=== PATIENT | female | born 1940 | race Asian ===

== ENCOUNTER 2016-11-23 15:26 | Inpatient (IN) | payer MEDICARE, OTHER ==
[~2016-11-23] VITALS: Ht 157.5 cm; Wt 50.0 kg
[2016-11-23 16:15] LABS: ADD SCAN DIFF NO
[2016-11-23 16:18] LABS: BASOPHILS % 0.2 % (0.0-2.0); EOSINOPHILS # 0.1 10^3/ul (0.0-0.5); EOSINOPHILS % 0.5 % (0.0-7.0); HEMATOCRIT 35.5 % (37.0-47.0); HEMOGLOBIN 12.1 g/dl (12.0-16.0); LYMPHOCYTES # 1.3 10^3/ul (0.8-2.9); LYMPHOCYTES % 8.7 % (15.0-51.0); MEAN CORPUSCULAR HEMOGLOBIN 29.9 pg (29.0-33.0); MEAN CORPUSCULAR HGB CONC 34.1 g/dl (32.0-37.0); MEAN CORPUSCULAR VOLUME 87.7 fl (82.0-101.0); MEAN PLATELET VOLUME 10.5 fl (7.4-10.4); MONOCYTE # 1.3 10^3/ul (0.3-0.9); MONOCYTES % 8.3 % (0.0-11.0); NEUTROPHIL # 12.3 10^3/ul (1.6-7.5); NEUTROPHILS % 81.8 % (39.0-77.0); PLATELET COUNT 214 10^3/UL (140-415); RED BLOOD COUNT 4.05 10^6/ul (4.20-5.40); RED CELL DISTRIBUTION WIDTH 12.3 % (11.5-14.5)
[2016-11-23 16:35] LABS: INR 0.9; PROTIME 12.1 Sec (12.2-14.2); PT RATIO 0.9
[2016-11-23 16:36] LABS: PARTIAL THROMBOPLASTIN TIME 27.3 Sec (25.0-35.0)
[2016-11-23 16:38] LABS: ALBUMIN 4.7 g/dl (3.3-4.9); ALBUMIN/GLOBULIN RATIO 1.34; BILIRUBIN,INDIRECT 0.6 mg/dl (0-1.1); BILIRUBIN,TOTAL 0.6 mg/dl (0.2-1.3); CREATININE 1.27 mg/dl (0.44-1.00); POTASSIUM 4.6 mmol/L (3.5-5.1); TOTAL PROTEIN 8.2 g/dl (6.1-8.1)
--- NOTE | 2016-11-23 16:39 | ERA ---
ER Documentation Chief Complaint Date/Time DATE: 11/23/16 TIME: 16:26 Chief Complaint left side weakness onset yesterday , has mri dx infarct HPI 76-year-old female Swedish speaking with a history of diabetes, hypertension presenting to the ER with her family for an abnormal MRI done today. She went to see her primary care doctor today for abnormal facial movement that started about 2 days ago. They have been constant but getting better and worse intermittently. She has also subjective left-sided weakness and a mild headache that has been worsening since 2 days ago. Her doctor ordered the MRI today which was done at an outside facility which showed findings compatible with multiple foci of acute infarct at the right cerebral hemisphere involving right MCA distribution with cortical laminar necrosis. 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 There is also acute ischemia in the left FELIPA distribution. There was partial occlusion of the right internal carotid artery as well. Patient is on aspirin daily. She does not take any other blood thinners. She has no new symptoms today and in fact she feels a little better today. No head injury. No vision disturbance. No numbness or tingling. No nausea or vomiting. She denies any chest pain or shortness of breath. ROS All systems reviewed and are negative except as per history of present illness. Medications Home Meds Reported Medications Diltiazem Hcl* (Cartia XT*) 240 Mg Cap.sr.24h, 240 MG PO DAILY, #30 CAP 11/23/16 Ramipril (Ramipril) 10 Mg Capsule, 10 MG PO DAILY, CAP 11/23/16 Tobramycin-Dexamethasone (Tobramycin-Dexamethasone Ophth) 0.3%-0.1% - 5 Ml Drops.susp, 1 DROP BOTH EYES Q4, #1 EA 11/23/16 Dexlansoprazole (Dexilant) 60 Mg Dennys.mp, 60 MG PO DAILY, #30 CAP 11/23/16 Sitagliptin* (Januvia*) 100 Mg Tablet, 100 MG PO DAILY, #30 TAB 11/23/16 Pregabalin* (Lyrica*) 50 Mg Capsule, 50 MG PO BID, CAP 11/23/16 Glipizide* (Glipizide*) 10 Mg Tablet, 10 MG PO AC BREAKFAST DINNER, TAB 11/23/16 Insulin Glargine* (Lantus*) 100 Unit/Ml Soln, 17 UNIT SC QHS, #1 VIAL 11/23/16 Discontinued Reported Medications Prednisone* (Prednisone*) 5 Mg Tab, 5 MG PO DAILY, TAB 11/23/16 Allergies Allergies: Coded Allergies: No Known Allergy (Unverified , 11/23/16) PMhx/Soc Medical and Surgical Hx: pt denies Surgical Hx History of Surgery: No Anesthesia Reaction: No Hx Neurological Disorder: No Hx Respiratory Disorders: No Hx Cardiac Disorders: No Hx Psychiatric Problems: No Hx Miscellaneous Medical Probl: Yes (DM, HTN) Hx Alcohol Use: No Hx Substance Use: No Hx Tobacco Use: No Smoking Status: Never smoker FmHx Family History: No coronary disease Physical Exam Vitals Vital Signs Date Time Temp Pulse Resp B/P Pulse Ox O2 Delivery O2 Flow Rate FiO2 11/23/16 18:00 98.1 82 18 176/78 99 11/23/16 15:33 98.1 78 20 200/86 99 Physical Exam Const: Well-appearing, laying comfortably in bed, no distress Head: Atraumatic Eyes: Normal Conjunctiva, right pupil constricted, not reactive to light. Left pupil about 3 mm, not reactive to light. Patient has history of bilateral eye surgeries. ENT: Normal External Ears, Nose and Mouth. Neck: Full range of motion..~ No meningismus. No JVD Resp: Clear to auscultation bilaterally Cardio: Regular rate and rhythm, early systolic murmur present, best heard at left upper sternal border. 2+ distal pulses in all 4 extremities Abd: Soft, non tender, non distended. Normal bowel sounds Skin: No petechiae or rashes Back: No midline or flank tenderness Ext: No cyanosis, or edema Neur: Awake and alert and oriented 3, normal speech, left facial droop present, mild deviation of the tongue to the left, all other cranial nerves intact. Strength and sensations intact in all 4 extremities. Psych: Normal Mood and Affect Result Diagram: 11/23/16 1610 11/23/16 1610 Results 24 hrs Laboratory Tests Test 11/23/16 16:10 11/23/16 17:45 White Blood Count 15.010^3/ul Red Blood Count 4.0510^6/ul Hemoglobin 12.1g/dl Hematocrit 35.5% Mean Corpuscular Volume 87.7fl Mean Corpuscular Hemoglobin 29.9pg Mean Corpuscular Hemoglobin Concent 34.1g/dl Red Cell Distribution Width 12.3% Platelet Count 01672^3/UL Mean Platelet Volume 10.5fl Neutrophils % 81.8% Lymphocytes % 8.7% Monocytes % 8.3% Eosinophils % 0.5% Basophils % 0.2% Nucleated Red Blood Cells % 0.0/100WBC Neutrophils # 12.310^3/ul Lymphocytes # 1.310^3/ul Monocytes # 1.310^3/ul Eosinophils # 0.110^3/ul Basophils # 0.010^3/ul Nucleated Red Blood Cells # 0.010^3/ul Prothrombin Time 12.1Sec Prothrombin Time Ratio 0.9 INR International Normalized Ratio 0.90 Activated Partial Thromboplast Time 27.3Sec Sodium Level 132mmol/L Potassium Level 4.6mmol/L Chloride Level 96mmol/L Carbon Dioxide Level 28mmol/L Anion Gap 13 Blood Urea Nitrogen 20mg/dl Creatinine 1.27mg/dl Glucose Level 257mg/dl Hemoglobin A1c 9.6% Calcium Level 10.0mg/dl Total Bilirubin 0.6mg/dl Direct Bilirubin 0.00mg/dl Indirect Bilirubin 0.6mg/dl Aspartate Amino Transf (AST/SGOT) 27IU/L Alanine Aminotransferase (ALT/SGPT) 33IU/L Alkaline Phosphatase 107IU/L Troponin I 0.056ng/ml Total Protein 8.2g/dl Albumin 4.7g/dl Globulin 3.50g/dl Albumin/Globulin Ratio 1.34 Urine Color LT. YELLOW Urine Clarity CLEAR Urine pH 7.0 Urine Specific [place] 1.020 Urine Ketones NEGATIVE Urine Nitrite NEGATIVE Urine Bilirubin NEGATIVE Urine Urobilinogen 1.0 E.U./dL Urine Leukocyte Esterase NEGATIVE Urine Microscopic RBC 0-2/HPF Urine Microscopic WBC 0-2/HPF Urine Squamous Epithelial Cells FEW Urine Hemoglobin NEGATIVE Urine Glucose >=1000% Urine Total Protein 2+ Urine Opiates Screen Negative Urine Barbiturates Negative Urine Amphetamines Screen Negative Urine Benzodiazepines Screen Negative Urine Cocaine Screen Negative Urine Cannabinoids Negative Current Medications Medications (Trade) Dose Ordered Sig/Tricia Route PRN Reason Start Time Stop Time Status Last Admin Dose Admin IV Flush 10 ml 10 ml STK-MED ONCE .ROUTE 11/23/16 17:14 11/23/16 17:15 DC 11/23/16 17:40 Sodium Chloride (NS) 100 ml @ ud STK-MED ONCE .ROUTE 11/23/16 17:14 11/23/16 17:15 DC 11/23/16 17:41 Iodixanol (Visipaque Locm) 100 ml STK-MED ONCE .ROUTE 11/23/16 17:14 11/23/16 17:15 DC 11/23/16 17:40 Iodixanol (Visipaque Locm) 50 ml STK-MED ONCE .ROUTE 11/23/16 17:14 11/23/16 17:15 DC Ondansetron HCl (Zofran Inj) 4 mg ER BRIDGE PRN IV NAUSEA AND/OR VOMITING 11/23/16 20:00 11/24/16 19:59 Acetaminophen (Tylenol Tab) 650 mg ER BRIDGE PRN PO MILD PAIN/FEVER 11/23/16 20:00 11/24/16 19:59 Procedures/MDM EKG: Rate/Rhythm: Normal Sinus Rhythm QRS, ST, T-waves: There is ST elevation in V1 through V4, about 2 small boxes with upsloping at the J point and with Q waves in V2 through V3.. There are also T-wave inversions in V6, I, aVL, and the inferior leads Impression: Concerning for possible ischemia, does not appear to be a STEMI Chest x-ray: IMPRESSION: 1. No acute cardiopulmonary process. 2. Atherosclerosis. RPTAT:PP .Leonardo Jackson MD, MD Date Time Electronically viewed and signed by .Leonardo Jackson MD, on 11/23/2016 16:47 CTA brain and neck: IMPRESSION: 1. Right internal carotid artery occlusion with cross filling of the right middle cerebral artery from the left side but asymmetric attenuation of the right middle cerebral artery branches corresponding with an ischemic right middle cerebral artery distribution infarct. 2. Results are discussed by telephone with Dr. Prabhakar at 18:27. Additional history is provided but the patient had a recent outpatient MRI showing additional abnormalities in the left anterior cerebral and right posterior cerebral artery distributions however there are no corresponding findings on this examination. Physician Carter Date Time Electronically viewed and signed by Physician Carter on 11/23/2016 18:35 IMPRESSION: 1. 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 2. Atheromatous disease contributing to an approximately 50-60% left proximal internal carotid artery stenosis. 3. Right vertebral artery dominant with a diminutive left vertebral artery but no evidence of occlusion, dissection or focal stenosis. 4. Results are discussed by telephone with Dr. Prabhakar at 18:27 Physician Carter Date Time Electronically viewed and signed by Physician Carter on 11/23/2016 18:27 Labs: CBC shows leukocytosis, BMP shows elevated creatinine, hemoglobin A1c elevated MDM Patient is presenting with an acute stroke in multiple distributions on the MRI report. Patient's symptoms started over 48 hours ago, so she does not meet TPA criteria. The patient brought her imaging with her on the CT, however I am not able to uploaded to our PACS system as there is no tech that can do this here. She will require inpatient workup and continuous monitoring. I spoke with the tele-neurologist on-call, Dr. High, who recommended CTA of the brain and neck but agreed with no TPA. She is likely having embolic versus ischemic strokes. Patient's EKG showed evidence of possible ischemia, however the patient does not have any cardiopulmonary symptoms that would be concerning for ACS. Troponin was within normal limits. CTA of the drain and neck showed complete occlusion of the right internal carotid and right MCA disease. Further w/u for will be deferred to the inpatient team. Patient is doing well at this time and is stable neurologically. Aspirin was given. Neuro Critical Care: Critical Care Time: 45 minutes Treatments/Evaluations: Given the language barrier, I spent a lot of time with the patient with a pedicab driver obtaining history and doing an exam. Continuous neurologic and cardiovascular monitoring for deterioration of neurologic function and complications, while obtaining immediate neurologic imaging. Discussed plan of care with family and patient. TPA Criteria Assessment: Patient is not a TPA candidate because: Last known normal > 48 hours Time Onset Unkown Accepting Care Team: Current data and ongoing care discussed. Time: Time of admission Primary Provider: Pablo Consulting: Lennox Outstanding Data: none Departure Diagnosis: Primary Impression: Acute arterial ischemic stroke, multifocal, multiple vascular territories Condition: Serious JAMIR PRABHAKAR MD Nov 23, 2016 16:37
[2016-11-23] MEDS ORDERED: LANT3I SC (16:45)
[2016-11-23] MEDS ORDERED: GLIP-95 PO (16:46)
[2016-11-23] MEDS ORDERED: PREG50CA PO (16:46)
[2016-11-23] MEDS ORDERED: SITA100T8 PO (16:47)
[2016-11-23] MEDS ORDERED: DEXL60CA2 PO (16:47)
--- NOTE | 2016-11-23 16:47 | RADRPT ---
PROCEDURE: CHEST 1VW CLINICAL INDICATION: Possible stroke TECHNIQUE: Single frontal view of the chest was obtained COMPARISON: None. FINDINGS: The cardiac size is normal. Aortic vascular calcifications are demonstrated. There is no pulmonary vascular congestion. The lungs are clear. No consolidation, effusion, or pneumothorax. Mild degenerative changes of the visualized osseous structures are visualized. IMPRESSION: 1. No acute cardiopulmonary process. 2. Atherosclerosis. RPTAT:PP .Leonardo Jackson MD, MD Date Time Electronically viewed and signed by .Leonardo Jackson MD, on 11/23/2016 16:47 .V/
[2016-11-23 16:48] LABS: TROPONIN-I 0.056 ng/ml (0.00-0.12)
[2016-11-23] MEDS ORDERED: TOBR5DRO14 BOTH EYES (16:49)
[2016-11-23] MEDS ORDERED: PRED5 PO (16:50)
[2016-11-23] MEDS ORDERED: RAMI10CA48 PO (16:51)
[2016-11-23] MEDS ORDERED: DILT240C62 PO (16:51)
[2016-11-23] MEDS ORDERED: IODIXANOL LOCM 100 ML BTL ONE (17:14)
[2016-11-23] MEDS ORDERED: IODIXANOL LOCM 50 ML BTL ONE (17:14)
[2016-11-23] MEDS ORDERED: SOD CHLORIDE 0.9% 100 ML ONE (17:14)
[2016-11-23 17:57] LABS: ADD UMIC YES; UR BILIRUBIN (Dip) NEGATIVE (NEGATIVE); UR BLOOD (Dip) NEGATIVE (NEGATIVE); UR CLARITY CLEAR (CLEAR); UR COLOR LT. YELLOW (YELLOW); UR GLUCOSE (Dip) >=1000 % (NEGATIVE); UR KETONES (Dip) NEGATIVE (NEGATIVE); UR LEUKOCYTE ESTERASE (Dip) NEGATIVE (NEGATIVE); UR NITRITE (Dip) NEGATIVE (NEGATIVE); UR TOTAL PROTEIN (Dip) 2+ (NEGATIVE); UR UROBILINOGEN (Dip) 1.0 E.U./dL (0.1-1.0)
[2016-11-23 18:07] LABS: UR SQUAMOUS EPITHELIAL CELL FEW; URINE RBCS 0-2 /HPF (0)
[2016-11-23 18:21] LABS: BARBITURATES Negative (NEGATIVE); BENZODIAZEPINES Negative (NEGATIVE); CANNABINOIDS Negative (NEGATIVE); COCAINE Negative (NEGATIVE); OPIATES Negative (NEGATIVE)
--- NOTE | 2016-11-23 18:28 | RADRPT ---
PROCEDURE: CTA Neck. CLINICAL INDICATION: Stroke symptoms. TECHNIQUE: The study was performed utilizing direct spiral axial sections were obtained through th e neck with the use of 100 cc of Visipaque 320 nonionic intravenous contrast material. Coronal and sagittal as well as maximal intensity projection reformations were obtained. No 3-D series is submit piyush. The images were reviewed on a PACS workstation. CTDI = 40.68 mGy; DLP = 705.51 mGy-cm COMPARISON: None available FINDINGS: Aortic arch: Moderate to severe atherosclerotic calcification is present. There is no evidence of aneurysm or dissection. Moderate to severe calcified atheromatous disease is seen within the origin s of the great vessels without significant stenosis. Right carotid system: Mild intimal thickening and focal atherosclerotic calcification along the mid posterior wall of the common carotid artery is present a less than 50% degree stenosis. The carot id bifurcation demonstrates severe atherosclerotic calcification and noncalcified atheromatous billingsley es. No enhancement of the internal carotid artery is identified from the origin to the terminus. Fi ndings are compatible with complete occlusion of the right internal carotid artery. Left carotid system: Moderate intimal thickening atheromatous disease is present without evidence of significant stenosis. No irregularity of the wall is present. Severe calcified atheromatous disea se at the bifurcation is seen. Moderate to severe calcified and noncalcified atheromatous changes o f the proximal internal carotid artery are present contributing to a stenosis estimated at 50-60% th e luminal diameter. No additional stenosis of the remaining cervical internal carotid artery are see n. There is some calcification within the posterior wall of the distal cervical internal carotid ar joe segment. Right vertebral artery: The origin demonstrates calcified atheromatous disease without stenosis. T here is no evidence for occlusion and the artery is dominant compared with the contralateral side. There is no finding to suggest dissection or stenosis. Left vertebral artery: The origin is normal without stenosis. Diffusely diminutive in size compared to the prior examination with enhancement seen to the termination intracranially. There is no find ing to suggest dissection or stenosis. Non vascular findings: Tiny hypodense thyroid nodules are incidentally seen. RPTAT:HJJR IMPRESSION: 1. 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 2. Atheromatous disease contributing to an approximately 50-60% left proximal internal carotid arter y stenosis. 3. Right vertebral artery dominant with a diminutive left vertebral artery but no evidence of occlu roly, dissection or focal stenosis. 4. Results are discussed by telephone with Dr. Prabhakar at 18:27 Waqas Reese Physician Date Time Electronically viewed and signed by Waqas Reese, Physician on 11/23/2016 18:27 JR/
--- NOTE | 2016-11-23 18:35 | RADRPT ---
PROCEDURE: CT angiogram brain. CLINICAL INDICATION: Stroke symptoms TECHNIQUE: The study was performed utilizing a GE 64-slice multidetector CT scanner. 0.6 axial se ctions were obtained from the skull base to the vertex with the use of 100 cc of Visipaque 320 intra venous contrast. Multiplanar and rotational MIP reformats were obtained. 3-D reconstructions were n ot obtained. CTDIvol = 40.68 mGy and DLP = 705.51 mGycm. COMPARISON: CT angiogram neck 11/23/2016 FINDINGS: Internal carotid arteries: Lack of enhancement on the right is present to the terminus consistent w ith complete occlusion. The left side shows mild to moderate stenosis of approximately 40-50% in th e cavernous segment. Anterior cerebral arteries: There is no evidence of anterior communicating artery aneurysm and the A2 segments are symmetric without evidence of occlusion or significant stenosis. Middle cerebral arteries: Asymmetric attenuation of the right M2 branches is present, cross filling of the right side from the left internal carotid artery is noted with some asymmetric attenuation o f the right M1 segment as well. The left branches are unremarkable. The abnormality is likely thiago elate clinically with the right middle cerebral artery distribution infarct, some hypodensity on the CT within the right parietal lobe is noted with loss of hutchinson/white matter differentiation between t he right insular cortex and sub insular white matter. Posterior cerebral arteries: Symmetric in caliber and without evidence of occlusion or focal stenos is of significance. Basilar artery: Atheromatous disease is mild without evidence of occlusion, mild stenosis of the mi d segment is suggested estimated at less than 50%. Venous structures: No abnormality of the dural sinuses is identified. Brain parenchyma: Advanced atrophy for age is present with changes in the right temporal and pariet al lobe concerning for ischemic infarct. There is no significant mass effect and no hemorrhage or m ass lesion is present. RPTAT:HJJR IMPRESSION: 1. Right internal carotid artery occlusion with cross filling of the right middle cerebral artery f rom the left side but asymmetric attenuation of the right middle cerebral artery branches correspond ing with an ischemic right middle cerebral artery distribution infarct. 2. Results are discussed by telephone with Dr. Prabhakar at 18:27. Additional history is provided b ut the patient had a recent outpatient MRI showing additional abnormalities in the left anterior cer ebral and right posterior cerebral artery distributions however there are no corresponding findings on this examination. Waqas Reese, Physician Date Time Electronically viewed and signed by Waqas Reese, Physician on 11/23/2016 18:35 /
[2016-11-23] MEDS ORDERED: ACETAMINOPHEN 325 MG TAB PO PRN (20:00)
[2016-11-23] MEDS ORDERED: ONDANSETRON 4 MG INJ IV PRN (20:00)
[2016-11-23] MEDS ORDERED: ASPIRIN 325 MG TAB PO ONE (21:30)
[2016-11-23 21:50] VITALS: TEMP 99.1
[2016-11-23 22:45] VITALS: BP 195/77; RESP 17
[2016-11-23 22:52] VITALS: Ht 157.5 cm; Wt 50.0 kg
[2016-11-23 22:58] VITALS: PULSE 75; PULSE 77
[2016-11-23] MEDS ORDERED: hydrALAzine 20 MG INJ IV PRN (23:30)
[2016-11-24] VITALS (11 sets, daily range): BP systolic 135–196; BP diastolic 61–89; PULSE 66–90; RESP 16–18
--- NOTE | 2016-11-24 00:37 | PQ ---
Date/Time of Note Date/Time of Note DATE: 11/24/16 TIME: 00:36 Physician Query I was called regarding this patient. 76yo F, symptoms began 2 days ago, and patient had MRI today which demonstrates strokes in right MCA and right PROJECT CONTROL MANAGER territories. I agreed that patient is not a TPA candidate or neurointerventional candidate at this time. I advised that patient undergo MRA of the head and neck and transthoracic echocardiogram, but patient should also undergo transesophageal echocardiogram as these MRI findings are suggestive of a cardioembolic source. I recommend aspirin 325mg daily. No further consult was requested. MARYLIN JOHNSON Nov 24, 2016 00:37
[2016-11-24] MEDS ORDERED: GLUCOSE GEL 15 GRAM TUBE PO PRN ×2 (01:00)
[2016-11-24] MEDS ORDERED: DEXTROSE 50% 50 ML SYRINGE IV PRN ×2 (01:00)
[2016-11-24] MEDS ORDERED: GLUCAGON 1 MG INJ IM PRN (01:00)
[2016-11-24] MEDS ORDERED: GLUCOSE GEL 15 GRAM TUBE BUCCAL PRN (01:00)
[2016-11-24] MEDS: ACCU-CHEK XX SCH (02:03)
[2016-11-24 07:23] LABS: ADD SCAN DIFF NO
[2016-11-24 07:28] LABS: BASOPHILS % 0.2 % (0.0-2.0); EOSINOPHILS # 0.1 10^3/ul (0.0-0.5); EOSINOPHILS % 0.8 % (0.0-7.0); HEMATOCRIT 35.4 % (37.0-47.0); LYMPHOCYTES # 1.5 10^3/ul (0.8-2.9); LYMPHOCYTES % 13.9 % (15.0-51.0); MEAN CORPUSCULAR HEMOGLOBIN 30.1 pg (29.0-33.0); MEAN CORPUSCULAR HGB CONC 33.9 g/dl (32.0-37.0); MEAN CORPUSCULAR VOLUME 88.7 fl (82.0-101.0); MEAN PLATELET VOLUME 10.7 fl (7.4-10.4); MONOCYTE # 1.2 10^3/ul (0.3-0.9); MONOCYTES % 10.8 % (0.0-11.0); NEUTROPHIL # 8.1 10^3/ul (1.6-7.5); NEUTROPHILS % 73.8 % (39.0-77.0); PLATELET COUNT 224 10^3/UL (140-415); RED BLOOD COUNT 3.99 10^6/ul (4.20-5.40); RED CELL DISTRIBUTION WIDTH 12.4 % (11.5-14.5)
--- NOTE | 2016-11-24 07:48 | HP ---
DATE OF ADMISSION: 11/23/2016 TIME SEEN: 2200. CHIEF COMPLAINT: Left-sided weakness. HISTORY OF PRESENT ILLNESS: The patient is a 76-year-old male with a history of diabetes and hypert ension who was sent to the ER by his PMD for abnormal brain MRI. The patient had left-sided weaknes s, as well as some facial twitching. MRI done today at an outside facility showed multiple foci of acute infarcts at the right cerebral hemisphere involving the right MCA distribution, with cortical laminar necrosis. There were also some foci which appear subacute, with possible PTCA involvement, and also acute ischemia in the left FELIPA distribution. There was partial occlusion of the right inte rnal carotid artery as well. On presentation to the ER, blood pressure was 200/86, heart rate 78, r espiratory rate 20, temperature 98.1, oxygen saturation 99% on room air. Labs show a sodium of 132, creatinine 1.27, glucose 257. Hemoglobin A1c 9.6, WBC 15. Head and neck CT were done which showed complete occlusion of the right internal carotid artery from the origin to the . Also athero matous disease contributing to an approximately 50% to 60% left proximal internal carotid artery jaclyn nosis. Right vertebral artery dominant, with diminutive left vertebral artery, but no evidence of o cclusion, dissection or focal stenosis. The patient was given aspirin 325 mg orally while in the ER . He was evaluated by the on-call tele-neurologist, , who stated that the patient is not a TPA candidate, with recommendation for MRA of the head and neck, TTE and KASIA. On further questio sathish, the patient complains of chronic lower back and knee pain. No chest pain, shortness of breath , nausea, vomiting, fever or chills. REVIEW OF SYSTEMS: A 12-point review of system was performed and negative except as mentioned in the HPI. REVIEW OF SYSTEMS: A 12-point review of systems was performed and negative except as mentioned in t he HPI. PAST MEDICAL HISTORY: As per HPI. SOCIAL HISTORY: Denied a history of tobacco, alcohol or illicit drug use. ALLERGIES: NO KNOWN DRUG ALLERGIES. HOME MEDICATION: 1. Diltiazem. 2. Ramipril. 3. Lyrica. 4. Tobramycin/dexamethasone eyedrops. 5. Dexilant. 6. Glipizide. 7. Insulin Lantus. 8. Januvia. PHYSICAL EXAMINATION: VITAL SIGNS: Blood pressure of 195/77, heart rate 79, respiratory rate 17, temperature 99.8, oxygen saturation 98% on room air. GENERAL: The patient is lying in bed, in no acute distress. Looks comfortable. HEENT: Normocephalic, atraumatic. Pupils are reactive to light. CARDIOVASCULAR: Regular rate and rhythm. LUNGS: Clear. ABDOMEN: Soft, nontender. Positive bowel sounds. EXTREMITIES: No edema. NEUROLOGIC: No focal deficits, with 5/5 strength in both upper and lower extremities. There is a l eft-sided facial droop. LABORATORY: Pertinent positives as mentioned in the HPI. IMAGING: CT angiogram of the head and neck as mentioned in the HPI. Chest x-ray shows no acute car diopulmonary process. IMPRESSION: 1. Acute/subacute cerebrovascular accident. 2. Complete occlusion of the right internal carotid artery. 3. 50% to 60% stenosis of the left proximal internal carotid artery. 4. Hypertensive urgency. 5. Diabetes, with hyperglycemia. 6. Hyponatremia. 7. Presumed acute kidney injury. PLAN: Continue telemetry monitoring. Will place neurology and vascular consults. I will start him on a blood thinner and statin. Meanwhile, will continue insulin for diabetes. Will continue home antihypertensives, with adjustment as needed for better blood pressure control. Will check an A1c a nd fasting lipids in the morning. The patient will have physical therapy and speech evaluation. Further workup and management per clinical course. Dictated By: SILVIA MATTSON/VIKKI Conf#: [id number] DID#: [id number]
[2016-11-24 07:50] LABS: ALBUMIN 4.2 g/dl (3.3-4.9); ALBUMIN/GLOBULIN RATIO 1.35; BILIRUBIN,INDIRECT 0.5 mg/dl (0-1.1); BILIRUBIN,TOTAL 0.5 mg/dl (0.2-1.3); CALCIUM 9.5 mg/dl (8.4-10.2); CHOL/HDL RATIO 4.4 RATIO; CREATININE 1.57 mg/dl (0.44-1.00); MAGNESIUM 2.1 mg/dl (1.7-2.5); PHOSPHORUS 4.1 mg/dl (2.5-4.9); TOTAL PROTEIN 7.3 g/dl (6.1-8.1)
[2016-11-24] MEDS: INSULIN ASPART [NOVOLOG] 3 ML PEN SC SCH ×4 (08:30→21:21)
[2016-11-24] MEDS: ASPIRIN 81 MG TAB PO SCH (08:32)
[2016-11-24] MEDS ORDERED: ENOXAPARIN 60 MG/0.6 ML SYG SC SCH (09:00)
[2016-11-24] MEDS ORDERED: ENOXAPARIN 40 MG/0.4 ML SYG SC SCH (09:00)
--- NOTE | 2016-11-24 12:18 | CONS ---
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 Recommendations: -permissive hypertension allowed SBP up to 140 for adequate perfusion -continue on aspirin and statin dosing -repeat MRI Brain without contrast -agree with plan for KASIA to r/o LA thrombus -vascular surgery evaluation planned -check FLP and HBA1C optimization of secondary risk factors -tele monitoring for afib -DVT ppx -PT/OT/Speech evaluation will follow w further recommendations Problems: Consultation Date/Type/Reason Admit Date/Time Nov 23, 2016 at 19:44 Date of Consultation: Nov 24, 2016 Type of Consultation: Neurology Reason for Consultation Right CVA Referring Provider: DARRELL MYERS MD Hx of Present Illness 76 yo male with history of diabetes, hypertension admitted with symptoms of left sided weakness ongoing for over a week. She had an MRI done at outside facility showed multiple acute infarcts right cerebral hemisphere involving Right MCA with laminar necrosis some subacte infarcts, acute ischemic changes also seen in left FELIPA territory. Per family she has been acting confused over the past week, repeating herself frequently, no seizure rpoted. On admission to ER SBP elevated 200 range, CTA showed occlusion Right ICA and moderate stenosis 50-60% of Left proximal ICA. She was given aspirin, started on statin Lipitor 40 admitted for further management. left sided weakness Social History Smoking Status: Never smoker Exam/Review of Systems Vital Signs Vitals Vital Signs Date Time Temp Pulse Resp B/P Pulse Ox O2 Delivery O2 Flow Rate FiO2 11/24/16 12:04 69 11/24/16 11:30 98.4 16 196/89 97 190/81 Intake and Output 11/23/16 11/23/16 11/24/16 15:00 23:00 07:00 Intake Total 120 ml Balance 120 ml Exam awake and alert oriented to hospital self recognizes family conversive in Khmer with family gazes in all directions no significant neglect CN: DENISE blinks to threat left UMN facial weakness palate upgoing uvula midline scm/trap intact tongue midline Motor: left arm mild weakness 5-/5, left leg mild weakness 5-/5 can maintain extremities anti-gravity for several seconds without drift to bed Sensory intact Coordination intact Results Result Diagram: 11/24/16 0630 11/24/16 0630 Results 24 hrs Laboratory Tests Test 11/23/16 16:10 11/23/16 17:45 11/23/16 23:55 11/24/16 06:30 White Blood Count 15.0 H 11.0 #H Red Blood Count 4.05 L 3.99 L Hemoglobin 12.1 12.0 Hematocrit 35.5 L 35.4 L Mean Corpuscular Volume 87.7 88.7 Mean Corpuscular Hemoglobin 29.9 30.1 Mean Corpuscular Hemoglobin Concent 34.1 33.9 Red Cell Distribution Width 12.3 12.4 Platelet Count 214 224 Mean Platelet Volume 10.5 H 10.7 H Neutrophils % 81.8 H 73.8 Lymphocytes % 8.7 L 13.9 L Monocytes % 8.3 10.8 Eosinophils % 0.5 0.8 Basophils % 0.2 0.2 Nucleated Red Blood Cells % 0.0 0.0 Neutrophils # 12.3 H 8.1 H Lymphocytes # 1.3 1.5 Monocytes # 1.3 H 1.2 H Eosinophils # 0.1 0.1 Basophils # 0.0 0.0 Nucleated Red Blood Cells # 0.0 0.0 Prothrombin Time 12.1 L Prothrombin Time Ratio 0.9 INR International Normalized Ratio 0.90 Activated Partial Thromboplast Time 27.3 Sodium Level 132 L 135 Potassium Level 4.6 4.0 Chloride Level 96 L 103 Carbon Dioxide Level 28 25 Anion Gap 13 11 Blood Urea Nitrogen 20 21 H Creatinine 1.27 H 1.57 H Glucose Level 257 H 151 # Hemoglobin A1c 9.6 H 6.6 H Calcium Level 10.0 9.5 Total Bilirubin 0.6 0.5 Direct Bilirubin 0.00 0.00 Indirect Bilirubin 0.6 0.5 Aspartate Amino Transf (AST/SGOT) 27 24 Alanine Aminotransferase (ALT/SGPT) 33 25 Alkaline Phosphatase 107 91 Troponin I 0.056 Total Protein 8.2 H 7.3 Albumin 4.7 4.2 Globulin 3.50 H 3.10 Albumin/Globulin Ratio 1.34 1.35 Urine Color LT. YELLOW Urine Clarity CLEAR Urine pH 7.0 Urine Specific [place] 1.020 Urine Ketones NEGATIVE Urine Nitrite NEGATIVE Urine Bilirubin NEGATIVE Urine Urobilinogen 1.0 E.U./dL Urine Leukocyte Esterase NEGATIVE Urine Microscopic RBC 0-2 Urine Microscopic WBC 0-2 Urine Squamous Epithelial Cells FEW Urine Hemoglobin NEGATIVE Urine Glucose >=1000 Urine Total Protein 2+ H Urine Opiates Screen Negative Urine Barbiturates Negative Urine Amphetamines Screen Negative Urine Benzodiazepines Screen Negative Urine Cocaine Screen Negative Urine Cannabinoids Negative Bedside Glucose 152 Phosphorus Level 4.1 Magnesium Level 2.1 Triglycerides Level 117 Cholesterol Level 229 H LDL Cholesterol, Calculated 155 HDL Cholesterol 51 Cholesterol/HDL Ratio 4.4 Test 11/24/16 07:40 11/24/16 11:33 Bedside Glucose 228 H 252 H Medications Medications Current Medications Hydralazine HCl (Apresoline) 10 mg Q6H PRN IV ELEVATED BLOOD PRESSURE Last administered on 11/23/16 23:45; Admin Dose 10 MG; Start 11/23/16 at 23:30 Aspirin (Aspirin) 81 mg DAILY PO Last administered on 11/24/16 08:32; Admin Dose 81 MG; Start 11/24/16 at 09:00 Atorvastatin Calcium (Lipitor) 40 mg HS PO ; Start 11/24/16 at 21:00 Ondansetron HCl (Zofran Inj) 4 mg Q6H PRN IV NAUSEA AND/OR VOMITING; Start 11/24 at 00:30 Acetaminophen (Tylenol Tab) 650 mg Q6H PRN PO PAIN AND OR ELEVATED TEMP; Start 11/24/16 at 00:30 Insulin Glargine (Lantus) 10 unit HS SC ; Start 11/24/16 at 21:00 Diagnostic Test (Pha) (Accu-Chek) 1 ea 02 XX Last administered on 11/24/16 02: 03; Admin Dose 1 EA; Start 11/24/16 at 02:00 Miscellaneous Information 1 ea NOTE XX ; Start 11/24/16 at 01:00 Glucose (Glutose) 15 gm Q15M PRN PO DECREASED GLUCOSE; Start 11/24/16 at 01:00 Glucose (Glutose) 22.5 gm Q15M PRN PO DECREASED GLUCOSE; Start 11/24/16 at 01:00 Dextrose (D50w Syringe) 25 ml Q15M PRN IV DECREASED GLUCOSE; Start 11/24/16 at 01:00 Dextrose (D50w Syringe) 50 ml Q15M PRN IV DECREASED GLUCOSE; Start 11/24/16 at 01:00 Glucagon (Glucagen) 1 mg Q15M PRN IM DECREASED GLUCOSE; Start 11/24/16 at 01:00 Glucose (Glutose) 15 gm Q15M PRN BUCCAL DECREASED GLUCOSE; Start 11/24/16 at 01: 00 Enoxaparin Sodium (Lovenox) 50 mg DAILY SC ; Start 11/25/16 at 09:00 CINTHIA DURAN MD Nov 24, 2016 12:18
--- NOTE | 2016-11-24 12:57 | PN ---
Date/Time of Note Date/Time of Note DATE: 11/24/16 TIME: 12:53 Assessment/Plan VTE Prophylaxis VTE Prophylaxis Intervention: LMWH Lines/Catheters IV [facility] [place] Lock Urinary Cath still in place: No Assessment/Plan Chief Complaint/Hosp Course S: Lt-sided weakness 1 week. Speech clear according to family with child support case officer. No dyspnea no dysphagia dysarthria. O: SR, no A. fib PE No pallor adenopathy JVD. Left droop positive Regular Clear Benign No edema CN II-XII grossly intact, M5 x 54- however weaker on lt; sensory symmetrical, reflexes symmetrical, Babinski's none. A/P 1. Subacute Rt MCA infarct, Lt FELIPA infarct. Stable cont bp/diabetes/ cholesterol management. Start PT OT ST. Acute rehab consult. Non-smoker. -Watch for A fib, check 2D echo/MRI. Consider KASIA if indicated. 2. Right carotid stenosis appears 100%. Left carotid may need intervention. High risk of stroke, patient needs advanced care planning reevaluated. 3. Diabetes A1c 6-9? 4. Chronic hypertension/dyslipidemia 5. Chronic kidney disease Problems: Exam/Review of Systems Vital Signs Vitals Vital Signs Date Time Temp Pulse Resp B/P Pulse Ox O2 Delivery O2 Flow Rate FiO2 11/24/16 12:04 69 11/24/16 11:30 98.4 16 196/89 97 190/81 Intake and Output 11/23/16 11/23/16 11/24/16 15:00 23:00 07:00 Intake Total 120 ml Balance 120 ml Results Result Diagram: 11/24/16 0630 11/24/16 0630 Results 24 hrs Laboratory Tests Test 11/23/16 16:10 11/23/16 17:45 11/23/16 23:55 11/24/16 06:30 White Blood Count 15.0 H 11.0 #H Red Blood Count 4.05 L 3.99 L Hemoglobin 12.1 12.0 Hematocrit 35.5 L 35.4 L Mean Corpuscular Volume 87.7 88.7 Mean Corpuscular Hemoglobin 29.9 30.1 Mean Corpuscular Hemoglobin Concent 34.1 33.9 Red Cell Distribution Width 12.3 12.4 Platelet Count 214 224 Mean Platelet Volume 10.5 H 10.7 H Neutrophils % 81.8 H 73.8 Lymphocytes % 8.7 L 13.9 L Monocytes % 8.3 10.8 Eosinophils % 0.5 0.8 Basophils % 0.2 0.2 Nucleated Red Blood Cells % 0.0 0.0 Neutrophils # 12.3 H 8.1 H Lymphocytes # 1.3 1.5 Monocytes # 1.3 H 1.2 H Eosinophils # 0.1 0.1 Basophils # 0.0 0.0 Nucleated Red Blood Cells # 0.0 0.0 Prothrombin Time 12.1 L Prothrombin Time Ratio 0.9 INR International Normalized Ratio 0.90 Activated Partial Thromboplast Time 27.3 Sodium Level 132 L 135 Potassium Level 4.6 4.0 Chloride Level 96 L 103 Carbon Dioxide Level 28 25 Anion Gap 13 11 Blood Urea Nitrogen 20 21 H Creatinine 1.27 H 1.57 H Glucose Level 257 H 151 # Hemoglobin A1c 9.6 H 6.6 H Calcium Level 10.0 9.5 Total Bilirubin 0.6 0.5 Direct Bilirubin 0.00 0.00 Indirect Bilirubin 0.6 0.5 Aspartate Amino Transf (AST/SGOT) 27 24 Alanine Aminotransferase (ALT/SGPT) 33 25 Alkaline Phosphatase 107 91 Troponin I 0.056 Total Protein 8.2 H 7.3 Albumin 4.7 4.2 Globulin 3.50 H 3.10 Albumin/Globulin Ratio 1.34 1.35 Urine Color LT. YELLOW Urine Clarity CLEAR Urine pH 7.0 Urine Specific [place] 1.020 Urine Ketones NEGATIVE Urine Nitrite NEGATIVE Urine Bilirubin NEGATIVE Urine Urobilinogen 1.0 E.U./dL Urine Leukocyte Esterase NEGATIVE Urine Microscopic RBC 0-2 Urine Microscopic WBC 0-2 Urine Squamous Epithelial Cells FEW Urine Hemoglobin NEGATIVE Urine Glucose >=1000 Urine Total Protein 2+ H Urine Opiates Screen Negative Urine Barbiturates Negative Urine Amphetamines Screen Negative Urine Benzodiazepines Screen Negative Urine Cocaine Screen Negative Urine Cannabinoids Negative Bedside Glucose 152 Phosphorus Level 4.1 Magnesium Level 2.1 Triglycerides Level 117 Cholesterol Level 229 H LDL Cholesterol, Calculated 155 HDL Cholesterol 51 Cholesterol/HDL Ratio 4.4 Test 11/24/16 07:40 11/24/16 11:33 Bedside Glucose 228 H 252 H Medications Medications Current Medications Hydralazine HCl (Apresoline) 10 mg Q6H PRN IV ELEVATED BLOOD PRESSURE Last administered on 11/23/16t 23:45; Admin Dose 10 MG; Start 11/23/16 at 23:30 Aspirin (Aspirin) 81 mg DAILY PO Last administered on 11/24/16 08:32; Admin Dose 81 MG; Start 11/24/16 at 09:00 Atorvastatin Calcium (Lipitor) 40 mg HS PO ; Start 11/24/16 at 21:00 Ondansetron HCl (Zofran Inj) 4 mg Q6H PRN IV NAUSEA AND/OR VOMITING; Start 11/24 at 00:30 Acetaminophen (Tylenol Tab) 650 mg Q6H PRN PO PAIN AND OR ELEVATED TEMP; Start 11/24/16 at 00:30 Insulin Glargine (Lantus) 10 unit HS SC ; Start 11/24/16 at 21:00 Diagnostic Test (Pha) (Accu-Chek) 1 ea 02 XX Last administered on 11/24/16 02: 03; Admin Dose 1 EA; Start 11/24/16 at 02:00 Miscellaneous Information 1 ea NOTE XX ; Start 11/24/16 at 01:00 Glucose (Glutose) 15 gm Q15M PRN PO DECREASED GLUCOSE; Start 11/24/16 at 01:00 Glucose (Glutose) 22.5 gm Q15M PRN PO DECREASED GLUCOSE; Start 11/24/16 at 01:00 Dextrose (D50w Syringe) 25 ml Q15M PRN IV DECREASED GLUCOSE; Start 11/24/16 at 01:00 Dextrose (D50w Syringe) 50 ml Q15M PRN IV DECREASED GLUCOSE; Start 11/24/16 at 01:00 Glucagon (Glucagen) 1 mg Q15M PRN IM DECREASED GLUCOSE; Start 11/24/16 at 01:00 Glucose (Glutose) 15 gm Q15M PRN BUCCAL DECREASED GLUCOSE; Start 11/24/16 at 01: 00 Enoxaparin Sodium (Lovenox) 50 mg DAILY SC ; Start 11/25/16 at 09:00 DARRELL MYERS MD Nov 24, 2016 12:57
[2016-11-24] MEDS: PANTOPRAZOLE (EC) 40 MG TAB PO SCH (13:46)
[2016-11-24] MEDS: LISINOPRIL 5 MG TAB PO SCH (13:51)
[2016-11-24] MEDS: hydrALAzine 20 MG INJ IV PRN ×2 (14:05→22:08)
--- NOTE | 2016-11-24 14:34 | CONS ---
DATE OF ADMISSION: 11/23/2016 DATE OF CONSULTATION: 11/24/2016 VASCULAR SURGERY CONSULTATION Dear Doctors: Ms. Ramires is a 76-year-old female who presented to [facility] secondary to left-side d weakness that she has had for over a week. Upon evaluation of stroke, on MRI it was identified th at the patient has had multiple infarcts of the right cerebral hemisphere involving the right MCA an d with laminar necrosis, some subacute infarcts and acute ischemic changes in the left FELIPA territory . Upon her neck CT angiography, it was identified that the patient has complete occlusion of the ri ght internal carotid artery from the origin to the terminus and there is atherosclerotic disease mable t is approximately 50% to 60% of the left proximal internal carotid artery. Her right vertebral art akanksha is dominant with diminutive left vertebral artery, but no evidence of occlusion there. Upon dis cussion with the family, at the moment the patient's symptoms have mostly resolved. The patient men tioned that she had a CT of the neck in the past and they had known that the patient did have some s tenosis about 5 years ago; however, they have not necessarily followed up and they recently have priti rated from [place]. REVIEW OF SYSTEMS: A 14-point review performed and negative except what is mentioned in the HPI. PAST MEDICAL HISTORY: Entails diabetes, hypertension, recent stroke, coronary artery disease. PAST SURGICAL HISTORY: None reported. SOCIAL HISTORY: Denies tobacco, alcohol or illicit drug use. FAMILY HISTORY: Hypertension. ALLERGIES: NO KNOWN DRUG ALLERGIES. PHYSICAL EXAMINATION: GENERAL: Alert and oriented x3, although the patient did have some difficulty with her speech upon her presentation and now it seems to have resolved. She is able to follow commands appropriately. HEENT: Normocephalic, atraumatic. PERRLA, EOMI. Mucosa moist. NEUROLOGIC: Cranial nerves II through XII are intact. NECK: Supple. No carotid bruit. PULMONARY: Clear to auscultation bilaterally. No crackles. CARDIOVASCULAR: S1, S2 present. No murmurs. ABDOMEN: Soft, nontender, nondistended. Bowel sounds positive. EXTREMITIES: Upper extremities: Palpable brachial pulse. Motor and sensory intact. Capillary ref ill 2 to 3 and equal bilaterally. Lower extremities: Palpable femoral pulse, nonpalpable pedal pulse. Motor and sensory intact. Cap illary refill 2 to 3 seconds. ASSESSMENT AND PLAN: 1. Right internal carotid artery stenosis with stroke: It seems the patient has new findings of ri ght brain stroke related to her occlusion of her right internal carotid artery. From the standpoint of vascular surgery, there is no surgical intervention other than to continue with antiplatelet the rapy. We will defer this to our neurology stroke service for further evaluation and recommendation if they would prefer the patient being on dual antiplatelet therapy versus one. 2. Left internal carotid artery stenosis: The patient has bilateral carotid disease and with recen t findings of her stroke, we will plan to wait 4 to 6 weeks for her to stabilize from the standpoint of the stroke, and we will schedule the patient for eventual carotid endarterectomy as the patient has bilateral disease and now is dependent solely on the left internal carotid for her perfusion. Optimize vascular status (BP meds, diet, nutrition, exercise, sugar control, antiplatelets). Discussed findings, plan and management with the patient and the at the bedside with a certi fied security tech, and they understand. Thank you for allowing us to partake in the care of your patient. Please call with any questions. Dictated By: ALEXANDER SINGLETON/VIKKI Conf#: [id number] DID#: [id number]
[2016-11-24] MEDS ORDERED: hydrALAzine 20 MG INJ IV PRN (15:00)
--- NOTE | 2016-11-24 15:35 | RADRPT ---
Echocardiogram Report Patient Name: LETTY JOSE Gender: Female Date: 1940 Study Date: 25-Nov-2016 Access Spec: [id number] Location: I Ref. Physician: SILVIA DESOUZA Quality: Good Procedures: Transthoracic echocardiogram examination, limited to bubble exam only. Indications: Cerebrovascular Accident. Findings Left Ventricle: Normal left ventricular cavity size. Normal left ventricular systolic function. Right Ventricle: Bubbles were injected and appear to image only in the right side. Right Atrium: Bubbles noted in the right atrium. Atrial Septum: Normal atrial septum. Agitated saline was injected intravenously for microbubble contrast study. No right to left shunt was identified. Conclusions 1.Normal left ventricular cavity size. Normal left ventricular systolic function. 2.Normal atrial septum. Agitated saline was injected intravenously for microbubble contrast study. No right to left shunt was identified. No definite findings of Patent foramen ovale or other inter-atrial septal defect. Electronically Signed By: Geoffrey Duarte 26-Nov-2016 13:55:55 -0700 Patient Name: LETTY JOSE Study Date: 25-Nov-[id number]
--- NOTE | 2016-11-24 15:51 | RADRPT ---
PROCEDURE: MR Brain without contrast. CLINICAL INDICATION: Rt MCA territory stroke, neurologic deficit TECHNIQUE: An MRI of the brain was performed on a high-resolution MR scanner utilizing the followi ng sequences: Sagittal and axial T1 weighted, axial T2 weighted, axial FLAIR, coronal GRE, and axial diffusion weighted with ADC mapping. Images were reviewed high-resolution PACS workstation. No con trast was administered. COMPARISON: CT angiogram head and neck 11/23/2016 FINDINGS: No acute parenchymal hemorrhage, mass effect, or midline shift. Diffusion restriction in the right A CA/MCA borderzone territory in a parallel distribution adjacent to the right lateral ventricle. Ther e is also diffusion restriction in the right basal ganglia, right posterior temporal lobe, right par ietal lobe, and left anterior genu corpus callosum. Additional periventricular white matter T2-weigh piyush/FLAIR hyperintensities are consistent with chronic microvascular ischemic disease. No suspicious parenchymal hypointense signal abnormalities are seen on the GRE images to suggest the presence of blood degradation products. Prominence of the cortical sulci and ventricles are related to mild cerebral volume loss. Absence of the right internal carotid artery flow void. No significant opacification of the paranasal sinuses or mastoids. IMPRESSION: Acute infarcts involving the right FELIPA/MCA borderzone territory. Additional infarcts are also seen involving the right basal ganglia, right posterior temporal lobe, and right parietal lobe in the right MCA territory. Acute infarcts in the left anterior genu corpus callosum in the left FELIPA territory. Absence of the right internal carotid artery flow void compatible with known vessel occlusion. RPTAT: AA .Errol Craft MD, MD Date Time Electronically viewed and signed by .Errol Craft MD, on 11/24/2016 15:51 .T/
[2016-11-24] MEDS: ONDANSETRON 4 MG INJ IV PRN (15:58)
[2016-11-24] MEDS: TOBRAMYCIN/DEXAMETH 2.5 ML OPH BOTH EYES SCH ×2 (17:25→21:10)
--- NOTE | 2016-11-24 17:52 | CONS ---
DATE OF ADMISSION: 11/23/2016 DATE OF CONSULTATION: 11/24/2016 TYPE OF CONSULTATION: Cardiac REASON FOR CONSULTATION: CVA, rule out embolic source. REQUESTING PHYSICIAN: Dr. Myers from the hospitalist service. HISTORY OF PRESENT ILLNESS: Ms. Ramires is a 76-year-old female with history of diabetes, hypertension, who presented with left-sided weakness, facial twitching. The patient had had an MRI done at [facility] that showed acute infarct in the right cerebral hemisphere involving the right MCA distr ibution and possible V[employer]ING [employer]PER[employer]OR involvement as well and acute ischemia in the left FELIPA distribution. The p atient was noted to have a partial occlusion of the right internal carotid artery. Patient presente d here to the emergency department. Vital signs upon arrival: Blood pressure markedly elevated at 200/86, pulse 78, respiration 20, temperature 98.1, saturating 99%. Patient's labs notable for crea tinine of 1.27 and sodium 132, glucose 257. The patient underwent a head and neck CT which showed a complete occlusion of the right internal coronary artery and atheromatous plaque involving a 50% to 60% left proximal internal carotid artery stenosis. The patient was treated with aspirin and tele neuro was consulted on the patient. The patient was found not to be a TPA candidate and has now bee n admitted to the floor. Since admit to floor, the patient has been hemodynamically stable, with si gnificantly elevated systolic blood pressures. PAST MEDICAL HISTORY: As above in HPI. MEDICATIONS CURRENTLY IN HOSPITAL: 1. Lovenox 50 mg subq daily. 2. Lipitor 40 mg at bedtime. 3. Lantus ____ units subcu at bedtime. 4. Hydralazine p.r.n. 5. Zestril 5 mg daily. 6. Aspirin 81 mg daily. 7. Zofran p.r.n. 8. Tylenol p.r.n. ALLERGIES: NO KNOWN DRUG ALLERGIES. SOCIAL HISTORY: No tobacco, ETOH or illicit drug use. FAMILY HISTORY: No history of sudden cardiac or early CAD. REVIEW OF SYSTEMS: As above in HPI. CONSTITUTIONAL: No fevers, chills. PULMONARY: No current signs of respiratory compromise. GASTROINTESTINAL: No vomiting. GENITOURINARY: No hematuria. MUSCULOSKELETAL: Degenerative joint disease. PSYCHIATRIC: The patient denies depression. NEUROLOGIC: Positive CVA. ENDOCRINE: Diabetes mellitus. PHYSICAL EXAMINATION: VITAL SIGNS: Temperature 99.1, blood pressure 196/89, pulse 74, ____ 97%. GENERAL: The patient is alert, awake, in no acute distress. NECK: JVP approximately 8 cm of water. CHEST: Fair air movement throughout. HEART: Regular rate and rhythm. Normal S1, S2, I/ systolic murmur, nondisplaced PMI. ABDOMEN: Positive bowel sounds, soft. EXTREMITIES: No edema, 1+ pulses bilaterally, posterior tibial. LABORATORY DATA: Most recent from today, white cell count 11, hemoglobin 12, platelet count 224. S odium 135, potassium 4.0, creatinine 1.57, BUN 21. Troponin negative. LDL 155, HDL 51. Tox screen negative. IMAGING STUDIES: As above in HPI with a brain MRI from [facility] revealing acute infarcts on the right ECA MCA border zone territory, additional infarction involving the right basal ganglia and right posterior temporal lobe, right parietal lobe, right MCA territory acute infarction, left anterior ____absence of right internal carotid artery flow. ECG: On 11/23/2016 reveals normal sinus rhythm, rate of 75 with lateral T-wave inversion, inferior biphasic T-wave abnormalities. IMPRESSION: 1. Abnormal electrocardiogram, assess for acute coronary syndrome in the setting of acute cerebrova scular accident. 2. Acute cerebrovascular accident, possible embolic origin, assess for cardiac embolic source. 3. Hypertension, uncontrolled in the setting of acute cerebrovascular accident. 4. Dyslipidemia. 5. Diabetes mellitus. 6. Renal failure. RECOMMENDATIONS: 1. At this time, would maintain patient on telemetry monitoring to follow rhythm and rate control c losely. 2. Continue the patient's Zestril with permissive hypertension at this time per neurology note. 3. Continue the patient's Lovenox. 4. Continue the patient's statin and adjust it according to a fasting lipid panel as checked. 5. Would perform a transthoracic echo with bubble study and if warranted, progress to a transthorac ic echo as necessary and will comply with decision of treating neurologist as necessity for transeso phageal echo at this time. Thank you for allowing me to take part in the care of this patient and I will continue to follow caorline villaseñor very closely with you ____as the patient progresses through her inpatient hospital clinical cours e. Dictated By: ANSHU TREVIZO/VIKKI Conf#: [id number] DID#: [id number] CC: DARRELL MYERS MD;*End*
[2016-11-24] MEDS ORDERED: INSULIN GLARGINE [LANtus] 3 ML PEN SC SCH ×2 (20:00→21:00)
[2016-11-24] MEDS: PREGABALIN 25 MG CAP PO SCH (21:10)
[2016-11-24] MEDS: ATORVASTATIN 40 MG TAB PO SCH (21:11)
[2016-11-25] VITALS (14 sets, daily range): BP systolic 134–175; BP diastolic 51–81; PULSE 82–99; RESP 15–18
[2016-11-25] MEDS: TOBRAMYCIN/DEXAMETH 2.5 ML OPH BOTH EYES SCH ×6 (01:06→21:09)
[2016-11-25] MEDS: ACCU-CHEK XX SCH (02:21)
[2016-11-25] MEDS: PANTOPRAZOLE (EC) 40 MG TAB PO SCH (05:29)
[2016-11-25 07:16] LABS: ADD SCAN DIFF NO
[2016-11-25 07:33] LABS: BASOPHILS % 0.2 % (0.0-2.0); EOSINOPHILS # 0.1 10^3/ul (0.0-0.5); HEMATOCRIT 31.6 % (37.0-47.0); HEMOGLOBIN 10.6 g/dl (12.0-16.0); LYMPHOCYTES # 0.9 10^3/ul (0.8-2.9); LYMPHOCYTES % 9.7 % (15.0-51.0); MEAN CORPUSCULAR HGB CONC 33.5 g/dl (32.0-37.0); MEAN CORPUSCULAR VOLUME 89.5 fl (82.0-101.0); MEAN PLATELET VOLUME 10.7 fl (7.4-10.4); MONOCYTE # 0.9 10^3/ul (0.3-0.9); MONOCYTES % 9.7 % (0.0-11.0); NEUTROPHILS % 79.1 % (39.0-77.0); PLATELET COUNT 224 10^3/UL (140-415); RED BLOOD COUNT 3.53 10^6/ul (4.20-5.40); RED CELL DISTRIBUTION WIDTH 12.7 % (11.5-14.5); WHITE BLOOD COUNT 8.9 10^3/ul (4.8-10.8)
[2016-11-25 07:55] LABS: CREATININE 2.01 mg/dl (0.44-1.00); MAGNESIUM 2.2 mg/dl (1.7-2.5); PHOSPHORUS 4.1 mg/dl (2.5-4.9); POTASSIUM 4.6 mmol/L (3.5-5.1)
[2016-11-25 08:05] LABS: CHOL/HDL RATIO 4.2 RATIO
[2016-11-25 08:26] LABS: THYROID STIMULATING HORMONE 2.63 MIU/L (0.465-4.680)
[2016-11-25] MEDS: PREGABALIN 25 MG CAP PO SCH (08:40)
[2016-11-25] MEDS: ASPIRIN 81 MG TAB PO SCH (08:40)
[2016-11-25] MEDS: LISINOPRIL 5 MG TAB PO SCH (08:40)
[2016-11-25] MEDS: INSULIN ASPART [NOVOLOG] 3 ML PEN SC SCH ×6 (08:43→21:00)
[2016-11-25] MEDS ORDERED: ENOXAPARIN 60 MG/0.6 ML SYG SC SCH (09:00)
[2016-11-25] MEDS ORDERED: NON-FORMULARY/PATIENT OWN MED (Dexlansoprazole (Dexilant) 60 MG) PO SCH (09:00)
--- NOTE | 2016-11-25 11:21 | CONS ---
Date/Time of Note Date/Time of Note DATE: 11/25/16 TIME: 11:17 Assessment/Plan Assessment/Plan Chief Complaint/Hosp Course IMPRESSION: 1. Abnormal electrocardiogram, assess for acute coronary syndrome in the setting of acute cerebrovascular accident. 2. Acute cerebrovascular accident, possible embolic origin, assess for cardiac embolic source. 3. Hypertension, uncontrolled in the setting of acute cerebrovascular accident. 4. Dyslipidemia. 5. Diabetes mellitus. 6. Renal failure. 7. Positive troponin-minimal in the setting of renal failure and acute CVA Recc: -Tele -Trend cardiac enzymes -F/U TTE with bubble study -KASIA as necessary once MS improved -Continue asa/lovenox/statin -permissive HTn Problems: Consultation Date/Type/Reason Admit Date/Time Nov 23, 2016 at 19:44 Initial Consult Date 11/24/16 Type of Consultation: Cardiology Reason for Consultation rule out cardiac source of embolus Referring Provider: DARRELL MYERS MD Exam/Review of Systems Vital Signs Vitals Vital Signs Date Time Temp Pulse Resp B/P Pulse Ox O2 Delivery O2 Flow Rate FiO2 11/25/16 08:32 83 11/25/16 07:44 98.1 17 154/71 96 Intake and Output 11/24/16 11/24/16 11/25/16 15:00 23:00 07:00 Intake Total 840 ml 200 ml Balance 840 ml 200 ml Exam Review of Systems: CONSTITUTIONAL: No fevers, chills. PULMONARY: No sob CARDIOVASCULAR: No chest pain/palpitations GASTROINTESTINAL: No nausea/vomiting. GENITOURINARY: No hematuria/dysuria. MUSCULOSKELETAL: No myagias/arthalgias. PSYCHIATRIC: The patient denies depression. NEUROLOGIC: lethargic Constitutional: other (sleeping) Psych: no complaints Head: normocephalic ENMT: mucosa pink and moist Neck: jvd (8 cm water), supple Respiratory: diminished breath sounds (at bases/B) Cardiovascular: regular rate and rhythm Gastrointestinal: non-tender, soft Musculoskeletal: muscle tone (normal) Extremities: edema (none) Neurological: confused, lethargic Results Result Diagram: 11/25/16 0607 11/25/16 0607 Results 24 hrs Laboratory Tests Test 11/24/16 11:33 11/24/16 17:19 11/24/16 19:05 11/24/16 21:09 Bedside Glucose 252 H 222 H 276 H Troponin I 0.086 Test 11/25/16 01:18 11/25/16 02:05 11/25/16 06:07 11/25/16 08:25 Troponin I 0.270 *H 0.416 *H Bedside Glucose 280 H 159 White Blood Count 8.9 Red Blood Count 3.53 L Hemoglobin 10.6 L Hematocrit 31.6 L Mean Corpuscular Volume 89.5 Mean Corpuscular Hemoglobin 30.0 Mean Corpuscular Hemoglobin Concent 33.5 Red Cell Distribution Width 12.7 Platelet Count 224 Mean Platelet Volume 10.7 H Neutrophils % 79.1 H Lymphocytes % 9.7 L Monocytes % 9.7 Eosinophils % 1.0 Basophils % 0.2 Nucleated Red Blood Cells % 0.0 Neutrophils # 7.0 Lymphocytes # 0.9 Monocytes # 0.9 Eosinophils # 0.1 Basophils # 0.0 Nucleated Red Blood Cells # 0.0 Sodium Level 131 L Potassium Level 4.6 Chloride Level 101 Carbon Dioxide Level 23 Anion Gap 12 Blood Urea Nitrogen 31 H Creatinine 2.01 H Glucose Level 181 Calcium Level 9.0 Phosphorus Level 4.1 Magnesium Level 2.2 Triglycerides Level 120 Cholesterol Level 202 H LDL Cholesterol, Calculated 130 HDL Cholesterol 48 Cholesterol/HDL Ratio 4.2 Thyroid Stimulating Hormone (TSH) 2.630 Medications Medications Current Medications Aspirin (Aspirin) 81 mg DAILY PO Last administered on 11/25/16 08:40; Admin Dose 81 MG; Start 11/24/16 at 09:00 Atorvastatin Calcium (Lipitor) 40 mg HS PO Last administered on 11/24/16 21:11 ; Admin Dose 40 MG; Start 11/24/16 at 21:00 Ondansetron HCl (Zofran Inj) 4 mg Q6H PRN IV NAUSEA AND/OR VOMITING Last administered on 11/24/16 15:58; Admin Dose 4 MG; Start 11/24/16 at 00:30 Acetaminophen (Tylenol Tab) 650 mg Q6H PRN PO PAIN AND OR ELEVATED TEMP; Start 11/24/16 at 00:30 Diagnostic Test (Pha) (Accu-Chek) 1 ea 02 XX Last administered on 11/25/16 02: 21; Admin Dose 1 EA; Start 11/24/16 at 02:00 Miscellaneous Information 1 ea NOTE XX ; Start 11/24/16 at 01:00 Glucose (Glutose) 15 gm Q15M PRN PO DECREASED GLUCOSE; Start 11/24/16 at 01:00 Glucose (Glutose) 22.5 gm Q15M PRN PO DECREASED GLUCOSE; Start 11/24/16 at 01:00 Dextrose (D50w Syringe) 25 ml Q15M PRN IV DECREASED GLUCOSE; Start 11/24/16 at 01:00 Dextrose (D50w Syringe) 50 ml Q15M PRN IV DECREASED GLUCOSE; Start 11/24/16 at 01:00 Glucagon (Glucagen) 1 mg Q15M PRN IM DECREASED GLUCOSE; Start 11/24/16 at 01:00 Glucose (Glutose) 15 gm Q15M PRN BUCCAL DECREASED GLUCOSE; Start 11/24/16 at 01: 00 Enoxaparin Sodium (Lovenox) 50 mg DAILY SC Last administered on 11/25/16 08:43 ; Admin Dose 50 MG; Start 11/25/16 at 09:00 Pregabalin (Lyrica) 50 mg BID PO Last administered on 11/25/16 08:40; Admin Dose 50 MG; Start 11/24/16 at 21:00 Tobramycin/ Dexamethasone (Tobradex Oph Drop) 1 drop Q4 BOTH EYES Last administered on 11/25/16 08:40; Admin Dose 1 DROP; Start 11/24/16 at 17:00 Lisinopril (Zestril) 5 mg DAILY PO Last administered on 11/25/16 08:40; Admin Dose 5 MG; Start 11/24/16 at 13:30 Pantoprazole (Protonix Tab) 40 mg DAILY@06 PO Last administered on 11/25/16 05 :29; Admin Dose 40 MG; Start 11/24/16 at 13:00 Hydralazine HCl (Apresoline) 10 mg Q3H PRN IV SBP GREATER THAN 160 Last administered on 11/24/16 22:08; Admin Dose 10 MG; Start 11/24/16 at 14:01 Insulin Glargine (Lantus) 15 unit DAILY@20 SC Last administered on 11/24/16 19: 57; Admin Dose 15 UNIT; Start 11/24/16 at 20:00 ANSHU MATAMOROS Nov 25, 2016 11:21
[2016-11-25] MEDS: SOD CHLORIDE 0.45% 1,000 ML IV SCH ×2 (12:32→22:48)
--- NOTE | 2016-11-25 13:40 | CONS ---
Date/Time of Note Date/Time of Note DATE: 11/25/16 TIME: 13:31 Consult Date/Type/Reason Admit Date/Time Nov 23, 2016 at 19:44 Initial Consult Date 11/24/16 Type of Consultation: Neurology Reason for Consultation Right MCA stroke + Left FELIPA stroke, Right ICA occlusion, moderate Left ICA stenosis Ordering Provider: DARRELL MYERS MD Subjective lethargic today, difficult to arouse seen by cardiology and vascular surgery, plan to optimize medically and fu with vascular surgery in a few weeks for Left CEA TTE pending Objective Vital Signs Date Time Temp Pulse Resp B/P Pulse Ox O2 Delivery O2 Flow Rate FiO2 11/25/16 12:07 82 11/25/16 11:36 98.6 15 134/65 94 Intake and Output 11/24/16 11/24/16 11/25/16 15:00 23:00 07:00 Intake Total 840 ml 200 ml Balance 840 ml 200 ml Exam drowsy difficult to arouse with sternal rub mumbles incomprehensibly withdraws to noxious minimally Results/Medications Result Diagram: 11/25/16 0607 11/25/16 0607 Results 24 hrs Laboratory Tests Test 11/24/16 17:19 11/24/16 19:05 11/24/16 21:09 11/25/16 01:18 Bedside Glucose 222 H 276 H Troponin I 0.086 0.270 *H Test 11/25/16 02:05 11/25/16 06:07 11/25/16 08:25 11/25/16 12:19 Bedside Glucose 280 H 159 90 White Blood Count 8.9 Red Blood Count 3.53 L Hemoglobin 10.6 L Hematocrit 31.6 L Mean Corpuscular Volume 89.5 Mean Corpuscular Hemoglobin 30.0 Mean Corpuscular Hemoglobin Concent 33.5 Red Cell Distribution Width 12.7 Platelet Count 224 Mean Platelet Volume 10.7 H Neutrophils % 79.1 H Lymphocytes % 9.7 L Monocytes % 9.7 Eosinophils % 1.0 Basophils % 0.2 Nucleated Red Blood Cells % 0.0 Neutrophils # 7.0 Lymphocytes # 0.9 Monocytes # 0.9 Eosinophils # 0.1 Basophils # 0.0 Nucleated Red Blood Cells # 0.0 Sodium Level 131 L Potassium Level 4.6 Chloride Level 101 Carbon Dioxide Level 23 Anion Gap 12 Blood Urea Nitrogen 31 H Creatinine 2.01 H Glucose Level 181 Calcium Level 9.0 Phosphorus Level 4.1 Magnesium Level 2.2 Troponin I 0.416 *H Triglycerides Level 120 Cholesterol Level 202 H LDL Cholesterol, Calculated 130 HDL Cholesterol 48 Cholesterol/HDL Ratio 4.2 Thyroid Stimulating Hormone (TSH) 2.630 Medications Current Medications Aspirin (Aspirin) 81 mg DAILY PO Last administered on 11/25/16 08:40; Admin Dose 81 MG; Start 11/24/16 at 09:00 Atorvastatin Calcium (Lipitor) 40 mg HS PO Last administered on 11/24/16 21:11 ; Admin Dose 40 MG; Start 11/24/16 at 21:00 Ondansetron HCl (Zofran Inj) 4 mg Q6H PRN IV NAUSEA AND/OR VOMITING Last administered on 11/24/16 15:58; Admin Dose 4 MG; Start 11/24/16 at 00:30 Acetaminophen (Tylenol Tab) 650 mg Q6H PRN PO PAIN AND OR ELEVATED TEMP; Start 11/24/16 at 00:30 Diagnostic Test (Pha) (Accu-Chek) 1 ea 02 XX Last administered on 11/25/16 02: 21; Admin Dose 1 EA; Start 11/24/16 at 02:00 Miscellaneous Information 1 ea NOTE XX ; Start 11/24/16 at 01:00 Glucose (Glutose) 15 gm Q15M PRN PO DECREASED GLUCOSE; Start 11/24/16 at 01:00 Glucose (Glutose) 22.5 gm Q15M PRN PO DECREASED GLUCOSE; Start 11/24/16 at 01:00 Dextrose (D50w Syringe) 25 ml Q15M PRN IV DECREASED GLUCOSE; Start 11/24/16 at 01:00 Dextrose (D50w Syringe) 50 ml Q15M PRN IV DECREASED GLUCOSE; Start 11/24/16 at 01:00 Glucagon (Glucagen) 1 mg Q15M PRN IM DECREASED GLUCOSE; Start 11/24/16 at 01:00 Glucose (Glutose) 15 gm Q15M PRN BUCCAL DECREASED GLUCOSE; Start 11/24/16 at 01: 00 Pregabalin (Lyrica) 50 mg BID PO Last administered on 11/25/16 08:40; Admin Dose 50 MG; Start 11/24/16 at 21:00 Tobramycin/ Dexamethasone (Tobradex Oph Drop) 1 drop Q4 BOTH EYES Last administered on 11/25/16 12:34; Admin Dose 1 DROP; Start 11/24/16 at 17:00 Lisinopril (Zestril) 5 mg DAILY PO Last administered on 11/25/16 08:40; Admin Dose 5 MG; Start 11/24/16 at 13:30 Pantoprazole (Protonix Tab) 40 mg DAILY@06 PO Last administered on 11/25/16 05 :29; Admin Dose 40 MG; Start 11/24/16 at 13:00 Hydralazine HCl (Apresoline) 10 mg Q3H PRN IV SBP GREATER THAN 160 Last administered on 11/24/16 22:08; Admin Dose 10 MG; Start 11/24/16 at 14:01 Insulin Glargine (Lantus) 15 unit DAILY@20 SC Last administered on 11/24/16 19: 57; Admin Dose 15 UNIT; Start 11/24/16 at 20:00 Enoxaparin Sodium 30 mg 30 mg DAILY SC ; Start 11/26/16 at 09:00 Sodium Chloride (1/2 NS) 1,000 ml @ 100 mls/hr Q10H IV Last administered on 12:32; Admin Dose 100 MLS/HR; Start 11/25/16 at 12:30 Assessment/Plan Chief Complaint/Hosp Course 76 yo female with HTN, DM, Right ICA occlusion and moderate Left ICA stenosis admitted with chronic and subacute right MCA infarct, Left FELIPA infarct. Repeat MRI shows acute borderzone appearing infarcts FELIPA/MCA zone expected from Right Carotid Occlusion. additional infarcts right basal ganglia, right posterior temporal lobe, right parietal. Left FELIPA acute infarcts. Recommendations: -would repeat STAT Head CT today as she is much more lethargic, rule out possibility of further infarctions that are developing -permissive hypertension SBP 140-160 for adequate perfusion -continue on aspirin and statin (LDL 130) -ECHO pending, may require KASIA as bilateral strokes in different vascular territories may be concerning for cardiac thrombus continue tele monitoring for afib -DVT ppx -PT/OT/Speech evaluation appreciate cardiology and vascular surgery recommendations Problems: CINTHIA DURAN MD Nov 25, 2016 13:40
--- NOTE | 2016-11-25 14:05 | RADRPT ---
PROCEDURE: CT Brain without contrast. CLINICAL INDICATION: Altered level of consciousness. Right-sided MCA stroke. TECHNIQUE: A CT of the brain was performed on a GE 64-slice CT scanner utilizing axial imaging fro m the skull base through the vertex without intravenous contrast. Multiplanar reformatted images wer e made. One or more the following does reduction techniques were utilized: Automated exposure contr ol, adjustment of the mA/ or kV according to patient's size, or use of iterative reconstruction tech nique. The CTDIvol is 44.1 mGy and the DLP is 720.2 mGycm. COMPARISON: MRI brain 11/24/2016. FINDINGS: There is no intracranial hemorrhage, mass effect, or midline shift. No extra-axial fluid collection is seen. Mild atrophy is identified with compensatory ventricular and sulcal enlargement. Mild de creased attenuation is seen in the periventricular and deep white matter, compatible with microvascu lar ischemic disease. Hypodensity is seen in the region of the right anderson radiata extending into t he posterior limb of the right internal capsule, corresponding to the patient's known acute infarct. Small areas of hypodensity are seen in the right centrum semiovale ovale and right parietal tempor al lobe, corresponding to areas of acute/subacute ischemic change. Decreased attenuation is seen in the genu of the left aspect of the corpus callosum, corresponding to an area of acute/recent ischem ic change. A chronic lacunar infarct is seen in the left anderson radiata. The osseous structures and visualized paranasal sinuses are unremarkable. IMPRESSION: 1. There are areas of hypodensity in the right centrum semiovale ovale, right parietal and temporal lobes, and right anderson radiata extending to the posterior limb of the right internal capsule, thiago esponding to areas of acute/early subacute ischemic change. 2. There is a small acute/recent infarct involving the left genu of the corpus callosum. 3. There is mild to moderate diffuse atrophy with mild microvascular ischemic disease in the perive ntricular and deep white matter. RPTAT: HJAH .Rain Escobar MD, MD Date Time Electronically viewed and signed by .Rain Escobar MD, MD on 11/25/2016 14:05 .H/
[2016-11-25] MEDS: hydrALAzine 20 MG INJ IV PRN (15:32)
--- NOTE | 2016-11-25 16:50 | RADRPT ---
Vent Rate: 87 bpm RR Interval: 0 msec AR Interval: 194 msec QRS Duration: 94 msec QT Interval: 386 msec QTC Interval: 464 msec P-R-T [place]: 65 - 69 - 0 degrees Normal sinus rhythm Marked ST abnormality, possible inferior subendocardial injury LVH with secondary repolarization abnormalities Poor R-Wave progression LAE Abnormal ECG No previous tracing available for comparison Electronically Signed By: Phil Rivas [id number]
--- NOTE | 2016-11-25 20:05 | PN ---
Date/Time of Note Date/Time of Note DATE: 11/25/16 TIME: 19:59 Assessment/Plan VTE Prophylaxis VTE Prophylaxis Intervention: LMWH Lines/Catheters IV [facility]ter Type (from [facility]): Saline Lock Urinary Cath still in place: No Assessment/Plan Chief Complaint/Hosp Course S: 11/24 Lt-sided weakness 1 wk. 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 No dyspnea dysphagia dysarthria. 11/24: This am, highly unarousable. Appreciates noxious stimuli. [id number] updated regarding the unfortunate possibility of progression of stroke. O: SR, no A. fib PE No pallor/ JVD. Lt droop positive Reg Clear Benign No edema CN II-XII grossly intact, M5/5-rt; 0-1/5 on lt; sensory symmetrical, reflexes symmetrical, Babinski's none. A/P 1. Subacute Rt MCA infarct, Lt FELIPA infarct. [rt FELIPA/MCA; rt bg, rt post temporal , and rt parietal in MCA. Lt ant genu corpus callosum -FELIPA territory]. Mod stable/still having stroke in evolution. cont bp/dm/cholesterol mngmnt. Start PT / OT/ST. Acute rehab consult. Non-smoker. -Watch for A fib. KASIA if indicated. If respiratory status is concerning, transfer to ICU. 2. Rt carotid stenosis -100%. Lt carotid intervention ~4 weeks if performance status is stable. High risk of future strokes,needs advanced care planning. 3. Diabetes A1c 6-9? Hold insulin 4. Chronic hypertension/dyslipidemia 5. Chronic kidney disease 6. Anemia 7. Dysphagia dysarthria, ST eval. Hopefully no PEG. Problems: Exam/Review of Systems Vital Signs Vitals Vital Signs Date Time Temp Pulse Resp B/P Pulse Ox O2 Delivery O2 Flow Rate FiO2 11/25/16 16:37 145/67 11/25/16 16:08 89 11/25/16 15:25 98.1 17 97 Intake and Output 11/24/16 11/24/16 11/25/16 15:00 23:00 07:00 Intake Total 840 ml 200 ml Balance 840 ml 200 ml Results Result Diagram: 11/25/16 0607 11/25/16 0607 Results 24 hrs Laboratory Tests Test 11/24/16 21:09 11/25/16 01:18 11/25/16 02:05 11/25/16 06:07 Bedside Glucose 276 H 280 H Troponin I 0.270 *H 0.416 *H White Blood Count 8.9 Red Blood Count 3.53 L Hemoglobin 10.6 L Hematocrit 31.6 L Mean Corpuscular Volume 89.5 Mean Corpuscular Hemoglobin 30.0 Mean Corpuscular Hemoglobin Concent 33.5 Red Cell Distribution Width 12.7 Platelet Count 224 Mean Platelet Volume 10.7 H Neutrophils % 79.1 H Lymphocytes % 9.7 L Monocytes % 9.7 Eosinophils % 1.0 Basophils % 0.2 Nucleated Red Blood Cells % 0.0 Neutrophils # 7.0 Lymphocytes # 0.9 Monocytes # 0.9 Eosinophils # 0.1 Basophils # 0.0 Nucleated Red Blood Cells # 0.0 Sodium Level 131 L Potassium Level 4.6 Chloride Level 101 Carbon Dioxide Level 23 Anion Gap 12 Blood Urea Nitrogen 31 H Creatinine 2.01 H Glucose Level 181 Calcium Level 9.0 Phosphorus Level 4.1 Magnesium Level 2.2 Triglycerides Level 120 Cholesterol Level 202 H LDL Cholesterol, Calculated 130 HDL Cholesterol 48 Cholesterol/HDL Ratio 4.2 Thyroid Stimulating Hormone (TSH) 2.630 Test 11/25/16 08:25 11/25/16 12:19 11/25/16 17:16 Bedside Glucose 159 90 92 Medications Medications Current Medications Aspirin (Aspirin) 81 mg DAILY PO Last administered on 11/25/16 08:40; Admin Dose 81 MG; Start 11/24/16 at 09:00 Atorvastatin Calcium (Lipitor) 40 mg HS PO Last administered on 11/24/16 21:11 ; Admin Dose 40 MG; Start 11/24/16 at 21:00 Ondansetron HCl (Zofran Inj) 4 mg Q6H PRN IV NAUSEA AND/OR VOMITING Last administered on 11/24/16 15:58; Admin Dose 4 MG; Start 11/24/16 at 00:30 Acetaminophen (Tylenol Tab) 650 mg Q6H PRN PO PAIN AND OR ELEVATED TEMP; Start 11/24/16 at 00:30 Diagnostic Test (Pha) (Accu-Chek) 1 ea 02 XX Last administered on 11/25/16 02: 21; Admin Dose 1 EA; Start 11/24/16 at 02:00 Miscellaneous Information 1 ea NOTE XX ; Start 11/24/16 at 01:00 Glucose (Glutose) 15 gm Q15M PRN PO DECREASED GLUCOSE; Start 11/24/16 at 01:00 Glucose (Glutose) 22.5 gm Q15M PRN PO DECREASED GLUCOSE; Start 11/24/16 at 01:00 Dextrose (D50w Syringe) 25 ml Q15M PRN IV DECREASED GLUCOSE; Start 11/24/16 at 01:00 Dextrose (D50w Syringe) 50 ml Q15M PRN IV DECREASED GLUCOSE; Start 11/24/16 at 01:00 Glucagon (Glucagen) 1 mg Q15M PRN IM DECREASED GLUCOSE; Start 11/24/16 at 01:00 Glucose (Glutose) 15 gm Q15M PRN BUCCAL DECREASED GLUCOSE; Start 11/24/16 at 01: 00 Pregabalin (Lyrica) 50 mg BID PO Last administered on 11/25/16 08:40; Admin Dose 50 MG; Start 11/24/16 at 21:00 Tobramycin/ Dexamethasone (Tobradex Oph Drop) 1 drop Q4 BOTH EYES Last administered on 11/25/16 17:18; Admin Dose 1 DROP; Start 11/24/16 at 17:00 Lisinopril (Zestril) 5 mg DAILY PO Last administered on 11/25/16 08:40; Admin Dose 5 MG; Start 11/24/16 at 13:30 Pantoprazole (Protonix Tab) 40 mg DAILY@06 PO Last administered on 11/25/16 05 :29; Admin Dose 40 MG; Start 11/24/16 at 13:00 Hydralazine HCl (Apresoline) 10 mg Q3H PRN IV SBP GREATER THAN 160 Last administered on 11/25/16 15:32; Admin Dose 10 MG; Start 11/24/16 at 14:01 Insulin Glargine (Lantus) 15 unit DAILY@20 SC Last administered on 11/24/16 19: 57; Admin Dose 15 UNIT; Start 11/24/16 at 20:00 Enoxaparin Sodium 30 mg 30 mg DAILY SC ; Start 11/26/16 at 09:00 Sodium Chloride (1/2 NS) 1,000 ml @ 100 mls/hr Q10H IV Last administered on 12:32; Admin Dose 100 MLS/HR; Start 11/25/16 at 12:30 DARRELL MYERS MD Nov 25, 2016 20:05
[2016-11-25] MEDS: ATORVASTATIN 40 MG TAB PO SCH (21:00)
[2016-11-26] VITALS (15 sets, daily range): BP systolic 124–177; BP diastolic 64–79; PULSE 92–109; RESP 15–16
[2016-11-26] MEDS: hydrALAzine 20 MG INJ IV PRN ×5 (00:43→22:26)
[2016-11-26] MEDS: TOBRAMYCIN/DEXAMETH 2.5 ML OPH BOTH EYES SCH ×6 (00:48→20:55)
[2016-11-26] MEDS: ACCU-CHEK XX SCH (02:00)
[2016-11-26] MEDS: PANTOPRAZOLE (EC) 40 MG TAB PO SCH (05:44)
[2016-11-26 07:13] LABS: ADD SCAN DIFF NO
[2016-11-26 07:19] LABS: BASOPHILS % 0.3 % (0.0-2.0); EOSINOPHILS # 0.1 10^3/ul (0.0-0.5); EOSINOPHILS % 0.6 % (0.0-7.0); HEMATOCRIT 35.2 % (37.0-47.0); HEMOGLOBIN 11.7 g/dl (12.0-16.0); LYMPHOCYTES # 0.7 10^3/ul (0.8-2.9); LYMPHOCYTES % 7.9 % (15.0-51.0); MEAN CORPUSCULAR HEMOGLOBIN 30.6 pg (29.0-33.0); MEAN CORPUSCULAR HGB CONC 33.2 g/dl (32.0-37.0); MEAN CORPUSCULAR VOLUME 92.1 fl (82.0-101.0); MEAN PLATELET VOLUME 11.1 fl (7.4-10.4); MONOCYTE # 0.6 10^3/ul (0.3-0.9); MONOCYTES % 6.7 % (0.0-11.0); NEUTROPHIL # 7.4 10^3/ul (1.6-7.5); NEUTROPHILS % 84.2 % (39.0-77.0); PLATELET COUNT 205 10^3/UL (140-415); RED BLOOD COUNT 3.82 10^6/ul (4.20-5.40); RED CELL DISTRIBUTION WIDTH 12.7 % (11.5-14.5); WHITE BLOOD COUNT 8.8 10^3/ul (4.8-10.8)
[2016-11-26] MEDS: INSULIN ASPART [NOVOLOG] 3 ML PEN SC SCH ×3 (07:55→17:23)
[2016-11-26 07:57] LABS: CREATININE 1.83 mg/dl (0.44-1.00); MAGNESIUM 2.3 mg/dl (1.7-2.5); PHOSPHORUS 4.9 mg/dl (2.5-4.9); POTASSIUM 4.5 mmol/L (3.5-5.1)
[2016-11-26] MEDS: ASPIRIN 600 MG SUPP PR SCH (08:27)
[2016-11-26] MEDS: ASPIRIN 81 MG TAB PO SCH (08:27)
[2016-11-26] MEDS: D5W-0.45 NACL + KCL 20 MEQ 1,000 ML IV SCH ×2 (08:28→20:54)
[2016-11-26] MEDS: ENOXAPARIN 30 MG/0.3 ML SYG SC SCH (08:36)
--- NOTE | 2016-11-26 10:48 | PN ---
Date/Time of Note Date/Time of Note DATE: 11/26/16 TIME: 10:44 Assessment/Plan Lines/Catheters IV C[facility]ter Type (from [facility]): Saline Lock Boogie in Place (from [facility]): No Assessment/Plan Chief Complaint/Hosp Course -Right internal carotid artery stenosis with stroke: It seems the patient has new findings of right brain stroke related to her occlusion of her right internal carotid artery. From the standpoint of vascular surgery, there is no surgical intervention other than to continue with antiplatelet therapy. We will defer this to our neurology stroke service for further evaluation and recommendation if they would prefer the patient being on dual antiplatelet therapy versus one. -Left internal carotid artery stenosis: The patient has bilateral carotid disease and with recent findings of her stroke, we will plan to wait 4 to 6 weeks for her to stabilize from the standpoint of the stroke, and we will schedule the patient for eventual carotid endarterectomy as the patient has bilateral disease. Unfortunately symptomatically has gotten worse will await recovery prior to any surgical intervention, Rule our hemorrhagic conversion -Optimize vascular status (BP meds, diet, nutrition, exercise, sugar control, antiplatelets). -Discussed findings, plan and management with the patient and the at the bedside with a certified manager product management, and they understand. -Thank you for allowing us to partake in the care of your patient. Please call with any questions. Problems: Subjective Detailed Summary Free Text/Dictation pt is nonresponsive or following commands, change from the other day, was not notified about the changes Exam/Review of Systems Vital Signs Vitals Vital Signs Date Time Temp Pulse Resp B/P Pulse Ox O2 Delivery O2 Flow Rate FiO2 11/26/16 08:05 104 11/26/16 07:41 98.0 16 166/77 99 Intake and Output 11/25/16 11/25/16 11/26/16 14:59 22:59 06:59 Intake Total 1060 ml 800 ml Balance 1060 ml 800 ml Exam Free Text/Dictation GENERAL: Nonverbal, not awake, Unable ascertain CN's as she does not follow any commands PULMONARY: Clear to auscultation bilaterally. CARDIOVASCULAR: S1, S2 present. ABDOMEN: Soft, nontender, nondistended. Bowel sounds positive. EXTREMITIES: Upper extremities: Palpable brachial pulse. Motor and sensory unable to ascertain as pt is nonresponsive, Capillary refill 2 to 3 Lower extremities: Palpable femoral pulse, nonpalpable pedal pulse. Motor and sensory intact unable to ascertain as pt is nonresponsive,. Capillary refill 2 to 3 seconds. Results Result Diagram: 11/26/1615 11/26/16 0615 ALEXANDER CHENG MD Nov 26, 2016 10:48
--- NOTE | 2016-11-26 11:56 | CONS ---
Date/Time of Note Date/Time of Note DATE: 11/26/16 TIME: 11:53 Assessment/Plan Assessment/Plan Chief Complaint/Hosp Course IMPRESSION: 1. Abnormal electrocardiogram, assess for acute coronary syndrome in the setting of acute cerebrovascular accident. 2. Acute cerebrovascular accident, possible embolic origin, assess for cardiac embolic source. 3. Hypertension, uncontrolled in the setting of acute cerebrovascular accident. 4. Dyslipidemia. 5. Diabetes mellitus. 6. Renal failure. 7. Positive troponin-minimal in the setting of renal failure and acute CVA. Downtrending Recc: -Tele -Trend cardiac enzymes -Await TTE with bubble study -KASIA as necessary once MS improved -Continue asa/lovenox/statin -permissive HTN per neurology -Follow MS closely Problems: Consultation Date/Type/Reason Admit Date/Time Nov 23, 2016 at 19:44 Initial Consult Date 11/24/16 Type of Consultation: cardiology Reason for Consultation abnl ecg/cva Referring Provider: DARRELL MYERS MD Exam/Review of Systems Vital Signs Vitals Vital Signs Date Time Temp Pulse Resp B/P Pulse Ox O2 Delivery O2 Flow Rate FiO2 11/26/16 11:28 97.9 100 15 164/77 98 Intake and Output 11/25/16 11/25/16 11/26/16 15:00 23:00 07:00 Intake Total 1060 ml 800 ml Balance 1060 ml 800 ml Exam Review of Systems: CONSTITUTIONAL: No fevers, chills. PULMONARY: No sob CARDIOVASCULAR: No chest pain/palpitations GASTROINTESTINAL: No nausea/vomiting. GENITOURINARY: No hematuria/dysuria. MUSCULOSKELETAL: No myagias/arthalgias. PSYCHIATRIC: The patient denies depression. NEUROLOGIC: s/p cva/lethargic Constitutional: other (sleeping) Head: normocephalic ENMT: mucosa pink and moist Neck: jvd (8-9 cm water), supple Respiratory: diminished breath sounds (at bases/B) Cardiovascular: regular rate and rhythm Gastrointestinal: non-tender, soft Musculoskeletal: muscle tone (normal) Extremities: edema (none) Neurological: other (NO focal deficits) Results Result Diagram: 11/26/16 0615 11/26/16 0615 Results 24 hrs Laboratory Tests Test 11/25/16 12:19 11/25/16 17:16 11/25/16 21:12 11/26/16 06:15 Bedside Glucose 90 92 102 White Blood Count 8.8 Red Blood Count 3.82 L Hemoglobin 11.7 L Hematocrit 35.2 L Mean Corpuscular Volume 92.1 Mean Corpuscular Hemoglobin 30.6 Mean Corpuscular Hemoglobin Concent 33.2 Red Cell Distribution Width 12.7 Platelet Count 205 Mean Platelet Volume 11.1 H Neutrophils % 84.2 H Lymphocytes % 7.9 L Monocytes % 6.7 Eosinophils % 0.6 Basophils % 0.3 Nucleated Red Blood Cells % 0.0 Neutrophils # 7.4 Lymphocytes # 0.7 L Monocytes # 0.6 Eosinophils # 0.1 Basophils # 0.0 Nucleated Red Blood Cells # 0.0 Sodium Level 135 Potassium Level 4.5 Chloride Level 107 Carbon Dioxide Level 18 L Anion Gap 15 Blood Urea Nitrogen 33 H Creatinine 1.83 H Glucose Level 74 # Calcium Level 9.0 Phosphorus Level 4.9 Magnesium Level 2.3 Troponin I 0.286 *H Test 11/26/16 07:53 Bedside Glucose 80 Medications Medications Current Medications Aspirin (Aspirin) 81 mg DAILY PO Last administered on 11/25/16 08:40; Admin Dose 81 MG; Start 11/24/16 at 09:00 Atorvastatin Calcium (Lipitor) 40 mg HS PO Last administered on 11/24/16 21:11 ; Admin Dose 40 MG; Start 11/24/16 at 21:00 Ondansetron HCl (Zofran Inj) 4 mg Q6H PRN IV NAUSEA AND/OR VOMITING Last administered on 11/24/16 15:58; Admin Dose 4 MG; Start 11/24/16 at 00:30 Acetaminophen (Tylenol Tab) 650 mg Q6H PRN PO PAIN AND OR ELEVATED TEMP; Start 11/24/16 at 00:30 Diagnostic Test (Pha) (Accu-Chek) 1 ea 02 XX Last administered on 11/25/16 02: 21; Admin Dose 1 EA; Start 11/24/16 at 02:00 Miscellaneous Information 1 ea NOTE XX ; Start 11/24/16 at 01:00 Glucose (Glutose) 15 gm Q15M PRN PO DECREASED GLUCOSE; Start 11/24/16 at 01:00 Glucose (Glutose) 22.5 gm Q15M PRN PO DECREASED GLUCOSE; Start 11/24/16 at 01:00 Dextrose (D50w Syringe) 25 ml Q15M PRN IV DECREASED GLUCOSE; Start 11/24/16 at 01:00 Dextrose (D50w Syringe) 50 ml Q15M PRN IV DECREASED GLUCOSE; Start 11/24/16 at 01:00 Glucagon (Glucagen) 1 mg Q15M PRN IM DECREASED GLUCOSE; Start 11/24/16 at 01:00 Glucose (Glutose) 15 gm Q15M PRN BUCCAL DECREASED GLUCOSE; Start 11/24/16 at 01: 00 Tobramycin/ Dexamethasone (Tobradex Oph Drop) 1 drop Q4 BOTH EYES Last administered on 11/26/16 08:26; Admin Dose 1 DROP; Start 11/24/16 at 17:00 Pantoprazole (Protonix Tab) 40 mg DAILY@06 PO Last administered on 11/25/16 05 :29; Admin Dose 40 MG; Start 11/24/16 at 13:00 Hydralazine HCl (Apresoline) 10 mg Q3H PRN IV SBP GREATER THAN 160 Last administered on 11/26/16 08:37; Admin Dose 10 MG; Start 11/24/16 at 14:01 Enoxaparin Sodium (Lovenox) 30 mg DAILY SC Last administered on 11/26/16 08:36 ; Admin Dose 30 MG; Start 11/26/16 at 09:00 Insulin Glargine (Lantus) 6 unit DAILY@20 SC ; Start 11/26/16 at 20:00 Aspirin 600 mg 600 mg DAILY NM Last administered on 11/26/16 08:27; Admin Dose 600 MG; Start 11/26/16 at 09:00 Potassium Chloride/Dextrose/ Sod Cl (D5-1/2ns + KCl 20 Meq) 1,000 ml @ 100 mls/ hr Q10H IV Last administered on 11/26/16 08:28; Admin Dose 100 MLS/HR; Start 11/26/16 at 09:00 ANSHU MATAMOROS Nov 26, 2016 11:55
--- NOTE | 2016-11-26 14:19 | PN ---
Date/Time of Note Date/Time of Note DATE: 11/26/16 TIME: 14:17 Assessment/Plan VTE Prophylaxis VTE Prophylaxis Intervention: LMWH Lines/Catheters IV [facility] Type (from [facility]): Peripheral IV Urinary Cath still in place: No Assessment/Plan Chief Complaint/Hosp Course S: 11/24 Lt-sided weakness 1 wk. Speech clear/consistent according to family/ implementation engineer. No dyspnea dysphagia dysarthria. 11/24: This am, highly unarousable. Appreciates noxious stimuli. [id number] updated regarding the unfortunate possibility of progression of stroke. 11/26: Events noted. Some stability noted. No respiratory distress. O: SR, no A. fib PE No pallor/ JVD. Lt droop positive Reg Clear Benign No edema CN II-XII grossly intact, M5/5-rt; 0-1/5 on lt; sensory symmetrical, reflexes symmetrical, Babinski's none. A/P 1. Subacute Rt MCA infarct, Lt FELIPA infarct. [rt FELIPA/MCA; rt bg, rt post temporal , and rt parietal in MCA. Lt ant genu corpus callosum -FELIPA territory]. Mod stable/still having stroke in evolution. cont bp/dm/cholesterol mngmnt. PT/ OT/ ST. Acute rehab consult. Non-smoker. -Watch for A fib. KASIA if indicated; will not do now due to change in condition. If respiratory status is concerning, transfer to ICU. 2. Rt carotid stenosis -100%. Lt carotid intervention ~6wks, if performance status is stable. High risk of future strokes, needs advanced care planning. 3. Diabetes A1c 6-9? Hold insulin due to dysphagia 4. Chronic hypertension/dyslipidemia 5. Chronic kidney disease 6. Anemia 7. Dysphagia dysarthria, ST eval. Hopefully no PEG. 8. Failure to thrive, snf or acute rehab soon Problems: Exam/Review of Systems Vital Signs Vitals Vital Signs Date Time Temp Pulse Resp B/P Pulse Ox O2 Delivery O2 Flow Rate FiO2 11/26/16 12:47 165/74 124/64 11/26/16 12:04 97 11/26/16 11:28 97.9 15 98 Intake and Output 11/25/16 11/25/16 11/26/16 15:00 23:00 07:00 Intake Total 1060 ml 800 ml Balance 1060 ml 800 ml Results Result Diagram: 6/11/17 0615 11/26/16 0615 Results 24 hrs Laboratory Tests Test 11/25/16 17:16 11/25/16 21:12 11/26/16 06:15 11/26/16 07:53 Bedside Glucose 92 102 80 White Blood Count 8.8 Red Blood Count 3.82 L Hemoglobin 11.7 L Hematocrit 35.2 L Mean Corpuscular Volume 92.1 Mean Corpuscular Hemoglobin 30.6 Mean Corpuscular Hemoglobin Concent 33.2 Red Cell Distribution Width 12.7 Platelet Count 205 Mean Platelet Volume 11.1 H Neutrophils % 84.2 H Lymphocytes % 7.9 L Monocytes % 6.7 Eosinophils % 0.6 Basophils % 0.3 Nucleated Red Blood Cells % 0.0 Neutrophils # 7.4 Lymphocytes # 0.7 L Monocytes # 0.6 Eosinophils # 0.1 Basophils # 0.0 Nucleated Red Blood Cells # 0.0 Sodium Level 135 Potassium Level 4.5 Chloride Level 107 Carbon Dioxide Level 18 L Anion Gap 15 Blood Urea Nitrogen 33 H Creatinine 1.83 H Glucose Level 74 # Calcium Level 9.0 Phosphorus Level 4.9 Magnesium Level 2.3 Troponin I 0.286 *H Test 11/26/16 12:02 Bedside Glucose 155 Medications Medications Current Medications Aspirin (Aspirin) 81 mg DAILY PO Last administered on 11/25/16 08:40; Admin Dose 81 MG; Start 11/24/16 at 09:00 Atorvastatin Calcium (Lipitor) 40 mg HS PO Last administered on 11/24/16 21:11 ; Admin Dose 40 MG; Start 11/24/16 at 21:00 Ondansetron HCl (Zofran Inj) 4 mg Q6H PRN IV NAUSEA AND/OR VOMITING Last administered on 11/24/16 15:58; Admin Dose 4 MG; Start 11/24/16 at 00:30 Acetaminophen (Tylenol Tab) 650 mg Q6H PRN PO PAIN AND OR ELEVATED TEMP; Start 11/24/16 at 00:30 Diagnostic Test (Pha) (Accu-Chek) 1 ea 02 XX Last administered on 11/25/16 02: 21; Admin Dose 1 EA; Start 11/24/16 at 02:00 Miscellaneous Information 1 ea NOTE XX ; Start 11/24/16 at 01:00 Glucose (Glutose) 15 gm Q15M PRN PO DECREASED GLUCOSE; Start 11/24/16 at 01:00 Glucose (Glutose) 22.5 gm Q15M PRN PO DECREASED GLUCOSE; Start 11/24/16 at 01:00 Dextrose (D50w Syringe) 25 ml Q15M PRN IV DECREASED GLUCOSE; Start 11/24/16 at 01:00 Dextrose (D50w Syringe) 50 ml Q15M PRN IV DECREASED GLUCOSE; Start 11/24/16 at 01:00 Glucagon (Glucagen) 1 mg Q15M PRN IM DECREASED GLUCOSE; Start 11/24/16 at 01:00 Glucose (Glutose) 15 gm Q15M PRN BUCCAL DECREASED GLUCOSE; Start 11/24/16 at 01: 00 Tobramycin/ Dexamethasone (Tobradex Oph Drop) 1 drop Q4 BOTH EYES Last administered on 11/26/16 12:03; Admin Dose 1 DROP; Start 11/24/16 at 17:00 Pantoprazole (Protonix Tab) 40 mg DAILY@06 PO Last administered on 11/25/16 05 :29; Admin Dose 40 MG; Start 11/24/16 at 13:00 Hydralazine HCl (Apresoline) 10 mg Q3H PRN IV SBP GREATER THAN 160 Last administered on 11/26/16 12:06; Admin Dose 10 MG; Start 11/24/16 at 14:01 Enoxaparin Sodium (Lovenox) 30 mg DAILY SC Last administered on 11/26/16 08:36 ; Admin Dose 30 MG; Start 11/26/16 at 09:00 Insulin Glargine (Lantus) 6 unit DAILY@20 SC ; Start 11/26/16 at 20:00 Aspirin 600 mg 600 mg DAILY CA Last administered on 11/26/16 08:27; Admin Dose 600 MG; Start 11/26/16 at 09:00 Potassium Chloride/Dextrose/ Sod Cl (D5-1/2ns + KCl 20 Meq) 1,000 ml @ 100 mls/ hr Q10H IV Last administered on 11/26/16 08:28; Admin Dose 100 MLS/HR; Start 11/26/16 at 09:00 DARRELL MYERS MD Nov 26, 2016 14:19
--- NOTE | 2016-11-26 15:27 | CONS ---
Date/Time of Note Date/Time of Note DATE: 11/26/16 TIME: 15:15 Consult Date/Type/Reason Admit Date/Time Nov 23, 2016 at 19:44 Initial Consult Date 11/24/16 Type of Consultation: neurology Reason for Consultation Right MCA stroke + Left FELIPA stroke, Right ICA occlusion, moderate Left ICA stenosis Ordering Provider: DARRELL MYERS MD Subjective yesterday was very drowsy and unable to arouse uncooperative w exam CTH repeated showed areas of hypodensity in right centrum semiovale, right parietal temporal and right anderson radiata consistent with subacute ischemic changes, infarct left genu corpus callosum Today she is a bit more arousable, but has flaccid paralysis on left arm 0/5 Objective Vital Signs Date Time Temp Pulse Resp B/P Pulse Ox O2 Delivery O2 Flow Rate FiO2 11/26/16 12:47 165/74 124/64 11/26/16 12:04 97 11/26/16 11:28 97.9 15 98 Intake and Output 11/25/16 11/25/16 11/26/16 15:00 23:00 07:00 Intake Total 1060 ml 800 ml Balance 1060 ml 800 ml Exam arousable to verbal stimuli, improved from yesterday brief conversation with in Slovenian can follow simple commands, inattentive CN: DENISE, right gaze preference, left facial weakness Motor: left arm flaccid paralysis 0/5 left leg she can move side to side briefly antigravity much weaker than prior exams right arm and leg intact strength sensory localizes to noxious stimuli in the left arm Results/Medications Result Diagram: 11/26/16 0615 11/26/16 0615 Results 24 hrs Laboratory Tests Test 11/25/16 17:16 11/25/16 21:12 11/26/16 06:15 11/26/16 07:53 Bedside Glucose 92 102 80 White Blood Count 8.8 Red Blood Count 3.82 L Hemoglobin 11.7 L Hematocrit 35.2 L Mean Corpuscular Volume 92.1 Mean Corpuscular Hemoglobin 30.6 Mean Corpuscular Hemoglobin Concent 33.2 Red Cell Distribution Width 12.7 Platelet Count 205 Mean Platelet Volume 11.1 H Neutrophils % 84.2 H Lymphocytes % 7.9 L Monocytes % 6.7 Eosinophils % 0.6 Basophils % 0.3 Nucleated Red Blood Cells % 0.0 Neutrophils # 7.4 Lymphocytes # 0.7 L Monocytes # 0.6 Eosinophils # 0.1 Basophils # 0.0 Nucleated Red Blood Cells # 0.0 Sodium Level 135 Potassium Level 4.5 Chloride Level 107 Carbon Dioxide Level 18 L Anion Gap 15 Blood Urea Nitrogen 33 H Creatinine 1.83 H Glucose Level 74 # Calcium Level 9.0 Phosphorus Level 4.9 Magnesium Level 2.3 Troponin I 0.286 *H Test 11/26/16 12:02 Bedside Glucose 155 Medications Current Medications Aspirin (Aspirin) 81 mg DAILY PO Last administered on 11/25/16 08:40; Admin Dose 81 MG; Start 11/24/16 at 09:00 Atorvastatin Calcium (Lipitor) 40 mg HS PO Last administered on 11/24/16 21:11 ; Admin Dose 40 MG; Start 11/24/16 at 21:00 Ondansetron HCl (Zofran Inj) 4 mg Q6H PRN IV NAUSEA AND/OR VOMITING Last administered on 11/24/16 15:58; Admin Dose 4 MG; Start 11/24/16 at 00:30 Acetaminophen (Tylenol Tab) 650 mg Q6H PRN PO PAIN AND OR ELEVATED TEMP; Start 11/24/16 at 00:30 Diagnostic Test (Pha) (Accu-Chek) 1 ea 02 XX Last administered on 11/25/16 02: 21; Admin Dose 1 EA; Start 11/24/16 at 02:00 Miscellaneous Information 1 ea NOTE XX ; Start 11/24/16 at 01:00 Glucose (Glutose) 15 gm Q15M PRN PO DECREASED GLUCOSE; Start 11/24/16 at 01:00 Glucose (Glutose) 22.5 gm Q15M PRN PO DECREASED GLUCOSE; Start 11/24/16 at 01:00 Dextrose (D50w Syringe) 25 ml Q15M PRN IV DECREASED GLUCOSE; Start 11/24/16 at 01:00 Dextrose (D50w Syringe) 50 ml Q15M PRN IV DECREASED GLUCOSE; Start 11/24/16 at 01:00 Glucagon (Glucagen) 1 mg Q15M PRN IM DECREASED GLUCOSE; Start 11/24/16 at 01:00 Glucose (Glutose) 15 gm Q15M PRN BUCCAL DECREASED GLUCOSE; Start 11/24/16 at 01: 00 Tobramycin/ Dexamethasone (Tobradex Oph Drop) 1 drop Q4 BOTH EYES Last administered on 11/26/16 12:03; Admin Dose 1 DROP; Start 11/24/16 at 17:00 Pantoprazole (Protonix Tab) 40 mg DAILY@06 PO Last administered on 11/25/16 05 :29; Admin Dose 40 MG; Start 11/24/16 at 13:00 Hydralazine HCl (Apresoline) 10 mg Q3H PRN IV SBP GREATER THAN 160 Last administered on 11/26/16 12:06; Admin Dose 10 MG; Start 11/24/16 at 14:01 Enoxaparin Sodium (Lovenox) 30 mg DAILY SC Last administered on 11/26/16 08:36 ; Admin Dose 30 MG; Start 11/26/16 at 09:00 Insulin Glargine (Lantus) 6 unit DAILY@20 SC ; Start 11/26/16 at 20:00 Aspirin 600 mg 600 mg DAILY [place] Last administered on 11/26/16 08:27; Admin Dose 600 MG; Start 11/26/16 at 09:00 Potassium Chloride/Dextrose/ Sod Cl (D5-1/2ns + KCl 20 Meq) 1,000 ml @ 70 mls/ hr [id number] IV Last administered on 11/26/16 08:28; Admin Dose 100 MLS/HR; Start 11/26/16 at 09:00 Assessment/Plan Chief Complaint/Hosp Course 76 yo female with HTN, DM, Right ICA occlusion and moderate Left ICA stenosis admitted with chronic and subacute right MCA infarct, Left FELIPA infarct. Repeat MRI shows acute borderzone appearing infarcts FELIPA/MCA zone expected from Right Carotid Occlusion. additional infarcts right basal ganglia, right posterior temporal lobe, right parietal. Left FELIPA acute infarcts. Symptoms have now progressed to flaccid paralysis on left arm. 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 that may be causes further embolization and further ischemia suspect the Left FELIPA infarction is a result of collaterals shutting down as she has been in NSR with no telemetry signs of afib and ECHO has not shown any significant abnormalities -appreciate vascular surgery consultation, will plan for possible Right ICA ligation -after procedure will require strict management of blood pressure to prevent any reperfusion injury SBP will need to maintain less than 140 and would prefer ICU admission for closer neurologic monitoring -continue on aspirin and statin -will hold off on KASIA as she is too unstable at this moment continue tele monitoring for afib -will follow closely, please contact me for any decline in her status Problems: CINTHIA DURAN MD Nov 26, 2016 15:27
[2016-11-26] MEDS: ATORVASTATIN 40 MG TAB PO SCH (20:55)
[2016-11-26] MEDS: INSULIN GLARGINE [LANtus] 3 ML PEN SC SCH (21:00)
[2016-11-27] VITALS (14 sets, daily range): BP systolic 132–200; BP diastolic 69–97; PULSE 90–101; RESP 16–19
[2016-11-27] MEDS: TOBRAMYCIN/DEXAMETH 2.5 ML OPH BOTH EYES SCH ×6 (01:00→20:29)
[2016-11-27] MEDS: INSULIN ASPART [NOVOLOG] 3 ML PEN SC SCH ×6 (01:13→20:32)
[2016-11-27] MEDS: ACCU-CHEK XX SCH (01:14)
[2016-11-27] MEDS: hydrALAzine 20 MG INJ IV PRN ×3 (02:00→19:52)
[2016-11-27] MEDS: PANTOPRAZOLE (EC) 40 MG TAB PO SCH (05:33)
[2016-11-27 05:56] LABS: ADD SCAN DIFF NO
[2016-11-27 06:10] LABS: BASOPHILS % 0.3 % (0.0-2.0); EOSINOPHILS # 0.1 10^3/ul (0.0-0.5); EOSINOPHILS % 1.1 % (0.0-7.0); HEMATOCRIT 33.9 % (37.0-47.0); HEMOGLOBIN 11.3 g/dl (12.0-16.0); LYMPHOCYTES # 0.8 10^3/ul (0.8-2.9); LYMPHOCYTES % 11.1 % (15.0-51.0); MEAN CORPUSCULAR HEMOGLOBIN 30.3 pg (29.0-33.0); MEAN CORPUSCULAR HGB CONC 33.3 g/dl (32.0-37.0); MEAN CORPUSCULAR VOLUME 90.9 fl (82.0-101.0); MEAN PLATELET VOLUME 9.9 fl (7.4-10.4); MONOCYTE # 0.6 10^3/ul (0.3-0.9); MONOCYTES % 8.3 % (0.0-11.0); NEUTROPHIL # 5.7 10^3/ul (1.6-7.5); NEUTROPHILS % 78.8 % (39.0-77.0); PLATELET COUNT 256 10^3/UL (140-415); RED BLOOD COUNT 3.73 10^6/ul (4.20-5.40); RED CELL DISTRIBUTION WIDTH 12.6 % (11.5-14.5); WHITE BLOOD COUNT 7.3 10^3/ul (4.8-10.8)
[2016-11-27 06:42] LABS: CREATININE 1.39 mg/dl (0.44-1.00); MAGNESIUM 2.4 mg/dl (1.7-2.5); PHOSPHORUS 3.4 mg/dl (2.5-4.9); POTASSIUM 5.1 mmol/L (3.5-5.1)
[2016-11-27] MEDS: ASPIRIN 600 MG SUPP PR SCH (08:49)
[2016-11-27] MEDS: ASPIRIN 81 MG TAB PO SCH (08:49)
[2016-11-27] MEDS: ENOXAPARIN 30 MG/0.3 ML SYG SC SCH (08:50)
[2016-11-27] MEDS: D5W-0.45 NACL + KCL 20 MEQ 1,000 ML IV SCH (11:24)
--- NOTE | 2016-11-27 12:25 | CONS ---
Date/Time of Note Date/Time of Note DATE: 11/27/16 TIME: 12:23 Consult Date/Type/Reason Admit Date/Time Nov 23, 2016 at 19:44 Initial Consult Date 11/24/16 Type of Consultation: neurology Reason for Consultation CVA Ordering Provider: DARRELL MYERS MD Subjective remained stable overnight family at bedside, agreeing with plan for Right CEA/ ligation later today Objective Vital Signs Date Time Temp Pulse Resp B/P Pulse Ox O2 Delivery O2 Flow Rate FiO2 11/27/16 12:08 96 11/27/16 11:09 97.4 18 200/97 98 Intake and Output 11/26/16 11/26/16 11/27/16 15:00 23:00 07:00 Intake Total 1000 ml 630 ml Balance 1000 ml 630 ml Exam arousable to verbal stimuli brief conversation with and daughters in Japanese can follow simple commands, inattentive CN: DENISE, right gaze preference, left facial weakness Motor: left arm 1/5 left leg she can move side to side 2/5 right arm and leg intact strength sensory localizes to noxious stimuli in the left arm Results/Medications Result Diagram: 11/27/16 0534 11/27/16 0534 Results 24 hrs Laboratory Tests Test 11/26/16 17:15 11/26/16 20:58 11/27/16 01:08 11/27/16 05:24 Bedside Glucose 210 156 203 188 Test 11/27/16 05:34 11/27/16 07:59 White Blood Count 7.3 Red Blood Count 3.73 L Hemoglobin 11.3 L Hematocrit 33.9 L Mean Corpuscular Volume 90.9 Mean Corpuscular Hemoglobin 30.3 Mean Corpuscular Hemoglobin Concent 33.3 Red Cell Distribution Width 12.6 Platelet Count 256 # Mean Platelet Volume 9.9 Neutrophils % 78.8 H Lymphocytes % 11.1 L Monocytes % 8.3 Eosinophils % 1.1 Basophils % 0.3 Nucleated Red Blood Cells % 0.0 Neutrophils # 5.7 Lymphocytes # 0.8 Monocytes # 0.6 Eosinophils # 0.1 Basophils # 0.0 Nucleated Red Blood Cells # 0.0 Sodium Level 137 Potassium Level 5.1 Chloride Level 110 Carbon Dioxide Level 19 L Anion Gap 13 Blood Urea Nitrogen 26 H Creatinine 1.39 H Glucose Level 190 # Calcium Level 9.0 Phosphorus Level 3.4 Magnesium Level 2.4 Bedside Glucose 167 Medications Current Medications Aspirin (Aspirin) 81 mg DAILY PO Last administered on 11/25/16 08:40; Admin Dose 81 MG; Start 11/24/16 at 09:00 Atorvastatin Calcium (Lipitor) 40 mg HS PO Last administered on 11/24/16 21:11 ; Admin Dose 40 MG; Start 11/24/16 at 21:00 Ondansetron HCl (Zofran Inj) 4 mg Q6H PRN IV NAUSEA AND/OR VOMITING Last administered on 11/24/16 15:58; Admin Dose 4 MG; Start 11/24/16 at 00:30 Acetaminophen (Tylenol Tab) 650 mg Q6H PRN PO PAIN AND OR ELEVATED TEMP; Start 11/24/16 at 00:30 Diagnostic Test (Pha) (Accu-Chek) 1 ea 02 XX Last administered on 11/27/16 01: 14; Admin Dose 1 EA; Start 11/24/16 at 02:00 Miscellaneous Information 1 ea NOTE XX ; Start 11/24/16 at 01:00 Glucose (Glutose) 15 gm Q15M PRN PO DECREASED GLUCOSE; Start 11/24/16 at 01:00 Glucose (Glutose) 22.5 gm Q15M PRN PO DECREASED GLUCOSE; Start 11/24/16 at 01:00 Dextrose (D50w Syringe) 25 ml Q15M PRN IV DECREASED GLUCOSE; Start 11/24/16 at 01:00 Dextrose (D50w Syringe) 50 ml Q15M PRN IV DECREASED GLUCOSE; Start 11/24/16 at 01:00 Glucagon (Glucagen) 1 mg Q15M PRN IM DECREASED GLUCOSE; Start 11/24/16 at 01:00 Glucose (Glutose) 15 gm Q15M PRN BUCCAL DECREASED GLUCOSE; Start 11/24/16 at 01: 00 Tobramycin/ Dexamethasone (Tobradex Oph Drop) 1 drop Q4 BOTH EYES Last administered on 11/27/16 08:54; Admin Dose 1 DROP; Start 11/24/16 at 17:00 Pantoprazole (Protonix Tab) 40 mg DAILY@06 PO Last administered on 11/25/16 05 :29; Admin Dose 40 MG; Start 11/24/16 at 13:00 Hydralazine HCl (Apresoline) 10 mg Q3H PRN IV SBP GREATER THAN 160 Last administered on 11/27/16 11:22; Admin Dose 10 MG; Start 11/24/16 at 14:01 Enoxaparin Sodium (Lovenox) 30 mg DAILY SC Last administered on 11/26/16 08:36 ; Admin Dose 30 MG; Start 11/26/16 at 09:00 Insulin Glargine (Lantus) 6 unit DAILY@20 SC Last administered on 11/26/16 21: 00; Admin Dose 6 UNIT; Start 11/26/16 at 20:00 Aspirin 600 mg 600 mg DAILY [place] Last administered on 11/26/16 08:27; Admin Dose 600 MG; Start 11/26/16 at 09:00 Potassium Chloride/Dextrose/ Sod Cl (D5-1/2ns + KCl 20 Meq) 1,000 ml @ 70 mls/ hr [id number] IV Last administered on 11/27/16 11:24; Admin Dose 70 MLS/HR; Start 11/26/16 at 09:00 Insulin Aspart (Novolog Insulin Pen) NOVOLOG *MODERATE* ALGORI... Q4 SC Last administered on 11/27/16 09:31; Admin Dose 2 UNIT; Start 11/26/16 at 21:00 Assessment/Plan Chief Complaint/Hosp Course 76 yo female with HTN, DM, Right ICA occlusion and moderate Left ICA stenosis admitted with chronic and subacute right MCA infarct, Left FELIPA infarct. Repeat MRI shows acute borderzone appearing infarcts FELIPA/MCA zone expected from Right Carotid Occlusion. additional infarcts right basal ganglia, right posterior temporal lobe, right parietal. Left FELIPA acute infarcts. Symptoms have now progressed to severe paresis on left arm and leg. 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 that may be causes further embolization and further ischemia suspect the Left FELIPA infarction is a result of collaterals shutting down as she has been in NSR with no telemetry signs of afib and ECHO has not shown any significant abnormalities -appreciate vascular surgery consultation, will plan for possible Right ICA ligation -after procedure will require strict management of blood pressure to prevent any reperfusion injury SBP will need to maintain less than 140 and would prefer ICU admission for closer neurologic monitoring -continue on aspirin and statin -will hold off on KASIA as she is too unstable at this moment continue tele monitoring for afib -will follow closely, please contact me for any decline in her status Problems: CINTHIA DURAN MD Nov 27, 2016 12:25
--- NOTE | 2016-11-27 15:53 | CONS ---
Date/Time of Note Date/Time of Note DATE: 11/27/16 TIME: 15:48 Assessment/Plan Assessment/Plan Chief Complaint/Hosp Course IMPRESSION: 1. Abnormal electrocardiogram, assess for acute coronary syndrome in the setting of acute cerebrovascular accident. 2. Acute cerebrovascular accident, possible embolic origin, assess for cardiac embolic source.-probable from carotis stenosis 3. Hypertension, uncontrolled in the setting of acute cerebrovascular accident. 4. Dyslipidemia. 5. Diabetes mellitus. 6. Renal failure. 7. Positive troponin-minimal in the setting of renal failure and acute CVA. Downtrending Recc: -Tele -Trend cardiac enzymes -KASIA as necessary once MS improved -Continue asa/lovenox/statin -permissive HTN per neurology -Follow MS closely which has worsened and thus to go for surgery today to prevent possible further extension of cva -post-op patient is to go to ICU andhave tight control of SBP<140 Problems: Consultation Date/Type/Reason Admit Date/Time Nov 23, 2016 at 19:44 Initial Consult Date 11/24/16 Type of Consultation: neurology Reason for Consultation HTN/cva Referring Provider: DARRELL MYERS MD Exam/Review of Systems Vital Signs Vitals Vital Signs Date Time Temp Pulse Resp B/P Pulse Ox O2 Delivery O2 Flow Rate FiO2 11/27/16 15:35 97.8 100 19 189/84 97 Intake and Output 11/26/16 11/26/16 11/27/16 15:00 23:00 07:00 Intake Total 1000 ml 630 ml Balance 1000 ml 630 ml Exam Review of Systems: CONSTITUTIONAL: No fevers, chills. PULMONARY: No sob CARDIOVASCULAR: No chest pain/palpitations GASTROINTESTINAL: No nausea/vomiting. GENITOURINARY: No hematuria/dysuria. MUSCULOSKELETAL: No myagias/arthalgias. PSYCHIATRIC: The patient denies depression. NEUROLOGIC: encephalopathic/lethargic Constitutional: other (encephalopathy) Psych: no complaints Head: normocephalic ENMT: mucosa pink and moist Neck: jvd (8 cm water), supple Respiratory: diminished breath sounds (at baes/B) Cardiovascular: regular rate and rhythm Gastrointestinal: non-tender, soft Musculoskeletal: muscle tone (normal) Extremities: edema (none) Neurological: confused, lethargic Results Result Diagram: 11/27/1634 11/27/16533 Results 24 hrs Laboratory Tests Test 11/26/16 17:15 11/26/16 20:58 11/27/16 01:08 11/27/16 05:24 Bedside Glucose 210 156 203 188 Test 11/27/16 05:34 11/27/16 07:59 11/27/16 12:56 White Blood Count 7.3 Red Blood Count 3.73 L Hemoglobin 11.3 L Hematocrit 33.9 L Mean Corpuscular Volume 90.9 Mean Corpuscular Hemoglobin 30.3 Mean Corpuscular Hemoglobin Concent 33.3 Red Cell Distribution Width 12.6 Platelet Count 256 # Mean Platelet Volume 9.9 Neutrophils % 78.8 H Lymphocytes % 11.1 L Monocytes % 8.3 Eosinophils % 1.1 Basophils % 0.3 Nucleated Red Blood Cells % 0.0 Neutrophils # 5.7 Lymphocytes # 0.8 Monocytes # 0.6 Eosinophils # 0.1 Basophils # 0.0 Nucleated Red Blood Cells # 0.0 Sodium Level 137 Potassium Level 5.1 Chloride Level 110 Carbon Dioxide Level 19 L Anion Gap 13 Blood Urea Nitrogen 26 H Creatinine 1.39 H Glucose Level 190 # Calcium Level 9.0 Phosphorus Level 3.4 Magnesium Level 2.4 Bedside Glucose 167 211 Medications Medications Current Medications Aspirin (Aspirin) 81 mg DAILY PO Last administered on 11/25/16 08:40; Admin Dose 81 MG; Start 11/24/16 at 09:00 Atorvastatin Calcium (Lipitor) 40 mg HS PO Last administered on 11/24/16 21:11 ; Admin Dose 40 MG; Start 11/24/16 at 21:00 Ondansetron HCl (Zofran Inj) 4 mg Q6H PRN IV NAUSEA AND/OR VOMITING Last administered on 11/24/16 15:58; Admin Dose 4 MG; Start 11/24/16 at 00:30 Acetaminophen (Tylenol Tab) 650 mg Q6H PRN PO PAIN AND OR ELEVATED TEMP; Start 11/24/16 at 00:30 Diagnostic Test (Pha) (Accu-Chek) 1 ea 02 XX Last administered on 11/27/16 01: 14; Admin Dose 1 EA; Start 11/24/16 at 02:00 Miscellaneous Information 1 ea NOTE XX ; Start 11/24/16 at 01:00 Glucose (Glutose) 15 gm Q15M PRN PO DECREASED GLUCOSE; Start 11/24/16 at 01:00 Glucose (Glutose) 22.5 gm Q15M PRN PO DECREASED GLUCOSE; Start 11/24/16 at 01:00 Dextrose (D50w Syringe) 25 ml Q15M PRN IV DECREASED GLUCOSE; Start 11/24/16 at 01:00 Dextrose (D50w Syringe) 50 ml Q15M PRN IV DECREASED GLUCOSE; Start 11/24/16 at 01:00 Glucagon (Glucagen) 1 mg Q15M PRN IM DECREASED GLUCOSE; Start 11/24/16 at 01:00 Glucose (Glutose) 15 gm Q15M PRN BUCCAL DECREASED GLUCOSE; Start 11/24/16 at 01: 00 Tobramycin/ Dexamethasone (Tobradex Oph Drop) 1 drop Q4 BOTH EYES Last administered on 11/27/16 08:54; Admin Dose 1 DROP; Start 11/24/16 at 17:00 Pantoprazole (Protonix Tab) 40 mg DAILY@06 PO Last administered on 11/25/16 05 :29; Admin Dose 40 MG; Start 11/24/16 at 13:00 Hydralazine HCl (Apresoline) 10 mg Q3H PRN IV SBP GREATER THAN 160 Last administered on 11/27/16 11:22; Admin Dose 10 MG; Start 11/24/16 at 14:01 Enoxaparin Sodium (Lovenox) 30 mg DAILY SC Last administered on 11/26/16 08:36 ; Admin Dose 30 MG; Start 11/26/16 at 09:00 Insulin Glargine (Lantus) 6 unit DAILY@20 SC Last administered on 11/26/16 21: 00; Admin Dose 6 UNIT; Start 11/26/16 at 20:00 Aspirin 600 mg 600 mg DAILY [place] Last administered on 11/26/16 08:27; Admin Dose 600 MG; Start 11/26/16 at 09:00 Potassium Chloride/Dextrose/ Sod Cl (D5-1/2ns + KCl 20 Meq) 1,000 ml @ 70 mls/ hr [id number] IV Last administered on 11/27/16 11:24; Admin Dose 70 MLS/HR; Start 11/26/16 at 09:00 Insulin Aspart (Novolog Insulin Pen) NOVOLOG *MODERATE* ALGORI... Q4 SC Last administered on 11/27/16 13:00; Admin Dose 4 UNIT; Start 11/26/16 at 21:00 ANSHU MATAMOROS Nov 27, 2016 15:52
--- NOTE | 2016-11-27 16:04 | PN ---
Date/Time of Note Date/Time of Note DATE: 11/27/16 TIME: 16:00 Assessment/Plan VTE Prophylaxis VTE Prophylaxis Intervention: other Lines/Catheters IV Catheter Type (from [facility]): Peripheral IV Urinary Cath still in place: No Assessment/Plan Chief Complaint/Hosp Course Assessment/Plan 1. Abnormal electrocardiogram, assess for acute coronary syndrome in the setting of acute cerebrovascular accident. KASIA as necessary once MS improved Cardiology has been consulted, continue aggressive medical management 2. Acute cerebrovascular accident, possible embolic origin, assess for cardiac embolic source.-probable from carotid stenosis 3. Total occlusion of the right internal carotid artery Plan for right-sided endarterectomy 4. Hypertension, better controlled 4. Dyslipidemia. Continue statin 5. Diabetes mellitus. 6. Renal failure. 7. Positive troponin-minimal in the setting of renal failure and acute CVA. Downtrending Cardiology has been consulted Problems: Subjective 24 Hr Interval Summary Free Text/Dictation Patient is arousable Schedule for right sided endarterectomy today Family at the bedside Exam/Review of Systems Vital Signs Vitals Vital Signs Date Time Temp Pulse Resp B/P Pulse Ox O2 Delivery O2 Flow Rate FiO2 11/27/16 15:35 97.8 100 19 189/84 97 Intake and Output 11/26/16 11/26/16 11/27/16 15:00 23:00 07:00 Intake Total 1000 ml 630 ml Balance 1000 ml 630 ml Exam General: The patient is Not in acute distress. HEENT: Atraumatic, normocephalic. The pupils are equal and symmetric Neck: Supple Chest: Normal Lungs: Clear to auscultation bilaterally Heart: Normal S1-S2, Regular rhythm and rate. Abdomen: Soft , nontender, nondistended , bowel sounds are present. Extremities: Right normal strength, left upper and lower extremity2/5 strength, no edema no cyanosis Neurologic:The patient is awake , response to verbal stimuli Results Result Diagram: 11/27/16 0534 11/27/16 0534 Results 24 hrs Laboratory Tests Test 11/26/16 17:15 11/26/16 20:58 11/27/16 01:08 11/27/16 05:24 Bedside Glucose 210 156 203 188 Test 11/27/16 05:34 11/27/16 07:59 11/27/16 12:56 White Blood Count 7.3 Red Blood Count 3.73 L Hemoglobin 11.3 L Hematocrit 33.9 L Mean Corpuscular Volume 90.9 Mean Corpuscular Hemoglobin 30.3 Mean Corpuscular Hemoglobin Concent 33.3 Red Cell Distribution Width 12.6 Platelet Count 256 # Mean Platelet Volume 9.9 Neutrophils % 78.8 H Lymphocytes % 11.1 L Monocytes % 8.3 Eosinophils % 1.1 Basophils % 0.3 Nucleated Red Blood Cells % 0.0 Neutrophils # 5.7 Lymphocytes # 0.8 Monocytes # 0.6 Eosinophils # 0.1 Basophils # 0.0 Nucleated Red Blood Cells # 0.0 Sodium Level 137 Potassium Level 5.1 Chloride Level 110 Carbon Dioxide Level 19 L Anion Gap 13 Blood Urea Nitrogen 26 H Creatinine 1.39 H Glucose Level 190 # Calcium Level 9.0 Phosphorus Level 3.4 Magnesium Level 2.4 Bedside Glucose 167 211 Medications Medications Current Medications Aspirin (Aspirin) 81 mg DAILY PO Last administered on 11/25/16 08:40; Admin Dose 81 MG; Start 11/24/16 at 09:00 Atorvastatin Calcium (Lipitor) 40 mg HS PO Last administered on 11/24/16 21:11 ; Admin Dose 40 MG; Start 11/24/16 at 21:00 Ondansetron HCl (Zofran Inj) 4 mg Q6H PRN IV NAUSEA AND/OR VOMITING Last administered on 11/24/16 15:58; Admin Dose 4 MG; Start 11/24/16 at 00:30 Acetaminophen (Tylenol Tab) 650 mg Q6H PRN PO PAIN AND OR ELEVATED TEMP; Start 11/24/16 at 00:30 Diagnostic Test (Pha) (Accu-Chek) 1 ea 02 XX Last administered on 11/27/16 01: 14; Admin Dose 1 EA; Start 11/24/16 at 02:00 Miscellaneous Information 1 ea NOTE XX ; Start 11/24/16 at 01:00 Glucose (Glutose) 15 gm Q15M PRN PO DECREASED GLUCOSE; Start 11/24/16 at 01:00 Glucose (Glutose) 22.5 gm Q15M PRN PO DECREASED GLUCOSE; Start 11/24/16 at 01:00 Dextrose (D50w Syringe) 25 ml Q15M PRN IV DECREASED GLUCOSE; Start 11/24/16 at 01:00 Dextrose (D50w Syringe) 50 ml Q15M PRN IV DECREASED GLUCOSE; Start 11/24/16 at 01:00 Glucagon (Glucagen) 1 mg Q15M PRN IM DECREASED GLUCOSE; Start 11/24/16 at 01:00 Glucose (Glutose) 15 gm Q15M PRN BUCCAL DECREASED GLUCOSE; Start 11/24/16 at 01: 00 Tobramycin/ Dexamethasone (Tobradex Oph Drop) 1 drop Q4 BOTH EYES Last administered on 11/27/16 08:54; Admin Dose 1 DROP; Start 11/24/16 at 17:00 Pantoprazole (Protonix Tab) 40 mg DAILY@06 PO Last administered on 11/25/16 05 :29; Admin Dose 40 MG; Start 11/24/16 at 13:00 Hydralazine HCl (Apresoline) 10 mg Q3H PRN IV SBP GREATER THAN 160 Last administered on 11/27/16 11:22; Admin Dose 10 MG; Start 11/24/16 at 14:01 Enoxaparin Sodium (Lovenox) 30 mg DAILY SC Last administered on 11/26/16 08:36 ; Admin Dose 30 MG; Start 11/26/16 at 09:00 Insulin Glargine (Lantus) 6 unit DAILY@20 SC Last administered on 11/26/16 21: 00; Admin Dose 6 UNIT; Start 11/26/16 at 20:00 Aspirin 600 mg [address] Last administered on 11/26/16 08:27; Admin Dose 600 MG; Start 11/26/16 at 09:00 Potassium Chloride/Dextrose/ Sod Cl (D5-1/2ns + KCl 20 Meq) 1,000 ml @ 70 mls/ hr [id number] IV Last administered on 11/27/16 11:24; Admin Dose 70 MLS/HR; Start 11/26/16 at 09:00 Insulin Aspart (Novolog Insulin Pen) NOVOLOG *MODERATE* ALGORI... Q4 SC Last administered on 11/27/16 13:00; Admin Dose 4 UNIT; Start 11/26/16 at 21:00 TAMMY ASHFORD MD Nov 27, 2016 16:04
[2016-11-27] MEDS ORDERED: CLONIDINE 0.1 MG/24 HR PATCH TRANSDERM SCH (18:30)
[2016-11-27] MEDS: ATORVASTATIN 40 MG TAB PO SCH (20:33)
[2016-11-27] MEDS: INSULIN GLARGINE [LANtus] 3 ML PEN SC SCH (20:33)
[2016-11-27] MEDS ORDERED: VITAMIN A & D 5 GM OINT PACKET TOP ONE (20:34)
--- NOTE | 2016-11-27 22:26 | PN ---
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 From the standpoint of vascular surgery, there is no surgical intervention other than to continue with antiplatelet therapy as the occlusion extends into the cranium. Held a lengthy family discussion at the bedside and reviewed the findings of the CT Angiogram and management options. Family agreed with conservative approach at this time -Recommend ASA or dual antiplatelet therapy, will discuss with our Neurology Stroke service -Left internal carotid artery stenosis: The patient has bilateral carotid disease and with recent findings of her stroke, we will plan to wait 4 to 6 weeks for her to stabilize from the standpoint of the stroke, and we will schedule the patient for eventual carotid endarterectomy as the patient has bilateral disease. Unfortunately symptomatically has gotten worse will await recovery prior to any surgical intervention, Rule our hemorrhagic conversion -Appreciate Neurology evaluation -PY/OT and speech therapy -Optimize vascular status (BP meds, diet, nutrition, exercise, sugar control, antiplatelets). -Discussed findings, plan and management with the patient and the at the bedside with a certified bowling pin refinisher, and they understand. -Thank you for allowing us to partake in the care of your patient. Please call with any questions. Problems: Subjective 24 Hr Interval Summary pt is more awake and responsive Exam/Review of Systems Vital Signs Vitals Vital Signs Date Time Temp Pulse Resp B/P Pulse Ox O2 Delivery O2 Flow Rate FiO2 11/27/16 19:58 97.7 96 18 195/95 97 Intake and Output 11/26/16 11/26/16 11/27/16 15:00 23:00 07:00 Intake Total 1000 ml 630 ml Balance 1000 ml 630 ml Exam Free Text/Dictation GENERAL: Awake and follow some commands, is able to understand basic questions PULMONARY: Clear to auscultation bilaterally. CARDIOVASCULAR: S1, S2 present. ABDOMEN: Soft, nontender, nondistended. Bowel sounds positive. EXTREMITIES: Upper extremities: Palpable brachial pulse. Capillary refill 2 to 3, LUE- no motor, some sensory Lower extremities: Palpable femoral pulse, nonpalpable pedal pulses. LLE- Motor 2/5 and sensory intact, Capillary refill 2 to 3 seconds. Results Result Diagram: 11/27/16 0534 11/27/16 0534 ALEXANDER CHENG MD Nov 27, 2016 22:26
[2016-11-28] VITALS (12 sets, daily range): BP systolic 122–197; BP diastolic 56–93; PULSE 90–105; RESP 19
[2016-11-28] MEDS: D5W-0.45 NACL + KCL 20 MEQ 1,000 ML IV SCH ×2 (01:18→15:39)
[2016-11-28] MEDS: TOBRAMYCIN/DEXAMETH 2.5 ML OPH BOTH EYES SCH ×6 (01:20→20:46)
[2016-11-28] MEDS: INSULIN ASPART [NOVOLOG] 3 ML PEN SC SCH ×6 (01:24→20:55)
[2016-11-28] MEDS: ACCU-CHEK XX SCH (02:00)
[2016-11-28] MEDS: PANTOPRAZOLE (EC) 40 MG TAB PO SCH (05:55)
[2016-11-28] MEDS: ASPIRIN 81 MG TAB PO SCH (08:30)
[2016-11-28] MEDS: ASPIRIN 600 MG SUPP PR SCH (09:00)
[2016-11-28] MEDS: ENOXAPARIN 30 MG/0.3 ML SYG SC SCH (09:16)
--- NOTE | 2016-11-28 09:24 | CONS ---
Date/Time of Note Date/Time of Note DATE: 11/28/16 TIME: 09:22 Assessment/Plan Assessment/Plan Additional Assessment/Plan 1. Abnormal electrocardiogram, assess for acute coronary syndrome in the setting of acute cerebrovascular accident- no obviousd CP, med rx for now. 2. Acute cerebrovascular accident, possible embolic origin, assess for cardiac embolic source.-probable from carotis stenosis- stable symptoms, neurology follows. 3. Hypertension, uncontrolled in the setting of acute cerebrovascular accident - allow Rx per neuro. 4. Dyslipidemia. 5. Diabetes mellitus- on meds, keep euglycemic 6. Renal failure- stable urine output now 7. Positive troponin-minimal in the setting of renal failure and acute CVA. Downtrending Consultation Date/Type/Reason Admit Date/Time Nov 23, 2016 at 19:44 Initial Consult Date 11/24/16 Type of Consultation: neurology Referring Provider: DARRELL MYERS MD 24 HR Interval Summary Free Text/Dictation NO acute change - BP on High side - will await neuro recs. NO CP now - no significant ectopy on tele. ROS: No fever, no chills, no nausea, no vomiting, no diarrhea/constipation No recent weight changes No chest pain, no PND, no orthopnea No dizziness, blurred vision No thirst, no heat or cold intolerance (per family) Exam/Review of Systems Vital Signs Vitals Vital Signs Date Time Temp Pulse Resp B/P Pulse Ox O2 Delivery O2 Flow Rate FiO2 11/28/16 08:00 91 11/28/16 07:49 98.0 19 166/81 97 Intake and Output 11/27/16 11/27/16 11/28/16 15:00 23:00 07:00 Intake Total 0 ml 1400 ml Output Total 850 ml Balance 0 ml 550 ml Exam General: WN/WD/NAD, AOx 0 HEENT: Unicetric/atraumatic/EOMI (does not follow commands) NECK: JVD elevated, no thyromegaly Lymph: no lymphadenopathy HEART: regular with no S3, II/ systolic murmur at apex LUNGS: Coarse sounds ABD: soft, NT, ND, +BS : Intact Neuro: post CVA SKIN: chronic changes EXT: trace edema Results Result Diagram: 11/27/16 0534 11/27/16 0534 Results 24 hrs Laboratory Tests Test 11/27/16 12:56 11/27/16 17:15 11/27/16 20:25 11/28/16 01:11 Bedside Glucose 211 170 176 218 Test 11/28/16 05:48 11/28/16 09:12 Bedside Glucose 190 210 Medications Medications Current Medications Aspirin (Aspirin) 81 mg DAILY PO Last administered on 11/25/16 08:40; Admin Dose 81 MG; Start 11/24/16 at 09:00 Atorvastatin Calcium (Lipitor) 40 mg HS PO Last administered on 11/24/16 21:11 ; Admin Dose 40 MG; Start 11/24/16 at 21:00 Ondansetron HCl (Zofran Inj) 4 mg Q6H PRN IV NAUSEA AND/OR VOMITING Last administered on 11/24/16 15:58; Admin Dose 4 MG; Start 11/24/16 at 00:30 Acetaminophen (Tylenol Tab) 650 mg Q6H PRN PO PAIN AND OR ELEVATED TEMP; Start 11/24/16 at 00:30 Diagnostic Test (Pha) (Accu-Chek) 1 ea 02 XX Last administered on 11/27/16 01: 14; Admin Dose 1 EA; Start 11/24/16 at 02:00 Miscellaneous Information 1 ea NOTE XX ; Start 11/24/16 at 01:00 Glucose (Glutose) 15 gm Q15M PRN PO DECREASED GLUCOSE; Start 11/24/16 at 01:00 Glucose (Glutose) 22.5 gm Q15M PRN PO DECREASED GLUCOSE; Start 11/24/16 at 01:00 Dextrose (D50w Syringe) 25 ml Q15M PRN IV DECREASED GLUCOSE; Start 11/24/16 at 01:00 Dextrose (D50w Syringe) 50 ml Q15M PRN IV DECREASED GLUCOSE; Start 11/24/16 at 01:00 Glucagon (Glucagen) 1 mg Q15M PRN IM DECREASED GLUCOSE; Start 11/24/16 at 01:00 Glucose (Glutose) 15 gm Q15M PRN BUCCAL DECREASED GLUCOSE; Start 11/24/16 at 01: 00 Tobramycin/ Dexamethasone (Tobradex Oph Drop) 1 drop Q4 BOTH EYES Last administered on 11/28/16 05:51; Admin Dose 1 DROP; Start 11/24/16 at 17:00 Pantoprazole (Protonix Tab) 40 mg DAILY@06 PO Last administered on 11/25/16 05 :29; Admin Dose 40 MG; Start 11/24/16 at 13:00 Hydralazine HCl (Apresoline) 10 mg Q3H PRN IV SBP GREATER THAN 160 Last administered on 11/27/16 19:52; Admin Dose 10 MG; Start 11/24/16 at 14:01 Enoxaparin Sodium (Lovenox) 30 mg DAILY SC Last administered on 11/28/16 09:16 ; Admin Dose 30 MG; Start 11/26/16 at 09:00 Insulin Glargine (Lantus) 6 unit DAILY@20 SC Last administered on 11/27/16 20: 33; Admin Dose 6 UNIT; Start 11/26/16 at 20:00 Aspirin 600 mg 600 mg DAILY ME Last administered on 11/26/16 08:27; Admin Dose 600 MG; Start 11/26/16 at 09:00 Potassium Chloride/Dextrose/ Sod Cl (D5-1/2ns + KCl 20 Meq) 1,000 ml @ 70 mls/ hr [id number] IV Last administered on 11/28/16 01:18; Admin Dose 70 MLS/HR; Start 11/26/16 at 09:00 Insulin Aspart (Novolog Insulin Pen) NOVOLOG *MODERATE* ALGORI... Q4 SC Last administered on 11/28/16 09:16; Admin Dose 4 UNIT; Start 11/26/16 at 21:00 JO GIANG MD Nov 28, 2016 09:23
--- NOTE | 2016-11-28 11:56 | CONS ---
Date/Time of Note Date/Time of Note DATE: 11/28/16 TIME: 11:54 Consult Date/Type/Reason Admit Date/Time Nov 23, 2016 at 19:44 Initial Consult Date 11/24/16 Type of Consultation: neurology Reason for Consultation right carotid occlusion, left felipa stroke Ordering Provider: DARRELL MYERS MD Subjective no overnight issues, carotid occlusion too advanced for intervention added plavix today, to be evaluated by PT for AR Objective Vital Signs Date Time Temp Pulse Resp B/P Pulse Ox O2 Delivery O2 Flow Rate FiO2 11/28/16 11:04 97.8 94 19 135/81 95 Intake and Output 11/27/16 11/27/16 11/28/16 15:00 23:00 07:00 Intake Total 0 ml 1400 ml Output Total 850 ml Balance 0 ml 550 ml Exam arousable to verbal stimuli brief conversation with and daughters in Swedish can follow simple commands, inattentive CN: DENISE, right gaze preference, left facial weakness Motor: left arm 1/5 left leg she can move side to side 2/5 right arm and leg intact strength sensory localizes to noxious stimuli in the left arm Results/Medications Result Diagram: 11/27/16 0534 11/27/16 0534 Results 24 hrs Laboratory Tests Test 11/27/16 12:56 11/27/16 17:15 11/27/16 20:25 11/28/16 01:11 Bedside Glucose 211 170 176 218 Test 11/28/16 05:48 11/28/16 09:12 Bedside Glucose 190 210 Medications Current Medications Aspirin (Aspirin) 81 mg DAILY PO Last administered on 11/25/16 08:40; Admin Dose 81 MG; Start 11/24/16 at 09:00 Atorvastatin Calcium (Lipitor) 40 mg HS PO Last administered on 11/24/16 21:11 ; Admin Dose 40 MG; Start 11/24/16 at 21:00 Ondansetron HCl (Zofran Inj) 4 mg Q6H PRN IV NAUSEA AND/OR VOMITING Last administered on 11/24/16 15:58; Admin Dose 4 MG; Start 11/24/16 at 00:30 Acetaminophen (Tylenol Tab) 650 mg Q6H PRN PO PAIN AND OR ELEVATED TEMP; Start 11/24/16 at 00:30 Diagnostic Test (Pha) (Accu-Chek) 1 ea 02 XX Last administered on 11/27/16 01: 14; Admin Dose 1 EA; Start 11/24/16 at 02:00 Miscellaneous Information 1 ea NOTE XX ; Start 11/24/16 at 01:00 Glucose (Glutose) 15 gm Q15M PRN PO DECREASED GLUCOSE; Start 11/24/16 at 01:00 Glucose (Glutose) 22.5 gm Q15M PRN PO DECREASED GLUCOSE; Start 11/24/16 at 01:00 Dextrose (D50w Syringe) 25 ml Q15M PRN IV DECREASED GLUCOSE; Start 11/24/16 at 01:00 Dextrose (D50w Syringe) 50 ml Q15M PRN IV DECREASED GLUCOSE; Start 11/24/16 at 01:00 Glucagon (Glucagen) 1 mg Q15M PRN IM DECREASED GLUCOSE; Start 11/24/16 at 01:00 Glucose (Glutose) 15 gm Q15M PRN BUCCAL DECREASED GLUCOSE; Start 11/24/16 at 01: 00 Tobramycin/ Dexamethasone (Tobradex Oph Drop) 1 drop Q4 BOTH EYES Last administered on 11/28/16 05:51; Admin Dose 1 DROP; Start 11/24/16 at 17:00 Pantoprazole (Protonix Tab) 40 mg DAILY@06 PO Last administered on 11/25/16 05 :29; Admin Dose 40 MG; Start 11/24/16 at 13:00 Hydralazine HCl (Apresoline) 10 mg Q3H PRN IV SBP GREATER THAN 160 Last administered on 11/27/16 19:52; Admin Dose 10 MG; Start 11/24/16 at 14:01 Enoxaparin Sodium (Lovenox) 30 mg DAILY SC Last administered on 11/28/16 09:16 ; Admin Dose 30 MG; Start 11/26/16 at 09:00 Insulin Glargine (Lantus) 6 unit DAILY@20 SC Last administered on 11/27/16 20: 33; Admin Dose 6 UNIT; Start 11/26/16 at 20:00 Aspirin 600 mg 600 mg DAILY SC Last administered on 11/26/16 08:27; Admin Dose 600 MG; Start 11/26/16 at 09:00 Potassium Chloride/Dextrose/ Sod Cl (D5-1/2ns + KCl 20 Meq) 1,000 ml @ 70 mls/ hr [id number] IV Last administered on 11/28/16 01:18; Admin Dose 70 MLS/HR; Start 11/26/16 at 09:00 Insulin Aspart (Novolog Insulin Pen) NOVOLOG *MODERATE* ALGORI... Q4 SC Last administered on 11/28/16 09:16; Admin Dose 4 UNIT; Start 11/26/16 at 21:00 Clopidogrel Bisulfate (plaVIX) 75 mg DAILY PO ; Start 11/28/16 at 12:00 Assessment/Plan Chief Complaint/Hosp Course 76 yo female with HTN, DM, Right ICA occlusion and moderate Left ICA stenosis admitted with chronic and subacute right MCA infarct, Left FELIPA infarct. Repeat MRI shows acute borderzone appearing infarcts FELIPA/MCA zone expected from Right Carotid Occlusion. additional infarcts right basal ganglia, right posterior temporal lobe, right parietal. Left FELIPA acute infarcts. Symptoms have now progressed to severe paresis on left arm and leg. 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
--- NOTE | 2016-11-28 12:16 | PN ---
Date/Time of Note Date/Time of Note DATE: 11/28/16 TIME: 12:14 Assessment/Plan VTE Prophylaxis VTE Prophylaxis Intervention: SCD's Lines/Catheters IV Catheter Type (from Nrs): Peripheral IV Urinary Cath still in place: Yes Reason Cath still needed: other (indicate) Assessment/Plan Chief Complaint/Hosp Course Assessment/Plan 1. Abnormal electrocardiogram, assess for acute coronary syndrome in the setting of acute cerebrovascular accident. KASIA as necessary once MS improved Cardiology has been consulted, continue aggressive medical management 2. Acute cerebrovascular accident, possible embolic origin, assess for cardiac embolic source.-probable from carotid stenosis 3. Total occlusion of the right internal carotid artery Continue aggressive medical management Endarterectomy has been deferred at this time as per vascular surgeon recommendations 4. Hypertension, better controlled 4. Dyslipidemia. Continue statin 5. Diabetes mellitus. 6. Renal failure. 7. Positive troponin-minimal in the setting of renal failure and acute CVA. Downtrending Cardiology has been consulted We will continue monitor patient closely for recommendation management treatment as clinical course talent acquisition operations manager consult for acute rehab placement Problems: Subjective 24 Hr Interval Summary Free Text/Dictation Patient is more awake and alert Moves her right upper and lower extremity Responds to her 's question at the bedside Exam/Review of Systems Vital Signs Vitals Vital Signs Date Time Temp Pulse Resp B/P Pulse Ox O2 Delivery O2 Flow Rate FiO2 11/28/16 12:00 97 11/28/16 11:04 97.8 19 135/81 95 Intake and Output 11/27/16 11/27/16 11/28/16 15:00 23:00 07:00 Intake Total 0 ml 1400 ml Output Total 850 ml Balance 0 ml 550 ml Exam General: The patient isNot in acute distress. HEENT: Atraumatic, normocephalic. The pupils are equal and round . Neck: Supple Chest: Normal Lungs: Clear to auscultation bilaterally Heart: Normal S1-S2, Regular rhythm and rate. Abdomen: Soft , nontender, nondistended , bowel sounds are present. Extremities: Left upper and lower extremity weakness2/5, no edema no cyanosis Neurologic: ,The patient is awake, alert Results Result Diagram: 11/27/16 0534 11/27/16 0534 Results 24 hrs Laboratory Tests Test 11/27/16 12:56 11/27/16 17:15 11/27/16 20:25 11/28/16 01:11 Bedside Glucose 211 170 176 218 Test 11/28/16 05:48 11/28/16 09:12 Bedside Glucose 190 210 Medications Medications Current Medications Aspirin (Aspirin) 81 mg DAILY PO Last administered on 11/25/16 08:40; Admin Dose 81 MG; Start 11/24/16 at 09:00 Atorvastatin Calcium (Lipitor) 40 mg HS PO Last administered on 11/24/16 21:11 ; Admin Dose 40 MG; Start 11/24/16 at 21:00 Ondansetron HCl (Zofran Inj) 4 mg Q6H PRN IV NAUSEA AND/OR VOMITING Last administered on 11/24/16 15:58; Admin Dose 4 MG; Start 11/24/16 at 00:30 Acetaminophen (Tylenol Tab) 650 mg Q6H PRN PO PAIN AND OR ELEVATED TEMP; Start 11/24/16 at 00:30 Diagnostic Test (Pha) (Accu-Chek) 1 ea 02 XX Last administered on 11/27/16 01: 14; Admin Dose 1 EA; Start 11/24/16 at 02:00 Miscellaneous Information 1 ea NOTE XX ; Start 11/24/16 at 01:00 Glucose (Glutose) 15 gm Q15M PRN PO DECREASED GLUCOSE; Start 11/24/16 at 01:00 Glucose (Glutose) 22.5 gm Q15M PRN PO DECREASED GLUCOSE; Start 11/24/16 at 01:00 Dextrose (D50w Syringe) 25 ml Q15M PRN IV DECREASED GLUCOSE; Start 11/24/16 at 01:00 Dextrose (D50w Syringe) 50 ml Q15M PRN IV DECREASED GLUCOSE; Start 11/24/16 at 01:00 Glucagon (Glucagen) 1 mg Q15M PRN IM DECREASED GLUCOSE; Start 11/24/16 at 01:00 Glucose (Glutose) 15 gm Q15M PRN BUCCAL DECREASED GLUCOSE; Start 11/24/16 at 01: 00 Tobramycin/ Dexamethasone (Tobradex Oph Drop) 1 drop Q4 BOTH EYES Last administered on 11/28/16 05:51; Admin Dose 1 DROP; Start 11/24/16 at 17:00 Pantoprazole (Protonix Tab) 40 mg DAILY@06 PO Last administered on 11/25/16 05 :29; Admin Dose 40 MG; Start 11/24/16 at 13:00 Hydralazine HCl (Apresoline) 10 mg Q3H PRN IV SBP GREATER THAN 160 Last administered on 11/27/16 19:52; Admin Dose 10 MG; Start 11/24/16 at 14:01 Enoxaparin Sodium (Lovenox) 30 mg DAILY SC Last administered on 11/28/16 09:16 ; Admin Dose 30 MG; Start 11/26/16 at 09:00 Insulin Glargine (Lantus) 6 unit DAILY@20 SC Last administered on 11/27/16 20: 33; Admin Dose 6 UNIT; Start 11/26/16 at 20:00 Aspirin 600 mg 600 mg DAILY ND Last administered on 11/26/16 08:27; Admin Dose 600 MG; Start 11/26/16 at 09:00 Potassium Chloride/Dextrose/ Sod Cl (D5-1/2ns + KCl 20 Meq) 1,000 ml @ 70 mls/ hr [id number] IV Last administered on 11/28/16 01:18; Admin Dose 70 MLS/HR; Start 11/26/16 at 09:00 Insulin Aspart (Novolog Insulin Pen) NOVOLOG *MODERATE* ALGORI... Q4 SC Last administered on 11/28/16 09:16; Admin Dose 4 UNIT; Start 11/26/16 at 21:00 Clopidogrel Bisulfate (plaVIX) 75 mg DAILY PO ; Start 11/28/16 at 12:00 TAMMY ASHFORD MD Nov 28, 2016 12:16
[2016-11-28] MEDS: CLOPIDOGREL 75 MG TAB PO SCH (13:20)
[2016-11-28] MEDS: ACETAMINOPHEN 325 MG TAB PO PRN ×2 (14:05→23:40)
[2016-11-28] MEDS: ATORVASTATIN 40 MG TAB PO SCH (20:46)
[2016-11-28] MEDS: hydrALAzine 20 MG INJ IV PRN ×2 (20:46→23:52)
[2016-11-28] MEDS: INSULIN GLARGINE [LANtus] 3 ML PEN SC SCH (20:59)
[2016-11-28] MEDS: SOD CHLORIDE 0.9% 1,000 ML IV SCH (23:47)
[2016-11-29] VITALS (12 sets, daily range): BP systolic 130–207; BP diastolic 51–101; PULSE 76–101; RESP 16–20
[2016-11-29] MEDS: TOBRAMYCIN/DEXAMETH 2.5 ML OPH BOTH EYES SCH ×6 (01:08→20:16)
[2016-11-29] MEDS: INSULIN ASPART [NOVOLOG] 3 ML PEN SC SCH ×6 (01:12→20:23)
[2016-11-29] MEDS: ACCU-CHEK XX SCH (02:00)
[2016-11-29] MEDS: PANTOPRAZOLE (EC) 40 MG TAB PO SCH (05:46)
[2016-11-29 06:53] LABS: ADD SCAN DIFF NO
[2016-11-29 06:57] LABS: BASOPHILS % 0.4 % (0.0-2.0); EOSINOPHILS # 0.1 10^3/ul (0.0-0.5); EOSINOPHILS % 2.8 % (0.0-7.0); HEMATOCRIT 31.9 % (37.0-47.0); HEMOGLOBIN 10.6 g/dl (12.0-16.0); LYMPHOCYTES # 0.9 10^3/ul (0.8-2.9); LYMPHOCYTES % 18.9 % (15.0-51.0); MEAN CORPUSCULAR HEMOGLOBIN 29.8 pg (29.0-33.0); MEAN CORPUSCULAR HGB CONC 33.2 g/dl (32.0-37.0); MEAN CORPUSCULAR VOLUME 89.6 fl (82.0-101.0); MEAN PLATELET VOLUME 9.8 fl (7.4-10.4); MONOCYTE # 0.4 10^3/ul (0.3-0.9); NEUTROPHIL # 3.2 10^3/ul (1.6-7.5); NEUTROPHILS % 68.7 % (39.0-77.0); PLATELET COUNT 276 10^3/UL (140-415); RED BLOOD COUNT 3.56 10^6/ul (4.20-5.40); RED CELL DISTRIBUTION WIDTH 12.5 % (11.5-14.5); WHITE BLOOD COUNT 4.7 10^3/ul (4.8-10.8)
[2016-11-29 07:59] LABS: CALCIUM 8.8 mg/dl (8.4-10.2); CREATININE 1.2 mg/dl (0.44-1.00); POTASSIUM 4.9 mmol/L (3.5-5.1)
[2016-11-29] MEDS: ASPIRIN 81 MG TAB PO SCH (08:29)
[2016-11-29] MEDS: CLOPIDOGREL 75 MG TAB PO SCH (08:29)
[2016-11-29] MEDS: ENOXAPARIN 30 MG/0.3 ML SYG SC SCH (09:48)
--- NOTE | 2016-11-29 11:14 | CONS ---
Date/Time of Note Date/Time of Note DATE: 11/29/16 TIME: 11:07 Assessment/Plan Assessment/Plan Additional Assessment/Plan Chart reviewed discussion with family members at bedside. 76-year-old female history of acute subacute CVA Complete occlusion of the right internal carotid artery 50-60% stenosis of the left proximal internal carotid artery Comorbid history of hypertension diabetes fluid and electrolyte abnormality abnormalities and acute kidney injury Scheduled family conference 0630 hrs. November 30 I will examined patient and speak to primary care physician prior to that meeting. Consultation Date/Type/Reason Admit Date/Time Nov 23, 2016 at 19:44 Psychological: no complaints Social History Smoking Status: Never smoker Exam/Review of Systems Vital Signs Vitals Vital Signs Date Time Temp Pulse Resp B/P Pulse Ox O2 Delivery O2 Flow Rate FiO2 11/29/16 08:04 92 11/29/16 07:58 98.0 17 172/85 100 11/29/16 00:00 Room Air Intake and Output 11/28/16 11/28/16 11/29/16 15:00 23:00 07:00 Intake Total 150 ml Output Total 1250 ml Balance -1100 ml Results Result Diagram: 11/29/16 0605 11/29/16 0605 Results 24 hrs Laboratory Tests Test 11/28/16 13:19 11/28/16 16:57 11/28/16 20:52 11/29/16 01:07 Bedside Glucose 179 216 225 H 166 Test 11/29/16 05:44 11/29/16 06:05 11/29/16 08:15 Bedside Glucose 154 146 White Blood Count 4.7 #L Red Blood Count 3.56 L Hemoglobin 10.6 L Hematocrit 31.9 L Mean Corpuscular Volume 89.6 Mean Corpuscular Hemoglobin 29.8 Mean Corpuscular Hemoglobin Concent 33.2 Red Cell Distribution Width 12.5 Platelet Count 276 Mean Platelet Volume 9.8 Neutrophils % 68.7 Lymphocytes % 18.9 Monocytes % 9.0 Eosinophils % 2.8 Basophils % 0.4 Nucleated Red Blood Cells % 0.0 Neutrophils # 3.2 Lymphocytes # 0.9 Monocytes # 0.4 Eosinophils # 0.1 Basophils # 0.0 Nucleated Red Blood Cells # 0.0 Sodium Level 139 Potassium Level 4.9 Chloride Level 112 H Carbon Dioxide Level 22 Anion Gap 10 Blood Urea Nitrogen 13 Creatinine 1.20 H Glucose Level 153 Calcium Level 8.8 Medications Medications Current Medications Aspirin (Aspirin) 81 mg DAILY PO Last administered on 11/29/16 08:29; Admin Dose 81 MG; Start 11/24/16 at 09:00 Atorvastatin Calcium (Lipitor) 40 mg HS PO Last administered on 11/28/16 20:46 ; Admin Dose 40 MG; Start 11/24/16 at 21:00 Ondansetron HCl (Zofran Inj) 4 mg Q6H PRN IV NAUSEA AND/OR VOMITING Last administered on 11/24/16 15:58; Admin Dose 4 MG; Start 11/24/16 at 00:30 Acetaminophen (Tylenol Tab) 650 mg Q6H PRN PO PAIN AND OR ELEVATED TEMP Last administered on 11/28/16 23:40; Admin Dose 650 MG; Start 11/24/16 at 00:30 Diagnostic Test (Pha) (Accu-Chek) 1 ea 02 XX Last administered on 11/27/16 01: 14; Admin Dose 1 EA; Start 11/24/16 at 02:00 Miscellaneous Information 1 ea NOTE XX ; Start 11/24/16 at 01:00 Glucose (Glutose) 15 gm Q15M PRN PO DECREASED GLUCOSE; Start 11/24/16 at 01:00 Glucose (Glutose) 22.5 gm Q15M PRN PO DECREASED GLUCOSE; Start 11/24/16 at 01:00 Dextrose (D50w Syringe) 25 ml Q15M PRN IV DECREASED GLUCOSE; Start 11/24/16 at 01:00 Dextrose (D50w Syringe) 50 ml Q15M PRN IV DECREASED GLUCOSE; Start 11/24/16 at 01:00 Glucagon (Glucagen) 1 mg Q15M PRN IM DECREASED GLUCOSE; Start 11/24/16 at 01:00 Glucose (Glutose) 15 gm Q15M PRN BUCCAL DECREASED GLUCOSE; Start 11/24/16 at 01: 00 Tobramycin/ Dexamethasone (Tobradex Oph Drop) 1 drop Q4 BOTH EYES Last administered on 11/29/16 08:29; Admin Dose 1 DROP; Start 11/24/16 at 17:00 Pantoprazole (Protonix Tab) 40 mg DAILY@06 PO Last administered on 11/29/16 05 :46; Admin Dose 40 MG; Start 11/24/16 at 13:00 Hydralazine HCl (Apresoline) 10 mg Q3H PRN IV SBP GREATER THAN 160 Last administered on 11/28/16 23:52; Admin Dose 10 MG; Start 11/24/16 at 14:01 Enoxaparin Sodium (Lovenox) 30 mg DAILY SC Last administered on 11/29/16 09:48 ; Admin Dose 30 MG; Start 11/26/16 at 09:00 Insulin Glargine (Lantus) 6 unit DAILY@20 SC Last administered on 11/28/16 20: 59; Admin Dose 6 UNIT; Start 11/26/16 at 20:00 Aspirin (Aspirin) 600 mg DAILY RI Last administered on 11/26/16 08:27; Admin Dose 600 MG; Start 11/26/16 at 09:00; Status Future Hold Clopidogrel Bisulfate 75 mg 75 mg DAILY PO Last administered on 11/29/16 08:29 ; Admin Dose 75 MG; Start 11/28/16 at 12:00 Sodium Chloride (NS) 1,000 ml @ 60 mls/hr [id number] IV Last administered on 11/28 23:47; Admin Dose 60 MLS/HR; Start 11/28/16 at 23:30 VICKIE SMITH Nov 29, 2016 11:14
[2016-11-29] MEDS: hydrALAzine 20 MG INJ IV PRN ×2 (12:06→20:03)
--- NOTE | 2016-11-29 14:12 | CONS ---
Date/Time of Note Date/Time of Note DATE: 11/29/16 TIME: 14:01 Assessment/Plan Assessment/Plan Chief Complaint/Hosp Course IMPRESSION: 1. Abnormal electrocardiogram, assess for acute coronary syndrome in the setting of acute cerebrovascular accident. 2. Acute cerebrovascular accident, possible embolic origin, assess for cardiac embolic source.-probable from carotid stenosis 3. Hypertension, uncontrolled in the setting of acute cerebrovascular accident. 4. Dyslipidemia. 5. Diabetes mellitus. 6. Renal failure. 7. Positive troponin-minimal in the setting of renal failure and acute CVA. Downtrending Recc: -Tele -Trend cardiac enzymes -Continue asa/lovenox/statin -Follow MS closely which has worsened and thus to go for surgery today to prevent possible further extension of cva -start clonidine TTS to improve BP control -Will not undergo CEA per vascular surgery note and discussion with family Problems: Consultation Date/Type/Reason Admit Date/Time Nov 23, 2016 at 19:44 Initial Consult Date 11/24/16 Type of Consultation: Cardiology Reason for Consultation cva Referring Provider: DARRELL MYERS MD Exam/Review of Systems Vital Signs Vitals Vital Signs Date Time Temp Pulse Resp B/P Pulse Ox O2 Delivery O2 Flow Rate FiO2 11/29/16 12:15 87 11/29/16 11:26 98.7 17 207/101 100 11/29/16 00:00 Room Air Intake and Output 11/28/16 11/28/16 11/29/16 15:00 23:00 07:00 Intake Total 150 ml Output Total 1250 ml Balance -1100 ml Exam Review of Systems: CONSTITUTIONAL: No fevers, chills. PULMONARY: No sob CARDIOVASCULAR: No chest pain/palpitations GASTROINTESTINAL: No nausea/vomiting. GENITOURINARY: No hematuria/dysuria. MUSCULOSKELETAL: No myagias/arthalgias. PSYCHIATRIC: The patient denies depression. NEUROLOGIC: No weakness Constitutional: alert, oriented Psych: no complaints Head: normocephalic ENMT: mucosa pink and moist Neck: jvd, supple Respiratory: diminished breath sounds (at bases/b) Cardiovascular: regular rate and rhythm Gastrointestinal: non-tender, soft Musculoskeletal: muscle tone (normal) Extremities: edema (none) Neurological: other (no focal deficits) Results Result Diagram: 11/29/1660411/29/16604 Results 24 hrs Laboratory Tests Test 11/28/16 16:57 11/28/16 20:52 11/29/16 01:07 11/29/16 05:44 Bedside Glucose 216 225 H 166 154 Test 11/29/16 06:05 11/29/16 08:15 11/29/16 12:03 White Blood Count 4.7 #L Red Blood Count 3.56 L Hemoglobin 10.6 L Hematocrit 31.9 L Mean Corpuscular Volume 89.6 Mean Corpuscular Hemoglobin 29.8 Mean Corpuscular Hemoglobin Concent 33.2 Red Cell Distribution Width 12.5 Platelet Count 276 Mean Platelet Volume 9.8 Neutrophils % 68.7 Lymphocytes % 18.9 Monocytes % 9.0 Eosinophils % 2.8 Basophils % 0.4 Nucleated Red Blood Cells % 0.0 Neutrophils # 3.2 Lymphocytes # 0.9 Monocytes # 0.4 Eosinophils # 0.1 Basophils # 0.0 Nucleated Red Blood Cells # 0.0 Sodium Level 139 Potassium Level 4.9 Chloride Level 112 H Carbon Dioxide Level 22 Anion Gap 10 Blood Urea Nitrogen 13 Creatinine 1.20 H Glucose Level 153 Calcium Level 8.8 Bedside Glucose 146 230 H Medications Medications Current Medications Aspirin (Aspirin) 81 mg DAILY PO Last administered on 11/29/16 08:29; Admin Dose 81 MG; Start 11/24/16 at 09:00 Atorvastatin Calcium (Lipitor) 40 mg HS PO Last administered on 11/28/16 20:46 ; Admin Dose 40 MG; Start 11/24/16 at 21:00 Ondansetron HCl (Zofran Inj) 4 mg Q6H PRN IV NAUSEA AND/OR VOMITING Last administered on 11/24/16 15:58; Admin Dose 4 MG; Start 11/24/16 at 00:30 Acetaminophen (Tylenol Tab) 650 mg Q6H PRN PO PAIN AND OR ELEVATED TEMP Last administered on 11/28/16 23:40; Admin Dose 650 MG; Start 11/24/16 at 00:30 Diagnostic Test (Pha) (Accu-Chek) 1 ea 02 XX Last administered on 11/27/16 01: 14; Admin Dose 1 EA; Start 11/24/16 at 02:00 Miscellaneous Information 1 ea NOTE XX ; Start 11/24/16 at 01:00 Glucose (Glutose) 15 gm Q15M PRN PO DECREASED GLUCOSE; Start 11/24/16 at 01:00 Glucose (Glutose) 22.5 gm Q15M PRN PO DECREASED GLUCOSE; Start 11/24/16 at 01:00 Dextrose (D50w Syringe) 25 ml Q15M PRN IV DECREASED GLUCOSE; Start 11/24/16 at 01:00 Dextrose (D50w Syringe) 50 ml Q15M PRN IV DECREASED GLUCOSE; Start 11/24/16 at 01:00 Glucagon (Glucagen) 1 mg Q15M PRN IM DECREASED GLUCOSE; Start 11/24/16 at 01:00 Glucose (Glutose) 15 gm Q15M PRN BUCCAL DECREASED GLUCOSE; Start 11/24/16 at 01: 00 Tobramycin/ Dexamethasone (Tobradex Oph Drop) 1 drop Q4 BOTH EYES Last administered on 11/29/16 12:15; Admin Dose 1 DROP; Start 11/24/16 at 17:00 Pantoprazole (Protonix Tab) 40 mg DAILY@06 PO Last administered on 11/29/16 05 :46; Admin Dose 40 MG; Start 11/24/16 at 13:00 Hydralazine HCl (Apresoline) 10 mg Q3H PRN IV SBP GREATER THAN 160 Last administered on 11/29/16 12:06; Admin Dose 10 MG; Start 11/24/16 at 14:01 Enoxaparin Sodium (Lovenox) 30 mg DAILY SC Last administered on 11/29/16 09:48 ; Admin Dose 30 MG; Start 11/26/16 at 09:00 Insulin Glargine (Lantus) 6 unit DAILY@20 SC Last administered on 11/28/16 20: 59; Admin Dose 6 UNIT; Start 11/26/16 at 20:00 Aspirin (Aspirin) 600 mg DAILY MT Last administered on 11/26/16 08:27; Admin Dose 600 MG; Start 11/26/16 at 09:00; Status Future Hold Clopidogrel Bisulfate 75 mg 75 mg DAILY PO Last administered on 11/29/16 08:29 ; Admin Dose 75 MG; Start 11/28/16 at 12:00 Sodium Chloride (NS) 1,000 ml @ 60 mls/hr [id number] IV Last administered on 11/28 23:47; Admin Dose 60 MLS/HR; Start 11/28/16 at 23:30 ANSHU MATAMOROS Nov 29, 2016 14:12
[2016-11-29] MEDS: AMLODIPINE 5 MG TAB PO SCH (14:14)
[2016-11-29] MEDS: ACETAMINOPHEN 325 MG TAB PO PRN (14:46)
[2016-11-29] MEDS: ONDANSETRON 4 MG INJ IV PRN (14:46)
--- NOTE | 2016-11-29 14:52 | PN ---
DATE: 11/29/2016 HOSPITALIST PROGRESS NOTE SUBJECTIVE DATA: The patient's blood pressure has been running high. OBJECTIVE DATA: VITAL SIGNS: Temperature 98.7, pulse of 104, respiratory rate 17, blood pressure 207/101, oxygen saturation 100% on room air. GENERAL: This is a thin female lying in bed in no apparent distress. HEENT: Head normocephalic and atraumatic. Eyes: Anicteric sclerae. Conjunctivae clear. ENT: Nasal septum is midline. Oral mucosa is moist. NECK: Supple. RESPIRATORY: Bilaterally clear to auscultation. No adventitious breath sounds heard. No use of accessory muscles of respiration. CARDIAC: Regular rate and rhythm. Grade III/ systolic ejection murmur heard at the left sternal border. ABDOMEN: Soft, nontender and nondistended. Bowel sounds positive in all 4 quadrants. GENITOURINARY: Deferred. EXTREMITIES: No cyanosis, no clubbing, no edema. Peripheral pulses are palpable. NEUROLOGIC: The patient is awake, alert and oriented. Left-sided flaccidity. LABORATORY AND DIAGNOSTIC DATA: WBC 4.3, hemoglobin 10.7, hematocrit 31.9, platelet count 276. Sodium 139, potassium 4.9, chloride 102, carbon dioxide 22 , anion gap 10, BUN 13, creatinine 1.20, glucose 153, calcium 8.8. ASSESSMENT AND PLAN: 1. Acute infarcts involving the right anterior cerebral artery and middle cerebral artery with additional infarcts involving the right basal ganglia, right posterior temporal lobe, and right parietal lobe in the MCA territory with acute infarcts in the left anterior genu corpus callosum in the left FELIPA territory. Continue dual antiplatelet therapy. Status post evaluation by neurology. Continue physical therapy and speech therapy. 2. Complete occlusion of the right internal carotid artery system with atheromatous disease contributing to approximately 50% to 60% left proximal internal carotid artery stenosis. Continue antiplatelet therapy and statins. Status post evaluation by vascular surgery. Continue conservative management. 3. Essential hypertension. The patient was started on appropriate antihypertensives. The patient already on p.r.n. antihypertensives for high blood pressure readings. 4. Type 2 diabetes mellitus. Continue sliding scale insulin. 5. Dyslipidemia. Continue statins. 6. Chronic kidney disease. Continue to monitor renal function closely. Avoid nephrotoxic medications. 7. Normocytic normochromic anemia. Monitor hemoglobin and hematocrit closely. Transfuse as needed. 8. Vitamin D deficiency. We will start the patient on vitamin D supplements. 9. Fluid, electrolytes and nutrition. Low cholesterol, carbohydrate controlled diet. Aspiration precautions. 10. Deep venous thrombosis prophylaxis. Subcutaneous Lovenox (renal dose). 11. Gastrointestinal prophylaxis. Proton pump inhibitors. PLAN: Continue current management. Start routine antihypertensives. The plan is to discharge the patient to acute rehab facility once a bed is available. Case discussed with Dr. Georges. STEVIE GEORGES MD, AM/VIKKI Conf#: [id number] DID#: [id number] MTDD
[2016-11-29] MEDS ORDERED: CLONIDINE 0.1 MG/24 HR PATCH TRANSDERM SCH (16:00)
[2016-11-29] MEDS: SOD CHLORIDE 0.9% 1,000 ML IV SCH ×2 (16:10→20:46)
--- NOTE | 2016-11-29 17:10 | PN ---
Date/Time of Note Date/Time of Note DATE: 11/29/16 TIME: 17:07 Assessment/Plan Lines/Catheters IV Catheter Type (from [facility]): Peripheral IV Boogie in Place (from [facility]): Yes Assessment/Plan Chief Complaint/Hosp Course -Right internal carotid artery stenosis with stroke & Left FELIPA territory stroke : It seems the patient has new findings of right brain stroke related to her complete occlusion of her right internal carotid artery. From the standpoint of vascular surgery, there is no surgical intervention other than to continue with antiplatelet therapy as the occlusion extends into the cranium. Held a lengthy family discussion at the bedside and reviewed the findings of the CT Angiogram and management options. Family agreed with conservative approach at this time -Recommend ASA or dual antiplatelet therapy, will discuss with our Neurology Stroke service -Left internal carotid artery stenosis with stroke: The patient has bilateral carotid disease and with recent findings of her stroke, we will plan to wait 4 to 6 weeks for her to stabilize from the standpoint of the stroke, and we will schedule the patient for eventual carotid endarterectomy as the patient has bilateral disease. Unfortunately symptomatically has gotten worse will await recovery prior to any surgical intervention -Appreciate Neurology evaluation -PY/OT and speech therapy -Optimize vascular status (BP meds, diet, nutrition, exercise, sugar control, antiplatelets). -Discussed findings, plan and management with the patient and the at the bedside with a certified installations inspector, and they understand. -Thank you for allowing us to partake in the care of your patient. Please call with any questions. Problems: Subjective 24 Hr Interval Summary No new vascular changes overnight Exam/Review of Systems Vital Signs Vitals Vital Signs Date Time Temp Pulse Resp B/P Pulse Ox O2 Delivery O2 Flow Rate FiO2 11/29/16 16:42 97 11/29/16 15:06 99.0 16 141/80 96 11/29/16 00:00 Room Air Intake and Output 11/28/16 11/28/16 11/29/16 15:00 23:00 07:00 Intake Total 150 ml Output Total 1250 ml Balance -1100 ml Exam Free Text/Dictation GENERAL: Awake and follow some commands, is able to understand basic questions PULMONARY: Clear to auscultation bilaterally. CARDIOVASCULAR: S1, S2 present. ABDOMEN: Soft, nontender, nondistended. Bowel sounds positive. EXTREMITIES: Upper extremities: Palpable brachial pulse. Capillary refill 2 to 3, LUE- no motor, some sensory Lower extremities: Palpable femoral pulse, nonpalpable pedal pulses. LLE- Motor 1/5 and sensory intact, Capillary refill 2 to 3 seconds. Results Result Diagram: 11/29/16 0605 11/29/16 0605 ALEXANDER CHENG MD Nov 29, 2016 17:10
[2016-11-29] MEDS: ATORVASTATIN 40 MG TAB PO SCH (20:16)
[2016-11-29] MEDS: METOPROLOL 25 MG TAB PO SCH (20:16)
[2016-11-29] MEDS: INSULIN GLARGINE [LANtus] 3 ML PEN SC SCH (20:22)
[2016-11-30] VITALS (10 sets, daily range): BP systolic 142–202; BP diastolic 58–77; PULSE 69–83; RESP 16–18
[2016-11-30] MEDS: TOBRAMYCIN/DEXAMETH 2.5 ML OPH BOTH EYES SCH ×4 (01:00→12:12)
[2016-11-30] MEDS: ACCU-CHEK XX SCH (01:18)
[2016-11-30] MEDS: hydrALAzine 20 MG INJ IV PRN (04:34)
[2016-11-30] MEDS: PANTOPRAZOLE (EC) 40 MG TAB PO SCH (06:00)
[2016-11-30 07:13] LABS: ADD SCAN DIFF NO
[2016-11-30 07:18] LABS: BASOPHILS % 0.4 % (0.0-2.0); EOSINOPHILS # 0.2 10^3/ul (0.0-0.5); HEMATOCRIT 35.4 % (37.0-47.0); HEMOGLOBIN 11.4 g/dl (12.0-16.0); LYMPHOCYTES # 1.2 10^3/ul (0.8-2.9); LYMPHOCYTES % 25.8 % (15.0-51.0); MEAN CORPUSCULAR HEMOGLOBIN 29.5 pg (29.0-33.0); MEAN CORPUSCULAR HGB CONC 32.2 g/dl (32.0-37.0); MEAN CORPUSCULAR VOLUME 91.7 fl (82.0-101.0); MEAN PLATELET VOLUME 9.9 fl (7.4-10.4); MONOCYTE # 0.4 10^3/ul (0.3-0.9); MONOCYTES % 8.2 % (0.0-11.0); NEUTROPHIL # 2.8 10^3/ul (1.6-7.5); NEUTROPHILS % 61.4 % (39.0-77.0); PLATELET COUNT 316 10^3/UL (140-415); RED BLOOD COUNT 3.86 10^6/ul (4.20-5.40); RED CELL DISTRIBUTION WIDTH 12.6 % (11.5-14.5); WHITE BLOOD COUNT 4.5 10^3/ul (4.8-10.8)
[2016-11-30 07:38] LABS: CALCIUM 8.9 mg/dl (8.4-10.2); CREATININE 1.13 mg/dl (0.44-1.00); POTASSIUM 4.9 mmol/L (3.5-5.1)
[2016-11-30 07:39] LABS: MAGNESIUM 1.8 mg/dl (1.7-2.5); PHOSPHORUS 3.4 mg/dl (2.5-4.9)
[2016-11-30] MEDS: INSULIN ASPART [NOVOLOG] 3 ML PEN SC SCH ×2 (07:55→12:10)
[2016-11-30] MEDS: CLOPIDOGREL 75 MG TAB PO SCH (08:21)
[2016-11-30] MEDS: ASPIRIN 81 MG TAB PO SCH (08:21)
[2016-11-30] MEDS: AMLODIPINE 5 MG TAB PO SCH (08:22)
[2016-11-30] MEDS: METOPROLOL 25 MG TAB PO SCH (08:22)
[2016-11-30] MEDS: ENOXAPARIN 30 MG/0.3 ML SYG SC SCH (08:24)
[2016-11-30] MEDS ORDERED: CHOLECALCIFEROL 1,000 UNIT TAB PO SCH (09:00)
--- NOTE | 2016-11-30 13:04 | CONS ---
Date/Time of Note Date/Time of Note DATE: 11/30/16 TIME: 13:00 Assessment/Plan Assessment/Plan Chief Complaint/Hosp Course IMPRESSION: 1. Abnormal electrocardiogram, assess for acute coronary syndrome in the setting of acute cerebrovascular accident. 2. Acute cerebrovascular accident, possible embolic origin, assess for cardiac embolic source.-probable from carotid stenosis 3. Hypertension, uncontrolled in the setting of acute cerebrovascular accident. 4. Dyslipidemia. 5. Diabetes mellitus. 6. Renal failure. 7. Positive troponin-minimal in the setting of renal failure and acute CVA. Downtrending Recc: -Tele -Trend cardiac enzymes -Continue asa/lovenox/statin -Follow MS closely which has worsened and thus to go for surgery today to prevent possible further extension of cva -Continue clonidine TTS to improve BP control with BB and will add CCB as necessary -Will not undergo CEA per vascular surgery note and discussion with family Problems: Consultation Date/Type/Reason Admit Date/Time Nov 23, 2016 at 19:44 Initial Consult Date 11/24/16 Type of Consultation: Cardiology Reason for Consultation HTN/cva Referring Provider: DARRELL MYERS MD Exam/Review of Systems Vital Signs Vitals Vital Signs Date Time Temp Pulse Resp B/P Pulse Ox O2 Delivery O2 Flow Rate FiO2 11/30/16 12:23 69 11/30/16 11:16 98.4 17 142/65 97 11/29/16 00:00 Room Air Intake and Output 11/29/16 11/29/16 11/30/16 14:59 22:59 06:59 Intake Total 1080 ml Output Total 800 ml Balance 280 ml Exam Review of Systems: CONSTITUTIONAL: No fevers, chills. PULMONARY: No sob CARDIOVASCULAR: No chest pain/palpitations GASTROINTESTINAL: No nausea/vomiting. GENITOURINARY: No hematuria/dysuria. MUSCULOSKELETAL: No myagias/arthalgias. PSYCHIATRIC: The patient denies depression. NEUROLOGIC: encephalopathic Constitutional: other (encephalopathy) Psych: no complaints Head: normocephalic ENMT: mucosa pink and moist Neck: jvd (9 cm water), supple Respiratory: diminished breath sounds Cardiovascular: regular rate and rhythm Gastrointestinal: non-tender, soft Musculoskeletal: muscle weakness (generalized) Extremities: edema (none) Neurological: other (No focal deficits) Results Result Diagram: 11/30/16 0555 11/30/16 0555 Results 24 hrs Laboratory Tests Test 11/29/16 18:42 11/29/16 20:10 11/30/16 01:13 11/30/16 05:55 Bedside Glucose 132 255 H 171 White Blood Count 4.5 L Red Blood Count 3.86 L Hemoglobin 11.4 L Hematocrit 35.4 L Mean Corpuscular Volume 91.7 Mean Corpuscular Hemoglobin 29.5 Mean Corpuscular Hemoglobin Concent 32.2 Red Cell Distribution Width 12.6 Platelet Count 316 Mean Platelet Volume 9.9 Neutrophils % 61.4 Lymphocytes % 25.8 Monocytes % 8.2 Eosinophils % 4.0 Basophils % 0.4 Nucleated Red Blood Cells % 0.0 Neutrophils # 2.8 Lymphocytes # 1.2 Monocytes # 0.4 Eosinophils # 0.2 Basophils # 0.0 Nucleated Red Blood Cells # 0.0 Sodium Level 140 Potassium Level 4.9 Chloride Level 112 H Carbon Dioxide Level 22 Anion Gap 11 Blood Urea Nitrogen 13 Creatinine 1.13 H Glucose Level 139 Calcium Level 8.9 Phosphorus Level 3.4 Magnesium Level 1.8 Test 11/30/16 07:59 11/30/16 12:07 Bedside Glucose 127 168 Medications Medications Current Medications Aspirin (Aspirin) 81 mg DAILY PO Last administered on 11/30/16 08:21; Admin Dose 81 MG; Start 11/24/16 at 09:00 Atorvastatin Calcium (Lipitor) 40 mg HS PO Last administered on 11/29/16 20:16 ; Admin Dose 40 MG; Start 11/24/16 at 21:00 Ondansetron HCl (Zofran Inj) 4 mg Q6H PRN IV NAUSEA AND/OR VOMITING Last administered on 11/29/16 14:46; Admin Dose 4 MG; Start 11/24/16 at 00:30 Acetaminophen (Tylenol Tab) 650 mg Q6H PRN PO PAIN AND OR ELEVATED TEMP Last administered on 11/29/16 14:46; Admin Dose 650 MG; Start 11/24/16 at 00:30 Diagnostic Test (Pha) (Accu-Chek) 1 ea 02 XX Last administered on 11/30/16 01: 18; Admin Dose 1 EA; Start 11/24/16 at 02:00 Miscellaneous Information 1 ea NOTE XX ; Start 11/24/16 at 01:00 Glucose (Glutose) 15 gm Q15M PRN PO DECREASED GLUCOSE; Start 11/24/16 at 01:00 Glucose (Glutose) 22.5 gm Q15M PRN PO DECREASED GLUCOSE; Start 11/24/16 at 01:00 Dextrose (D50w Syringe) 25 ml Q15M PRN IV DECREASED GLUCOSE; Start 11/24/16 at 01:00 Dextrose (D50w Syringe) 50 ml Q15M PRN IV DECREASED GLUCOSE; Start 11/24/16 at 01:00 Glucagon (Glucagen) 1 mg Q15M PRN IM DECREASED GLUCOSE; Start 11/24/16 at 01:00 Glucose (Glutose) 15 gm Q15M PRN BUCCAL DECREASED GLUCOSE; Start 11/24/16 at 01: 00 Tobramycin/ Dexamethasone (Tobradex Oph Drop) 1 drop Q4 BOTH EYES Last administered on 11/29/16 20:16; Admin Dose 1 DROP; Start 11/24/16 at 17:00 Pantoprazole (Protonix Tab) 40 mg DAILY@06 PO Last administered on 11/29/16 05 :46; Admin Dose 40 MG; Start 11/24/16 at 13:00 Hydralazine HCl (Apresoline) 10 mg Q3H PRN IV SBP GREATER THAN 160 Last administered on 11/30/16 04:34; Admin Dose 10 MG; Start 11/24/16 at 14:01 Enoxaparin Sodium (Lovenox) 30 mg DAILY SC Last administered on 11/30/16 08:24 ; Admin Dose 30 MG; Start 11/26/16 at 09:00 Insulin Glargine (Lantus) 6 unit DAILY@20 SC Last administered on 11/29/16 20: 22; Admin Dose 6 UNIT; Start 11/26/16 at 20:00 Aspirin (Aspirin) 600 mg DAILY OK Last administered on 11/26/16 08:27; Admin Dose 600 MG; Start 11/26/16 at 09:00; Status Future Hold Clopidogrel Bisulfate 75 mg 75 mg DAILY PO Last administered on 11/30/16 08:21 ; Admin Dose 75 MG; Start 11/28/16 at 12:00 Sodium Chloride (NS) 1,000 ml @ 60 mls/hr [id number] IV Last administered on 11/29 20:46; Admin Dose 60 MLS/HR; Start 11/28/16 at 23:30 Metoprolol Tartrate (Lopressor) 25 mg BID PO Last administered on 11/30/16 08: 22; Admin Dose 25 MG; Start 11/29/16 at 21:00 Amlodipine Besylate (Norvasc) 5 mg DAILY PO Last administered on 11/30/16 08: 22; Admin Dose 5 MG; Start 11/29/16 at 14:30 Cholecalciferol (Vitamin D) 1,000 unit DAILY PO Last administered on 11/30/16 08:22; Admin Dose 1,000 UNIT; Start 11/30/16 at 09:00 Clonidine HCl (Catapres-Tts 1 Patch) 1 patch Q7D TRANSDERM Last administered on 11/29/16 17:07; Admin Dose 1 PATCH; Start 11/29/16 at 16:00 ANSHU MATAMOROS Nov 30, 2016 13:04
--- NOTE | 2016-11-30 14:51 | PDOCDIS ---
Discharge Instructions DIAGNOSIS Discharge Diagnosis: Acute ischemic stroke. CONDITION Patient Condition: Stable HOME CARE INSTRUCTIONS: Special Diet: pureed/nectar thick liquids OTHER ORDERS: Other Orders: 1. Medications as per medication reconciliation. 2. Carbohydrate controlled, low-cholesterol pure diet . [place] thick liquids. Aspiration precautions. 3. Activity as per physical therapy recommendations. STEVIE HAN NP Nov 30, 2016 14:51
--- NOTE | 2016-11-30 21:30 | DS ---
DATE OF ADMISSION: 11/23/2016 DATE OF DISCHARGE: 11/30/2016 (Transferred to acute rehabilitation unit.) FINAL DIAGNOSES: 1. Acute extensive ischemic infarct of the brain. 2. 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 3. Essential hypertension. 4. Type 2 diabetes mellitus. 5. Dyslipidemia. 6. Chronic kidney disease. 7. Normocytic normochromic anemia. 8. Vitamin D deficiency. 9. Dysphagia. CONSULTANTS: 1. Dr. Brittny Ibarra, Neurology 2. Dr. Geoffrey Duarte, Cardiology 3. Dr. Wagner Chase, Vascular Surgery 4. Dr. Chetan Narvaez, Cardiology 5. Dr. Tank Holliday, [facility] COURSE: This is a 76-year-old female with a past medical history of essential hypertension and diabetes mellitus who was sent to the ER by primary MD for abnormal brain MRI. The patient also had left-sided weakness as well as some facial twitching. A brain MRI that was done at an outside facility on the day of admission showed multiple foci of acute infarcts of right cerebellar hemisphere involving the right MCA distribution with cortical laminar necrosis. There was partial occlusion of the right internal carotid artery evident on the MRI. In the emergency room, the patient was noticed to have blood pressure 200/86. The patient had a blood sugar of 257. She had leukocytosis with WBC of 15. As per Teleneurology, the patient is not a TPA candidate. Provided the patient's history of present illness, her comorbidities and the diagnostic findings, a clinical decision was made to admit the patient to inpatient setting to have her further evaluated. The patient was admitted to inpatient telemetry floor. A neurology and cardiology consult was called. The patient underwent a brain MRI inside the hospital that showed multiple acute infarcts. Consequently, the patient was started on dual antiplatelet therapy along with statins as per Neurology. The patient underwent a neck CTA that showed complete occlusion of the right internal carotid artery from the origin to the terminus with atheromatous disease causing approximately 50% to 60 % left proximal internal carotid artery stenosis. Because of these findings, a vascular surgery consult was called. Vascular Surgery saw and evaluated the patient, and Vascular Surgery recommended conservative management and continuation of dual antiplatelet therapy and therapy with statins. As per Vascular Surgery, the patient eventually needs a carotid endarterectomy after stabilization of the patient's current stroke. The patient had essential hypertension that was uncontrolled. Permissive hypertension was provided during the first 24 hours following stroke. Later, the patient was started on antihypertensives, and the patient's blood pressure was lowered gradually. The patient has underlying type 2 diabetes mellitus. The patient was maintained on sliding scale insulin. The patient's hemoglobin A1c was found to be 6.6. The patient has underlying dyslipidemia. The patient was already started on a statin for her underlying stroke. The patient has underlying chronic kidney disease. The patient's renal function was monitored closely. Nephrotoxic drugs were avoided. The patient was noticed to have vitamin D deficiency. Hence the patient was started on vitamin D supplements. The patient underwent a 2D echocardiogram that showed preserved left ventricular ejection fraction. The patient was seen by Physical Therapy. Physical Therapy recommended jail facilitation versus acute rehabilitation. Acute rehabilitation team inside the hospital evaluated the patient, and the patient was found to be an appropriate candidate for acute rehabilitation. Hence, the patient was accepted by acute rehabilitation unit, and the patient will be discharged to acute rehabilitation unit. DISCHARGE DISPOSITION AND PLAN: The patient will be discharged to acute rehabilitation unit. The patient will take medications as per medication reconciliation. The patient will continue taking carbohydrate-controlled, low- cholesterol pureed diet with nectar-thick liquids. Activity will be as per Physical Therapy. CONDITION AT DISCHARGE: Stable. DISCHARGE MEDICATIONS: 1. Amlodipine 5 mg p.o. daily. 2. Hydralazine 25 mg p.o. q.8 hours. 3. Vitamin D 1000 units p.o. daily. 4. Lopressor 25 mg p.o. b.i.d. 5. Clonidine transdermal patch q.7 days. 6. NovoLog insulin as per sliding scale. 7. Plavix 75 mg p.o. daily. 8. Lantus insulin 6 units subcutaneous daily. 9. Lovenox 30 mg subcutaneous daily. 10. Atorvastatin 40 mg p.o. at bedtime. 11. Protonix 40 mg p.o. daily. 12. Aspirin 81 mg p.o. daily. 13. Insulin as per sliding scale. PERTINENT LABORATORY AND DIAGNOSTIC DATA: 1. 2D echocardiogram. Normal left ventricular cavity size. Normal left ventricular systolic function. 2. Brain MRI. Acute infarcts involving the right FELIPA/MCA border zone territory. Additional infarcts are also seen involving the right basal ganglia , right posterior temporal lobe and right parietal lobe in the right MCA territory. Acute infarcts in the left anterior genu corpus callosum in the left FELIPA territory. Absence of right internal carotid artery flow compatible with vessel occlusion. 3. Neck CTA. 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 Atheromatous disease contributing to an approximately 50% to 60% left proximal internal carotid artery stenosis. 4. Chest x-ray. No acute cardiopulmonary process. Atherosclerosis. 5. Latest CBC: WBC 4.5, hemoglobin 11.4, hematocrit 35.4, platelet count 316. 6. Latest BMP: Sodium 140, potassium 4.9, carbon dioxide 22, anion gap 11, BUN 13, creatinine 1.13, glucose 139, calcium 8.9, phosphorus 3.4, magnesium 1.8. 7. Hemoglobin A1c 6.6. 8. Fasting lipid panel: Triglycerides 120, total cholesterol 202, LDL 130. 9. Vitamin D total 25. At this time, I would like to thank all the consultants for seeing the patient, doing the necessary procedures and providing clinical recommendations. The case and management of this patient was fully discussed with Dr. Georges. Approximately 40 minutes was spent on coordinating the discharge on this patient. STEVIE GEORGES MD, AM/VIKKI Conf#: [id number] DID#: [id number] MTDD
[2016-12-01] MEDS ORDERED: AMLODIPINE 5 MG TAB PO SCH (09:00)
== END 2016-11-30 16:58 | DRG 65 ==
LOC: E/R 15:26 → TEL 19:44
PROVIDERS: ADMIT Internal Medicine; ATTEND Internal Medicine
DX: I63.231 Cerebral infarction due to unspecified occlusion or stenosis of right carotid arteries (principal); G81.94 Hemiplegia, unspecified affecting left nondominant side; N17.9 Acute kidney failure, unspecified; E11.22 Type 2 diabetes mellitus with diabetic chronic kidney disease; E11.65 Type 2 diabetes mellitus with hyperglycemia; E87.1 Hypo-osmolality and hyponatremia; R13.10 Dysphagia, unspecified; I12.9 Hypertensive chronic kidney disease with stage 1 through stage 4 chronic kidney disease, or unspecified chronic kidney disease; N18.9 Chronic kidney disease, unspecified; I16.0 Hypertensive urgency; E78.5 Hyperlipidemia, unspecified; I65.22 Occlusion and stenosis of left carotid artery; R62.51 Failure to thrive (child); D64.9 Anemia, unspecified
CPT/HCPCS: 36415; 70450; 70496; 70498; 70551; 71010; 80048; 80053; 80061; 80307; 81001; 82306; 82962; 83036; 83735; 84100; 84443; 84484; 85025; 85610; 85730; 92526; 92610; 93005; 93306; 97163; 97167; J0360; J1650; J1815; J2405; J3480; J7030; Q9967

== ENCOUNTER 2016-11-30 15:50 | Inpatient (IN) | payer MEDICARE, OTHER ==
[~2016-11-30] VITALS: Ht 157.5 cm; Wt 50.0 kg
[~2016-11-30 15:50] MED LIST: DEXL60CA2 PO; DILT240C62 PO; GLIP-95 PO; LANT3I SC; PREG50CA PO; RAMI10CA48 PO; SITA100T8 PO; TOBR5DRO14 BOTH EYES
[2016-11-30 17:47] VITALS: BP 139/75; PULSE 76; RESP 18
[2016-11-30 19:16] LABS: ADD UMIC YES; UR BILIRUBIN (Dip) NEGATIVE (NEGATIVE); UR BLOOD (Dip) TRACE (NEGATIVE); UR COLOR LT. YELLOW (YELLOW); UR GLUCOSE (Dip) >=1000 % (NEGATIVE); UR KETONES (Dip) NEGATIVE (NEGATIVE); UR LEUKOCYTE ESTERASE (Dip) NEGATIVE (NEGATIVE); UR NITRITE (Dip) NEGATIVE (NEGATIVE); UR TOTAL PROTEIN (Dip) 1+ (NEGATIVE); UR UROBILINOGEN (Dip) 0.2 E.U./dL (0.1-1.0)
[2016-11-30 19:25] LABS: UR BACTERIA MODERATE; UR CLARITY HAZY (CLEAR); UR RENAL EPITHELIAL CELL FEW; URINE RBCS 25-50 /HPF (0)
[2016-11-30 20:00] VITALS: BP 136/66; RESP 18
[2016-11-30] MEDS ORDERED: GLUCOSE GEL 15 GRAM TUBE PO PRN ×2 (20:00)
[2016-11-30] MEDS ORDERED: DEXTROSE 50% 50 ML SYRINGE IV PRN ×2 (20:00)
[2016-11-30] MEDS ORDERED: GLUCAGON 1 MG INJ IM PRN (20:00)
[2016-11-30] MEDS ORDERED: GLUCOSE GEL 15 GRAM TUBE BUCCAL PRN (20:00)
[2016-11-30] MEDS ORDERED: [UNRECOGNIZED DRUG - REMARK] XX SCH (20:00)
[2016-11-30 21:25] VITALS: BP 136/66; RESP 18
[2016-11-30] MEDS: ATORVASTATIN 40 MG TAB PO SCH (21:47)
[2016-11-30] MEDS: METOPROLOL 25 MG TAB PO SCH (21:47)
[2016-11-30] MEDS: TOBRAMYCIN/DEXAMETH 2.5 ML OPH BOTH EYES SCH (21:48)
[2016-11-30] MEDS: INSULIN GLARGINE [LANtus] 3 ML PEN SC SCH (21:49)
[2016-11-30] MEDS: INSULIN ASPART [NOVOLOG] 3 ML PEN SC SCH (21:50)
[2016-12-01] MEDS: TOBRAMYCIN/DEXAMETH 2.5 ML OPH BOTH EYES SCH ×6 (01:00→20:47)
[2016-12-01] MEDS: PANTOPRAZOLE (EC) 40 MG TAB PO SCH (06:22)
[2016-12-01 07:04] LABS: ADD SCAN DIFF NO; BASOPHILS % 0.5 % (0.0-2.0); EOSINOPHILS # 0.2 10^3/ul (0.0-0.5); EOSINOPHILS % 4.7 % (0.0-7.0); HEMATOCRIT 32.8 % (37.0-47.0); HEMOGLOBIN 10.6 g/dl (12.0-16.0); LYMPHOCYTES % 23.9 % (15.0-51.0); MEAN CORPUSCULAR HEMOGLOBIN 29.7 pg (29.0-33.0); MEAN CORPUSCULAR HGB CONC 32.3 g/dl (32.0-37.0); MEAN CORPUSCULAR VOLUME 91.9 fl (82.0-101.0); MEAN PLATELET VOLUME 9.7 fl (7.4-10.4); MONOCYTE # 0.3 10^3/ul (0.3-0.9); MONOCYTES % 7.2 % (0.0-11.0); NEUTROPHIL # 2.6 10^3/ul (1.6-7.5); NEUTROPHILS % 63.5 % (39.0-77.0); PLATELET COUNT 291 10^3/UL (140-415); RED BLOOD COUNT 3.57 10^6/ul (4.20-5.40); RED CELL DISTRIBUTION WIDTH 12.5 % (11.5-14.5)
[2016-12-01 07:43] LABS: ALBUMIN 3.5 g/dl (3.3-4.9); ALBUMIN/GLOBULIN RATIO 1.16; BILIRUBIN,INDIRECT 0.2 mg/dl (0-1.1); BILIRUBIN,TOTAL 0.2 mg/dl (0.2-1.3); CALCIUM 9.3 mg/dl (8.4-10.2); CREATININE 1.08 mg/dl (0.44-1.00); POTASSIUM 4.5 mmol/L (3.5-5.1); TOTAL PROTEIN 6.5 g/dl (6.1-8.1)
[2016-12-01 07:58] VITALS: BP 160/70; PULSE 65; RESP 16
[2016-12-01] MEDS: AMLODIPINE 5 MG TAB PO SCH (08:49)
[2016-12-01] MEDS: CLOPIDOGREL 75 MG TAB PO SCH (08:49)
[2016-12-01] MEDS: ASPIRIN 81 MG TAB PO SCH (08:49)
[2016-12-01] MEDS: METOPROLOL 25 MG TAB PO SCH ×2 (08:49→20:47)
[2016-12-01] MEDS: CHOLECALCIFEROL 1,000 UNIT TAB PO SCH (08:49)
[2016-12-01] MEDS: INSULIN ASPART [NOVOLOG] 3 ML PEN SC SCH ×5 (08:55→20:47)
[2016-12-01] MEDS: ENOXAPARIN 30 MG/0.3 ML SYG SC SCH (08:55)
--- NOTE | 2016-12-01 11:41 | CONS ---
DATE OF ADMISSION: 11/30/2016 DATE OF CONSULTATION: 12/01/2016 REHABILITATION POST ADMISSION PHYSICIAN EVALUATION REHABILITATION IMPAIRMENT CATEGORY: Right FELIPA and MCA infarct cerebrovascular accident, with left-sided weakness. ACTIVE COMORBIDITIES: 1. Dysphagia. 2. Hypertension. 3. Diabetes mellitus type 2. 4. Chronic kidney disease. 5. Anemia. 6. Right ICA occlusion. 7. Left ICA stenosis. 8. Impairments in self-care, mobility and cognition. HISTORY OF PRESENT ILLNESS: The patient is a 76-year-old female with a history of multiple medical comorbidities including diabetes mellitus and hypertension, who presented with left-sided weakness. MRI at an outside facility did demonstrate multiple foci of acute infarcts in the right cerebral hemisphere involving the right MCA and FELIPA distribution. The patient was also noted to have some acute ischemia in the left FELIPA distribution. The patient was also noted to have a right ICA occlusion, in addition to a left ICA stenosis. The patient was evaluated and felt to not be a TPA candidate. The patient was also followed closely by vascular surgery and recommended to have conservative measures at this time. The patient has now been cleared to transfer to the rehabilitation unit for comprehensive interdisciplinary rehab care. FUNCTIONAL HISTORY: Prior to recent events she was independent in self-care tasks and mobility. Currently she is maximal assist of 1 to 2 people for self- care and mobility tasks. SOCIAL HISTORY: The patient lives at home and hopes to return there upon discharge. PAST MEDICAL HISTORY: 1. Hypertension. 2. Diabetes mellitus. 3. Chronic kidney disease. 4. Anemia. CURRENT MEDICATIONS: 1. Clonidine transdermally q. week. 2. Norvasc 5 mg p.o. daily. 3. Aspirin 81 mg p.o. daily. 4. Vitamin D. 5. Plavix 75 mg p.o. daily. 6. Lovenox 30 mg subcutaneous daily. 7. Protonix 40 mg daily. 7. Apresoline 25 mg p.o. q.8h. 8. Lipitor 40 mg p.o. at bedtime. 9. Insulin sliding scale. 10. Lopressor 25 mg p.o. b.i.d. 11. TobraDex eyedrops. 12. Lantus 60 units subcutaneous daily. ALLERGIES: PATIENT WITH NO KNOWN DRUG ALLERGIES. PHYSICAL EXAMINATION: VITAL SIGNS: The patient is currently afebrile, with stable vital signs. HEENT: The patient with a notable facial droop. The oropharynx is clear. NECK: Supple. LUNGS: Clear anteriorly. CARDIAC: S1, S2. ABDOMEN: Soft, nontender. Positive bowel sounds. NEUROLOGIC: She is awake and alert. She is able to follow simple 1-step gestural commands. She demonstrates good strength in the right upper and lower. She has flaccid left upper and lower. She has impaired static balance. PLAN: The patient has been admitted for comprehensive interdisciplinary acute rehab and is anticipated to tolerate 3 hours of daily therapy in divided doses for at least 5/7 days a week. The treatment plan will include: 1. Physical therapy to focus on bed mobility, transfers, and wheelchair mobility, with the goal of having the patient reach a min to standby assist level. 2. Occupational therapy to focus on hygiene, grooming, dressing, bathing, and toileting activities, with the goal of having the patient reach a min to standby assist level. 3. Speech therapy for full cognitive assessment and retraining, in addition to dysphagia management, with the goal of having the patient meet nutritional needs by mouth and return to baseline cognition. 4. Rehabilitation nursing for carryover of therapeutic interventions, with the goal of continent of bowel and bladder, and the goal of patient and family education with regards to the aforementioned issues. ESTIMATED LENGTH OF STAY: 14 days. DISPOSITION GOAL: Home. Rehabilitation Barrier: Cognition Intervention For Barrier: Speech Therapy I acknowledge that I performed a full physical examination on this patient within 24 hours of admission to the rehabilitation unit and believe the patient is a good candidate for comprehensive interdisciplinary rehab care and is anticipated to make reasonable goals in a reasonable period of time, as outlined above. Dictated By: BRITT OSBORN/VIKKI Conf#: [id number] DID#: [id number] MTDD
--- NOTE | 2016-12-01 12:22 | CONS ---
Date/Time of Note Date/Time of Note DATE: 12/01/16 TIME: 12:22 Consultation Date/Type/Reason Admit Date/Time Nov 30, 2016 at 17:09 Date of Consultation: Dec 01, 2016 Reason for Consultation Consultation dictated #[id number] Social History Smoking Status: Never smoker Exam/Review of Systems Vital Signs Vitals Vital Signs Date Time Temp Pulse Resp B/P Pulse Ox O2 Delivery O2 Flow Rate FiO2 12/01/16 07:58 98.4 65 16 160/70 97 Room Air Results Result Diagram: 12/01/16 0629 12/01/16 0629 Results 24 hrs Laboratory Tests Test 11/30/16 18:13 11/30/16 18:55 11/30/16 21:45 12/01/16 02:36 Bedside Glucose 185 283 H 140 Urine Color LT. YELLOW Urine Clarity HAZY Urine pH 6.0 Urine Specific [place] 1.020 Urine Ketones NEGATIVE Urine Nitrite NEGATIVE Urine Bilirubin NEGATIVE Urine Urobilinogen 0.2 E.U./dL Urine Leukocyte Esterase NEGATIVE Urine Microscopic RBC 25-50 Urine Microscopic WBC 2-5 Urine Renal Epithelial Cells FEW Urine Bacteria MODERATE Urine Hemoglobin TRACE Urine Glucose >=1000 Urine Total Protein 1+ H Test 12/01/16 06:29 12/01/16 08:23 12/01/16 12:01 White Blood Count 4.0 L Red Blood Count 3.57 L Hemoglobin 10.6 L Hematocrit 32.8 L Mean Corpuscular Volume 91.9 Mean Corpuscular Hemoglobin 29.7 Mean Corpuscular Hemoglobin Concent 32.3 Red Cell Distribution Width 12.5 Platelet Count 291 Mean Platelet Volume 9.7 Neutrophils % 63.5 Lymphocytes % 23.9 Monocytes % 7.2 Eosinophils % 4.7 Basophils % 0.5 Nucleated Red Blood Cells % 0.0 Neutrophils # 2.6 Lymphocytes # 1.0 Monocytes # 0.3 Eosinophils # 0.2 Basophils # 0.0 Nucleated Red Blood Cells # 0.0 Sodium Level 143 Potassium Level 4.5 Chloride Level 113 H Carbon Dioxide Level 22 Anion Gap 13 Blood Urea Nitrogen 14 Creatinine 1.08 H Glucose Level 150 Calcium Level 9.3 Total Bilirubin 0.2 Direct Bilirubin 0.00 Indirect Bilirubin 0.2 Aspartate Amino Transf (AST/SGOT) 36 Alanine Aminotransferase (ALT/SGPT) 31 Alkaline Phosphatase 64 Total Protein 6.5 Albumin 3.5 Globulin 3.00 Albumin/Globulin Ratio 1.16 Bedside Glucose 163 316 H Medications Medications Current Medications Acetaminophen (Tylenol Tab) 650 mg Q6H PRN PO PAIN AND OR ELEVATED TEMP; Start 11/30/16 at 19:30 Amlodipine Besylate (Norvasc) 5 mg DAILY PO Last administered on 12/01/16 08: 49; Admin Dose 5 MG; Start 12/01/16 at 09:00 Aspirin (Aspirin) 81 mg DAILY PO Last administered on 12/01/16 08:49; Admin Dose 81 MG; Start 12/01/16 at 09:00 Atorvastatin Calcium (Lipitor) 40 mg HS PO Last administered on 11/30/16 21:47 ; Admin Dose 40 MG; Start 11/30/16 at 21:00 Cholecalciferol (Vitamin D) 1,000 unit DAILY PO Last administered on 12/01/16 08:49; Admin Dose 1,000 UNIT; Start 12/01/16 at 09:00 Clonidine HCl (Catapres-Tts 1 Patch) 1 patch Q7D TRANSDERM ; Start 12/06/16 at 09:00 Clopidogrel Bisulfate (plaVIX) 75 mg DAILY PO Last administered on 12/01/16 08 :49; Admin Dose 75 MG; Start 12/01/16 at 09:00 Enoxaparin Sodium (Lovenox) 30 mg DAILY SC Last administered on 12/01/16 08:55 ; Admin Dose 30 MG; Start 12/01/16 at 09:00 Hydralazine HCl (Apresoline) 25 mg Q8 PO Last administered on 12/01/16 06:22; Admin Dose 25 MG; Start 11/30/16 at 22:00 Insulin Glargine (Lantus) 6 unit DAILY@20 SC Last administered on 11/30/16 21: 49; Admin Dose 6 UNIT; Start 11/30/16 at 20:30 Metoprolol Tartrate (Lopressor) 25 mg BID PO Last administered on 12/01/16 08: 49; Admin Dose 25 MG; Start 11/30/16 at 21:00 Pantoprazole (Protonix Tab) 40 mg DAILY@06 PO Last administered on 12/01/16 06 :22; Admin Dose 40 MG; Start 12/01/16 at 06:00 Tobramycin/ Dexamethasone (Tobradex Oph Drop) 1 drop Q4 BOTH EYES Last administered on 12/01/16t 08:49; Admin Dose 1 DROP; Start 11/30/16 at 21:00; Stop 12/06/16 at 20:59 Miscellaneous Information 1 ea NOTE XX ; Start 11/30/16 at 20:00 Glucose (Glutose) 15 gm Q15M PRN PO DECREASED GLUCOSE; Start 11/30/16 at 20:00 Glucose (Glutose) 22.5 gm Q15M PRN PO DECREASED GLUCOSE; Start 11/30/16 at 20: 00 Dextrose (D50w Syringe) 25 ml Q15M PRN IV DECREASED GLUCOSE; Start 11/30/16 at 20:00 Dextrose (D50w Syringe) 50 ml Q15M PRN IV DECREASED GLUCOSE; Start 11/30/16 at 20:00 Glucagon (Glucagen) 1 mg Q15M PRN IM DECREASED GLUCOSE; Start 11/30/16 at 20:00 Glucose (Glutose) 15 gm Q15M PRN BUCCAL DECREASED GLUCOSE; Start 11/30/16 at 20 :00 TIBURCIO SHAH Dec 01, 2016 12:22
--- NOTE | 2016-12-01 12:53 | HP ---
DATE OF ADMISSION: 11/30/2016 ADMITTING DIAGNOSIS: Acute cerebrovascular accident, the patient admitted for rehab. HISTORY OF PRESENT ILLNESS: Ms. Ramires is a very pleasant 76-year-old oriental lady who was admitted y esterday, transferred for continuing rehabilitation after undergoing acute CVA involving the right A CA and MCA distribution with left-sided hemiplegia/hemiparesis. The patient currently is doing fair ly well. Currently, sitting in a chair and denies any shortness of breath, chest pain, headache, se izures. PAST MEDICAL HISTORY: 1. Hypertension. 2. Diabetes. 3. CKD. 4. Anemia. 5. Recent CVA. 6. Generalized deconditioning. CURRENT MEDICATIONS: 1. Clonidine patch weekly. 2. Norvasc 5 mg a day. 3. Aspirin 81 mg a day. 4. Plavix 75 mg a day. 5. Lovenox 30 mg daily. 6. Protonix 40 mg a day. 7. Apresoline 25 mg q.8h. 8. Lipitor 40 mg a day. 9. She is on sliding scale insulin. 10. Lopressor 25 mg b.i.d. 11. Lantus insulin 6 units daily. ALLERGIES: NONE. SOCIAL HISTORY: The patient never smoked. No history of alcohol or drug abuse. FAMILY HISTORY: The patient does have a supportive family. She is . 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 REVIEW OF SYSTEMS: Denies any headache, seizures, visual changes, signs or symptoms of chest pain, shortness of breath, cough, wheezing, abdominal pain, nausea, vomiting, melena, hematochezia, edema, orthopnea. Complains of left-sided severe weakness. PHYSICAL EXAMINATION: GENERAL: Elderly lady, awake, alert, currently in no distress. VITAL SIGNS: Temperature is 98 degrees Fahrenheit, heart rate is 65 per minute, respiratory rate is 16 per minute, O2 saturation is 97% on room air, blood pressure is 136/56. HEENT/NECK: Supple neck. No JVD, no lymphadenopathy. Midline trachea. No thyromegaly. Pharynx c lear. No neck bruits. The patient is edentulous and wears dentures. Has bilateral intraocular monty s implants. CHEST: Clear to auscultation. HEART: S1, S2 audible. No murmurs, regular rhythm. ABDOMEN: Soft, nontender, nondistended. No organomegaly. Bowel sounds audible. EXTREMITIES: No peripheral edema. NEUROLOGIC: Cranial nerves are grossly intact. There is left-sided hemiplegia. LABORATORY DATA: From today, sodium 143, potassium 4.5, chloride 113, bicarbonate 22, glucose of 15 0, BUN 14, creatinine 1.0. White count 4, hemoglobin 10.6, platelet count of 291. ASSESSMENT AND PLAN: 1. The patient admitted for acute cerebrovascular accident, undergoing rehabilitation. 2. History of diabetes and hypertension. Continue current supportive care. Continue physical therapy. Dictated By: TIBURCIO SHAH MD AQ/NTS Conf#: [id number] DID#: [id number]
--- NOTE | 2016-12-01 17:41 | CONS ---
Date/Time of Note Date/Time of Note DATE: 12/01/16 TIME: 17:37 Assessment/Plan Assessment/Plan Chief Complaint/Hosp Course IMPRESSION: 1. Abnormal electrocardiogram, assess for acute coronary syndrome in the setting of acute cerebrovascular accident. 2. Acute cerebrovascular accident, possible embolic origin, assess for cardiac embolic source.-probable from carotid stenosis 3. Hypertension, uncontrolled in the setting of acute cerebrovascular accident. 4. Dyslipidemia. 5. Diabetes mellitus. 6. Renal failure. 7. Positive troponin-minimal in the setting of renal failure and acute CVA. Downtrended Recc: -Tele -Trend cardiac enzymes -Continue asa/lovenox/statin -Follow MS closely -Continue clonidine TTS/BB/CCB/hydralazine Problems: Consultation Date/Type/Reason Admit Date/Time Nov 30, 2016 at 17:09 Initial Consult Date 12/01/16 Type of Consultation: Cardiology Reason for Consultation abnl ecg Referring Provider: JANETTE SEQUEIRA Exam/Review of Systems Vital Signs Vitals Vital Signs Date Time Temp Pulse Resp B/P Pulse Ox O2 Delivery O2 Flow Rate FiO2 12/01/16 07:58 98.4 65 16 160/70 97 Room Air Exam Review of Systems: CONSTITUTIONAL: No fevers, chills. PULMONARY: No sob CARDIOVASCULAR: No chest pain/palpitations GASTROINTESTINAL: No nausea/vomiting. GENITOURINARY: No hematuria/dysuria. MUSCULOSKELETAL: No myagias/arthalgias. PSYCHIATRIC: The patient denies depression. NEUROLOGIC: encephlopathic Constitutional: alert Psych: no complaints Head: normocephalic ENMT: mucosa pink and moist Neck: supple Respiratory: clear to auscultation Cardiovascular: regular rate and rhythm Gastrointestinal: non-tender, soft Musculoskeletal: muscle tone (normal) Extremities: edema (none) Neurological: unresponsive Results Result Diagram: 12/01/16 0629 12/01/16 0629 Results 24 hrs Laboratory Tests Test 11/30/16 18:13 11/30/16 18:55 11/30/16 21:45 12/01/16 02:36 Bedside Glucose 185 283 H 140 Urine Color LT. YELLOW Urine Clarity HAZY Urine pH 6.0 Urine Specific [place] 1.020 Urine Ketones NEGATIVE Urine Nitrite NEGATIVE Urine Bilirubin NEGATIVE Urine Urobilinogen 0.2 E.U./dL Urine Leukocyte Esterase NEGATIVE Urine Microscopic RBC 25-50 Urine Microscopic WBC 2-5 Urine Renal Epithelial Cells FEW Urine Bacteria MODERATE Urine Hemoglobin TRACE Urine Glucose >=1000 Urine Total Protein 1+ H Test 12/01/16 06:29 12/01/16 08:23 12/01/16 12:01 12/01/16 17:09 White Blood Count 4.0 L Red Blood Count 3.57 L Hemoglobin 10.6 L Hematocrit 32.8 L Mean Corpuscular Volume 91.9 Mean Corpuscular Hemoglobin 29.7 Mean Corpuscular Hemoglobin Concent 32.3 Red Cell Distribution Width 12.5 Platelet Count 291 Mean Platelet Volume 9.7 Neutrophils % 63.5 Lymphocytes % 23.9 Monocytes % 7.2 Eosinophils % 4.7 Basophils % 0.5 Nucleated Red Blood Cells % 0.0 Neutrophils # 2.6 Lymphocytes # 1.0 Monocytes # 0.3 Eosinophils # 0.2 Basophils # 0.0 Nucleated Red Blood Cells # 0.0 Sodium Level 143 Potassium Level 4.5 Chloride Level 113 H Carbon Dioxide Level 22 Anion Gap 13 Blood Urea Nitrogen 14 Creatinine 1.08 H Glucose Level 150 Calcium Level 9.3 Total Bilirubin 0.2 Direct Bilirubin 0.00 Indirect Bilirubin 0.2 Aspartate Amino Transf (AST/SGOT) 36 Alanine Aminotransferase (ALT/SGPT) 31 Alkaline Phosphatase 64 Total Protein 6.5 Albumin 3.5 Globulin 3.00 Albumin/Globulin Ratio 1.16 Bedside Glucose 163 316 H 288 H Medications Medications Current Medications Acetaminophen (Tylenol Tab) 650 mg Q6H PRN PO PAIN AND OR ELEVATED TEMP; Start 11/30/16 at 19:30 Amlodipine Besylate (Norvasc) 5 mg DAILY PO Last administered on 12/01/16 08: 49; Admin Dose 5 MG; Start 12/01/16 at 09:00 Aspirin (Aspirin) 81 mg DAILY PO Last administered on 12/01/16 08:49; Admin Dose 81 MG; Start 12/01/16 at 09:00 Atorvastatin Calcium (Lipitor) 40 mg HS PO Last administered on 11/30/16 21:47 ; Admin Dose 40 MG; Start 11/30/16 at 21:00 Cholecalciferol (Vitamin D) 1,000 unit DAILY PO Last administered on 12/01/16 08:49; Admin Dose 1,000 UNIT; Start 12/01/16 at 09:00 Clonidine HCl (Catapres-Tts 1 Patch) 1 patch Q7D TRANSDERM ; Start 12/06/16 at 09:00 Clopidogrel Bisulfate (plaVIX) 75 mg DAILY PO Last administered on 12/01/16 08 :49; Admin Dose 75 MG; Start 12/01/16 at 09:00 Enoxaparin Sodium (Lovenox) 30 mg DAILY SC Last administered on 12/01/16 08:55 ; Admin Dose 30 MG; Start 12/01/16 at 09:00 Hydralazine HCl (Apresoline) 25 mg Q8 PO Last administered on 12/01/16 13:47; Admin Dose 25 MG; Start 11/30/16 at 22:00 Insulin Glargine (Lantus) 6 unit DAILY@20 SC Last administered on 11/30/16 21: 49; Admin Dose 6 UNIT; Start 11/30/16 at 20:30 Metoprolol Tartrate (Lopressor) 25 mg BID PO Last administered on 12/01/16 08: 49; Admin Dose 25 MG; Start 11/30/16 at 21:00 Pantoprazole (Protonix Tab) 40 mg DAILY@06 PO Last administered on 12/01/16 06 :22; Admin Dose 40 MG; Start 12/01/16 at 06:00 Tobramycin/ Dexamethasone (Tobradex Oph Drop) 1 drop Q4 BOTH EYES Last administered on 12/01/16 17:10; Admin Dose 1 DROP; Start 11/30/16 at 21:00; Stop 12/06/16 at 20:59 Miscellaneous Information 1 ea NOTE XX ; Start 11/30/16 at 20:00 Glucose (Glutose) 15 gm Q15M PRN PO DECREASED GLUCOSE; Start 11/30/16 at 20:00 Glucose (Glutose) 22.5 gm Q15M PRN PO DECREASED GLUCOSE; Start 11/30/16 at 20: 00 Dextrose (D50w Syringe) 25 ml Q15M PRN IV DECREASED GLUCOSE; Start 11/30/16 at 20:00 Dextrose (D50w Syringe) 50 ml Q15M PRN IV DECREASED GLUCOSE; Start 11/30/16 at 20:00 Glucagon (Glucagen) 1 mg Q15M PRN IM DECREASED GLUCOSE; Start 11/30/16 at 20:00 Glucose (Glutose) 15 gm Q15M PRN BUCCAL DECREASED GLUCOSE; Start 11/30/16 at 20 :00 ANSHU MATAMOROS Dec 01, 2016 17:41
[2016-12-01 20:00] VITALS: BP 123/62; RESP 18
[2016-12-01] MEDS: INSULIN GLARGINE [LANtus] 3 ML PEN SC SCH (20:42)
[2016-12-01] MEDS: ATORVASTATIN 40 MG TAB PO SCH (20:47)
[2016-12-02] MEDS: TOBRAMYCIN/DEXAMETH 2.5 ML OPH BOTH EYES SCH ×6 (00:52→20:30)
[2016-12-02 06:10] VITALS: BP 171/74; PULSE 64; RESP 16
[2016-12-02] MEDS: PANTOPRAZOLE (EC) 40 MG TAB PO SCH (06:11)
[2016-12-02 07:30] VITALS: BP 156/70; RESP 18
[2016-12-02 08:00] VITALS: BP 118/56; PULSE 57; RESP 16
[2016-12-02] MEDS: INSULIN ASPART [NOVOLOG] 3 ML PEN SC SCH ×4 (08:20→20:32)
[2016-12-02] MEDS: ENOXAPARIN 30 MG/0.3 ML SYG SC SCH (08:21)
[2016-12-02] MEDS: CHOLECALCIFEROL 1,000 UNIT TAB PO SCH (08:23)
[2016-12-02] MEDS: CLOPIDOGREL 75 MG TAB PO SCH (08:23)
[2016-12-02] MEDS: AMLODIPINE 5 MG TAB PO SCH (08:23)
[2016-12-02] MEDS: ASPIRIN 81 MG TAB PO SCH (08:24)
[2016-12-02] MEDS: METOPROLOL 25 MG TAB PO SCH ×2 (08:24→20:30)
--- NOTE | 2016-12-02 11:06 | PN ---
Date/Time of Note Date/Time of Note DATE: 12/02/16 TIME: 10:59 Assessment/Plan VTE Prophylaxis VTE Prophylaxis Intervention: LMWH Lines/Catheters IV [facility] Saline Lock Urinary Cath still in place: Yes Reason Cath still needed: other (indicate) Assessment/Plan Assessment/Plan 1. Acute infarcts involving the right FELIPA/ MCA territory and left FELIPA territory with R ICA occlusion, left ICA stenosis, left-sided hemiplegia and hemineglect, impaired mobility/gait/ADLs/cognition and dysphagia. Continue PT/OT/ST. Secondary stroke prevention per neurology and vascular surgery. Currently total assist for bed mobility and transfers. Continue modified diet per ST, maintain aspiration precautions. 2. Hypertension. Monitor BP. Internal medicine/cardiology medically managing. 3. Diabetes mellitus type 2. Monitor Blood sugars. Internal medicine managing. 4. Chronic kidney disease. Monitor renal function. Avoid nephrotoxic agents. 5. Anemia. Continue to monitor hemoglobin/hematocrit. 6. Dyslipidemia. Continue statin. 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 Reports mild headache currently, denies any other associated symptoms or any new neurological changes. ROS: Denies dizziness, no chest pain, no shortness of breath, no abdominal pain , no nausea, no chills. Exam/Review of Systems Vital Signs Vitals Vital Signs Date Time Temp Pulse Resp B/P Pulse Ox O2 Delivery O2 Flow Rate FiO2 12/02/16 06:10 64 16 171/74 12/01/16 20:00 98.8 95 12/01/16 07:58 Room Air Intake and Output 12/01/16 12/01/16 12/02/16 15:00 23:00 07:00 Intake Total 840 ml Output Total 1100 ml 500 ml Balance -1100 ml 340 ml Exam General: Awake, alert, no acute distress CV: Regular rate, s1s2 Lungs: Respirations are nonlabored, no wheezing Abdomen soft, nontender Extremities without cyanosis, no edema Neuro: Left sided hemiplegia. Follows simple commands. Results Result Diagram: 12/01/16 0629 12/01/16 0629 Results 24 hrs Laboratory Tests Test 12/01/16 12:01 12/01/16 17:09 12/01/16 20:21 12/02/16 02:17 Bedside Glucose 316 H 288 H 300 H 193 Test 12/02/16 07:36 Bedside Glucose 160 Medications Medications Current Medications Acetaminophen (Tylenol Tab) 650 mg Q6H PRN PO PAIN AND OR ELEVATED TEMP; Start 11/30/16 at 19:30 Amlodipine Besylate (Norvasc) 5 mg DAILY PO Last administered on 12/02/16 08: 23; Admin Dose 5 MG; Start 12/01/16 at 09:00 Aspirin (Aspirin) 81 mg DAILY PO Last administered on 12/02/16 08:24; Admin Dose 81 MG; Start 12/01/16 at 09:00 Atorvastatin Calcium (Lipitor) 40 mg HS PO Last administered on 12/01/16 20:47 ; Admin Dose 40 MG; Start 11/30/16 at 21:00 Cholecalciferol (Vitamin D) 1,000 unit DAILY PO Last administered on 12/02/16 08:23; Admin Dose 1,000 UNIT; Start 12/01/16 at 09:00 Clonidine HCl (Catapres-Tts 1 Patch) 1 patch Q7D TRANSDERM ; Start 12/06/16 at 09:00 Clopidogrel Bisulfate (plaVIX) 75 mg DAILY PO Last administered on 12/02/16 08 :23; Admin Dose 75 MG; Start 12/01/16 at 09:00 Enoxaparin Sodium (Lovenox) 30 mg DAILY SC Last administered on 12/02/16 08:21 ; Admin Dose 30 MG; Start 12/01/16 at 09:00 Hydralazine HCl (Apresoline) 25 mg Q8 PO Last administered on 12/02/16 06:10; Admin Dose 25 MG; Start 11/30/16 at 22:00 Insulin Glargine (Lantus) 6 unit DAILY@20 SC Last administered on 12/01/16 20: 42; Admin Dose 6 UNIT; Start 11/30/16 at 20:30 Metoprolol Tartrate (Lopressor) 25 mg BID PO Last administered on 12/02/16 08: 24; Admin Dose 25 MG; Start 11/30/16 at 21:00 Pantoprazole (Protonix Tab) 40 mg DAILY@06 PO Last administered on 12/02/16 06 :11; Admin Dose 40 MG; Start 12/01/16 at 06:00 Tobramycin/ Dexamethasone (Tobradex Oph Drop) 1 drop Q4 BOTH EYES Last administered on 12/02/16t 08:23; Admin Dose 1 DROP; Start 11/30/16 at 21:00; Stop 12/06/16 at 20:59 Miscellaneous Information 1 ea NOTE XX ; Start 11/30/16 at 20:00 Glucose (Glutose) 15 gm Q15M PRN PO DECREASED GLUCOSE; Start 11/30/16 at 20:00 Glucose (Glutose) 22.5 gm Q15M PRN PO DECREASED GLUCOSE; Start 11/30/16 at 20: 00 Dextrose (D50w Syringe) 25 ml Q15M PRN IV DECREASED GLUCOSE; Start 11/30/16 at 20:00 Dextrose (D50w Syringe) 50 ml Q15M PRN IV DECREASED GLUCOSE; Start 11/30/16 at 20:00 Glucagon (Glucagen) 1 mg Q15M PRN IM DECREASED GLUCOSE; Start 11/30/16 at 20:00 Glucose (Glutose) 15 gm Q15M PRN BUCCAL DECREASED GLUCOSE; Start 11/30/16 at 20 :00 ROBERTO RAINEY Dec 02, 2016 11:06
--- NOTE | 2016-12-02 14:51 | CONS ---
Date/Time of Note Date/Time of Note DATE: 12/02/16 TIME: 14:40 Assessment/Plan Assessment/Plan Additional Assessment/Plan 1. Abnormal electrocardiogram 2. Acute cerebrovascular accident 3. Hypertension 4. Dyslipidemia. 5. Diabetes mellitus. 6. Renal failure Hemodynamically stable Continue Metoprolol Continue ASA and Plavix Continue Norvasc and Hydralazine Continue Clonidine patch Continue Insulin Continue Lipitor Continue GI and DVT Prophylaxis Consultation Date/Type/Reason Admit Date/Time Nov 30, 2016 at 17:09 Psychological: no complaints Social History Smoking Status: Never smoker Exam/Review of Systems Vital Signs Vitals Vital Signs Date Time Temp Pulse Resp B/P Pulse Ox O2 Delivery O2 Flow Rate FiO2 12/02/16 08:00 57 16 118/56 Room Air 12/02/16 07:30 98.6 97 Intake and Output 12/01/16 12/01/16 12/02/16 15:00 23:00 07:00 Intake Total 840 ml Output Total 1100 ml 500 ml Balance -1100 ml 340 ml Exam Constitutional: alert Head: atraumatic, normocephalic Neck: non-tender, supple Respiratory: clear to auscultation Cardiovascular: regular rate and rhythm Gastrointestinal: nl liver, spleen, non-tender, soft Extremities: normal pulses Results Result Diagram: 12/01/16 0629 12/01/16 0629 Results 24 hrs Laboratory Tests Test 12/01/16 17:09 12/01/16 20:21 12/02/16 02:17 12/02/16 07:36 Bedside Glucose 288 H 300 H 193 160 Test 12/02/16 12:04 Bedside Glucose 241 H Medications Medications Current Medications Acetaminophen (Tylenol Tab) 650 mg Q6H PRN PO PAIN AND OR ELEVATED TEMP; Start 11/30/16 at 19:30 Amlodipine Besylate (Norvasc) 5 mg DAILY PO Last administered on 12/02/16 08: 23; Admin Dose 5 MG; Start 12/01/16 at 09:00 Aspirin (Aspirin) 81 mg DAILY PO Last administered on 12/02/16 08:24; Admin Dose 81 MG; Start 12/01/16 at 09:00 Atorvastatin Calcium (Lipitor) 40 mg HS PO Last administered on 12/01/16 20:47 ; Admin Dose 40 MG; Start 11/30/16 at 21:00 Cholecalciferol (Vitamin D) 1,000 unit DAILY PO Last administered on 12/02/16 08:23; Admin Dose 1,000 UNIT; Start 12/01/16 at 09:00 Clonidine HCl (Catapres-Tts 1 Patch) 1 patch Q7D TRANSDERM ; Start 12/06/16 at 09:00 Clopidogrel Bisulfate (plaVIX) 75 mg DAILY PO Last administered on 12/02/16 08 :23; Admin Dose 75 MG; Start 12/01/16 at 09:00 Enoxaparin Sodium (Lovenox) 30 mg DAILY SC Last administered on 12/02/16 08:21 ; Admin Dose 30 MG; Start 12/01/16 at 09:00 Hydralazine HCl (Apresoline) 25 mg Q8 PO Last administered on 12/02/16 13:42; Admin Dose 25 MG; Start 11/30/16 at 22:00 Insulin Glargine (Lantus) 6 unit DAILY@20 SC Last administered on 12/01/16 20: 42; Admin Dose 6 UNIT; Start 11/30/16 at 20:30 Metoprolol Tartrate (Lopressor) 25 mg BID PO Last administered on 12/02/16 08: 24; Admin Dose 25 MG; Start 11/30/16 at 21:00 Pantoprazole (Protonix Tab) 40 mg DAILY@06 PO Last administered on 12/02/16 06 :11; Admin Dose 40 MG; Start 12/01/16 at 06:00 Tobramycin/ Dexamethasone (Tobradex Oph Drop) 1 drop Q4 BOTH EYES Last administered on 12/02/16 12:19; Admin Dose 1 DROP; Start 11/30/16 at 21:00; Stop 12/06/16 at 20:59 Miscellaneous Information 1 ea NOTE XX ; Start 11/30/16 at 20:00 Glucose (Glutose) 15 gm Q15M PRN PO DECREASED GLUCOSE; Start 11/30/16 at 20:00 Glucose (Glutose) 22.5 gm Q15M PRN PO DECREASED GLUCOSE; Start 11/30/16 at 20: 00 Dextrose (D50w Syringe) 25 ml Q15M PRN IV DECREASED GLUCOSE; Start 11/30/16 at 20:00 Dextrose (D50w Syringe) 50 ml Q15M PRN IV DECREASED GLUCOSE; Start 11/30/16 at 20:00 Glucagon (Glucagen) 1 mg Q15M PRN IM DECREASED GLUCOSE; Start 11/30/16 at 20:00 Glucose (Glutose) 15 gm Q15M PRN BUCCAL DECREASED GLUCOSE; Start 11/30/16 at 20 :00 WILBUR CRAIN M.D. Dec 02, 2016 14:51
[2016-12-02] MEDS: LEVOFLOXACIN 500 MG TAB PO SCH (16:22)
[2016-12-02 19:39] VITALS: BP 163/74; RESP 18
[2016-12-02] MEDS: ATORVASTATIN 40 MG TAB PO SCH (20:29)
[2016-12-02] MEDS: INSULIN GLARGINE [LANtus] 3 ML PEN SC SCH (20:33)
[2016-12-03] MEDS: TOBRAMYCIN/DEXAMETH 2.5 ML OPH BOTH EYES SCH ×6 (01:00→20:20)
[2016-12-03] MEDS: PANTOPRAZOLE (EC) 40 MG TAB PO SCH (06:36)
[2016-12-03] MEDS: INSULIN ASPART [NOVOLOG] 3 ML PEN SC SCH ×4 (08:04→20:17)
[2016-12-03] MEDS: ASPIRIN 81 MG TAB PO SCH (09:08)
[2016-12-03] MEDS: CHOLECALCIFEROL 1,000 UNIT TAB PO SCH (09:08)
[2016-12-03] MEDS: AMLODIPINE 5 MG TAB PO SCH (09:08)
[2016-12-03] MEDS: LEVOFLOXACIN 500 MG TAB PO SCH (09:08)
[2016-12-03] MEDS: METOPROLOL 25 MG TAB PO SCH ×2 (09:08→20:20)
[2016-12-03] MEDS: CLOPIDOGREL 75 MG TAB PO SCH (09:09)
[2016-12-03] MEDS: ENOXAPARIN 30 MG/0.3 ML SYG SC SCH (09:10)
--- NOTE | 2016-12-03 10:03 | PN ---
Date/Time of Note Date/Time of Note DATE: 12/03/16 TIME: 09:59 Assessment/Plan VTE Prophylaxis VTE Prophylaxis Intervention: LMWH Lines/Catheters IV Catheter Type (from Nrs): Saline Lock Urinary Cath still in place: Yes Reason Cath still needed: other (indicate) Assessment/Plan Assessment/Plan 1. Acute infarcts involving Right FELIPA/ MCA territory and left FELIPA territory with R ICA occlusion, left ICA stenosis, left hemiplegia, impaired mobility/gait /ADLs/cognition and dysphagia. Continue PT/OT/ST. Continue medical management per neurology and vascular surgery, secondary stroke prevention. Continue modified diet per ST, maintain aspiration precautions. Sitting balance Poor. Continue to work on improving trunk control. 2. Hypertension. Continue medical management per internal medicine/cardiology. Monitor BP. 3. Diabetes mellitus type 2. Monitor Blood sugars. On insulin regimen per internal medicine. 4. Chronic kidney disease. Monitor renal function. Avoid nephrotoxic agents. 5. Anemia. Continue to monitor hemoglobin/hematocrit. 6. Dyslipidemia. Continue statin. 7. Enterococcus UTI, present on admission. On antibiotics. 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 Patient without acute complaints. Nursing reports no acute overnight events. ROS: Denies headache, no dizziness, no chest pain, no shortness of breath, no chills, no abdominal pain. Nursing reports bowel movement yesterday. Exam/Review of Systems Vital Signs Vitals Vital Signs Date Time Temp Pulse Resp B/P Pulse Ox O2 Delivery O2 Flow Rate FiO2 12/02/16 19:39 98.8 64 18 163/74 95 12/02/16 08:00 Room Air Intake and Output 12/02/16 12/02/16 12/03/16 15:00 23:00 07:00 Intake Total 320 ml 300 ml Output Total 1200 ml 800 ml Balance -880 ml -500 ml Exam General: Awake, alert, no acute distress CV: Regular rate, s1s2 audible Lungs: Symmetrical air entry bilaterally, no wheezing Abdomen soft, nontender Extremities without cyanosis, no edema Neuro: No focal changes. Left sided hemiplegia. Follows simple commands. Results Result Diagram: 12/01/16 0629 12/01/16 0629 Results 24 hrs Laboratory Tests Test 12/02/16 12:04 12/02/16 20:25 12/03/16 01:21 12/03/16 07:40 Bedside Glucose 241 H 197 157 187 Medications Medications Current Medications Acetaminophen (Tylenol Tab) 650 mg Q6H PRN PO PAIN AND OR ELEVATED TEMP; Start 11/30/16 at 19:30 Amlodipine Besylate (Norvasc) 5 mg DAILY PO Last administered on 12/03/16 09: 08; Admin Dose 5 MG; Start 12/01/16 at 09:00 Aspirin (Aspirin) 81 mg DAILY PO Last administered on 12/03/16 09:08; Admin Dose 81 MG; Start 12/01/16 at 09:00 Atorvastatin Calcium (Lipitor) 40 mg HS PO Last administered on 12/02/16 20:29 ; Admin Dose 40 MG; Start 11/30/16 at 21:00 Cholecalciferol (Vitamin D) 1,000 unit DAILY PO Last administered on 12/03/16 09:08; Admin Dose 1,000 UNIT; Start 12/01/16 at 09:00 Clonidine HCl (Catapres-Tts 1 Patch) 1 patch Q7D TRANSDERM ; Start 12/06/16 at 09:00 Clopidogrel Bisulfate (plaVIX) 75 mg DAILY PO Last administered on 12/03/16 09 :09; Admin Dose 75 MG; Start 12/01/16 at 09:00 Enoxaparin Sodium (Lovenox) 30 mg DAILY SC Last administered on 12/03/16 09:10 ; Admin Dose 30 MG; Start 12/01/16 at 09:00 Hydralazine HCl (Apresoline) 25 mg Q8 PO Last administered on 12/03/16 06:36; Admin Dose 25 MG; Start 11/30/16 at 22:00 Insulin Glargine (Lantus) 6 unit DAILY@20 SC Last administered on 12/02/16 20: 33; Admin Dose 6 UNIT; Start 11/30/16 at 20:30 Metoprolol Tartrate (Lopressor) 25 mg BID PO Last administered on 12/03/16 09: 08; Admin Dose 25 MG; Start 11/30/16 at 21:00 Pantoprazole (Protonix Tab) 40 mg DAILY@06 PO Last administered on 12/03/16 06 :36; Admin Dose 40 MG; Start 12/01/16 at 06:00 Tobramycin/ Dexamethasone (Tobradex Oph Drop) 1 drop Q4 BOTH EYES Last administered on 12/03/16 09:07; Admin Dose 1 DROP; Start 11/30/16 at 21:00; Stop 12/06/16 at 20:59 Miscellaneous Information 1 ea NOTE XX ; Start 11/30/16 at 20:00 Glucose (Glutose) 15 gm Q15M PRN PO DECREASED GLUCOSE; Start 11/30/16 at 20:00 Glucose (Glutose) 22.5 gm Q15M PRN PO DECREASED GLUCOSE; Start 11/30/16 at 20: 00 Dextrose (D50w Syringe) 25 ml Q15M PRN IV DECREASED GLUCOSE; Start 11/30/16 at 20:00 Dextrose (D50w Syringe) 50 ml Q15M PRN IV DECREASED GLUCOSE; Start 11/30/16 at 20:00 Glucagon (Glucagen) 1 mg Q15M PRN IM DECREASED GLUCOSE; Start 11/30/16 at 20:00 Glucose (Glutose) 15 gm Q15M PRN BUCCAL DECREASED GLUCOSE; Start 11/30/16 at 20 :00 Levofloxacin (Levaquin) 500 mg DAILY PO Last administered on 12/03/16 09:08; Admin Dose 500 MG; Start 12/02/16 at 15:00; Stop 12/06/16 at 15:00 ROBERTO RAINEY Dec 03, 2016 10:03
--- NOTE | 2016-12-03 12:20 | CONS ---
Date/Time of Note Date/Time of Note DATE: 12/03/16 TIME: 12:19 Consultation Date/Type/Reason Admit Date/Time Nov 30, 2016 at 17:09 Initial Consult Date 12/01/16 Type of Consultation: medicine Referring Provider: JANETTE SEQUEIRA 24 HR Interval Summary Free Text/Dictation dictated. [id number] Exam/Review of Systems Vital Signs Vitals Vital Signs Date Time Temp Pulse Resp B/P Pulse Ox O2 Delivery O2 Flow Rate FiO2 12/02/16 19:39 98.8 64 18 163/74 95 12/02/16 08:00 Room Air Intake and Output 12/02/16 12/02/16 12/03/16 15:00 23:00 07:00 Intake Total 320 ml 300 ml Output Total 1200 ml 800 ml Balance -880 ml -500 ml Results Result Diagram: 12/01/16 0629 12/01/1629 Results 24 hrs Laboratory Tests Test 12/02/16 20:25 12/03/16 01:21 12/03/16 07:40 12/03/16 11:55 Bedside Glucose 197 157 187 202 Test 12/03/16 12:06 Bedside Glucose 196 Medications Medications Current Medications Acetaminophen (Tylenol Tab) 650 mg Q6H PRN PO PAIN AND OR ELEVATED TEMP; Start 11/30/16 at 19:30 Amlodipine Besylate (Norvasc) 5 mg DAILY PO Last administered on 12/03/16 09: 08; Admin Dose 5 MG; Start 12/01/16 at 09:00 Aspirin (Aspirin) 81 mg DAILY PO Last administered on 12/03/16 09:08; Admin Dose 81 MG; Start 12/01/16 at 09:00 Atorvastatin Calcium (Lipitor) 40 mg HS PO Last administered on 12/02/16 20:29 ; Admin Dose 40 MG; Start 11/30/16 at 21:00 Cholecalciferol (Vitamin D) 1,000 unit DAILY PO Last administered on 12/03/16 09:08; Admin Dose 1,000 UNIT; Start 12/01/16 at 09:00 Clonidine HCl (Catapres-Tts 1 Patch) 1 patch Q7D TRANSDERM ; Start 12/06/16 at 09:00 Clopidogrel Bisulfate (plaVIX) 75 mg DAILY PO Last administered on 12/03/16 09 :09; Admin Dose 75 MG; Start 12/01/16 at 09:00 Enoxaparin Sodium (Lovenox) 30 mg DAILY SC Last administered on 12/03/16 09:10 ; Admin Dose 30 MG; Start 12/01/16 at 09:00 Hydralazine HCl (Apresoline) 25 mg Q8 PO Last administered on 12/03/16 06:36; Admin Dose 25 MG; Start 11/30/16 at 22:00 Insulin Glargine (Lantus) 6 unit DAILY@20 SC Last administered on 12/02/16 20: 33; Admin Dose 6 UNIT; Start 11/30/16 at 20:30 Metoprolol Tartrate (Lopressor) 25 mg BID PO Last administered on 12/03/16 09: 08; Admin Dose 25 MG; Start 11/30/16 at 21:00 Pantoprazole (Protonix Tab) 40 mg DAILY@06 PO Last administered on 12/03/16 06 :36; Admin Dose 40 MG; Start 12/01/16 at 06:00 Tobramycin/ Dexamethasone (Tobradex Oph Drop) 1 drop Q4 BOTH EYES Last administered on 12/03/16 09:07; Admin Dose 1 DROP; Start 11/30/16 at 21:00; Stop 12/06/16 at 20:59 Miscellaneous Information 1 ea NOTE XX ; Start 11/30/16 at 20:00 Glucose (Glutose) 15 gm Q15M PRN PO DECREASED GLUCOSE; Start 11/30/16 at 20:00 Glucose (Glutose) 22.5 gm Q15M PRN PO DECREASED GLUCOSE; Start 11/30/16 at 20: 00 Dextrose (D50w Syringe) 25 ml Q15M PRN IV DECREASED GLUCOSE; Start 11/30/16 at 20:00 Dextrose (D50w Syringe) 50 ml Q15M PRN IV DECREASED GLUCOSE; Start 11/30/16 at 20:00 Glucagon (Glucagen) 1 mg Q15M PRN IM DECREASED GLUCOSE; Start 11/30/16 at 20:00 Glucose (Glutose) 15 gm Q15M PRN BUCCAL DECREASED GLUCOSE; Start 11/30/16 at 20 :00 Levofloxacin (Levaquin) 500 mg DAILY PO Last administered on 12/03/16 09:08; Admin Dose 500 MG; Start 12/02/16 at 15:00; Stop 12/06/16 at 15:00 TIBURCIO SHAH Dec 03, 2016 12:20
--- NOTE | 2016-12-03 12:55 | CONS ---
Date/Time of Note Date/Time of Note DATE: 12/03/16 TIME: 12:54 Assessment/Plan Assessment/Plan Additional Assessment/Plan 1. Abnormal electrocardiogram 2. Acute cerebrovascular accident 3. Hypertension 4. Dyslipidemia. 5. Diabetes mellitus. Hemodynamically stable Continue Metoprolol Continue ASA and Plavix Continue Norvasc and Hydralazine Continue Clonidine patch Continue Insulin Continue Lipitor Continue GI and DVT Prophylaxis Consultation Date/Type/Reason Admit Date/Time Nov 30, 2016 at 17:09 Initial Consult Date 12/01/16 Type of Consultation: medicine Referring Provider: JANETTE SEQUEIRA Exam/Review of Systems Vital Signs Vitals Vital Signs Date Time Temp Pulse Resp B/P Pulse Ox O2 Delivery O2 Flow Rate FiO2 12/02/16 19:39 98.8 64 18 163/74 95 12/02/16 08:00 Room Air Intake and Output 12/02/16 12/02/16 12/03/16 15:00 23:00 07:00 Intake Total 320 ml 300 ml Output Total 1200 ml 800 ml Balance -880 ml -500 ml Exam Constitutional: alert Head: atraumatic, normocephalic Neck: non-tender, supple Respiratory: clear to auscultation Cardiovascular: regular rate and rhythm Gastrointestinal: nl liver, spleen, non-tender, soft Extremities: normal pulses Results Result Diagram: 12/01/16 0629 12/01/16 0629 Results 24 hrs Laboratory Tests Test 12/02/16 20:25 12/03/16 01:21 12/03/16 07:40 12/03/16 11:55 Bedside Glucose 197 157 187 202 Test 12/03/16 12:06 Bedside Glucose 196 Medications Medications Current Medications Acetaminophen (Tylenol Tab) 650 mg Q6H PRN PO PAIN AND OR ELEVATED TEMP; Start 11/30/16 at 19:30 Amlodipine Besylate (Norvasc) 5 mg DAILY PO Last administered on 12/03/16 09: 08; Admin Dose 5 MG; Start 12/01/16 at 09:00 Aspirin (Aspirin) 81 mg DAILY PO Last administered on 12/03/16 09:08; Admin Dose 81 MG; Start 12/01/16 at 09:00 Atorvastatin Calcium (Lipitor) 40 mg HS PO Last administered on 12/02/16 20:29 ; Admin Dose 40 MG; Start 11/30/16 at 21:00 Cholecalciferol (Vitamin D) 1,000 unit DAILY PO Last administered on 12/03/16 09:08; Admin Dose 1,000 UNIT; Start 12/01/16 at 09:00 Clonidine HCl (Catapres-Tts 1 Patch) 1 patch Q7D TRANSDERM ; Start 12/06/16 at 09:00 Clopidogrel Bisulfate (plaVIX) 75 mg DAILY PO Last administered on 12/03/16 09 :09; Admin Dose 75 MG; Start 12/01/16 at 09:00 Enoxaparin Sodium (Lovenox) 30 mg DAILY SC Last administered on 12/03/16 09:10 ; Admin Dose 30 MG; Start 12/01/16 at 09:00 Hydralazine HCl (Apresoline) 25 mg Q8 PO Last administered on 12/03/16 06:36; Admin Dose 25 MG; Start 11/30/16 at 22:00 Insulin Glargine (Lantus) 6 unit DAILY@20 SC Last administered on 12/02/16 20: 33; Admin Dose 6 UNIT; Start 11/30/16 at 20:30 Metoprolol Tartrate (Lopressor) 25 mg BID PO Last administered on 12/03/16 09: 08; Admin Dose 25 MG; Start 11/30/16 at 21:00 Pantoprazole (Protonix Tab) 40 mg DAILY@06 PO Last administered on 12/03/16 06 :36; Admin Dose 40 MG; Start 12/01/16 at 06:00 Tobramycin/ Dexamethasone (Tobradex Oph Drop) 1 drop Q4 BOTH EYES Last administered on 12/03/16 09:07; Admin Dose 1 DROP; Start 11/30/16 at 21:00; Stop 12/06/16 at 20:59 Miscellaneous Information 1 ea NOTE XX ; Start 11/30/16 at 20:00 Glucose (Glutose) 15 gm Q15M PRN PO DECREASED GLUCOSE; Start 11/30/16 at 20:00 Glucose (Glutose) 22.5 gm Q15M PRN PO DECREASED GLUCOSE; Start 11/30/16 at 20: 00 Dextrose (D50w Syringe) 25 ml Q15M PRN IV DECREASED GLUCOSE; Start 11/30/16 at 20:00 Dextrose (D50w Syringe) 50 ml Q15M PRN IV DECREASED GLUCOSE; Start 11/30/16 at 20:00 Glucagon (Glucagen) 1 mg Q15M PRN IM DECREASED GLUCOSE; Start 11/30/16 at 20:00 Glucose (Glutose) 15 gm Q15M PRN BUCCAL DECREASED GLUCOSE; Start 11/30/16 at 20 :00 Levofloxacin (Levaquin) 500 mg DAILY PO Last administered on 12/03/16t 09:08; Admin Dose 500 MG; Start 12/02/16 at 15:00; Stop 12/06/16 at 15:00 WILBUR CRAIN M.D. Dec 03, 2016 12:54
--- NOTE | 2016-12-03 13:40 | PN ---
DATE: 12/03/2016 TIME: 12:15 p.m. Ms. Ramires's condition is stable. The patient remains completely awake, alert, still has significant left hemiplegia. REVIEW OF SYSTEMS: Denies any dysphagia, any shortness of breath, cough or wheezing. PHYSICAL EXAMINATION: GENERAL: Elderly lady, awake, alert, currently in no distress. VITAL SIGNS: Temperature 98.8 degrees Fahrenheit, respiratory rate is 18 per minute, O2 sat 98% on 2 liter nasal cannula, blood pressure 132/60. HEENT: Neck supple, no JVD, no lymphadenopathy, midline trachea, no thyromegaly. Pharynx clear. No neck bruits. Patient is edentulous and wears dentures. Pupils equal and reactive to light bilaterally. CHEST: Clear to auscultation. HEART: S1, S2 audible. No murmurs, regular rhythm. ABDOMEN: Soft, nontender, nondistended. Bowel sounds audible. EXTREMITIES: No peripheral edema. Pulses 1+ bilaterally. NEUROLOGIC: Patient has stable left hemiplegia. MEDICATIONS: Reviewed. The patient currently on: 1. Clonidine patch weekly. 2. Norvasc 5 mg a day. 3. Aspirin 81 mg a day. 4. Plavix 75 mg a day. 5. Lovenox 30 mg a day. 6. Protonix 40 mg a day. 7. Hydralazine 25 mg q.8h. 8. Lipitor 40 mg a day. 9. Sliding scale insulin. 10. Lopressor 25 mg b.i.d. 11. Lantus insulin 6 units daily. ASSESSMENT: 1. Patient admitted for rehab due to left CVA, undergoing rehabilitation with clinical improvement. 2. History of diabetes, hypertension. PLAN: Continue current treatment. Dictated By: TIBURCIO PHIPPS/NTS Conf#: [id number] DID#: [id number] MTDD
[2016-12-03] MEDS: INSULIN GLARGINE [LANtus] 3 ML PEN SC SCH (20:16)
[2016-12-03] MEDS: ATORVASTATIN 40 MG TAB PO SCH (20:17)
[2016-12-03 20:26] VITALS: BP 142/65; RESP 18
[2016-12-03 21:55] VITALS: BP 145/61; PULSE 64; RESP 16
[2016-12-04] MEDS: TOBRAMYCIN/DEXAMETH 2.5 ML OPH BOTH EYES SCH ×6 (01:00→20:14)
[2016-12-04 05:46] VITALS: BP 159/65; PULSE 56; RESP 18
[2016-12-04] MEDS: PANTOPRAZOLE (EC) 40 MG TAB PO SCH (05:46)
[2016-12-04] MEDS ORDERED: BISACODYL 10 MG SUPP PR PRN (06:30)
[2016-12-04] MEDS ORDERED: MAGNESIUM HYDROXIDE 30ML CUP PO PRN (06:30)
[2016-12-04 07:30] VITALS: BP 135/63; RESP 18
[2016-12-04] MEDS: INSULIN ASPART [NOVOLOG] 3 ML PEN SC SCH ×4 (08:38→20:13)
[2016-12-04] MEDS: CLOPIDOGREL 75 MG TAB PO SCH (09:51)
[2016-12-04] MEDS: AMLODIPINE 5 MG TAB PO SCH (10:01)
[2016-12-04] MEDS: METOPROLOL 25 MG TAB PO SCH ×2 (10:02→20:22)
[2016-12-04] MEDS: CHOLECALCIFEROL 1,000 UNIT TAB PO SCH (10:02)
[2016-12-04] MEDS: ASPIRIN 81 MG TAB PO SCH (10:03)
[2016-12-04] MEDS: DOCUSATE SODIUM 100 MG CAP PO SCH ×2 (10:03→20:17)
[2016-12-04] MEDS: LEVOFLOXACIN 500 MG TAB PO SCH (10:03)
[2016-12-04] MEDS: ENOXAPARIN 30 MG/0.3 ML SYG SC SCH (10:05)
--- NOTE | 2016-12-04 14:21 | CONS ---
Date/Time of Note Date/Time of Note DATE: 12/04/16 TIME: 14:18 Assessment/Plan Assessment/Plan Chief Complaint/Hosp Course IMPRESSION: 1. Abnormal electrocardiogram, assess for acute coronary syndrome in the setting of acute cerebrovascular accident. 2. Acute cerebrovascular accident, possible embolic origin, assess for cardiac embolic source.-probable from carotid stenosis 3. Hypertension, uncontrolled in the setting of acute cerebrovascular accident. 4. Dyslipidemia. 5. Diabetes mellitus. 6. Renal failure. 7. Positive troponin-minimal in the setting of renal failure and acute CVA. Downtrended Recc: -Continue asa/plavix/statin -Follow MS closely -Continue clonidine TTS/BB/CCB/hydralazine -PT/OT as possible Problems: Consultation Date/Type/Reason Admit Date/Time Nov 30, 2016 at 17:09 Initial Consult Date 12/01/16 Type of Consultation: Cardiology Reason for Consultation abnl ecg Referring Provider: JANETTE SEQUEIRA Exam/Review of Systems Vital Signs Vitals Vital Signs Date Time Temp Pulse Resp B/P Pulse Ox O2 Delivery O2 Flow Rate FiO2 12/04/16 07:30 97.7 57 18 135/63 97 12/02/16 08:00 Room Air Intake and Output 12/03/16 12/03/16 12/04/16 15:00 23:00 07:00 Intake Total 380 ml Output Total 600 ml 700 ml Balance -600 ml -320 ml Exam Review of Systems: CONSTITUTIONAL: No fevers, chills. PULMONARY: No sob CARDIOVASCULAR: No chest pain/palpitations GASTROINTESTINAL: No nausea/vomiting. GENITOURINARY: No hematuria/dysuria. MUSCULOSKELETAL: No myagias/arthalgias. PSYCHIATRIC: The patient denies depression. NEUROLOGIC: Encephalopathic Constitutional: other (encephalopathiv) Psych: no complaints Head: normocephalic ENMT: mucosa pink and moist Neck: jvd (9 cm water), supple Respiratory: clear to auscultation Cardiovascular: regular rate and rhythm Gastrointestinal: non-tender, soft Musculoskeletal: muscle tone Extremities: edema (none) Neurological: other (Encephalopathic) Results Result Diagram: 12/01/16 0629 12/01/16 0629 Results 24 hrs Laboratory Tests Test 12/03/16 17:16 12/03/16 20:00 12/04/16 02:16 12/04/16 07:48 Bedside Glucose 163 228 H 185 243 H Test 12/04/16 11:44 Bedside Glucose 210 Medications Medications Current Medications Acetaminophen (Tylenol Tab) 650 mg Q6H PRN PO PAIN AND OR ELEVATED TEMP; Start 11/30/16 at 19:30 Amlodipine Besylate (Norvasc) 5 mg DAILY PO Last administered on 12/04/16 10: 01; Admin Dose 5 MG; Start 12/01/16 at 09:00 Aspirin (Aspirin) 81 mg DAILY PO Last administered on 12/04/16 10:03; Admin Dose 81 MG; Start 12/01/16 at 09:00 Atorvastatin Calcium (Lipitor) 40 mg HS PO Last administered on 12/03/16 20:17 ; Admin Dose 40 MG; Start 11/30/16 at 21:00 Cholecalciferol (Vitamin D) 1,000 unit DAILY PO Last administered on 12/04/16 10:02; Admin Dose 1,000 UNIT; Start 12/01/16 at 09:00 Clonidine HCl (Catapres-Tts 1 Patch) 1 patch Q7D TRANSDERM ; Start 12/06/16 at 09:00 Clopidogrel Bisulfate (plaVIX) 75 mg DAILY PO Last administered on 12/04/16 09 :51; Admin Dose 75 MG; Start 12/01/16 at 09:00 Enoxaparin Sodium (Lovenox) 30 mg DAILY SC Last administered on 12/04/16 10:05 ; Admin Dose 30 MG; Start 12/01/16 at 09:00 Hydralazine HCl (Apresoline) 25 mg Q8 PO Last administered on 12/04/16 05:46; Admin Dose 25 MG; Start 11/30/16 at 22:00 Insulin Glargine (Lantus) 6 unit DAILY@20 SC Last administered on 12/03/16 20: 16; Admin Dose 6 UNIT; Start 11/30/16 at 20:30 Metoprolol Tartrate (Lopressor) 25 mg BID PO Last administered on 12/04/16 10: 02; Admin Dose 25 MG; Start 11/30/16 at 21:00 Pantoprazole (Protonix Tab) 40 mg DAILY@06 PO Last administered on 12/04/16 05 :46; Admin Dose 40 MG; Start 12/01/16 at 06:00 Tobramycin/ Dexamethasone (Tobradex Oph Drop) 1 drop Q4 BOTH EYES Last administered on 12/04/16 10:03; Admin Dose 1 DROP; Start 11/30/16 at 21:00; Stop 12/06/16 at 20:59 Miscellaneous Information 1 ea NOTE XX ; Start 11/30/16 at 20:00 Glucose (Glutose) 15 gm Q15M PRN PO DECREASED GLUCOSE; Start 11/30/16 at 20:00 Glucose (Glutose) 22.5 gm Q15M PRN PO DECREASED GLUCOSE; Start 11/30/16 at 20: 00 Dextrose (D50w Syringe) 25 ml Q15M PRN IV DECREASED GLUCOSE; Start 11/30/16 at 20:00 Dextrose (D50w Syringe) 50 ml Q15M PRN IV DECREASED GLUCOSE; Start 11/30/16 at 20:00 Glucagon (Glucagen) 1 mg Q15M PRN IM DECREASED GLUCOSE; Start 11/30/16 at 20:00 Glucose (Glutose) 15 gm Q15M PRN BUCCAL DECREASED GLUCOSE; Start 11/30/16 at 20 :00 Levofloxacin (Levaquin) 500 mg DAILY PO Last administered on 12/04/16 10:03; Admin Dose 500 MG; Start 12/02/16 at 15:00; Stop 12/06/16 at 15:00 Docusate Sodium (Colace) 100 mg BID PO Last administered on 12/04/16 10:03; Admin Dose 100 MG; Start 12/04/16 at 09:00 Senna (Senokot) 1 tab QHS PO ; Start 12/04/16 at 21:00 Magnesium Hydroxide (Milk Of Mag) 30 ml BID PRN PO CONSTIPATION; Start at 06:30 Lactulose (Enulose) 20 gm DAILY PRN PO CONSTIPATION; Start 12/04/16 at 06:30 Bisacodyl (Dulcolax Supp) 10 mg DAILY PRN [place] CONSTIPATION; Start 12/04/16 at 06 :30 ANSHU MTAAMOROS Dec 04, 2016 14:21
--- NOTE | 2016-12-04 15:53 | PN ---
Date/Time of Note Date/Time of Note DATE: 12/04/16 TIME: 15:51 Assessment/Plan VTE Prophylaxis VTE Prophylaxis Intervention: LMWH Lines/Catheters IV [facility]from [facility] Urinary Cath still in place: Yes Reason Cath still needed: other (indicate) Assessment/Plan Assessment/Plan 1. Acute infarcts involving Right FELIPA/ MCA territory and left FELIPA territory with R ICA occlusion, left ICA stenosis, left hemiplegia and left hemineglect, impaired mobility/gait/ADLs/cognition and dysphagia. Continue PT/OT/ST. Continue medical management per neurology and vascular surgery, secondary stroke prevention. Continue modified diet per ST, maintain aspiration precautions. 2. Hypertension. Continue antihypertensive medications per internal medicine/ cardiology. 3. Diabetes mellitus type 2. On insulin regimen per internal medicine. 4. Chronic kidney disease. Avoid nephrotoxic agents. 5. Anemia. Continue to monitor hemoglobin/hematocrit. 6. Dyslipidemia. Continue statin. 7. Enterococcus UTI. On antibiotics. 40 minutes spent on patient encounter, greater than 50% face to face time with patient and in coordination of patient care. Team conference held today. Please see team conference /therapists notes for complete details. Patient's current level of function: dependent for bed mobility, transfers and gait 2 steps. Dependent for bathing, toileting and lower body dressing. Max assist for grooming and upper body dressing. Subjective 24 Hr Interval Summary Free Text/Dictation Rehab progress note Subjective: No acute complaints. ROS: Denies chest pain, no shortness of breath, no abdominal pain, no nausea or vomiting, no chills. Exam/Review of Systems Vital Signs Vitals Vital Signs Date Time Temp Pulse Resp B/P Pulse Ox O2 Delivery O2 Flow Rate FiO2 12/04/16 07:30 97.7 57 18 135/63 97 12/02/16 08:00 Room Air Intake and Output 12/03/16 12/03/16 12/04/16 14:59 22:59 06:59 Intake Total 380 ml Output Total 600 ml 700 ml Balance -600 ml -320 ml Exam General: Awake, alert, no acute distress CV: Regular rate and rhythm, s1s2 audible Lungs: Clear to auscultation, no crackles or wheezing Abdomen soft, nontender, +bowel sounds : Boogie catheter in place, draining clear yellow urine Extremities without cyanosis, no edema Neuro: Left sided hemiplegia stable. Tone flaccid. Follows simple commands. Results Result Diagram: 12/01/16 0629 12/01/16 0629 Results 24 hrs Laboratory Tests Test 12/03/16 17:16 12/03/16 20:00 12/04/16 02:16 12/04/16 07:48 Bedside Glucose 163 228 H 185 243 H Test 12/04/16 11:44 Bedside Glucose 210 Medications Medications Current Medications Acetaminophen (Tylenol Tab) 650 mg Q6H PRN PO PAIN AND OR ELEVATED TEMP; Start 11/30/16 at 19:30 Amlodipine Besylate (Norvasc) 5 mg DAILY PO Last administered on 12/04/16 10: 01; Admin Dose 5 MG; Start 12/01/16 at 09:00 Aspirin (Aspirin) 81 mg DAILY PO Last administered on 12/04/16 10:03; Admin Dose 81 MG; Start 12/01/16 at 09:00 Atorvastatin Calcium (Lipitor) 40 mg HS PO Last administered on 12/03/16 20:17 ; Admin Dose 40 MG; Start 11/30/16 at 21:00 Cholecalciferol (Vitamin D) 1,000 unit DAILY PO Last administered on 12/04/16 10:02; Admin Dose 1,000 UNIT; Start 12/01/16 at 09:00 Clonidine HCl (Catapres-Tts 1 Patch) 1 patch Q7D TRANSDERM ; Start 12/06/16 at 09:00 Clopidogrel Bisulfate (plaVIX) 75 mg DAILY PO Last administered on 12/04/16 09 :51; Admin Dose 75 MG; Start 12/01/16 at 09:00 Enoxaparin Sodium (Lovenox) 30 mg DAILY SC Last administered on 12/04/16 10:05 ; Admin Dose 30 MG; Start 12/01/16 at 09:00 Hydralazine HCl (Apresoline) 25 mg Q8 PO Last administered on 12/04/16 05:46; Admin Dose 25 MG; Start 11/30/16 at 22:00 Insulin Glargine (Lantus) 6 unit DAILY@20 SC Last administered on 12/03/16 20: 16; Admin Dose 6 UNIT; Start 11/30/16 at 20:30 Metoprolol Tartrate (Lopressor) 25 mg BID PO Last administered on 12/04/16 10: 02; Admin Dose 25 MG; Start 11/30/16 at 21:00 Pantoprazole (Protonix Tab) 40 mg DAILY@06 PO Last administered on 12/04/16 05 :46; Admin Dose 40 MG; Start 12/01/16 at 06:00 Tobramycin/ Dexamethasone (Tobradex Oph Drop) 1 drop Q4 BOTH EYES Last administered on 12/04/16 10:03; Admin Dose 1 DROP; Start 11/30/16 at 21:00; Stop 12/06/16 at 20:59 Miscellaneous Information 1 ea NOTE XX ; Start 11/30/16 at 20:00 Glucose (Glutose) 15 gm Q15M PRN PO DECREASED GLUCOSE; Start 11/30/16 at 20:00 Glucose (Glutose) 22.5 gm Q15M PRN PO DECREASED GLUCOSE; Start 11/30/16 at 20: 00 Dextrose (D50w Syringe) 25 ml Q15M PRN IV DECREASED GLUCOSE; Start 11/30/16 at 20:00 Dextrose (D50w Syringe) 50 ml Q15M PRN IV DECREASED GLUCOSE; Start 11/30/16 at 20:00 Glucagon (Glucagen) 1 mg Q15M PRN IM DECREASED GLUCOSE; Start 11/30/16 at 20:00 Glucose (Glutose) 15 gm Q15M PRN BUCCAL DECREASED GLUCOSE; Start 11/30/16 at 20 :00 Levofloxacin (Levaquin) 500 mg DAILY PO Last administered on 12/04/16 10:03; Admin Dose 500 MG; Start 12/02/16 at 15:00; Stop 12/06/16 at 15:00 Docusate Sodium (Colace) 100 mg BID PO Last administered on 12/04/16 10:03; Admin Dose 100 MG; Start 12/04/16 at 09:00 Senna (Senokot) 1 tab QHS PO ; Start 12/04/16 at 21:00 Magnesium Hydroxide (Milk Of Mag) 30 ml BID PRN PO CONSTIPATION; Start at 06:30 Lactulose (Enulose) 20 gm DAILY PRN PO CONSTIPATION; Start 12/04/16 at 06:30 Bisacodyl (Dulcolax Supp) 10 mg DAILY PRN [place] CONSTIPATION; Start 12/04/16 at 06 :30 ROBERTO RAINEY Dec 04, 2016 15:53
--- NOTE | 2016-12-04 16:11 | PN ---
DATE: 12/04/2016 Ms. Langs condition is stable. The patient is awake, alert, denies any shortness of breath. Still has significant left-sided hemiparesis. PHYSICAL EXAMINATION: GENERAL: Elderly lady, awake, alert, currently in no distress. VITAL SIGNS: Temperature 98.8 degrees Fahrenheit, respiratory rate is 18 per minute, O2 sat 97% on 2 liter nasal cannula, blood pressure 130/64, heart rate of 80 per minute. HEENT: Supple, no JVD, no lymphadenopathy, midline trachea, no thyromegaly. Pharynx clear, no neck bruits. Patient is edentulous and wears dentures. She has bilateral equal pupils. CHEST: Clear to auscultation. HEART: S1, S2 audible. No murmurs, regular rhythm. ABDOMEN: Soft, nontender, bowel sounds audible. EXTREMITIES: No peripheral edema. Pulses 1+ bilaterally. CENTRAL NERVOUS SYSTEM: The patient has stable left hemiplegia. MEDICATIONS: Reviewed. ASSESSMENT AND PLAN: 1. Patient admitted for left cerebrovascular accident, undergoing rehabilitation. 2. History of diabetes and hypertension which all appear fairly stable. PLAN: Continue current supportive care. Dictated By: TIBURCIO PHIPPS/NTS Conf#: [id number] DID#: [id number]
[2016-12-04 19:18] VITALS: BP 148/65; RESP 18
[2016-12-04] MEDS: INSULIN GLARGINE [LANtus] 3 ML PEN SC SCH (20:14)
[2016-12-04] MEDS: SENNA TAB PO SCH (20:17)
[2016-12-04] MEDS: ATORVASTATIN 40 MG TAB PO SCH (20:17)
[2016-12-05] MEDS: TOBRAMYCIN/DEXAMETH 2.5 ML OPH BOTH EYES SCH ×6 (01:00→20:31)
[2016-12-05] MEDS: PANTOPRAZOLE (EC) 40 MG TAB PO SCH (06:07)
[2016-12-05 07:56] VITALS: BP 154/69; RESP 18
--- NOTE | 2016-12-05 08:42 | CONS ---
Date/Time of Note Date/Time of Note DATE: 12/05/16 TIME: 08:39 Assessment/Plan Assessment/Plan Additional Assessment/Plan 1. Abnormal electrocardiogram, assess for acute coronary syndrome in the setting of acute cerebrovascular accident - no Cp now, stable overall. 2. Acute cerebrovascular accident, possible embolic origin, assess for cardiac embolic source.-probable from carotid stenosis- rehab now. 3. Hypertension, uncontrolled in the setting of acute cerebrovascular accident - difficult top manage, in 150s now- will adjust Rx as tolerated. 4. Dyslipidemia. 5. Diabetes mellitus- on meds, keep euvolemic. 6. Renal failure. 7. Positive troponin-minimal in the setting of renal failure and acute CVA. Downtrended - no intervention planned. Consultation Date/Type/Reason Admit Date/Time Nov 30, 2016 at 17:09 Initial Consult Date 12/01/16 Type of Consultation: Cardiology Referring Provider: JANETTE SEQUEIRA 24 HR Interval Summary Free Text/Dictation NO acute events - BP on high side, but acceptable - will adjust Rx gradually. ROS: No fever, no chills, no nausea, no vomiting, no diarrhea/constipation No recent weight changes No chest pain, no PND, no orthopnea No dizziness, blurred vision No thirst, no heat or cold intolerance *(s/p CVA) Exam/Review of Systems Vital Signs Vitals Vital Signs Date Time Temp Pulse Resp B/P Pulse Ox O2 Delivery O2 Flow Rate FiO2 12/05/16 07:56 98.3 56 18 154/69 96 12/02/16 08:00 Room Air Intake and Output 12/04/16 12/04/16 12/05/16 15:00 23:00 07:00 Intake Total 220 ml 500 ml Output Total 1 ml Balance 219 ml 500 ml Exam General: WN/WD/NAD, AOx 2-3 HEENT: Unicetric/atraumatic/EOMI (follow commands) NECK: JVD elevated, no thyromegaly Lymph: no lymphadenopathy HEART: regular with no S3, II/ systolic murmur at apex LUNGS: Coarse sounds ABD: soft, NT, ND, +BS : Intact Neuro: post CVA SKIN: chronic changes EXT: trace edema Results Result Diagram: 12/01/1629 12/01/16628 Results 24 hrs Laboratory Tests Test 12/04/16 11:44 12/04/16 17:50 12/04/16 20:10 12/05/16 02:04 Bedside Glucose 210 152 226 H 204 Test 12/05/16 07:47 Bedside Glucose 224 H Medications Medications Current Medications Acetaminophen (Tylenol Tab) 650 mg Q6H PRN PO PAIN AND OR ELEVATED TEMP; Start 11/30/16 at 19:30 Amlodipine Besylate (Norvasc) 5 mg DAILY PO Last administered on 12/04/16 10: 01; Admin Dose 5 MG; Start 12/01/16 at 09:00 Aspirin (Aspirin) 81 mg DAILY PO Last administered on 12/04/16 10:03; Admin Dose 81 MG; Start 12/01/16 at 09:00 Atorvastatin Calcium (Lipitor) 40 mg HS PO Last administered on 12/04/16 20:17 ; Admin Dose 40 MG; Start 11/30/16 at 21:00 Cholecalciferol (Vitamin D) 1,000 unit DAILY PO Last administered on 12/04/16 10:02; Admin Dose 1,000 UNIT; Start 12/01/16 at 09:00 Clonidine HCl (Catapres-Tts 1 Patch) 1 patch Q7D TRANSDERM ; Start 12/06/16 at 09:00 Clopidogrel Bisulfate (plaVIX) 75 mg DAILY PO Last administered on 12/04/16 09 :51; Admin Dose 75 MG; Start 12/01/16 at 09:00 Enoxaparin Sodium (Lovenox) 30 mg DAILY SC Last administered on 12/04/16 10:05 ; Admin Dose 30 MG; Start 12/01/16 at 09:00 Hydralazine HCl (Apresoline) 25 mg Q8 PO Last administered on 12/05/16 06:08; Admin Dose 25 MG; Start 11/30/16 at 22:00 Insulin Glargine (Lantus) 6 unit DAILY@20 SC Last administered on 12/04/16 20: 14; Admin Dose 6 UNIT; Start 11/30/16 at 20:30 Metoprolol Tartrate (Lopressor) 25 mg BID PO Last administered on 12/04/16 20: 22; Admin Dose 25 MG; Start 11/30/16 at 21:00 Pantoprazole (Protonix Tab) 40 mg DAILY@06 PO Last administered on 12/05/16 06 :07; Admin Dose 40 MG; Start 12/01/16 at 06:00 Tobramycin/ Dexamethasone (Tobradex Oph Drop) 1 drop Q4 BOTH EYES Last administered on 12/04/16 20:14; Admin Dose 1 DROP; Start 11/30/16 at 21:00; Stop 12/06/16 at 20:59 Miscellaneous Information 1 ea NOTE XX ; Start 11/30/16 at 20:00 Glucose (Glutose) 15 gm Q15M PRN PO DECREASED GLUCOSE; Start 11/30/16 at 20:00 Glucose (Glutose) 22.5 gm Q15M PRN PO DECREASED GLUCOSE; Start 11/30/16 at 20: 00 Dextrose (D50w Syringe) 25 ml Q15M PRN IV DECREASED GLUCOSE; Start 11/30/16 at 20:00 Dextrose (D50w Syringe) 50 ml Q15M PRN IV DECREASED GLUCOSE; Start 11/30/16 at 20:00 Glucagon (Glucagen) 1 mg Q15M PRN IM DECREASED GLUCOSE; Start 11/30/16 at 20:00 Glucose (Glutose) 15 gm Q15M PRN BUCCAL DECREASED GLUCOSE; Start 11/30/16 at 20 :00 Levofloxacin (Levaquin) 500 mg DAILY PO Last administered on 12/04/16 10:03; Admin Dose 500 MG; Start 12/02/16 at 15:00; Stop 12/06/16 at 15:00 Docusate Sodium (Colace) 100 mg BID PO Last administered on 12/04/16 20:17; Admin Dose 100 MG; Start 12/04/16 at 09:00 Senna (Senokot) 1 tab QHS PO Last administered on 12/04/16 20:17; Admin Dose 1 TAB; Start 12/04/16 at 21:00 Magnesium Hydroxide (Milk Of Mag) 30 ml BID PRN PO CONSTIPATION; Start at 06:30 Lactulose (Enulose) 20 gm DAILY PRN PO CONSTIPATION; Start 12/04/16 at 06:30 Bisacodyl (Dulcolax Supp) 10 mg DAILY PRN [place] CONSTIPATION; Start 12/04/16 at 06 :30 JO GIANG MD Dec 05, 2016 08:42
[2016-12-05] MEDS: ENOXAPARIN 30 MG/0.3 ML SYG SC SCH (08:53)
[2016-12-05] MEDS: INSULIN ASPART [NOVOLOG] 3 ML PEN SC SCH ×4 (08:53→20:38)
[2016-12-05] MEDS: CLOPIDOGREL 75 MG TAB PO SCH (08:54)
[2016-12-05] MEDS: AMLODIPINE 5 MG TAB PO SCH (08:54)
[2016-12-05] MEDS: LEVOFLOXACIN 500 MG TAB PO SCH (08:54)
[2016-12-05] MEDS: DOCUSATE SODIUM 100 MG CAP PO SCH ×2 (08:54→20:31)
[2016-12-05] MEDS: ASPIRIN 81 MG TAB PO SCH (08:55)
[2016-12-05] MEDS: METOPROLOL 25 MG TAB PO SCH ×2 (08:55→20:35)
[2016-12-05] MEDS: CHOLECALCIFEROL 1,000 UNIT TAB PO SCH (08:55)
--- NOTE | 2016-12-05 10:51 | PN ---
Date/Time of Note Date/Time of Note DATE: 12/05/16 TIME: 10:48 Assessment/Plan VTE Prophylaxis VTE Prophylaxis Intervention: LMWH Lines/Catheters IV Catheter Type (from Nrs): Saline Lock Urinary Cath still in place: Yes Reason Cath still needed: other (indicate) Assessment/Plan Assessment/Plan 1. 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 Continue PT/OT/ST. Continue medical management per neurology and vascular surgery. Continue modified diet per ST. Mod assist for safety awareness and short term memory. 2. Hypertension. BP labile. Medically managed per internal medicine/cardiology. 3. Diabetes mellitus type 2. On insulin regimen per internal medicine. 4. Chronic kidney disease. Monitor renal function. Avoid nephrotoxic agents. 5. Anemia. Continue to monitor. Internal medicine managing. 6. Dyslipidemia. Continue statin. 7. Enterococcus UTI. On antibiotics. Subjective 24 Hr Interval Summary Free Text/Dictation Rehab progress note Subjective: Working with OT this morning. No acute complaints. ROS: Denies chest pain, no shortness of breath, no abdominal pain, no nausea or vomiting, no chills. Exam/Review of Systems Vital Signs Vitals Vital Signs Date Time Temp Pulse Resp B/P Pulse Ox O2 Delivery O2 Flow Rate FiO2 12/05/16 07:56 98.3 56 18 154/69 96 12/02/16 08:00 Room Air Intake and Output 12/04/16 12/04/16 12/05/16 15:00 23:00 07:00 Intake Total 220 ml 500 ml Output Total 1 ml Balance 219 ml 500 ml Exam General: Awake, alert, no acute distress CV: Regular rate, s1s2 Lungs: Clear to auscultation, no wheezing Abdomen soft, nontender Extremities without cyanosis, no edema Neuro: No new focal changes. Left sided hemiplegia. Follows simple commands. Results Result Diagram: 12/01/16 0629 12/01/16 0629 Results 24 hrs Laboratory Tests Test 12/04/16 11:44 12/04/16 17:50 12/04/16 20:10 12/05/16 02:04 Bedside Glucose 210 152 226 H 204 Test 12/05/16 07:47 Bedside Glucose 224 H Medications Medications Current Medications Acetaminophen (Tylenol Tab) 650 mg Q6H PRN PO PAIN AND OR ELEVATED TEMP; Start 11/30/16 at 19:30 Amlodipine Besylate (Norvasc) 5 mg DAILY PO Last administered on 12/05/16 08: 54; Admin Dose 5 MG; Start 12/01/16 at 09:00 Aspirin (Aspirin) 81 mg DAILY PO Last administered on 12/05/16 08:55; Admin Dose 81 MG; Start 12/01/16 at 09:00 Atorvastatin Calcium (Lipitor) 40 mg HS PO Last administered on 12/04/16 20:17 ; Admin Dose 40 MG; Start 11/30/16 at 21:00 Cholecalciferol (Vitamin D) 1,000 unit DAILY PO Last administered on 12/05/16 08:55; Admin Dose 1,000 UNIT; Start 12/01/16 at 09:00 Clonidine HCl (Catapres-Tts 1 Patch) 1 patch Q7D TRANSDERM ; Start 12/06/16 at 09:00 Clopidogrel Bisulfate (plaVIX) 75 mg DAILY PO Last administered on 12/05/16 08 :54; Admin Dose 75 MG; Start 12/01/16 at 09:00 Enoxaparin Sodium (Lovenox) 30 mg DAILY SC Last administered on 12/05/16 08:53 ; Admin Dose 30 MG; Start 12/01/16 at 09:00 Hydralazine HCl (Apresoline) 25 mg Q8 PO Last administered on 12/05/16 06:08; Admin Dose 25 MG; Start 11/30/16 at 22:00 Insulin Glargine (Lantus) 6 unit DAILY@20 SC Last administered on 12/04/16 20: 14; Admin Dose 6 UNIT; Start 11/30/16 at 20:30 Metoprolol Tartrate (Lopressor) 25 mg BID PO Last administered on 12/05/16 08: 55; Admin Dose 25 MG; Start 11/30/16 at 21:00 Pantoprazole (Protonix Tab) 40 mg DAILY@06 PO Last administered on 12/05/16 06 :07; Admin Dose 40 MG; Start 12/01/16 at 06:00 Tobramycin/ Dexamethasone (Tobradex Oph Drop) 1 drop Q4 BOTH EYES Last administered on 12/05/16 08:54; Admin Dose 1 DROP; Start 11/30/16 at 21:00; Stop 12/06/16 at 20:59 Miscellaneous Information 1 ea NOTE XX ; Start 11/30/16 at 20:00 Glucose (Glutose) 15 gm Q15M PRN PO DECREASED GLUCOSE; Start 11/30/16 at 20:00 Glucose (Glutose) 22.5 gm Q15M PRN PO DECREASED GLUCOSE; Start 11/30/16 at 20: 00 Dextrose (D50w Syringe) 25 ml Q15M PRN IV DECREASED GLUCOSE; Start 11/30/16 at 20:00 Dextrose (D50w Syringe) 50 ml Q15M PRN IV DECREASED GLUCOSE; Start 11/30/16 at 20:00 Glucagon (Glucagen) 1 mg Q15M PRN IM DECREASED GLUCOSE; Start 11/30/16 at 20:00 Glucose (Glutose) 15 gm Q15M PRN BUCCAL DECREASED GLUCOSE; Start 11/30/16 at 20 :00 Levofloxacin (Levaquin) 500 mg DAILY PO Last administered on 12/05/16 08:54; Admin Dose 500 MG; Start 12/02/16 at 15:00; Stop 12/06/16 at 15:00 Docusate Sodium (Colace) 100 mg BID PO Last administered on 12/05/16 08:54; Admin Dose 100 MG; Start 12/04/16 at 09:00 Senna (Senokot) 1 tab QHS PO Last administered on 12/04/16 20:17; Admin Dose 1 TAB; Start 12/04/16 at 21:00 Magnesium Hydroxide (Milk Of Mag) 30 ml BID PRN PO CONSTIPATION; Start at 06:30 Lactulose (Enulose) 20 gm DAILY PRN PO CONSTIPATION; Start 12/04/16 at 06:30 Bisacodyl (Dulcolax Supp) 10 mg DAILY PRN [place] CONSTIPATION; Start 12/04/16 at 06 :30 ROBERTO RAINEY Dec 05, 2016 10:51
[2016-12-05] MEDS: ACETAMINOPHEN 325 MG TAB PO PRN (12:45)
[2016-12-05 19:36] VITALS: BP 122/75; RESP 18
[2016-12-05] MEDS: SENNA TAB PO SCH (20:32)
[2016-12-05] MEDS: ATORVASTATIN 40 MG TAB PO SCH (20:32)
[2016-12-05] MEDS: INSULIN GLARGINE [LANtus] 3 ML PEN SC SCH (20:39)
[2016-12-05 21:58] VITALS: BP 185/84; PULSE 61; RESP 16
[2016-12-05 23:00] VITALS: BP 149/67; PULSE 60; RESP 16
[2016-12-06] MEDS: TOBRAMYCIN/DEXAMETH 2.5 ML OPH BOTH EYES SCH ×5 (01:00→18:06)
[2016-12-06] MEDS: PANTOPRAZOLE (EC) 40 MG TAB PO SCH (06:06)
[2016-12-06 07:32] VITALS: BP 156/53; RESP 18
--- NOTE | 2016-12-06 08:10 | PN ---
DATE: 12/05/2016 MEDICINE PROGRESS NOTE SUBJECTIVE: Ms. Ramires's condition is stable. The patient is getting physical therapy. According to the therapist, the patient's posture is improving. The patient does not have any shortness of breath, chest pain. GENERAL: Elderly female awake, alert, and currently in no distress. VITAL SIGNS: Temperature is 98.3 degrees Fahrenheit. Respiratory rate is 18 per minute. Saturation is 98%. Blood pressure is 130/70, heart rate of 80 per minute. HEENT: Supple neck, no JVD, no lymphadenopathy, midline trachea, no thyromegaly , pharynx is clear. Patient is edentulous and wears dentures. His bilateral intraocular lens implant. CHEST: Clear to auscultation. HEART: S1, S2 audible. No murmurs, regular rhythm. ABDOMEN: Soft, nontender, nondistended. Bowel sounds audible. EXTREMITIES: No peripheral edema. Pulses 1+ bilaterally. CENTRAL NERVOUS SYSTEM: The patient is stable, left hemiplegia. MEDICATIONS: Reviewed. ASSESSMENT: 1. The patient is admitted for left CVA, slow, but very gradual clinical improvement. 2. Hypertension and diabetes. PLAN: Continue current supportive care Dictated By: TIBURCIO PHIPPS/VIKKI Conf#: [id number] DID#: [id number] MTDD
[2016-12-06] MEDS: INSULIN ASPART [NOVOLOG] 3 ML PEN SC SCH ×4 (08:52→21:02)
[2016-12-06] MEDS: ENOXAPARIN 30 MG/0.3 ML SYG SC SCH (08:53)
[2016-12-06] MEDS: ASPIRIN 81 MG TAB PO SCH (08:53)
[2016-12-06] MEDS: LEVOFLOXACIN 500 MG TAB PO SCH (08:53)
[2016-12-06] MEDS: CHOLECALCIFEROL 1,000 UNIT TAB PO SCH (08:53)
[2016-12-06] MEDS: DOCUSATE SODIUM 100 MG CAP PO SCH ×2 (08:53→20:51)
[2016-12-06] MEDS: CLOPIDOGREL 75 MG TAB PO SCH (08:53)
[2016-12-06] MEDS: AMLODIPINE 5 MG TAB PO SCH (08:54)
[2016-12-06] MEDS: METOPROLOL 25 MG TAB PO SCH ×2 (08:54→20:52)
[2016-12-06] MEDS: LACTULOSE 30ML CUP PO PRN (08:55)
[2016-12-06] MEDS: CLONIDINE 0.1 MG/24 HR PATCH TRANSDERM SCH (08:55)
--- NOTE | 2016-12-06 11:36 | PN ---
Date/Time of Note Date/Time of Note DATE: 12/06/16 TIME: 11:34 Assessment/Plan VTE Prophylaxis VTE Prophylaxis Intervention: LMWH Lines/Catheters IV Catheter Type (from Nrs): Saline Lock Urinary Cath still in place: Yes Reason Cath still needed: other (indicate) Assessment/Plan Assessment/Plan 1. 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 Continue PT/OT/ST. Continue secondary stroke prevention. Continue puree/nectar thick diet per ST. No overt signs/symptoms aspiration with nectar per ST report. Noted with some left sided pocketing and residue on tongue post swallowing - educated to use lingual sweep and liquid wash to clear residue. Continue swallowing training with ST. 2. Hypertension. BP labile, monitored per cardiology. Continue medical management per internal medicine/cardiology. 3. Diabetes mellitus type 2. Internal medicine managing, on insulin regimen. 4. Chronic kidney disease. Monitor. 5. Anemia. Continue to monitor hemoglobin/hematocrit. 6. Dyslipidemia. Continue statin. 7. Enterococcus UTI. Completes course of antibiotics per internal medicine. Subjective 24 Hr Interval Summary Free Text/Dictation Rehab progress note Subjective/History: No acute overnight events per nursing. Family at bedside. No new complaints. ROS: No headache, no shortness of breath, no chest pain, no abdominal pain, no nausea or vomiting, no chills. Exam/Review of Systems Vital Signs Vitals Vital Signs Date Time Temp Pulse Resp B/P Pulse Ox O2 Delivery O2 Flow Rate FiO2 12/06/16 07:32 98.2 59 18 156/53 96 12/02/16 08:00 Room Air Intake and Output 12/05/16 12/05/16 12/06/16 15:00 23:00 07:00 Intake Total 720 ml 360 ml 700 ml Output Total 700 ml 700 ml Balance 720 ml -340 ml 0 ml Exam General: Laying in bed, no acute distress CV: Regular rate, s1s2 Lungs: Respirations are nonlabored, no wheezing or crackles Abdomen soft, nontender Extremities without cyanosis, no edema Neuro: No new focal changes. Tone remains flaccid on the left. Results Results 24 hrs Laboratory Tests Test 12/05/16 12:23 12/05/16 17:20 12/05/16 20:24 12/06/16 02:31 Bedside Glucose 229 H 238 H 257 H 202 Test 12/06/16 07:48 Bedside Glucose 250 H Medications Medications Current Medications Acetaminophen (Tylenol Tab) 650 mg Q6H PRN PO PAIN AND OR ELEVATED TEMP Last administered on 12/05/16 12:45; Admin Dose 650 MG; Start 11/30/16 at 19:30 Amlodipine Besylate (Norvasc) 5 mg DAILY PO Last administered on 12/06/16 08: 54; Admin Dose 5 MG; Start 12/01/16 at 09:00 Aspirin (Aspirin) 81 mg DAILY PO Last administered on 12/06/16 08:53; Admin Dose 81 MG; Start 12/01/16 at 09:00 Atorvastatin Calcium (Lipitor) 40 mg HS PO Last administered on 12/05/16 20:32 ; Admin Dose 40 MG; Start 11/30/16 at 21:00 Cholecalciferol (Vitamin D) 1,000 unit DAILY PO Last administered on 12/06/16 08:53; Admin Dose 1,000 UNIT; Start 12/01/16 at 09:00 Clonidine HCl (Catapres-Tts 1 Patch) 1 patch Q7D TRANSDERM Last administered on 12/06/16 08:55; Admin Dose 1 PATCH; Start 12/06/16 at 09:00 Clopidogrel Bisulfate (plaVIX) 75 mg DAILY PO Last administered on 12/06/16 08 :53; Admin Dose 75 MG; Start 12/01/16 at 09:00 Enoxaparin Sodium (Lovenox) 30 mg DAILY SC Last administered on 12/06/16 08:53 ; Admin Dose 30 MG; Start 12/01/16 at 09:00 Hydralazine HCl (Apresoline) 25 mg Q8 PO Last administered on 12/06/16 06:07; Admin Dose 25 MG; Start 11/30/16 at 22:00 Insulin Glargine (Lantus) 6 unit DAILY@20 SC Last administered on 12/05/16 20: 39; Admin Dose 6 UNIT; Start 11/30/16 at 20:30 Metoprolol Tartrate (Lopressor) 25 mg BID PO Last administered on 12/06/16 08: 54; Admin Dose 25 MG; Start 11/30/16 at 21:00 Pantoprazole (Protonix Tab) 40 mg DAILY@06 PO Last administered on 12/06/16 06 :06; Admin Dose 40 MG; Start 12/01/16 at 06:00 Tobramycin/ Dexamethasone (Tobradex Oph Drop) 1 drop Q4 BOTH EYES Last administered on 12/06/16 08:54; Admin Dose 1 DROP; Start 11/30/16 at 21:00; Stop 12/06/16 at 20:59 Miscellaneous Information 1 ea NOTE XX ; Start 11/30/16 at 20:00 Glucose (Glutose) 15 gm Q15M PRN PO DECREASED GLUCOSE; Start 11/30/16 at 20:00 Glucose (Glutose) 22.5 gm Q15M PRN PO DECREASED GLUCOSE; Start 11/30/16 at 20: 00 Dextrose (D50w Syringe) 25 ml Q15M PRN IV DECREASED GLUCOSE; Start 11/30/16 at 20:00 Dextrose (D50w Syringe) 50 ml Q15M PRN IV DECREASED GLUCOSE; Start 11/30/16 at 20:00 Glucagon (Glucagen) 1 mg Q15M PRN IM DECREASED GLUCOSE; Start 11/30/16 at 20:00 Glucose (Glutose) 15 gm Q15M PRN BUCCAL DECREASED GLUCOSE; Start 11/30/16 at 20 :00 Levofloxacin (Levaquin) 500 mg DAILY PO Last administered on 12/06/16 08:53; Admin Dose 500 MG; Start 12/02/16 at 15:00; Stop 12/06/16 at 15:00 Docusate Sodium (Colace) 100 mg BID PO Last administered on 12/06/16 08:53; Admin Dose 100 MG; Start 12/04/16 at 09:00 Senna (Senokot) 1 tab QHS PO Last administered on 12/05/16 20:32; Admin Dose 1 TAB; Start 12/04/16 at 21:00 Magnesium Hydroxide (Milk Of Mag) 30 ml BID PRN PO CONSTIPATION; Start at 06:30 Lactulose (Enulose) 20 gm DAILY PRN PO CONSTIPATION Last administered on 08:55; Admin Dose 20 GM; Start 12/04/16 at 06:30 Bisacodyl (Dulcolax Supp) 10 mg DAILY PRN [place] CONSTIPATION; Start 12/04/16 at 06 :30 ROBERTO RAINEY Dec 06, 2016 11:36
--- NOTE | 2016-12-06 13:50 | PN ---
DATE: 12/06/2016 MEDICINE PROGRESS NOTE SUBJECTIVE: Ms. Ramires's condition is stable. The patient is currently getting physical therapy, still has significant residual left-sided hemiplegia. Patient , however, denies any shortness of breath, dysphagia. OBJECTIVE: GENERAL: Elderly lady, awake, alert, currently in no distress. VITAL SIGNS: Temperature 98 degrees Fahrenheit. Respiratory rate is 18 per minute. O2 sat 98% on room air. Blood pressure 130/70, heart rate of 72 per minute. HEENT: Supple neck. No JVD. No lymphadenopathy. Midline trachea. No thyromegaly, pharynx clear. No neck bruits. Patient had good dentition, has bilateral intraocular lens implants. CHEST: Clear to auscultation. HEART: S1, S2 audible. No murmurs, regular rhythm. ABDOMEN: Soft, nontender, nondistended. Bowel sounds audible. EXTREMITIES: No edema. Pulses 1+ bilaterally. CENTRAL NERVOUS SYSTEM: The patient is stable, left hemiplegia. MEDICATIONS: Reviewed. ASSESSMENT: 1. The patient admitted for left cerebrovascular accident, getting physical therapy. 2. History of hypertension and diabetes with mild hyperglycemia. PLAN: Continue current treatment. Increase Lantus from 6 units to 12 units daily. Monitor blood sugar. Dictated By: TIBURCIO PIHPPS/VIKKI Conf#: [id number] DID#: [id number] MTDD
--- NOTE | 2016-12-06 14:44 | CONS ---
Date/Time of Note Date/Time of Note DATE: 12/06/16 TIME: 14:42 Assessment/Plan Assessment/Plan Chief Complaint/Hosp Course IMPRESSION: 1. Abnormal electrocardiogram, assess for acute coronary syndrome in the setting of acute cerebrovascular accident. 2. Acute cerebrovascular accident, possible embolic origin, assess for cardiac embolic source.-probable from carotid stenosis 3. Hypertension, reasonable-labile 4. Dyslipidemia. 5. Diabetes mellitus. 6. Renal failure. 7. Positive troponin-minimal in the setting of renal failure and acute CVA. Downtrended Recc: -Continue asa/plavix/statin -Follow MS closely -Continue clonidine TTS/BB/CCB/hydralazine and follow labile BP closely -PT/OT as possible Problems: Consultation Date/Type/Reason Admit Date/Time Nov 30, 2016 at 17:09 Initial Consult Date 12/01/16 Type of Consultation: Cardiology Reason for Consultation HTN Referring Provider: JANETTE SEQUEIRA Exam/Review of Systems Vital Signs Vitals Vital Signs Date Time Temp Pulse Resp B/P Pulse Ox O2 Delivery O2 Flow Rate FiO2 12/06/16 07:32 98.2 59 18 156/53 96 12/02/16 08:00 Room Air Intake and Output 12/05/16 12/05/16 12/06/16 15:00 23:00 07:00 Intake Total 720 ml 360 ml 700 ml Output Total 700 ml 700 ml Balance 720 ml -340 ml 0 ml Exam Review of Systems: CONSTITUTIONAL: No fevers, chills. PULMONARY: No sob CARDIOVASCULAR: No obvious chest pain/palpitations GASTROINTESTINAL: No nausea/vomiting. GENITOURINARY: No hematuria/dysuria. MUSCULOSKELETAL: No obvious myagias/arthalgias. PSYCHIATRIC: The patient denies depression. NEUROLOGIC: encephalopathic Constitutional: other (encephalopathic) Psych: no complaints Head: normocephalic Eyes: nl conjunctiva ENMT: mucosa pink and moist Neck: jvd (9 cm water), supple Respiratory: diminished breath sounds (at bases/B) Cardiovascular: regular rate and rhythm Gastrointestinal: non-tender Musculoskeletal: muscle weakness (generalized) Extremities: edema (none) Neurological: lethargic Results Results 24 hrs Laboratory Tests Test 12/05/16 17:20 12/05/16 20:24 12/06/16 02:31 12/06/16 07:48 Bedside Glucose 238 H 257 H 202 250 H Test 12/06/16 12:20 Bedside Glucose 230 H Medications Medications Current Medications Acetaminophen (Tylenol Tab) 650 mg Q6H PRN PO PAIN AND OR ELEVATED TEMP Last administered on 12/05/16 12:45; Admin Dose 650 MG; Start 11/30/16 at 19:30 Amlodipine Besylate (Norvasc) 5 mg DAILY PO Last administered on 12/06/16 08: 54; Admin Dose 5 MG; Start 12/01/16 at 09:00 Aspirin (Aspirin) 81 mg DAILY PO Last administered on 12/06/16 08:53; Admin Dose 81 MG; Start 12/01/16 at 09:00 Atorvastatin Calcium (Lipitor) 40 mg HS PO Last administered on 12/05/16 20:32 ; Admin Dose 40 MG; Start 11/30/16 at 21:00 Cholecalciferol (Vitamin D) 1,000 unit DAILY PO Last administered on 12/06/16 08:53; Admin Dose 1,000 UNIT; Start 12/01/16 at 09:00 Clonidine HCl (Catapres-Tts 1 Patch) 1 patch Q7D TRANSDERM Last administered on 12/06/16 08:55; Admin Dose 1 PATCH; Start 12/06/16 at 09:00 Clopidogrel Bisulfate (plaVIX) 75 mg DAILY PO Last administered on 12/06/16 08 :53; Admin Dose 75 MG; Start 12/01/16 at 09:00 Enoxaparin Sodium (Lovenox) 30 mg DAILY SC Last administered on 12/06/16 08:53 ; Admin Dose 30 MG; Start 12/01/16 at 09:00 Hydralazine HCl (Apresoline) 25 mg Q8 PO Last administered on 12/06/16 14:27; Admin Dose 25 MG; Start 11/30/16 at 22:00 Metoprolol Tartrate (Lopressor) 25 mg BID PO Last administered on 12/06/16 08: 54; Admin Dose 25 MG; Start 11/30/16 at 21:00 Pantoprazole (Protonix Tab) 40 mg DAILY@06 PO Last administered on 12/06/16 06 :06; Admin Dose 40 MG; Start 12/01/16 at 06:00 Tobramycin/ Dexamethasone (Tobradex Oph Drop) 1 drop Q4 BOTH EYES Last administered on 12/06/16 12:35; Admin Dose 1 DROP; Start 11/30/16 at 21:00; Stop 12/06/16 at 20:59 Miscellaneous Information 1 ea NOTE XX ; Start 11/30/16 at 20:00 Glucose (Glutose) 15 gm Q15M PRN PO DECREASED GLUCOSE; Start 11/30/16 at 20:00 Glucose (Glutose) 22.5 gm Q15M PRN PO DECREASED GLUCOSE; Start 11/30/16 at 20: 00 Dextrose (D50w Syringe) 25 ml Q15M PRN IV DECREASED GLUCOSE; Start 11/30/16 at 20:00 Dextrose (D50w Syringe) 50 ml Q15M PRN IV DECREASED GLUCOSE; Start 11/30/16 at 20:00 Glucagon (Glucagen) 1 mg Q15M PRN IM DECREASED GLUCOSE; Start 11/30/16 at 20:00 Glucose (Glutose) 15 gm Q15M PRN BUCCAL DECREASED GLUCOSE; Start 11/30/16 at 20 :00 Levofloxacin (Levaquin) 500 mg DAILY PO Last administered on 12/06/16 08:53; Admin Dose 500 MG; Start 12/02/16 at 15:00; Stop 12/06/16 at 15:00 Docusate Sodium (Colace) 100 mg BID PO Last administered on 12/06/16 08:53; Admin Dose 100 MG; Start 12/04/16 at 09:00 Senna (Senokot) 1 tab QHS PO Last administered on 12/05/16 20:32; Admin Dose 1 TAB; Start 12/04/16 at 21:00 Magnesium Hydroxide (Milk Of Mag) 30 ml BID PRN PO CONSTIPATION; Start at 06:30 Lactulose (Enulose) 20 gm DAILY PRN PO CONSTIPATION Last administered on 08:55; Admin Dose 20 GM; Start 12/04/16 at 06:30 Bisacodyl (Dulcolax Supp) 10 mg DAILY PRN [place] CONSTIPATION; Start 12/04/16 at 06 :30 Insulin Glargine (Lantus) 12 unit DAILY@20 SC ; Start 12/06/16 at 20:00 ANSHU MATAMOROS Dec 06, 2016 14:44
--- NOTE | 2016-12-06 19:01 | CONS ---
DATE OF ADMISSION: 11/30/2016 DATE OF CONSULTATION: 12/06/2016 TYPE OF CONSULTATION: Psychological. REFERRING PHYSICIAN: Lonny Amos MD. CONSULTING PSYCHOLOGIST: Any Duenas, PhD. REASON FOR CONSULTATION: This consultation was requested by Dr. Clarita Amos in order to evaluate the cognitive and emotional functioning of this patient related to her present medical condition. HISTORY OF PRESENT ILLNESS: The patient is a 76-year-old female who has a history of multiple medic al comorbidities including diabetes mellitus and hypertension. The patient did have an MRI which re vealed multiple foci of acute infarcts in the right cerebral hemisphere. The patient was then clear ed medically and sent to the acute rehabilitation unit for acute comprehensive interdisciplinary isha abilitation care. The patient does speak Mohawk and was interviewed with the assistance of the [employer] computer. The patient's was there with the patient's permission, but also spoke [place] and was unable to answer any questions other than in Czech. The patient reports that she is f rustrated and a little depressed. The patient is confused and may be having some slight dementing p rocess relating to her recent strokes. The patient is motivated to get better and does want to retu rn home after discharge. FAMILY AND SOCIAL HISTORY: The patient reports that she lives in an apartment with her and younger son. When asked initially, she said that she lived in [place] in [place]. The patient was a ble to say who the vice president network development is but could not say who the governor of the state or the mayor of the [facility]. The patient was able to say the month and the year. The patient was not able to really say the name of the hospital. The patient did say that she is in the hospital [facility] she is sick, but does not really know the nature of her illness. The patient does state that she is in pain all over, but particularly in her head and leg. The patient states that she cannot walk . The patient does want to get better and return home. MEDICATIONS: The patient is currently not on any psychotropic medications. SUBSTANCE USE: The patient denies any use of alcohol or drugs. The patient reports that she does n ot smoke. MENTAL STATUS EXAMINATION: APPEARANCE: The patient was seen in bed. She appears to be small and thin. She states that she is right-handed. BEHAVIOR: The patient was cooperative during the consultation. The patient did attempt to answer a ll questions presented to her by the interviewer through the translation computer. MOOD AND AFFECT: The patient's mood appears to be depressed. Affect does appear to be slightly anx ious. PERCEPTION: The patient reports no hallucinations or delusions. The patient was alert to person, p lace and situation, but not exactly to time. MEMORY AND COGNITION: The patient's memory and cognition appear to be somewhat impaired. She did h ave some confusion as to where she was living. She did say she lives in an apartment but then she s ays she lives in a [place] in [place]. The patient was confused about numerous things that may relate to her recent stroke. INTELLIGENCE: Intelligence appears to fall in the average range when functioning well. INSIGHT: Poor. JUDGMENT: Poor. THOUGHT CONTENT: The patient is frustrated and does say that she does not know what is going on wit h her medically, but does want to get better. She has numerous medical problems and is frightened t hat she will not be able to recover. DISCUSSION: The patient may be able to benefit from some cognitive/behavioral psychotherapy while s he is on the unit. This psychotherapy would focus on her underlying level of frustration and try to help her clarify her confusion and her cognitive functioning. DIAGNOSTIC IMPRESSION: 1. 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 2. F01.50: Vascular dementia. Thank you very much, Dr. Clarita Amos, for referring this individual. Please do not hesitate to ca ll if you have additional questions. Dictated By: ANY DUENAS PHD CAMRYN/VIKKI Conf#: [id number] DID#: [id number]
[2016-12-06 20:00] VITALS: BP 142/63; RESP 18
[2016-12-06] MEDS: SENNA TAB PO SCH (20:51)
[2016-12-06] MEDS: ATORVASTATIN 40 MG TAB PO SCH (20:51)
[2016-12-06] MEDS: INSULIN GLARGINE [LANtus] 3 ML PEN SC SCH (21:01)
[2016-12-07] MEDS: PANTOPRAZOLE (EC) 40 MG TAB PO SCH (06:37)
[2016-12-07 07:30] VITALS: BP 150/67; RESP 18
[2016-12-07] MEDS: INSULIN ASPART [NOVOLOG] 3 ML PEN SC SCH ×4 (08:43→20:51)
[2016-12-07] MEDS: ASPIRIN 81 MG TAB PO SCH (08:44)
[2016-12-07] MEDS: DOCUSATE SODIUM 100 MG CAP PO SCH ×2 (08:44→20:51)
[2016-12-07] MEDS: CHOLECALCIFEROL 1,000 UNIT TAB PO SCH (08:44)
[2016-12-07] MEDS: CLOPIDOGREL 75 MG TAB PO SCH (08:44)
[2016-12-07] MEDS: AMLODIPINE 5 MG TAB PO SCH ×2 (08:46→20:52)
[2016-12-07] MEDS: ENOXAPARIN 30 MG/0.3 ML SYG SC SCH (08:47)
[2016-12-07] MEDS: METOPROLOL 25 MG TAB PO SCH ×2 (08:50→20:52)
--- NOTE | 2016-12-07 11:41 | PN ---
Date/Time of Note Date/Time of Note DATE: 12/07/16 TIME: 11:36 Assessment/Plan VTE Prophylaxis VTE Prophylaxis Intervention: LMWH Lines/Catheters IV Catheter Type (from Nrs): Saline Lock Urinary Cath still in place: Yes Reason Cath still needed: other (indicate) Assessment/Plan Assessment/Plan 1. 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 Continue PT/OT/ST. Continue medical management per neurology and vascular surgery. Continue modified diet per ST. Max assist WC mobility 20ft. 2. Hypertension. Medically managed per cardiology/internal medicine. 3. Diabetes mellitus type 2. On insulin regimen per internal medicine, has been adjusted for better control. Continue to monitor Blood sugars. 4. Chronic kidney disease. Monitor renal function. Avoid nephrotoxic agents. 5. Anemia. Continue to monitor hemoglobin/hematocrit. 6. Dyslipidemia. Continue statin. Subjective 24 Hr Interval Summary Free Text/Dictation Rehab progress note Subjective: No acute complaints. ROS: Denies chest pain, no shortness of breath, no abdominal pain, no headache or dizziness. Exam/Review of Systems Vital Signs Vitals Vital Signs Date Time Temp Pulse Resp B/P Pulse Ox O2 Delivery O2 Flow Rate FiO2 12/07/16 07:30 98.5 58 18 150/67 98 Intake and Output 12/06/16 12/06/16 12/07/16 15:00 23:00 07:00 Intake Total 720 ml 360 ml Output Total 400 ml 650 ml Balance 720 ml -40 ml -650 ml Exam General: Laying in bed, no acute distress CV: Regular rate, s1s2 Lungs: Respirations are nonlabored, no wheezing Abdomen soft, nontender Extremities without cyanosis, no edema Neuro: Left Flaccid hemiplegia. Antigravity strength RUE/RLE. No new sensory changes. Results Results 24 hrs Laboratory Tests Test 12/06/16 12:20 12/06/16 17:27 12/06/16 20:49 12/07/16 04:31 Bedside Glucose 230 H 199 252 H 160 Test 12/07/16 08:35 Bedside Glucose 222 H Medications Medications Current Medications Acetaminophen (Tylenol Tab) 650 mg Q6H PRN PO PAIN AND OR ELEVATED TEMP Last administered on 12/05/16 12:45; Admin Dose 650 MG; Start 11/30/16 at 19:30 Amlodipine Besylate (Norvasc) 5 mg DAILY PO Last administered on 12/07/16 08: 46; Admin Dose 5 MG; Start 12/01/16 at 09:00 Aspirin (Aspirin) 81 mg DAILY PO Last administered on 12/07/16 08:44; Admin Dose 81 MG; Start 12/01/16 at 09:00 Atorvastatin Calcium (Lipitor) 40 mg HS PO Last administered on 12/06/16 20:51 ; Admin Dose 40 MG; Start 11/30/16 at 21:00 Cholecalciferol (Vitamin D) 1,000 unit DAILY PO Last administered on 12/07/16 08:44; Admin Dose 1,000 UNIT; Start 12/01/16 at 09:00 Clonidine HCl (Catapres-Tts 1 Patch) 1 patch Q7D TRANSDERM Last administered on 12/06/16 08:55; Admin Dose 1 PATCH; Start 12/06/16 at 09:00 Clopidogrel Bisulfate (plaVIX) 75 mg DAILY PO Last administered on 12/07/16 08 :44; Admin Dose 75 MG; Start 12/01/16 at 09:00 Enoxaparin Sodium (Lovenox) 30 mg DAILY SC Last administered on 12/07/16 08:47 ; Admin Dose 30 MG; Start 12/01/16 at 09:00 Hydralazine HCl (Apresoline) 25 mg Q8 PO Last administered on 12/07/16 06:37; Admin Dose 25 MG; Start 11/30/16 at 22:00 Metoprolol Tartrate (Lopressor) 25 mg BID PO Last administered on 12/06/16 20: 52; Admin Dose 25 MG; Start 11/30/16 at 21:00 Pantoprazole (Protonix Tab) 40 mg DAILY@06 PO Last administered on 12/07/16 06 :37; Admin Dose 40 MG; Start 12/01/16 at 06:00 Miscellaneous Information 1 ea NOTE XX ; Start 11/30/16 at 20:00 Glucose (Glutose) 15 gm Q15M PRN PO DECREASED GLUCOSE; Start 11/30/16 at 20:00 Glucose (Glutose) 22.5 gm Q15M PRN PO DECREASED GLUCOSE; Start 11/30/16 at 20: 00 Dextrose (D50w Syringe) 25 ml Q15M PRN IV DECREASED GLUCOSE; Start 11/30/16 at 20:00 Dextrose (D50w Syringe) 50 ml Q15M PRN IV DECREASED GLUCOSE; Start 11/30/16 at 20:00 Glucagon (Glucagen) 1 mg Q15M PRN IM DECREASED GLUCOSE; Start 11/30/16 at 20:00 Glucose (Glutose) 15 gm Q15M PRN BUCCAL DECREASED GLUCOSE; Start 11/30/16 at 20 :00 Docusate Sodium (Colace) 100 mg BID PO Last administered on 12/07/16 08:44; Admin Dose 100 MG; Start 12/04/16 at 09:00 Senna (Senokot) 1 tab QHS PO Last administered on 12/06/16 20:51; Admin Dose 1 TAB; Start 12/04/16 at 21:00 Magnesium Hydroxide (Milk Of Mag) 30 ml BID PRN PO CONSTIPATION; Start at 06:30 Lactulose (Enulose) 20 gm DAILY PRN PO CONSTIPATION Last administered on 08:55; Admin Dose 20 GM; Start 12/04/16 at 06:30 Bisacodyl (Dulcolax Supp) 10 mg DAILY PRN [place] CONSTIPATION; Start 12/04/16 at 06 :30 Insulin Glargine (Lantus) 12 unit DAILY@20 SC Last administered on 12/06/16 21 :01; Admin Dose 12 UNIT; Start 12/06/16 at 20:00 ROBERTO RAINEY Dec 07, 2016 11:41
--- NOTE | 2016-12-07 14:10 | CONS ---
DATE OF ADMISSION: 11/30/2016 DATE OF CONSULTATION: 12/07/2016 TYPE OF CONSULTATION: Medicine progress note HISTORY OF PRESENT ILLNESS: Ms. Ramires's condition Is stable. The patient, however, has not reported an y significant improvement in left hemiplegia. Denies any dysphagia, shortness of breath, cough, whee zing. Able to eat well. PHYSICAL EXAMINATION: GENERAL: Elderly woman, awake, alert, currently in no distress. VITAL SIGNS: Temperature 98 degree Fahrenheit, respiratory rate is 18 per minute, O2 sat 97% on elidia m air, blood pressure is 128/68, heart rate of 70 per minute. HEENT: Supple neck, no JVD, no lymphadenopathy, midline trachea, no thyromegaly. Pharynx clear, no neck bruits. Patient has good dentition. Has bilateral intraocular lens implants. CHEST: Clear to auscultation. HEART: S1, S2 audible. No murmurs, regular rhythm. ABDOMEN: Soft, nontender, nondistended. Bowel sounds audible. EXTREMITIES: No peripheral edema. NEUROLOGIC: Patient is stable left hemiplegia. MEDICATIONS: Reviewed. ASSESSMENT: 1. Patient admitted for left cerebrovascular accident, undergoing physical therapy. 2. History of hypertension. 3. Diabetes. RECOMMENDATION AND PLAN: Continue current treatment. Dictated By: TIBURCIO PHIPPS/VIKKI Conf#: [id number] DID#: [id number]
--- NOTE | 2016-12-07 18:06 | CONS ---
Date/Time of Note Date/Time of Note DATE: 12/07/16 TIME: 18:02 Assessment/Plan Assessment/Plan Chief Complaint/Hosp Course IMPRESSION: 1. Abnormal electrocardiogram, assess for acute coronary syndrome in the setting of acute cerebrovascular accident. 2. Acute cerebrovascular accident, possible embolic origin, assess for cardiac embolic source.-probable from carotid stenosis 3. Hypertension, reasonable-labile 4. Dyslipidemia. 5. Diabetes mellitus. 6. Renal failure. 7. Positive troponin-minimal in the setting of renal failure and acute CVA. Downtrended Recc: -Continue asa/plavix/statin -Follow MS closely -Continue clonidine TTS/BB/hydralazine -Will increase norvasc and f/u lasbile BP closely -PT/OT as possible Problems: Consultation Date/Type/Reason Admit Date/Time Nov 30, 2016 at 17:09 Initial Consult Date 12/01/16 Type of Consultation: Cardiology Reason for Consultation abnl ecg/HTN Referring Provider: JANETTE SEQUEIRA Exam/Review of Systems Vital Signs Vitals Vital Signs Date Time Temp Pulse Resp B/P Pulse Ox O2 Delivery O2 Flow Rate FiO2 12/07/16 07:30 98.5 58 18 150/67 98 Intake and Output 12/06/16 12/06/16 12/07/16 15:00 23:00 07:00 Intake Total 720 ml 360 ml Output Total 400 ml 650 ml Balance 720 ml -40 ml -650 ml Exam Review of Systems: CONSTITUTIONAL: No fevers, chills. PULMONARY: No sob CARDIOVASCULAR: No chest pain/palpitations GASTROINTESTINAL: No nausea/vomiting. GENITOURINARY: No hematuria/dysuria. MUSCULOSKELETAL: No myagias/arthalgias. PSYCHIATRIC: The patient denies depression. NEUROLOGIC: lethargic Constitutional: alert Psych: no complaints Head: normocephalic ENMT: mucosa pink and moist Neck: jvd (9 cm water), supple Respiratory: diminished breath sounds (at bases/B) Cardiovascular: regular rate and rhythm Gastrointestinal: non-tender, soft Musculoskeletal: muscle tone (normal) Extremities: other (none) Neurological: other (No focal deficits) Results Results 24 hrs Laboratory Tests Test 12/06/16 20:49 12/07/16 04:31 12/07/16 08:35 12/07/16 12:15 Bedside Glucose 252 H 160 222 H 294 H Test 12/07/16 17:46 Bedside Glucose 205 Medications Medications Current Medications Acetaminophen (Tylenol Tab) 650 mg Q6H PRN PO PAIN AND OR ELEVATED TEMP Last administered on 12/05/16 12:45; Admin Dose 650 MG; Start 11/30/16 at 19:30 Amlodipine Besylate (Norvasc) 5 mg DAILY PO Last administered on 12/07/16 08: 46; Admin Dose 5 MG; Start 12/01/16 at 09:00 Aspirin (Aspirin) 81 mg DAILY PO Last administered on 12/07/16 08:44; Admin Dose 81 MG; Start 12/01/16 at 09:00 Atorvastatin Calcium (Lipitor) 40 mg HS PO Last administered on 12/06/16 20:51 ; Admin Dose 40 MG; Start 11/30/16 at 21:00 Cholecalciferol (Vitamin D) 1,000 unit DAILY PO Last administered on 12/07/16 08:44; Admin Dose 1,000 UNIT; Start 12/01/16 at 09:00 Clonidine HCl (Catapres-Tts 1 Patch) 1 patch Q7D TRANSDERM Last administered on 12/06/16 08:55; Admin Dose 1 PATCH; Start 12/06/16 at 09:00 Clopidogrel Bisulfate (plaVIX) 75 mg DAILY PO Last administered on 12/07/16 08 :44; Admin Dose 75 MG; Start 12/01/16 at 09:00 Enoxaparin Sodium (Lovenox) 30 mg DAILY SC Last administered on 12/07/16 08:47 ; Admin Dose 30 MG; Start 12/01/16 at 09:00 Hydralazine HCl (Apresoline) 25 mg Q8 PO Last administered on 12/07/16 14:51; Admin Dose 25 MG; Start 11/30/16 at 22:00 Metoprolol Tartrate (Lopressor) 25 mg BID PO Last administered on 12/06/16 20: 52; Admin Dose 25 MG; Start 11/30/16 at 21:00 Pantoprazole (Protonix Tab) 40 mg DAILY@06 PO Last administered on 12/07/16 06 :37; Admin Dose 40 MG; Start 12/01/16 at 06:00 Miscellaneous Information 1 ea NOTE XX ; Start 11/30/16 at 20:00 Glucose (Glutose) 15 gm Q15M PRN PO DECREASED GLUCOSE; Start 11/30/16 at 20:00 Glucose (Glutose) 22.5 gm Q15M PRN PO DECREASED GLUCOSE; Start 11/30/16 at 20: 00 Dextrose (D50w Syringe) 25 ml Q15M PRN IV DECREASED GLUCOSE; Start 11/30/16 at 20:00 Dextrose (D50w Syringe) 50 ml Q15M PRN IV DECREASED GLUCOSE; Start 11/30/16 at 20:00 Glucagon (Glucagen) 1 mg Q15M PRN IM DECREASED GLUCOSE; Start 11/30/16 at 20:00 Glucose (Glutose) 15 gm Q15M PRN BUCCAL DECREASED GLUCOSE; Start 11/30/16 at 20 :00 Docusate Sodium (Colace) 100 mg BID PO Last administered on 12/07/16 08:44; Admin Dose 100 MG; Start 12/04/16 at 09:00 Senna (Senokot) 1 tab QHS PO Last administered on 12/06/16 20:51; Admin Dose 1 TAB; Start 12/04/16 at 21:00 Magnesium Hydroxide (Milk Of Mag) 30 ml BID PRN PO CONSTIPATION; Start at 06:30 Lactulose (Enulose) 20 gm DAILY PRN PO CONSTIPATION Last administered on 08:55; Admin Dose 20 GM; Start 12/04/16 at 06:30 Bisacodyl (Dulcolax Supp) 10 mg DAILY PRN [place] CONSTIPATION; Start 12/04/16 at 06 :30 Insulin Glargine (Lantus) 12 unit DAILY@20 SC Last administered on 12/06/16 21 :01; Admin Dose 12 UNIT; Start 12/06/16 at 20:00 ANSHU MATAMOROS Dec 07, 2016 18:06
[2016-12-07 19:31] VITALS: BP 135/61; RESP 18
[2016-12-07] MEDS: ATORVASTATIN 40 MG TAB PO SCH (20:51)
[2016-12-07] MEDS: SENNA TAB PO SCH (20:52)
[2016-12-07] MEDS: INSULIN GLARGINE [LANtus] 3 ML PEN SC SCH (21:23)
[2016-12-08] MEDS: PANTOPRAZOLE (EC) 40 MG TAB PO SCH (06:41)
[2016-12-08 08:00] VITALS: BP 142/63; RESP 18
[2016-12-08] MEDS: AMLODIPINE 5 MG TAB PO SCH ×2 (08:33→20:28)
[2016-12-08] MEDS: ASPIRIN 81 MG TAB PO SCH (08:34)
[2016-12-08] MEDS: CHOLECALCIFEROL 1,000 UNIT TAB PO SCH (08:34)
[2016-12-08] MEDS: DOCUSATE SODIUM 100 MG CAP PO SCH ×2 (08:34→20:28)
[2016-12-08] MEDS: CLOPIDOGREL 75 MG TAB PO SCH (08:34)
[2016-12-08] MEDS: LACTULOSE 30ML CUP PO PRN (08:34)
[2016-12-08] MEDS: METOPROLOL 25 MG TAB PO SCH ×2 (08:34→20:29)
[2016-12-08] MEDS: ENOXAPARIN 30 MG/0.3 ML SYG SC SCH (08:35)
[2016-12-08] MEDS: INSULIN ASPART [NOVOLOG] 3 ML PEN SC SCH ×4 (08:36→20:27)
[2016-12-08] MEDS: ACETAMINOPHEN 325 MG TAB PO PRN (09:35)
--- NOTE | 2016-12-08 09:57 | CONS ---
Date/Time of Note Date/Time of Note DATE: 12/08/16 TIME: 09:55 Assessment/Plan Assessment/Plan Additional Assessment/Plan 1. Abnormal electrocardiogram, assess for acute coronary syndrome in the setting of acute cerebrovascular accident - no Cp now, stable overall- no cardiac sx now. . 2. Acute cerebrovascular accident, possible embolic origin, assess for cardiac embolic source.-probable from carotid stenosis- rehab now. Up to chair with assistance - family at bedside. 3. Hypertension, uncontrolled in the setting of acute cerebrovascular accident - difficult top manage, in 150s now- will adjust Rx as tolerated. STABLE now. 4. Dyslipidemia. 5. Diabetes mellitus- on meds, keep euvolemic. 6. Renal failure. 7. Positive troponin-minimal in the setting of renal failure and acute CVA. Downtrended - no intervention planned. Consultation Date/Type/Reason Admit Date/Time Nov 30, 2016 at 17:09 Initial Consult Date 12/01/16 Type of Consultation: Cardiology Referring Provider: JANETTE SEQUEIRA 24 HR Interval Summary Free Text/Dictation NO acute change. Con't rehab - Up to chair with assistance - family at bedside. ROS: No fever, no chills, no nausea, no vomiting, no diarrhea/constipation No recent weight changes No chest pain, no PND, no orthopnea No dizziness, blurred vision No thirst, no heat or cold intolerance (per family) Exam/Review of Systems Vital Signs Vitals Vital Signs Date Time Temp Pulse Resp B/P Pulse Ox O2 Delivery O2 Flow Rate FiO2 12/08/16 08:00 98.5 56 18 142/63 95 Intake and Output 12/07/16 12/07/16 12/08/16 15:00 23:00 07:00 Intake Total 480 ml Output Total 1200 ml Balance -720 ml Exam General: WN/WD/NAD, AOx 3 HEENT: Unicetric/atraumatic/EOMI (follows commands) NECK: JVD elevated, no thyromegaly Lymph: no lymphadenopathy HEART: regular with no S3, II/ systolic murmur at apex LUNGS: Coarse sounds ABD: soft, NT, ND, +BS : Intact Neuro: s/p CVA SKIN: chronic changes EXT: trace edema Results Results 24 hrs Laboratory Tests Test 12/07/16 12:15 12/07/16 17:46 12/07/16 20:46 12/08/16 07:47 Bedside Glucose 294 H 205 165 153 Medications Medications Current Medications Acetaminophen (Tylenol Tab) 650 mg Q6H PRN PO PAIN AND OR ELEVATED TEMP Last administered on 12/08/16 09:35; Admin Dose 650 MG; Start 11/30/16 at 19:30 Aspirin (Aspirin) 81 mg DAILY PO Last administered on 12/08/16 08:34; Admin Dose 81 MG; Start 12/01/16 at 09:00 Atorvastatin Calcium (Lipitor) 40 mg HS PO Last administered on 12/07/16 20:51 ; Admin Dose 40 MG; Start 11/30/16 at 21:00 Cholecalciferol (Vitamin D) 1,000 unit DAILY PO Last administered on 12/08/16 08:34; Admin Dose 1,000 UNIT; Start 12/01/16 at 09:00 Clonidine HCl (Catapres-Tts 1 Patch) 1 patch Q7D TRANSDERM Last administered on 12/06/16 08:55; Admin Dose 1 PATCH; Start 12/06/16 at 09:00 Clopidogrel Bisulfate (plaVIX) 75 mg DAILY PO Last administered on 12/08/16 08 :34; Admin Dose 75 MG; Start 12/01/16 at 09:00 Enoxaparin Sodium (Lovenox) 30 mg DAILY SC Last administered on 12/08/16 08:35 ; Admin Dose 30 MG; Start 12/01/16 at 09:00 Hydralazine HCl (Apresoline) 25 mg Q8 PO Last administered on 12/08/16 06:42; Admin Dose 25 MG; Start 11/30/16 at 22:00 Metoprolol Tartrate (Lopressor) 25 mg BID PO Last administered on 12/08/16 08: 34; Admin Dose 25 MG; Start 11/30/16 at 21:00 Pantoprazole (Protonix Tab) 40 mg DAILY@06 PO Last administered on 12/08/16 06 :41; Admin Dose 40 MG; Start 12/01/16 at 06:00 Miscellaneous Information 1 ea NOTE XX ; Start 11/30/16 at 20:00 Glucose (Glutose) 15 gm Q15M PRN PO DECREASED GLUCOSE; Start 11/30/16 at 20:00 Glucose (Glutose) 22.5 gm Q15M PRN PO DECREASED GLUCOSE; Start 11/30/16 at 20: 00 Dextrose (D50w Syringe) 25 ml Q15M PRN IV DECREASED GLUCOSE; Start 11/30/16 at 20:00 Dextrose (D50w Syringe) 50 ml Q15M PRN IV DECREASED GLUCOSE; Start 11/30/16 at 20:00 Glucagon (Glucagen) 1 mg Q15M PRN IM DECREASED GLUCOSE; Start 11/30/16 at 20:00 Glucose (Glutose) 15 gm Q15M PRN BUCCAL DECREASED GLUCOSE; Start 11/30/16 at 20 :00 Docusate Sodium (Colace) 100 mg BID PO Last administered on 12/08/16 08:34; Admin Dose 100 MG; Start 12/04/16 at 09:00 Senna (Senokot) 1 tab QHS PO Last administered on 12/07/16 20:52; Admin Dose 1 TAB; Start 12/04/16 at 21:00 Magnesium Hydroxide (Milk Of Mag) 30 ml BID PRN PO CONSTIPATION; Start at 06:30 Lactulose (Enulose) 20 gm DAILY PRN PO CONSTIPATION Last administered on 08:34; Admin Dose 20 GM; Start 12/04/16 at 06:30 Bisacodyl (Dulcolax Supp) 10 mg DAILY PRN [place] CONSTIPATION; Start 12/04/16 at 06 :30 Insulin Glargine (Lantus) 12 unit DAILY@20 SC Last administered on 12/07/16 21 :23; Admin Dose 12 UNIT; Start 12/06/16 at 20:00 Amlodipine Besylate (Norvasc) 5 mg BID PO Last administered on 12/08/16 08:33 ; Admin Dose 5 MG; Start 12/07/16 at 21:00 JO GIANG MD Dec 08, 2016 09:56
--- NOTE | 2016-12-08 10:39 | PN ---
Date/Time of Note Date/Time of Note DATE: 12/08/16 TIME: 10:35 Assessment/Plan VTE Prophylaxis VTE Prophylaxis Intervention: LMWH Lines/Catheters IV Catheter Type (from Nrs): Saline Lock Urinary Cath still in place: Yes Reason Cath still needed: other (indicate) Assessment/Plan Assessment/Plan 1. 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 Continue PT/OT/ST. Continue medical management per neurology and vascular surgery. Continue swallowing training with ST. Working on standing balance via standing frame, tolerating 25 minutes. 2. Hypertension. BPs elevated. Cardiology has adjusted antihypertensive medications, continue to monitor BP. 3. Diabetes mellitus type 2. Blood sugars elevated. Insulin regimen being adjusted per internal medicine. Continue to monitor. 4. Chronic kidney disease. Avoid nephrotoxic agents.Internal medicine managing. 5. Anemia. Continue to monitor hemoglobin/hematocrit. Internal medicine managing. 6. Dyslipidemia. Continue statin. Subjective 24 Hr Interval Summary Free Text/Dictation Rehab progress note Subjective: No acute complaints. ROS: No headache, no dizziness, no chest pain, no shortness of breath, no abdominal pain, no nausea, no vomiting, no chills. Exam/Review of Systems Vital Signs Vitals Vital Signs Date Time Temp Pulse Resp B/P Pulse Ox O2 Delivery O2 Flow Rate FiO2 12/08/16 08:00 98.5 56 18 142/63 95 Intake and Output 12/07/16 12/07/16 12/08/16 15:00 23:00 07:00 Intake Total 480 ml Output Total 1200 ml Balance -720 ml Exam General: Laying in bed, no acute distress CV: Regular rate, s1s2 Lungs: Respirations are nonlabored, symmetrical air entry bilaterally, no wheezing Abdomen soft, nontender, nondistended Extremities without cyanosis, no edema Neuro: Flaccid left hemiplegia. Follows simple commands. Results Results 24 hrs Laboratory Tests Test 12/07/16 12:15 12/07/16 17:46 12/07/16 20:46 12/08/16 07:47 Bedside Glucose 294 H 205 165 153 Medications Medications Current Medications Acetaminophen (Tylenol Tab) 650 mg Q6H PRN PO PAIN AND OR ELEVATED TEMP Last administered on 12/08/16 09:35; Admin Dose 650 MG; Start 11/30/16 at 19:30 Aspirin (Aspirin) 81 mg DAILY PO Last administered on 12/08/16 08:34; Admin Dose 81 MG; Start 12/01/16 at 09:00 Atorvastatin Calcium (Lipitor) 40 mg HS PO Last administered on 12/07/16 20:51 ; Admin Dose 40 MG; Start 11/30/16 at 21:00 Cholecalciferol (Vitamin D) 1,000 unit DAILY PO Last administered on 12/08/16 08:34; Admin Dose 1,000 UNIT; Start 12/01/16 at 09:00 Clonidine HCl (Catapres-Tts 1 Patch) 1 patch Q7D TRANSDERM Last administered on 12/06/16 08:55; Admin Dose 1 PATCH; Start 12/06/16 at 09:00 Clopidogrel Bisulfate (plaVIX) 75 mg DAILY PO Last administered on 12/08/16 08 :34; Admin Dose 75 MG; Start 12/01/16 at 09:00 Enoxaparin Sodium (Lovenox) 30 mg DAILY SC Last administered on 12/08/16 08:35 ; Admin Dose 30 MG; Start 12/01/16 at 09:00 Hydralazine HCl (Apresoline) 25 mg Q8 PO Last administered on 12/08/16 06:42; Admin Dose 25 MG; Start 11/30/16 at 22:00 Metoprolol Tartrate (Lopressor) 25 mg BID PO Last administered on 12/08/16 08: 34; Admin Dose 25 MG; Start 11/30/16 at 21:00 Pantoprazole (Protonix Tab) 40 mg DAILY@06 PO Last administered on 12/08/16 06 :41; Admin Dose 40 MG; Start 12/01/16 at 06:00 Miscellaneous Information 1 ea NOTE XX ; Start 11/30/16 at 20:00 Glucose (Glutose) 15 gm Q15M PRN PO DECREASED GLUCOSE; Start 11/30/16 at 20:00 Glucose (Glutose) 22.5 gm Q15M PRN PO DECREASED GLUCOSE; Start 11/30/16 at 20: 00 Dextrose (D50w Syringe) 25 ml Q15M PRN IV DECREASED GLUCOSE; Start 11/30/16 at 20:00 Dextrose (D50w Syringe) 50 ml Q15M PRN IV DECREASED GLUCOSE; Start 11/30/16 at 20:00 Glucagon (Glucagen) 1 mg Q15M PRN IM DECREASED GLUCOSE; Start 11/30/16 at 20:00 Glucose (Glutose) 15 gm Q15M PRN BUCCAL DECREASED GLUCOSE; Start 11/30/16 at 20 :00 Docusate Sodium (Colace) 100 mg BID PO Last administered on 12/08/16 08:34; Admin Dose 100 MG; Start 12/04/16 at 09:00 Senna (Senokot) 1 tab QHS PO Last administered on 12/07/16 20:52; Admin Dose 1 TAB; Start 12/04/16 at 21:00 Magnesium Hydroxide (Milk Of Mag) 30 ml BID PRN PO CONSTIPATION; Start at 06:30 Lactulose (Enulose) 20 gm DAILY PRN PO CONSTIPATION Last administered on 08:34; Admin Dose 20 GM; Start 12/04/16 at 06:30 Bisacodyl (Dulcolax Supp) 10 mg DAILY PRN [place] CONSTIPATION; Start 12/04/16 at 06 :30 Insulin Glargine (Lantus) 12 unit DAILY@20 SC Last administered on 12/07/16 21 :23; Admin Dose 12 UNIT; Start 12/06/16 at 20:00 Amlodipine Besylate (Norvasc) 5 mg BID PO Last administered on 12/08/16 08:33 ; Admin Dose 5 MG; Start 12/07/16 at 21:00 ROBERTO RAINEY Dec 08, 2016 10:38
--- NOTE | 2016-12-08 11:02 | CONS ---
DATE OF ADMISSION: 11/30/2016 DATE OF CONSULTATION: 12/08/2016 MEDICINE PROGRESS NOTE Ms. Ramires's condition is stable. HISTORY OF PRESENT ILLNESS: The patient is getting aggressive physical therapy. The patient still has significant left hemiplegia as well as visual field deficits. Denies any shortness of breath, d ysphagia. PHYSICAL EXAMINATION: GENERAL: Elderly female, awake, alert, currently in no distress. VITAL SIGNS: Temperature 98 degrees Fahrenheit, respiratory rate is 18 per minute, heart rate 72 pe r minute, blood pressure is 130/70, O2 saturation 97% on room air. HEENT: Supple neck, no JVD, no lymphadenopathy, midline trachea. Pharynx is clear. The patient barclay s good dentition, has bilateral intraocular lens implants. CHEST: Clear to auscultation. HEART: S1, S2 audible. No murmurs, regular rhythm. ABDOMEN: Soft, nontender, nondistended. Bowel sounds audible, no organomegaly. EXTREMITIES: No peripheral edema. NEUROLOGIC: Patient has stable left hemiplegia as well as visual field deficits. MEDICATIONS: Reviewed. ASSESSMENT AND PLAN: 1. Patient admitted for left cerebrovascular accident, currently getting aggressive physical therap y. 2. History of diabetes, hypertension. RECOMMENDATIONS: Continue current treatment pending. Dictated By: TIBURCIO PHIPPS/VIKKI Conf#: [id number] DID#: [id number]
[2016-12-08 20:00] VITALS: BP 131/60; RESP 18
[2016-12-08] MEDS: INSULIN GLARGINE [LANtus] 3 ML PEN SC SCH (20:27)
[2016-12-08] MEDS: ATORVASTATIN 40 MG TAB PO SCH (20:28)
[2016-12-08] MEDS: SENNA TAB PO SCH (20:28)
[2016-12-09] MEDS: PANTOPRAZOLE (EC) 40 MG TAB PO SCH (06:19)
[2016-12-09 07:30] VITALS: BP 136/61; RESP 18
[2016-12-09] MEDS: INSULIN ASPART [NOVOLOG] 3 ML PEN SC SCH ×4 (08:02→20:33)
[2016-12-09] MEDS: DOCUSATE SODIUM 100 MG CAP PO SCH ×2 (08:28→20:30)
[2016-12-09] MEDS: AMLODIPINE 5 MG TAB PO SCH ×2 (08:28→20:30)
[2016-12-09] MEDS: CLOPIDOGREL 75 MG TAB PO SCH (08:28)
[2016-12-09] MEDS: METOPROLOL 25 MG TAB PO SCH ×2 (08:29→20:31)
[2016-12-09] MEDS: CHOLECALCIFEROL 1,000 UNIT TAB PO SCH (08:29)
[2016-12-09] MEDS: ASPIRIN 81 MG TAB PO SCH (08:29)
[2016-12-09] MEDS: ENOXAPARIN 30 MG/0.3 ML SYG SC SCH (08:32)
--- NOTE | 2016-12-09 10:04 | PN ---
Date/Time of Note Date/Time of Note DATE: 12/09/16 TIME: 09:59 Assessment/Plan VTE Prophylaxis VTE Prophylaxis Intervention: LMWH Lines/Catheters IV Catheter Type (from Nrs): Saline Lock Urinary Cath still in place: Yes Reason Cath still needed: other (indicate) Assessment/Plan Assessment/Plan 1. 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 Continue PT/OT/ST. Continue medical management per neurology and vascular surgery. Mod verbal cues required to bring attention to L side, improving. 2. Hypertension. Continue medical management per internal medicine/cardiology, adjusting medications. Continue to monitor BP. 3. Diabetes mellitus type 2. On insulin regimen, being adjusted per internal medicine. Continue to monitor Blood sugars. 4. Chronic kidney disease. Monitor. 5. Anemia. Monitor hemoglobin/hematocrit. 6. Dyslipidemia. Continue statin. Subjective 24 Hr Interval Summary Free Text/Dictation Rehab progress note Subjective/History: No acute overnight events per nursing staff. No new complaints this morning. ROS: No headache, no chills, no chest pain, no shortness of breath, no abdominal pain, no chest pain. Last bowel movement yesterday per nursing staff. Exam/Review of Systems Vital Signs Vitals Vital Signs Date Time Temp Pulse Resp B/P Pulse Ox O2 Delivery O2 Flow Rate FiO2 12/08/16 20:00 97.4 56 18 131/60 95 Intake and Output 12/08/16 12/08/16 12/09/16 15:00 23:00 07:00 Intake Total 360 ml 240 ml Output Total 650 ml Balance 360 ml -410 ml Exam General: Laying in bed, no acute distress CV: Regular rate, s1s2 audible Lungs: Respirations are nonlabored, no wheezing Abdomen soft, nontender Extremities without cyanosis, no edema Neuro: No apparent changes. Flaccid tone on the left. Results Results 24 hrs Laboratory Tests Test 12/08/16 12:13 12/08/16 17:19 12/08/16 20:24 12/09/16 02:21 Bedside Glucose 245 H 193 244 H 181 Test 12/09/16 07:47 Bedside Glucose 162 Medications Medications Current Medications Acetaminophen (Tylenol Tab) 650 mg Q6H PRN PO PAIN AND OR ELEVATED TEMP Last administered on 12/08/16 09:35; Admin Dose 650 MG; Start 11/30/16 at 19:30 Aspirin (Aspirin) 81 mg DAILY PO Last administered on 12/09/16 08:29; Admin Dose 81 MG; Start 12/01/16 at 09:00 Atorvastatin Calcium (Lipitor) 40 mg HS PO Last administered on 12/08/16 20:28 ; Admin Dose 40 MG; Start 11/30/16 at 21:00 Cholecalciferol (Vitamin D) 1,000 unit DAILY PO Last administered on 12/09/16 08:29; Admin Dose 1,000 UNIT; Start 12/01/16 at 09:00 Clonidine HCl (Catapres-Tts 1 Patch) 1 patch Q7D TRANSDERM Last administered on 12/06/16 08:55; Admin Dose 1 PATCH; Start 12/06/16 at 09:00 Clopidogrel Bisulfate (plaVIX) 75 mg DAILY PO Last administered on 12/09/16 08 :28; Admin Dose 75 MG; Start 12/01/16 at 09:00 Enoxaparin Sodium (Lovenox) 30 mg DAILY SC Last administered on 12/09/16 08:32 ; Admin Dose 30 MG; Start 12/01/16 at 09:00 Hydralazine HCl (Apresoline) 25 mg Q8 PO Last administered on 12/09/16 06:19; Admin Dose 25 MG; Start 11/30/16 at 22:00 Metoprolol Tartrate (Lopressor) 25 mg BID PO Last administered on 12/09/16 08: 29; Admin Dose 25 MG; Start 11/30/16 at 21:00 Pantoprazole (Protonix Tab) 40 mg DAILY@06 PO Last administered on 12/09/16 06 :19; Admin Dose 40 MG; Start 12/01/16 at 06:00 Miscellaneous Information 1 ea NOTE XX ; Start 11/30/16 at 20:00 Glucose (Glutose) 15 gm Q15M PRN PO DECREASED GLUCOSE; Start 11/30/16 at 20:00 Glucose (Glutose) 22.5 gm Q15M PRN PO DECREASED GLUCOSE; Start 11/30/16 at 20: 00 Dextrose (D50w Syringe) 25 ml Q15M PRN IV DECREASED GLUCOSE; Start 11/30/16 at 20:00 Dextrose (D50w Syringe) 50 ml Q15M PRN IV DECREASED GLUCOSE; Start 11/30/16 at 20:00 Glucagon (Glucagen) 1 mg Q15M PRN IM DECREASED GLUCOSE; Start 11/30/16 at 20:00 Glucose (Glutose) 15 gm Q15M PRN BUCCAL DECREASED GLUCOSE; Start 11/30/16 at 20 :00 Docusate Sodium (Colace) 100 mg BID PO Last administered on 12/09/16 08:28; Admin Dose 100 MG; Start 12/04/16 at 09:00 Senna (Senokot) 1 tab QHS PO Last administered on 12/08/16 20:28; Admin Dose 1 TAB; Start 12/04/16 at 21:00 Magnesium Hydroxide (Milk Of Mag) 30 ml BID PRN PO CONSTIPATION; Start at 06:30 Lactulose (Enulose) 20 gm DAILY PRN PO CONSTIPATION Last administered on 08:34; Admin Dose 20 GM; Start 12/04/16 at 06:30 Bisacodyl (Dulcolax Supp) 10 mg DAILY PRN [place] CONSTIPATION; Start 12/04/16 at 06 :30 Insulin Glargine (Lantus) 12 unit DAILY@20 SC Last administered on 12/08/16 20 :27; Admin Dose 12 UNIT; Start 12/06/16 at 20:00 Amlodipine Besylate (Norvasc) 5 mg BID PO Last administered on 12/09/16 08:28 ; Admin Dose 5 MG; Start 12/07/16 at 21:00 ROBERTO RAINEY Dec 09, 2016 10:04
--- NOTE | 2016-12-09 12:39 | PN ---
DATE: 12/09/2016 INTERNAL MEDICINE FOLLOWUP SUBJECTIVE: Chart reviewed. No significant changes. PHYSICAL EXAMINATION: VITAL SIGNS: Blood pressure 136/61, pulse 57, respirations 18, temperature 97.4. Currently saturat ing 96%. HEENT: Pupils are equal and reactive to light. Anicteric sclerae. NECK: Supple. No JVD noted, no cervical adenopathy noted, no carotid bruits heard. LUNGS: Fair breath sounds bilaterally. CARDIOVASCULAR: S1, S2 normal. ABDOMEN: Soft, nontender. No organomegaly or masses noted. EXTREMITIES: No clubbing, cyanosis, or edema noted. NEUROLOGICAL: Left hemiplegia. ASSESSMENT: 1. Acute right-sided cerebrovascular accident, with left hemiplegia. 2. History of hypertension. 3. History of diabetes mellitus type 2. 4. Chronic kidney disease. 5. Anemia. 6. Dyslipidemia. PLAN: 1. Continue the current treatment. 2. Continue intensive rehabilitation. 3. Above discussed with the staff. Dictated By: JOJO PIKE MD, MA/VIKKI Conf#: [id number] DID#: [id number]
--- NOTE | 2016-12-09 12:41 | CONS ---
Date/Time of Note Date/Time of Note DATE: 12/09/16 TIME: 12:39 Assessment/Plan Assessment/Plan Additional Assessment/Plan 1. Abnormal electrocardiogram, assess for acute coronary syndrome in the setting of acute cerebrovascular accident - no Cp now, stable overall- no cardiac sx now. Con't rehab. 2. Acute cerebrovascular accident, possible embolic origin, assess for cardiac embolic source.-probable from carotid stenosis- rehab now. Up to chair with assistance - family at bedside. 3. Hypertension, uncontrolled in the setting of acute cerebrovascular accident - difficult top manage, in 150s now- will adjust Rx as tolerated. STABLE now. Well Rx. 4. Dyslipidemia. 5. Diabetes mellitus- on meds, keep euvolemic. 6. Renal failure. 7. Positive troponin-minimal in the setting of renal failure and acute CVA. Downtrended - no intervention planned. Consultation Date/Type/Reason Admit Date/Time Nov 30, 2016 at 17:09 Initial Consult Date 12/01/16 Type of Consultation: Cardiology Referring Provider: JANETTE SEQUEIRA 24 HR Interval Summary Free Text/Dictation No acute events - rehab as needed. ROS: No fever, no chills, no nausea, no vomiting, no diarrhea/constipation No recent weight changes No chest pain, no PND, no orthopnea No dizziness, blurred vision No thirst, no heat or cold intolerance Exam/Review of Systems Vital Signs Vitals Vital Signs Date Time Temp Pulse Resp B/P Pulse Ox O2 Delivery O2 Flow Rate FiO2 12/09/16 07:30 97.4 57 18 136/61 96 Intake and Output 12/08/16 12/08/16 12/09/16 15:00 23:00 07:00 Intake Total 360 ml 240 ml Output Total 650 ml Balance 360 ml -410 ml Exam General: WN/WD/NAD, AOx 1-2 HEENT: Unicetric/atraumatic/EOMI (follow commands) NECK: JVD elevated, no thyromegaly Lymph: no lymphadenopathy HEART: regular with no S3, II/ systolic murmur at apex LUNGS: Coarse sounds ABD: soft, NT, ND, +BS : Intact Neur: s/p CVA SKIN: chronic changes EXT: trace edema Results Results 24 hrs Laboratory Tests Test 12/08/16 17:19 12/08/16 20:24 12/09/16 02:21 12/09/16 07:47 Bedside Glucose 193 244 H 181 162 Test 12/09/16 12:06 Bedside Glucose 155 Medications Medications Current Medications Acetaminophen (Tylenol Tab) 650 mg Q6H PRN PO PAIN AND OR ELEVATED TEMP Last administered on 12/08/16 09:35; Admin Dose 650 MG; Start 11/30/16 at 19:30 Aspirin (Aspirin) 81 mg DAILY PO Last administered on 12/09/16 08:29; Admin Dose 81 MG; Start 12/01/16 at 09:00 Atorvastatin Calcium (Lipitor) 40 mg HS PO Last administered on 12/08/16 20:28 ; Admin Dose 40 MG; Start 11/30/16 at 21:00 Cholecalciferol (Vitamin D) 1,000 unit DAILY PO Last administered on 12/09/16 08:29; Admin Dose 1,000 UNIT; Start 12/01/16 at 09:00 Clonidine HCl (Catapres-Tts 1 Patch) 1 patch Q7D TRANSDERM Last administered on 12/06/16 08:55; Admin Dose 1 PATCH; Start 12/06/16 at 09:00 Clopidogrel Bisulfate (plaVIX) 75 mg DAILY PO Last administered on 12/09/16 08 :28; Admin Dose 75 MG; Start 12/01/16 at 09:00 Enoxaparin Sodium (Lovenox) 30 mg DAILY SC Last administered on 12/09/16 08:32 ; Admin Dose 30 MG; Start 12/01/16 at 09:00 Hydralazine HCl (Apresoline) 25 mg Q8 PO Last administered on 12/09/16 06:19; Admin Dose 25 MG; Start 11/30/16 at 22:00 Metoprolol Tartrate (Lopressor) 25 mg BID PO Last administered on 12/09/16 08: 29; Admin Dose 25 MG; Start 11/30/16 at 21:00 Pantoprazole (Protonix Tab) 40 mg DAILY@06 PO Last administered on 12/09/16 06 :19; Admin Dose 40 MG; Start 12/01/16 at 06:00 Miscellaneous Information 1 ea NOTE XX ; Start 11/30/16 at 20:00 Glucose (Glutose) 15 gm Q15M PRN PO DECREASED GLUCOSE; Start 11/30/16 at 20:00 Glucose (Glutose) 22.5 gm Q15M PRN PO DECREASED GLUCOSE; Start 11/30/16 at 20: 00 Dextrose (D50w Syringe) 25 ml Q15M PRN IV DECREASED GLUCOSE; Start 11/30/16 at 20:00 Dextrose (D50w Syringe) 50 ml Q15M PRN IV DECREASED GLUCOSE; Start 11/30/16 at 20:00 Glucagon (Glucagen) 1 mg Q15M PRN IM DECREASED GLUCOSE; Start 11/30/16 at 20:00 Glucose (Glutose) 15 gm Q15M PRN BUCCAL DECREASED GLUCOSE; Start 11/30/16 at 20 :00 Docusate Sodium (Colace) 100 mg BID PO Last administered on 12/09/16 08:28; Admin Dose 100 MG; Start 12/04/16 at 09:00 Senna (Senokot) 1 tab QHS PO Last administered on 12/08/16 20:28; Admin Dose 1 TAB; Start 12/04/16 at 21:00 Magnesium Hydroxide (Milk Of Mag) 30 ml BID PRN PO CONSTIPATION; Start at 06:30 Lactulose (Enulose) 20 gm DAILY PRN PO CONSTIPATION Last administered on 08:34; Admin Dose 20 GM; Start 12/04/16 at 06:30 Bisacodyl (Dulcolax Supp) 10 mg DAILY PRN [place] CONSTIPATION; Start 12/04/16 at 06 :30 Insulin Glargine (Lantus) 12 unit DAILY@20 SC Last administered on 12/08/16 20 :27; Admin Dose 12 UNIT; Start 12/06/16 at 20:00 Amlodipine Besylate (Norvasc) 5 mg BID PO Last administered on 12/09/16 08:28 ; Admin Dose 5 MG; Start 12/07/16 at 21:00 JO GIANG MD Dec 09, 2016 12:40
[2016-12-09 20:00] VITALS: BP 140/60; RESP 18
[2016-12-09] MEDS: ATORVASTATIN 40 MG TAB PO SCH (20:30)
[2016-12-09] MEDS: SENNA TAB PO SCH (20:30)
[2016-12-09] MEDS: INSULIN GLARGINE [LANtus] 3 ML PEN SC SCH (20:32)
[2016-12-10] MEDS: PANTOPRAZOLE (EC) 40 MG TAB PO SCH (05:52)
[2016-12-10 08:05] VITALS: BP 153/74; RESP 18
[2016-12-10] MEDS: INSULIN ASPART [NOVOLOG] 3 ML PEN SC SCH ×4 (08:25→20:39)
[2016-12-10] MEDS: DOCUSATE SODIUM 100 MG CAP PO SCH ×2 (08:29→20:35)
[2016-12-10] MEDS: ASPIRIN 81 MG TAB PO SCH (08:29)
[2016-12-10] MEDS: CHOLECALCIFEROL 1,000 UNIT TAB PO SCH (08:29)
[2016-12-10] MEDS: AMLODIPINE 5 MG TAB PO SCH ×2 (08:29→20:36)
[2016-12-10] MEDS: ENOXAPARIN 30 MG/0.3 ML SYG SC SCH (08:30)
[2016-12-10] MEDS: METOPROLOL 25 MG TAB PO SCH ×2 (08:30→20:36)
[2016-12-10] MEDS: CLOPIDOGREL 75 MG TAB PO SCH (08:30)
--- NOTE | 2016-12-10 10:19 | PN ---
Date/Time of Note Date/Time of Note DATE: 12/10/16 TIME: 10:17 Assessment/Plan VTE Prophylaxis VTE Prophylaxis Intervention: LMWH Lines/Catheters IV Catheter Type (from Nrs): Saline Lock Urinary Cath still in place: Yes Reason Cath still needed: other (indicate) Assessment/Plan Assessment/Plan 1. 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 Continue PT/OT/ST. Continue medical management per neurology and vascular surgery. WC mobility improving 25ft x4 with max assist. 2. Hypertension. Continue medical management per internal medicine/cardiology. 3. Diabetes mellitus type 2. Blood sugars elevated. Internal medicine adjusting insulin regimen. 4. Chronic kidney disease. Monitor renal function. 5. Anemia. Continue to monitor hemoglobin/hematocrit. 6. Dyslipidemia. Continue statin. Subjective 24 Hr Interval Summary Free Text/Dictation Rehab progress note Subjective/History: No acute complaints. ROS: No headache, no chest pain, no shortness of breath, no abdominal pain, no vomiting. Last bowel movement 2 days ago. Exam/Review of Systems Vital Signs Vitals Vital Signs Date Time Temp Pulse Resp B/P Pulse Ox O2 Delivery O2 Flow Rate FiO2 12/10/16 08:05 97.9 59 18 153/74 98 Intake and Output 12/09/16 12/09/16 12/10/16 15:00 23:00 07:00 Intake Total 900 ml Output Total 500 ml 550 ml Balance 400 ml -550 ml Exam General: Laying in bed, no acute distress CV: Regular rate and rhythm, s1s2 audible Lungs: Symmetrical air entry bilaterally, no wheezing Abdomen soft, nontender, +bowel sounds Extremities without cyanosis, no new swelling Neuro: No focal changes. Flaccid left hemiplegia. Results Results 24 hrs Laboratory Tests Test 12/09/16 12:06 12/09/16 17:21 12/09/16 20:26 12/10/16 02:30 Bedside Glucose 155 155 214 133 Test 12/10/16 07:59 Bedside Glucose 157 Medications Medications Current Medications Acetaminophen (Tylenol Tab) 650 mg Q6H PRN PO PAIN AND OR ELEVATED TEMP Last administered on 12/08/16t 09:35; Admin Dose 650 MG; Start 11/30/16 at 19:30 Aspirin (Aspirin) 81 mg DAILY PO Last administered on 12/10/16 08:29; Admin Dose 81 MG; Start 12/01/16 at 09:00 Atorvastatin Calcium (Lipitor) 40 mg HS PO Last administered on 12/09/16 20:30 ; Admin Dose 40 MG; Start 11/30/16 at 21:00 Cholecalciferol (Vitamin D) 1,000 unit DAILY PO Last administered on 12/10/16 08:29; Admin Dose 1,000 UNIT; Start 12/01/16 at 09:00 Clonidine HCl (Catapres-Tts 1 Patch) 1 patch Q7D TRANSDERM Last administered on 12/06/16 08:55; Admin Dose 1 PATCH; Start 12/06/16 at 09:00 Clopidogrel Bisulfate (plaVIX) 75 mg DAILY PO Last administered on 12/10/16 08 :30; Admin Dose 75 MG; Start 12/01/16 at 09:00 Enoxaparin Sodium (Lovenox) 30 mg DAILY SC Last administered on 12/10/16 08:30 ; Admin Dose 30 MG; Start 12/01/16 at 09:00 Hydralazine HCl (Apresoline) 25 mg Q8 PO Last administered on 12/10/16 05:53; Admin Dose 25 MG; Start 11/30/16 at 22:00 Metoprolol Tartrate (Lopressor) 25 mg BID PO Last administered on 12/10/16 08: 30; Admin Dose 25 MG; Start 11/30/16 at 21:00 Pantoprazole (Protonix Tab) 40 mg DAILY@06 PO Last administered on 12/10/16 05 :52; Admin Dose 40 MG; Start 12/01/16 at 06:00 Miscellaneous Information 1 ea NOTE XX ; Start 11/30/16 at 20:00 Glucose (Glutose) 15 gm Q15M PRN PO DECREASED GLUCOSE; Start 11/30/16 at 20:00 Glucose (Glutose) 22.5 gm Q15M PRN PO DECREASED GLUCOSE; Start 11/30/16 at 20: 00 Dextrose (D50w Syringe) 25 ml Q15M PRN IV DECREASED GLUCOSE; Start 11/30/16 at 20:00 Dextrose (D50w Syringe) 50 ml Q15M PRN IV DECREASED GLUCOSE; Start 11/30/16 at 20:00 Glucagon (Glucagen) 1 mg Q15M PRN IM DECREASED GLUCOSE; Start 11/30/16 at 20:00 Glucose (Glutose) 15 gm Q15M PRN BUCCAL DECREASED GLUCOSE; Start 11/30/16 at 20 :00 Docusate Sodium (Colace) 100 mg BID PO Last administered on 12/10/16 08:29; Admin Dose 100 MG; Start 12/04/16 at 09:00 Senna (Senokot) 1 tab QHS PO Last administered on 12/09/16 20:30; Admin Dose 1 TAB; Start 12/04/16 at 21:00 Magnesium Hydroxide (Milk Of Mag) 30 ml BID PRN PO CONSTIPATION; Start at 06:30 Lactulose (Enulose) 20 gm DAILY PRN PO CONSTIPATION Last administered on 08:34; Admin Dose 20 GM; Start 12/04/16 at 06:30 Bisacodyl (Dulcolax Supp) 10 mg DAILY PRN [place] CONSTIPATION; Start 12/04/16 at 06 :30 Insulin Glargine (Lantus) 12 unit DAILY@20 SC Last administered on 12/09/16 20 :32; Admin Dose 12 UNIT; Start 12/06/16 at 20:00 Amlodipine Besylate (Norvasc) 5 mg BID PO Last administered on 12/10/16 08:29 ; Admin Dose 5 MG; Start 12/07/16 at 21:00 ROBERTO RAINEY Dec 10, 2016 10:19
--- NOTE | 2016-12-10 15:42 | CONS ---
Date/Time of Note Date/Time of Note DATE: 12/10/16 TIME: 15:40 Assessment/Plan Assessment/Plan Additional Assessment/Plan 1. Abnormal electrocardiogram, assess for acute coronary syndrome in the setting of acute cerebrovascular accident - no Cp now, stable overall- no cardiac sx now. Con't rehab. 2. Acute cerebrovascular accident, possible embolic origin, assess for cardiac embolic source.-probable from carotid stenosis- rehab now. Up to chair with assistance - family at bedside. 3. Hypertension, uncontrolled in the setting of acute cerebrovascular accident - difficult top manage, in 150s now- will adjust Rx as tolerated. STABLE now. Well Rx. 4. Dyslipidemia. 5. Diabetes mellitus- on meds, keep euvolemic. Con't to follow. 6. Renal failure. 7. Positive troponin-minimal in the setting of renal failure and acute CVA. Downtrended - no intervention planned. Consultation Date/Type/Reason Admit Date/Time Nov 30, 2016 at 17:09 Initial Consult Date 12/01/16 Type of Consultation: Cardiology Referring Provider: JANETTE SEQUEIRA 24 HR Interval Summary Free Text/Dictation NO acute events - BP in good range - no CP now. ROS: No fever, no chills, no nausea, no vomiting, no diarrhea/constipation No recent weight changes No chest pain, no PND, no orthopnea No dizziness, blurred vision No thirst, no heat or cold intolerance Exam/Review of Systems Vital Signs Vitals Vital Signs Date Time Temp Pulse Resp B/P Pulse Ox O2 Delivery O2 Flow Rate FiO2 12/10/16 08:05 97.9 59 18 153/74 98 Intake and Output 12/09/16 12/09/16 12/10/16 15:00 23:00 07:00 Intake Total 900 ml Output Total 500 ml 550 ml Balance 400 ml -550 ml Exam General: WN/WD/NAD, AOx 3 HEENT: Unicetric/atraumatic/EOMI (follow commands) NECK: JVD elevated, no thyromegaly Lymph: no lymphadenopathy HEART: regular with no S3, II/ systolic murmur at apex LUNGS: Coarse sounds ABD: soft, NT, ND, +BS : Intact Neuro: post CVA SKIN: chronic changes EXT: trace edema Results Results 24 hrs Laboratory Tests Test 12/09/16 17:21 12/09/16 20:26 12/10/16 02:30 12/10/16 07:59 Bedside Glucose 155 214 133 157 Test 12/10/16 12:04 Bedside Glucose 317 H Medications Medications Current Medications Acetaminophen (Tylenol Tab) 650 mg Q6H PRN PO PAIN AND OR ELEVATED TEMP Last administered on 12/08/16 09:35; Admin Dose 650 MG; Start 11/30/16 at 19:30 Aspirin (Aspirin) 81 mg DAILY PO Last administered on 12/10/16 08:29; Admin Dose 81 MG; Start 12/01/16 at 09:00 Atorvastatin Calcium (Lipitor) 40 mg HS PO Last administered on 12/09/16 20:30 ; Admin Dose 40 MG; Start 11/30/16 at 21:00 Cholecalciferol (Vitamin D) 1,000 unit DAILY PO Last administered on 12/10/16 08:29; Admin Dose 1,000 UNIT; Start 12/01/16 at 09:00 Clonidine HCl (Catapres-Tts 1 Patch) 1 patch Q7D TRANSDERM Last administered on 12/06/16 08:55; Admin Dose 1 PATCH; Start 12/06/16 at 09:00 Clopidogrel Bisulfate (plaVIX) 75 mg DAILY PO Last administered on 12/10/16 08 :30; Admin Dose 75 MG; Start 12/01/16 at 09:00 Enoxaparin Sodium (Lovenox) 30 mg DAILY SC Last administered on 12/10/16 08:30 ; Admin Dose 30 MG; Start 12/01/16 at 09:00 Hydralazine HCl (Apresoline) 25 mg Q8 PO Last administered on 12/10/16 14:31; Admin Dose 25 MG; Start 11/30/16 at 22:00 Metoprolol Tartrate (Lopressor) 25 mg BID PO Last administered on 12/10/16 08: 30; Admin Dose 25 MG; Start 11/30/16 at 21:00 Pantoprazole (Protonix Tab) 40 mg DAILY@06 PO Last administered on 12/10/16 05 :52; Admin Dose 40 MG; Start 12/01/16 at 06:00 Miscellaneous Information 1 ea NOTE XX ; Start 11/30/16 at 20:00 Glucose (Glutose) 15 gm Q15M PRN PO DECREASED GLUCOSE; Start 11/30/16 at 20:00 Glucose (Glutose) 22.5 gm Q15M PRN PO DECREASED GLUCOSE; Start 11/30/16 at 20: 00 Dextrose (D50w Syringe) 25 ml Q15M PRN IV DECREASED GLUCOSE; Start 11/30/16 at 20:00 Dextrose (D50w Syringe) 50 ml Q15M PRN IV DECREASED GLUCOSE; Start 11/30/16 at 20:00 Glucagon (Glucagen) 1 mg Q15M PRN IM DECREASED GLUCOSE; Start 11/30/16 at 20:00 Glucose (Glutose) 15 gm Q15M PRN BUCCAL DECREASED GLUCOSE; Start 11/30/16 at 20 :00 Docusate Sodium (Colace) 100 mg BID PO Last administered on 12/10/16 08:29; Admin Dose 100 MG; Start 12/04/16 at 09:00 Senna (Senokot) 1 tab QHS PO Last administered on 12/09/16 20:30; Admin Dose 1 TAB; Start 12/04/16 at 21:00 Magnesium Hydroxide (Milk Of Mag) 30 ml BID PRN PO CONSTIPATION; Start at 06:30 Lactulose (Enulose) 20 gm DAILY PRN PO CONSTIPATION Last administered on 08:34; Admin Dose 20 GM; Start 12/04/16 at 06:30 Bisacodyl (Dulcolax Supp) 10 mg DAILY PRN [place] CONSTIPATION; Start 12/04/16 at 06 :30 Amlodipine Besylate (Norvasc) 5 mg BID PO Last administered on 12/10/16 08:29 ; Admin Dose 5 MG; Start 12/07/16 at 21:00 Insulin Glargine (Lantus) 16 unit DAILY@20 SC ; Start 12/10/16 at 20:00 JO GIANG MD Dec 10, 2016 15:42
--- NOTE | 2016-12-10 16:19 | PN ---
DATE: 12/10/2016 SUBJECTIVE: Chart reviewed. Discussed with nursing staff sugar is elevated requiring sliding scale insulin. PHYSICAL EXAMINATION: VITAL SIGNS: Blood pressure 153/74, pulse 59, respirations 18, temperature 97.9. HEENT: Pupils are equal and reactive to light. Anicteric sclerae. NECK: Supple, no JVD noted, no cervical adenopathy noted, no carotid bruits heard. LUNGS: Fair breath sounds bilaterally. CARDIOVASCULAR: S1, S2 normal. ABDOMEN: Soft, nontender. No organomegaly or masses noted. EXTREMITIES: No clubbing, cyanosis, or edema noted. NEUROLOGIC: Left hemiplegia. IMPRESSION: 1. Acute right-sided cerebrovascular accident with left hemiplegia. 2. History of hypertension. 3. History of diabetes mellitus type 2. 4. Chronic kidney disease. 5. Anemia. 6. Dyslipidemia. PLAN: 1. Continue current treatment. 2. Continue rehabilitation. 3. Increase Lantus to 16 units. 4. Above discussed with the staff. Dictated By: JOJO PIKE MD, MA/VIKKI Conf#: [id number] DID#: [id number]
[2016-12-10] MEDS: SENNA TAB PO SCH (20:35)
[2016-12-10] MEDS: ATORVASTATIN 40 MG TAB PO SCH (20:35)
[2016-12-10 20:36] VITALS: BP 130/62; RESP 20
[2016-12-10] MEDS: INSULIN GLARGINE [LANtus] 3 ML PEN SC SCH (20:40)
[2016-12-10 22:00] VITALS: BP 159/69; RESP 18
[2016-12-11] MEDS: PANTOPRAZOLE (EC) 40 MG TAB PO SCH (05:57)
[2016-12-11 07:30] VITALS: BP 137/61; RESP 18
--- NOTE | 2016-12-11 08:26 | CONS ---
Date/Time of Note Date/Time of Note DATE: 12/11/16 TIME: 08:25 Assessment/Plan Assessment/Plan Additional Assessment/Plan 1. Abnormal electrocardiogram, assess for acute coronary syndrome in the setting of acute cerebrovascular accident - no Cp now, stable overall- no cardiac sx now. Con't rehab. 2. Acute cerebrovascular accident, possible embolic origin, assess for cardiac embolic source.-probable from carotid stenosis- rehab now. Up to chair with assistance - family at bedside. No CHANGE. 3. Hypertension, uncontrolled in the setting of acute cerebrovascular accident - difficult top manage, in 150s now- will adjust Rx as tolerated. STABLE now. Well Rx. 4. Dyslipidemia. 5. Diabetes mellitus- on meds, keep euvolemic. Con't to follow.On Rx now. 6. Renal failure. 7. Positive troponin-minimal in the setting of renal failure and acute CVA. Downtrended - no intervention planned. Consultation Date/Type/Reason Admit Date/Time Nov 30, 2016 at 17:09 Initial Consult Date 12/01/16 Type of Consultation: Cardiology Referring Provider: JANETTE SEQUEIRA 24 HR Interval Summary Free Text/Dictation NO acute events - con't rehab - BP in good range. ROS: No fever, no chills, no nausea, no vomiting, no diarrhea/constipation No recent weight changes No chest pain, no PND, no orthopnea No dizziness, blurred vision No thirst, no heat or cold intolerance Exam/Review of Systems Vital Signs Vitals Vital Signs Date Time Temp Pulse Resp B/P Pulse Ox O2 Delivery O2 Flow Rate FiO2 12/10/16 22:00 62 18 159/69 95 12/10/16 20:36 98.2 Intake and Output 12/10/16 12/10/16 12/11/16 15:00 23:00 07:00 Intake Total 680 ml 140 ml Output Total 800 ml 450 ml Balance -120 ml -310 ml Exam General: WN/WD/NAD, AOx 2-3 HEENT: Unicetric/atraumatic/EOMI (follow commands) NECK: JVD elevated, no thyromegaly Lymph: no lymphadenopathy HEART: regular with no S3, II/ systolic murmur at apex LUNGS: Coarse sounds ABD: soft, NT, ND, +BS : Intact Neuro: s/p CVA SKIN: chronic changes EXT: trace edema Results Results 24 hrs Laboratory Tests Test 12/10/16 12:04 12/10/16 17:31 12/10/16 20:32 12/11/16 02:02 Bedside Glucose 317 H 121 238 H 158 Test 12/11/16 07:49 Bedside Glucose 152 Medications Medications Current Medications Acetaminophen (Tylenol Tab) 650 mg Q6H PRN PO PAIN AND OR ELEVATED TEMP Last administered on 12/08/16 09:35; Admin Dose 650 MG; Start 11/30/16 at 19:30 Aspirin (Aspirin) 81 mg DAILY PO Last administered on 12/10/16 08:29; Admin Dose 81 MG; Start 12/01/16 at 09:00 Atorvastatin Calcium (Lipitor) 40 mg HS PO Last administered on 12/10/16 20:35 ; Admin Dose 40 MG; Start 11/30/16 at 21:00 Cholecalciferol (Vitamin D) 1,000 unit DAILY PO Last administered on 12/10/16 08:29; Admin Dose 1,000 UNIT; Start 12/01/16 at 09:00 Clonidine HCl (Catapres-Tts 1 Patch) 1 patch Q7D TRANSDERM Last administered on 12/06/16 08:55; Admin Dose 1 PATCH; Start 12/06/16 at 09:00 Clopidogrel Bisulfate (plaVIX) 75 mg DAILY PO Last administered on 12/10/16 08 :30; Admin Dose 75 MG; Start 12/01/16 at 09:00 Enoxaparin Sodium (Lovenox) 30 mg DAILY SC Last administered on 12/10/16 08:30 ; Admin Dose 30 MG; Start 12/01/16 at 09:00 Hydralazine HCl (Apresoline) 25 mg Q8 PO Last administered on 12/11/16 05:59; Admin Dose 25 MG; Start 11/30/16 at 22:00 Metoprolol Tartrate (Lopressor) 25 mg BID PO Last administered on 12/10/16 20: 36; Admin Dose 25 MG; Start 11/30/16 at 21:00 Pantoprazole (Protonix Tab) 40 mg DAILY@06 PO Last administered on 12/11/16 05 :57; Admin Dose 40 MG; Start 12/01/16 at 06:00 Miscellaneous Information 1 ea NOTE XX ; Start 11/30/16 at 20:00 Glucose (Glutose) 15 gm Q15M PRN PO DECREASED GLUCOSE; Start 11/30/16 at 20:00 Glucose (Glutose) 22.5 gm Q15M PRN PO DECREASED GLUCOSE; Start 11/30/16 at 20: 00 Dextrose (D50w Syringe) 25 ml Q15M PRN IV DECREASED GLUCOSE; Start 11/30/16 at 20:00 Dextrose (D50w Syringe) 50 ml Q15M PRN IV DECREASED GLUCOSE; Start 11/30/16 at 20:00 Glucagon (Glucagen) 1 mg Q15M PRN IM DECREASED GLUCOSE; Start 11/30/16 at 20:00 Glucose (Glutose) 15 gm Q15M PRN BUCCAL DECREASED GLUCOSE; Start 11/30/16 at 20 :00 Docusate Sodium (Colace) 100 mg BID PO Last administered on 12/10/16 20:35; Admin Dose 100 MG; Start 12/04/16 at 09:00 Senna (Senokot) 1 tab QHS PO Last administered on 12/10/16 20:35; Admin Dose 1 TAB; Start 12/04/16 at 21:00 Magnesium Hydroxide (Milk Of Mag) 30 ml BID PRN PO CONSTIPATION; Start at 06:30 Lactulose (Enulose) 20 gm DAILY PRN PO CONSTIPATION Last administered on 08:34; Admin Dose 20 GM; Start 12/04/16 at 06:30 Bisacodyl (Dulcolax Supp) 10 mg DAILY PRN [place] CONSTIPATION; Start 12/04/16 at 06 :30 Amlodipine Besylate (Norvasc) 5 mg BID PO Last administered on 12/10/16 20:36 ; Admin Dose 5 MG; Start 12/07/16 at 21:00 Insulin Glargine (Lantus) 16 unit DAILY@20 SC Last administered on 12/10/16 20 :40; Admin Dose 16 UNIT; Start 12/10/16 at 20:00 JO GIANG MD Dec 11, 2016 08:26
[2016-12-11] MEDS: ENOXAPARIN 30 MG/0.3 ML SYG SC SCH (08:35)
[2016-12-11] MEDS: INSULIN ASPART [NOVOLOG] 3 ML PEN SC SCH ×4 (08:35→20:34)
[2016-12-11] MEDS: ASPIRIN 81 MG TAB PO SCH (08:36)
[2016-12-11] MEDS: AMLODIPINE 5 MG TAB PO SCH ×2 (08:36→20:21)
[2016-12-11] MEDS: CHOLECALCIFEROL 1,000 UNIT TAB PO SCH (08:36)
[2016-12-11] MEDS: CLOPIDOGREL 75 MG TAB PO SCH (08:36)
[2016-12-11] MEDS: DOCUSATE SODIUM 100 MG CAP PO SCH ×2 (08:36→20:20)
[2016-12-11] MEDS: METOPROLOL 25 MG TAB PO SCH ×2 (08:37→20:22)
[2016-12-11] MEDS: ACETAMINOPHEN 325 MG TAB PO PRN (08:44)
--- NOTE | 2016-12-11 12:15 | CONS ---
Date/Time of Note Date/Time of Note DATE: 12/11/16 TIME: 12:13 Consult Date/Type/Reason Admit Date/Time Nov 30, 2016 at 17:09 Initial Consult Date 12/01/16 Type of Consultation: Cardiology Ordering Provider: JANETTE SEQUEIRA Objective Vital Signs Date Time Temp Pulse Resp B/P Pulse Ox O2 Delivery O2 Flow Rate FiO2 12/11/16 07:30 97.9 59 18 137/61 95 Intake and Output 12/10/16 12/10/16 12/11/16 15:00 23:00 07:00 Intake Total 680 ml 140 ml Output Total 800 ml 450 ml Balance -120 ml -310 ml INTERDISCIPLINARY TEAM CONFERENCE BOWEL- incont BLADDER-sprague SKIN- intact OT- DRESSING-max BATHING-max TOILETING-max PT- BED MOBILITY-max TRANSFERS-max AMBULATION-UA W.C. MOBILITY-max SPEECH- COGNITION-min DYPHAGIA-mech soft A/P- Interdisciplinary team conference held today. Please see interdisciplinary sheet. Working toward [email or web address] on 12/14 with post discharge follow up of physical therapy, occupational therapy. Results/Medications Results 24 hrs Laboratory Tests Test 12/10/16 17:31 12/10/16 20:32 12/11/16 02:02 12/11/16 07:49 Bedside Glucose 121 238 H 158 152 Medications Current Medications Acetaminophen (Tylenol Tab) 650 mg Q6H PRN PO PAIN AND OR ELEVATED TEMP Last administered on 12/11/16 08:44; Admin Dose 650 MG; Start 11/30/16 at 19:30 Aspirin (Aspirin) 81 mg DAILY PO Last administered on 12/11/16 08:36; Admin Dose 81 MG; Start 12/01/16 at 09:00 Atorvastatin Calcium (Lipitor) 40 mg HS PO Last administered on 12/10/16 20:35 ; Admin Dose 40 MG; Start 11/30/16 at 21:00 Cholecalciferol (Vitamin D) 1,000 unit DAILY PO Last administered on 12/11/16 08:36; Admin Dose 1,000 UNIT; Start 12/01/16 at 09:00 Clonidine HCl (Catapres-Tts 1 Patch) 1 patch Q7D TRANSDERM Last administered on 12/06/16 08:55; Admin Dose 1 PATCH; Start 12/06/16 at 09:00 Clopidogrel Bisulfate (plaVIX) 75 mg DAILY PO Last administered on 12/11/16 08 :36; Admin Dose 75 MG; Start 12/01/16 at 09:00 Enoxaparin Sodium (Lovenox) 30 mg DAILY SC Last administered on 12/11/16 08:35 ; Admin Dose 30 MG; Start 12/01/16 at 09:00 Hydralazine HCl (Apresoline) 25 mg Q8 PO Last administered on 12/11/16 05:59; Admin Dose 25 MG; Start 11/30/16 at 22:00 Metoprolol Tartrate (Lopressor) 25 mg BID PO Last administered on 12/11/16 08: 37; Admin Dose 25 MG; Start 11/30/16 at 21:00 Pantoprazole (Protonix Tab) 40 mg DAILY@06 PO Last administered on 12/11/16 05 :57; Admin Dose 40 MG; Start 12/01/16 at 06:00 Miscellaneous Information 1 ea NOTE XX ; Start 11/30/16 at 20:00 Glucose (Glutose) 15 gm Q15M PRN PO DECREASED GLUCOSE; Start 11/30/16 at 20:00 Glucose (Glutose) 22.5 gm Q15M PRN PO DECREASED GLUCOSE; Start 11/30/16 at 20: 00 Dextrose (D50w Syringe) 25 ml Q15M PRN IV DECREASED GLUCOSE; Start 11/30/16 at 20:00 Dextrose (D50w Syringe) 50 ml Q15M PRN IV DECREASED GLUCOSE; Start 11/30/16 at 20:00 Glucagon (Glucagen) 1 mg Q15M PRN IM DECREASED GLUCOSE; Start 11/30/16 at 20:00 Glucose (Glutose) 15 gm Q15M PRN BUCCAL DECREASED GLUCOSE; Start 11/30/16 at 20 :00 Docusate Sodium (Colace) 100 mg BID PO Last administered on 12/11/16 08:36; Admin Dose 100 MG; Start 12/04/16 at 09:00 Senna (Senokot) 1 tab QHS PO Last administered on 12/10/16 20:35; Admin Dose 1 TAB; Start 12/04/16 at 21:00 Magnesium Hydroxide (Milk Of Mag) 30 ml BID PRN PO CONSTIPATION; Start at 06:30 Lactulose (Enulose) 20 gm DAILY PRN PO CONSTIPATION Last administered on 08:34; Admin Dose 20 GM; Start 12/04/16 at 06:30 Bisacodyl (Dulcolax Supp) 10 mg DAILY PRN [place] CONSTIPATION; Start 12/04/16 at 06 :30 Amlodipine Besylate (Norvasc) 5 mg BID PO Last administered on 12/11/16 08:36 ; Admin Dose 5 MG; Start 12/07/16 at 21:00 Insulin Glargine (Lantus) 16 unit DAILY@20 SC Last administered on 12/10/16 20 :40; Admin Dose 16 UNIT; Start 12/10/16 at 20:00 BRITT ROSS MD Dec 11, 2016 12:15
[2016-12-11 20:00] VITALS: BP 131/60; RESP 18
[2016-12-11] MEDS: SENNA TAB PO SCH (20:20)
[2016-12-11] MEDS: ATORVASTATIN 40 MG TAB PO SCH (20:21)
[2016-12-11] MEDS: INSULIN GLARGINE [LANtus] 3 ML PEN SC SCH (20:42)
[2016-12-12 06:13] VITALS: BP 153/90; PULSE 61
[2016-12-12] MEDS: PANTOPRAZOLE (EC) 40 MG TAB PO SCH (06:14)
[2016-12-12] MEDS: INSULIN ASPART [NOVOLOG] 3 ML PEN SC SCH ×4 (07:35→20:42)
[2016-12-12 07:37] VITALS: BP 163/69; RESP 18
[2016-12-12] MEDS: ASPIRIN 81 MG TAB PO SCH (08:49)
[2016-12-12] MEDS: METOPROLOL 25 MG TAB PO SCH ×2 (08:50→20:44)
[2016-12-12] MEDS: CLOPIDOGREL 75 MG TAB PO SCH (08:50)
[2016-12-12] MEDS: AMLODIPINE 5 MG TAB PO SCH ×2 (08:50→20:40)
[2016-12-12] MEDS: CHOLECALCIFEROL 1,000 UNIT TAB PO SCH (08:50)
[2016-12-12] MEDS: DOCUSATE SODIUM 100 MG CAP PO SCH ×2 (08:51→20:38)
[2016-12-12] MEDS: ENOXAPARIN 30 MG/0.3 ML SYG SC SCH (08:53)
--- NOTE | 2016-12-12 11:24 | CONS ---
Date/Time of Note Date/Time of Note DATE: 12/12/16 TIME: 11:24 Consult Date/Type/Reason Admit Date/Time Nov 30, 2016 at 17:09 Initial Consult Date 12/01/16 Type of Consultation: Cardiology Ordering Provider: JANETTE SEQUEIRA Subjective comfortable Objective pulm-cta max assist transfer Vital Signs Date Time Temp Pulse Resp B/P Pulse Ox O2 Delivery O2 Flow Rate FiO2 12/12/16 07:37 98.2 60 18 163/69 95 Intake and Output 12/11/16 12/11/16 12/12/16 15:00 23:00 07:00 Intake Total 220 ml Output Total 200 ml Balance 20 ml Results/Medications Results 24 hrs Laboratory Tests Test 12/11/16 12:15 12/11/16 17:04 12/11/16 20:26 12/12/16 02:09 Bedside Glucose 217 175 264 H 98 Test 12/12/16 07:41 Bedside Glucose 100 Medications Current Medications Acetaminophen (Tylenol Tab) 650 mg Q6H PRN PO PAIN AND OR ELEVATED TEMP Last administered on 12/11/16 08:44; Admin Dose 650 MG; Start 11/30/16 at 19:30 Aspirin (Aspirin) 81 mg DAILY PO Last administered on 12/12/16 08:49; Admin Dose 81 MG; Start 12/01/16 at 09:00 Atorvastatin Calcium (Lipitor) 40 mg HS PO Last administered on 12/11/16 20:21 ; Admin Dose 40 MG; Start 11/30/16 at 21:00 Cholecalciferol (Vitamin D) 1,000 unit DAILY PO Last administered on 12/12/16 08:50; Admin Dose 1,000 UNIT; Start 12/01/16 at 09:00 Clonidine HCl (Catapres-Tts 1 Patch) 1 patch Q7D TRANSDERM Last administered on 12/06/16 08:55; Admin Dose 1 PATCH; Start 12/06/16 at 09:00 Clopidogrel Bisulfate (plaVIX) 75 mg DAILY PO Last administered on 12/12/16 08 :50; Admin Dose 75 MG; Start 12/01/16 at 09:00 Enoxaparin Sodium (Lovenox) 30 mg DAILY SC Last administered on 12/12/16 08:53 ; Admin Dose 30 MG; Start 12/01/16 at 09:00 Hydralazine HCl (Apresoline) 25 mg Q8 PO Last administered on 12/12/16 06:14; Admin Dose 25 MG; Start 11/30/16 at 22:00 Metoprolol Tartrate (Lopressor) 25 mg BID PO Last administered on 12/12/16 08: 50; Admin Dose 25 MG; Start 11/30/16 at 21:00 Pantoprazole (Protonix Tab) 40 mg DAILY@06 PO Last administered on 12/12/16 06 :14; Admin Dose 40 MG; Start 12/01/16 at 06:00 Miscellaneous Information 1 ea NOTE XX ; Start 11/30/16 at 20:00 Glucose (Glutose) 15 gm Q15M PRN PO DECREASED GLUCOSE; Start 11/30/16 at 20:00 Glucose (Glutose) 22.5 gm Q15M PRN PO DECREASED GLUCOSE; Start 11/30/16 at 20: 00 Dextrose (D50w Syringe) 25 ml Q15M PRN IV DECREASED GLUCOSE; Start 11/30/16 at 20:00 Dextrose (D50w Syringe) 50 ml Q15M PRN IV DECREASED GLUCOSE; Start 11/30/16 at 20:00 Glucagon (Glucagen) 1 mg Q15M PRN IM DECREASED GLUCOSE; Start 11/30/16 at 20:00 Glucose (Glutose) 15 gm Q15M PRN BUCCAL DECREASED GLUCOSE; Start 11/30/16 at 20 :00 Docusate Sodium (Colace) 100 mg BID PO Last administered on 12/12/16 08:51; Admin Dose 100 MG; Start 12/04/16 at 09:00 Senna (Senokot) 1 tab QHS PO Last administered on 12/11/16 20:20; Admin Dose 1 TAB; Start 12/04/16 at 21:00 Magnesium Hydroxide (Milk Of Mag) 30 ml BID PRN PO CONSTIPATION; Start at 06:30 Lactulose (Enulose) 20 gm DAILY PRN PO CONSTIPATION Last administered on 08:34; Admin Dose 20 GM; Start 12/04/16 at 06:30 Bisacodyl (Dulcolax Supp) 10 mg DAILY PRN [place] CONSTIPATION; Start 12/04/16 at 06 :30 Amlodipine Besylate (Norvasc) 5 mg BID PO Last administered on 12/12/16 08:50 ; Admin Dose 5 MG; Start 12/07/16 at 21:00 Insulin Glargine (Lantus) 16 unit DAILY@20 SC Last administered on 12/11/16 20 :42; Admin Dose 16 UNIT; Start 12/10/16 at 20:00 Assessment/Plan Additional Assessment/Plan Rehab- Acute infarcts involving Right FELIPA/ MCA territory and left FELIPA territory with R ICA occlusion, left ICA stenosis, left hemiplegia, left hemineglect,cognition and Continue rehab theapies dysphagia-speech therapy Hypertension- continue current care Diabetes mellitus type 2. Chronic kidney disease. Monitor renal function. Anemia. Continue to monitor hemoglobin/hematocrit. Dyslipidemia. Continue statin. Functional impact of comorbidities: patient with impaired cognition, continue speech therapy to improve overall cognition and communication BRITT ROSS MD Dec 12, 2016 11:24
--- NOTE | 2016-12-12 12:31 | CONS ---
Date/Time of Note Date/Time of Note DATE: 12/12/16 TIME: 12:29 Assessment/Plan Assessment/Plan Additional Assessment/Plan Assessment and plan: 1. Patient admitted with severe left hemiplegia currently undergoing rehab. 3. History of hypertension and diabetes. Continue current treatment. Consultation Date/Type/Reason Admit Date/Time Nov 30, 2016 at 17:09 Initial Consult Date 12/01/16 Type of Consultation: Internal medicine Referring Provider: JANETTE SEQUEIRA 24 HR Interval Summary Free Text/Dictation Patient condition stable. Denies any shortness of breath, dysphagia. Still complains of severe left-sided paralysis. General exam; elderly woman, awake alert currently in no distress. Exam/Review of Systems Vital Signs Vitals Vital Signs Date Time Temp Pulse Resp B/P Pulse Ox O2 Delivery O2 Flow Rate FiO2 12/12/16 07:37 98.2 60 18 163/69 95 Intake and Output 12/11/16 12/11/16 12/12/16 15:00 23:00 07:00 Intake Total 220 ml Output Total 200 ml Balance 20 ml Exam HEENT exam; supple neck, no JVD no lymphadenopathy midline trachea no thyromegaly pharynx is clear. Patient has fair dentition. Has bilateral intraocular lens implants. Chest examined; clear to ulceration. S1-S2 audible, no murmurs. Regular rhythm. Abdomen examination; soft, no organomegaly. Nontender. Bowel sounds audible. Extremity exam; no peripheral edema. Pulses 2+ bilaterally. [employer] exam ; patient has stable left hemiplegia. Results Results 24 hrs Laboratory Tests Test 12/11/16 17:04 12/11/16 20:26 12/12/16 02:09 12/12/16 07:41 Bedside Glucose 175 264 H 98 100 Medications Medications Current Medications Acetaminophen (Tylenol Tab) 650 mg Q6H PRN PO PAIN AND OR ELEVATED TEMP Last administered on 12/11/16 08:44; Admin Dose 650 MG; Start 11/30/16 at 19:30 Aspirin (Aspirin) 81 mg DAILY PO Last administered on 12/12/16 08:49; Admin Dose 81 MG; Start 12/01/16 at 09:00 Atorvastatin Calcium (Lipitor) 40 mg HS PO Last administered on 12/11/16 20:21 ; Admin Dose 40 MG; Start 11/30/16 at 21:00 Cholecalciferol (Vitamin D) 1,000 unit DAILY PO Last administered on 12/12/16 08:50; Admin Dose 1,000 UNIT; Start 12/01/16 at 09:00 Clonidine HCl (Catapres-Tts 1 Patch) 1 patch Q7D TRANSDERM Last administered on 12/06/16 08:55; Admin Dose 1 PATCH; Start 12/06/16 at 09:00 Clopidogrel Bisulfate (plaVIX) 75 mg DAILY PO Last administered on 12/12/16 08 :50; Admin Dose 75 MG; Start 12/01/16 at 09:00 Enoxaparin Sodium (Lovenox) 30 mg DAILY SC Last administered on 12/12/16 08:53 ; Admin Dose 30 MG; Start 12/01/16 at 09:00 Hydralazine HCl (Apresoline) 25 mg Q8 PO Last administered on 12/12/16 06:14; Admin Dose 25 MG; Start 11/30/16 at 22:00 Metoprolol Tartrate (Lopressor) 25 mg BID PO Last administered on 12/12/16 08: 50; Admin Dose 25 MG; Start 11/30/16 at 21:00 Pantoprazole (Protonix Tab) 40 mg DAILY@06 PO Last administered on 12/12/16 06 :14; Admin Dose 40 MG; Start 12/01/16 at 06:00 Miscellaneous Information 1 ea NOTE XX ; Start 11/30/16 at 20:00 Glucose (Glutose) 15 gm Q15M PRN PO DECREASED GLUCOSE; Start 11/30/16 at 20:00 Glucose (Glutose) 22.5 gm Q15M PRN PO DECREASED GLUCOSE; Start 11/30/16 at 20: 00 Dextrose (D50w Syringe) 25 ml Q15M PRN IV DECREASED GLUCOSE; Start 11/30/16 at 20:00 Dextrose (D50w Syringe) 50 ml Q15M PRN IV DECREASED GLUCOSE; Start 11/30/16 at 20:00 Glucagon (Glucagen) 1 mg Q15M PRN IM DECREASED GLUCOSE; Start 11/30/16 at 20:00 Glucose (Glutose) 15 gm Q15M PRN BUCCAL DECREASED GLUCOSE; Start 11/30/16 at 20 :00 Docusate Sodium (Colace) 100 mg BID PO Last administered on 12/12/16 08:51; Admin Dose 100 MG; Start 12/04/16 at 09:00 Senna (Senokot) 1 tab QHS PO Last administered on 12/11/16 20:20; Admin Dose 1 TAB; Start 12/04/16 at 21:00 Magnesium Hydroxide (Milk Of Mag) 30 ml BID PRN PO CONSTIPATION; Start at 06:30 Lactulose (Enulose) 20 gm DAILY PRN PO CONSTIPATION Last administered on 08:34; Admin Dose 20 GM; Start 12/04/16 at 06:30 Bisacodyl (Dulcolax Supp) 10 mg DAILY PRN [place] CONSTIPATION; Start 12/04/16 at 06 :30 Amlodipine Besylate (Norvasc) 5 mg BID PO Last administered on 12/12/16 08:50 ; Admin Dose 5 MG; Start 12/07/16 at 21:00 Insulin Glargine (Lantus) 16 unit DAILY@20 SC Last administered on 12/11/16 20 :42; Admin Dose 16 UNIT; Start 12/10/16 at 20:00 TIBURCIO SHAH Dec 12, 2016 12:31
--- NOTE | 2016-12-12 15:27 | CONS ---
Date/Time of Note Date/Time of Note DATE: 12/12/16 TIME: 15:24 Assessment/Plan Assessment/Plan Chief Complaint/Hosp Course IMPRESSION: 1. Abnormal electrocardiogram, assess for acute coronary syndrome in the setting of acute cerebrovascular accident. 2. Acute cerebrovascular accident, possible embolic origin, assess for cardiac embolic source.-probable from carotid stenosis 3. Hypertension, reasonable-labile 4. Dyslipidemia. 5. Diabetes mellitus. 6. Renal failure. 7. Positive troponin-minimal in the setting of renal failure and acute CVA. Downtrended Recc: -Continue asa/plavix/statin -Follow MS closely -Continue clonidine TTS/BB/Norvasc -Increase dose of hydralazine to improve BP control -PT/OT as possible Problems: Consultation Date/Type/Reason Admit Date/Time Nov 30, 2016 at 17:09 Initial Consult Date 12/01/16 Type of Consultation: cardiology Reason for Consultation HTN Referring Provider: JANETTE SEQUEIRA Exam/Review of Systems Vital Signs Vitals Vital Signs Date Time Temp Pulse Resp B/P Pulse Ox O2 Delivery O2 Flow Rate FiO2 12/12/16 07:37 98.2 60 18 163/69 95 Intake and Output 12/11/16 12/11/16 12/12/16 15:00 23:00 07:00 Intake Total 220 ml Output Total 200 ml Balance 20 ml Exam Review of Systems: CONSTITUTIONAL: No fevers, chills. PULMONARY: No sob CARDIOVASCULAR: No chest pain/palpitations GASTROINTESTINAL: No nausea/vomiting. GENITOURINARY: No hematuria/dysuria. MUSCULOSKELETAL: No myagias/arthalgias. PSYCHIATRIC: The patient denies depression. NEUROLOGIC: lethargic Constitutional: other (sleeping) Psych: no complaints Head: normocephalic ENMT: mucosa pink and moist Neck: jvd (8 cm water), supple Respiratory: diminished breath sounds (at bases/B) Cardiovascular: regular rate and rhythm Gastrointestinal: non-tender, soft Extremities: edema (none) Neurological: lethargic Results Results 24 hrs Laboratory Tests Test 12/11/16 17:04 12/11/16 20:26 12/12/16 02:09 12/12/16 07:41 Bedside Glucose 175 264 H 98 100 Test 12/12/16 12:30 Bedside Glucose 191 Medications Medications Current Medications Acetaminophen (Tylenol Tab) 650 mg Q6H PRN PO PAIN AND OR ELEVATED TEMP Last administered on 12/11/16 08:44; Admin Dose 650 MG; Start 11/30/16 at 19:30 Aspirin (Aspirin) 81 mg DAILY PO Last administered on 12/12/16 08:49; Admin Dose 81 MG; Start 12/01/16 at 09:00 Atorvastatin Calcium (Lipitor) 40 mg HS PO Last administered on 12/11/16 20:21 ; Admin Dose 40 MG; Start 11/30/16 at 21:00 Cholecalciferol (Vitamin D) 1,000 unit DAILY PO Last administered on 12/12/16 08:50; Admin Dose 1,000 UNIT; Start 12/01/16 at 09:00 Clonidine HCl (Catapres-Tts 1 Patch) 1 patch Q7D TRANSDERM Last administered on 12/06/16 08:55; Admin Dose 1 PATCH; Start 12/06/16 at 09:00 Clopidogrel Bisulfate (plaVIX) 75 mg DAILY PO Last administered on 12/12/16 08 :50; Admin Dose 75 MG; Start 12/01/16 at 09:00 Enoxaparin Sodium (Lovenox) 30 mg DAILY SC Last administered on 12/12/16 08:53 ; Admin Dose 30 MG; Start 12/01/16 at 09:00 Hydralazine HCl (Apresoline) 25 mg Q8 PO Last administered on 12/12/16 14:01; Admin Dose 25 MG; Start 11/30/16 at 22:00 Metoprolol Tartrate (Lopressor) 25 mg BID PO Last administered on 12/12/16 08: 50; Admin Dose 25 MG; Start 11/30/16 at 21:00 Pantoprazole (Protonix Tab) 40 mg DAILY@06 PO Last administered on 12/12/16 06 :14; Admin Dose 40 MG; Start 12/01/16 at 06:00 Miscellaneous Information 1 ea NOTE XX ; Start 11/30/16 at 20:00 Glucose (Glutose) 15 gm Q15M PRN PO DECREASED GLUCOSE; Start 11/30/16 at 20:00 Glucose (Glutose) 22.5 gm Q15M PRN PO DECREASED GLUCOSE; Start 11/30/16 at 20: 00 Dextrose (D50w Syringe) 25 ml Q15M PRN IV DECREASED GLUCOSE; Start 11/30/16 at 20:00 Dextrose (D50w Syringe) 50 ml Q15M PRN IV DECREASED GLUCOSE; Start 11/30/16 at 20:00 Glucagon (Glucagen) 1 mg Q15M PRN IM DECREASED GLUCOSE; Start 11/30/16 at 20:00 Glucose (Glutose) 15 gm Q15M PRN BUCCAL DECREASED GLUCOSE; Start 11/30/16 at 20 :00 Docusate Sodium (Colace) 100 mg BID PO Last administered on 12/12/16 08:51; Admin Dose 100 MG; Start 12/04/16 at 09:00 Senna (Senokot) 1 tab QHS PO Last administered on 12/11/16 20:20; Admin Dose 1 TAB; Start 12/04/16 at 21:00 Magnesium Hydroxide (Milk Of Mag) 30 ml BID PRN PO CONSTIPATION; Start at 06:30 Lactulose (Enulose) 20 gm DAILY PRN PO CONSTIPATION Last administered on 08:34; Admin Dose 20 GM; Start 12/04/16 at 06:30 Bisacodyl (Dulcolax Supp) 10 mg DAILY PRN [place] CONSTIPATION; Start 12/04/16 at 06 :30 Amlodipine Besylate (Norvasc) 5 mg BID PO Last administered on 12/12/16 08:50 ; Admin Dose 5 MG; Start 12/07/16 at 21:00 Insulin Glargine (Lantus) 12 unit DAILY@20 SC ; Start 12/12/16 at 20:00 ANSHU MATAMOROS Dec 12, 2016 15:27
[2016-12-12 20:00] VITALS: BP 153/70; RESP 18
[2016-12-12] MEDS: SENNA TAB PO SCH (20:38)
[2016-12-12] MEDS: ATORVASTATIN 40 MG TAB PO SCH (20:38)
[2016-12-12] MEDS: INSULIN GLARGINE [LANtus] 3 ML PEN SC SCH (20:43)
[2016-12-12 21:58] VITALS: BP 168/68; PULSE 57; RESP 18
[2016-12-12 22:30] VITALS: BP 150/65; PULSE 59
[2016-12-13] MEDS: PANTOPRAZOLE (EC) 40 MG TAB PO SCH (05:56)
[2016-12-13 05:58] VITALS: BP 169/65; PULSE 61
[2016-12-13 07:42] VITALS: BP 143/66; RESP 18
[2016-12-13] MEDS: CHOLECALCIFEROL 1,000 UNIT TAB PO SCH (08:45)
[2016-12-13] MEDS: AMLODIPINE 5 MG TAB PO SCH ×2 (08:45→20:36)
[2016-12-13] MEDS: METOPROLOL 25 MG TAB PO SCH ×2 (08:45→20:36)
[2016-12-13] MEDS: ASPIRIN 81 MG TAB PO SCH (08:45)
[2016-12-13] MEDS: DOCUSATE SODIUM 100 MG CAP PO SCH ×2 (08:45→20:34)
[2016-12-13] MEDS: CLOPIDOGREL 75 MG TAB PO SCH (08:45)
[2016-12-13] MEDS: ENOXAPARIN 30 MG/0.3 ML SYG SC SCH (08:47)
[2016-12-13] MEDS: CLONIDINE 0.1 MG/24 HR PATCH TRANSDERM SCH (08:48)
[2016-12-13] MEDS: INSULIN ASPART [NOVOLOG] 3 ML PEN SC SCH ×4 (08:48→20:39)
--- NOTE | 2016-12-13 12:11 | CONS ---
Date/Time of Note Date/Time of Note DATE: 12/13/16 TIME: 12:09 Assessment/Plan Assessment/Plan Additional Assessment/Plan Assessment and plan; 1. Patient admitted for rehab due to left hemiplegia. 2. History of hypertension diabetes. Continue current treatment. Consultation Date/Type/Reason Admit Date/Time Nov 30, 2016 at 17:09 Initial Consult Date 12/01/16 Type of Consultation: Internal medicine Referring Provider: JANETTE SEQUEIRA 24 HR Interval Summary Free Text/Dictation Patient condition stable. However still has significant left hemiplegia. Patient denies any shortness breath, dysphagia. General examination; elderly woman, awake alert currently in no distress. Exam/Review of Systems Vital Signs Vitals Vital Signs Date Time Temp Pulse Resp B/P Pulse Ox O2 Delivery O2 Flow Rate FiO2 12/13/16 07:42 98.4 62 18 143/66 96 Intake and Output 12/12/16 12/12/16 12/13/16 15:00 23:00 07:00 Intake Total 720 ml 360 ml 100 ml Output Total 550 ml Balance 720 ml 360 ml -450 ml Exam HEENT exam; supple neck, no JVD. No lymphadenopathy. Midline trachea. No thyromegaly. Pharynx is clear. Patient has fair dentition. Has bilateral intraocular lens implants. Chest examined; clear to auscultation. S1-S2 audible, no murmurs. Regular rhythm. Abdomen examination; soft, nondistended. No organomegaly. Bowel sounds audible. Extremity exam is; no peripheral edema. COREMAKER PIPE examination; patient has stable left hemiplegia. Results Results 24 hrs Laboratory Tests Test 12/12/16 12:30 12/12/16 17:21 12/12/16 20:33 12/13/16 02:07 Bedside Glucose 191 184 215 146 Test 12/13/16 08:06 Bedside Glucose 156 Medications Medications Current Medications Acetaminophen (Tylenol Tab) 650 mg Q6H PRN PO PAIN AND OR ELEVATED TEMP Last administered on 12/11/16 08:44; Admin Dose 650 MG; Start 11/30/16 at 19:30 Aspirin (Aspirin) 81 mg DAILY PO Last administered on 12/13/16 08:45; Admin Dose 81 MG; Start 12/01/16 at 09:00 Atorvastatin Calcium (Lipitor) 40 mg HS PO Last administered on 12/12/16 20:38 ; Admin Dose 40 MG; Start 11/30/16 at 21:00 Cholecalciferol (Vitamin D) 1,000 unit DAILY PO Last administered on 12/13/16 08:45; Admin Dose 1,000 UNIT; Start 12/01/16 at 09:00 Clonidine HCl (Catapres-Tts 1 Patch) 1 patch Q7D TRANSDERM Last administered on 12/13/16 08:48; Admin Dose 1 PATCH; Start 12/06/16 at 09:00 Clopidogrel Bisulfate (plaVIX) 75 mg DAILY PO Last administered on 12/13/16 08 :45; Admin Dose 75 MG; Start 12/01/16 at 09:00 Enoxaparin Sodium (Lovenox) 30 mg DAILY SC Last administered on 12/13/16 08:47 ; Admin Dose 30 MG; Start 12/01/16 at 09:00 Metoprolol Tartrate (Lopressor) 25 mg BID PO Last administered on 12/13/16 08: 45; Admin Dose 25 MG; Start 11/30/16 at 21:00 Pantoprazole (Protonix Tab) 40 mg DAILY@06 PO Last administered on 12/13/16 05 :56; Admin Dose 40 MG; Start 12/01/16 at 06:00 Miscellaneous Information 1 ea NOTE XX ; Start 11/30/16 at 20:00 Glucose (Glutose) 15 gm Q15M PRN PO DECREASED GLUCOSE; Start 11/30/16 at 20:00 Glucose (Glutose) 22.5 gm Q15M PRN PO DECREASED GLUCOSE; Start 11/30/16 at 20: 00 Dextrose (D50w Syringe) 25 ml Q15M PRN IV DECREASED GLUCOSE; Start 11/30/16 at 20:00 Dextrose (D50w Syringe) 50 ml Q15M PRN IV DECREASED GLUCOSE; Start 11/30/16 at 20:00 Glucagon (Glucagen) 1 mg Q15M PRN IM DECREASED GLUCOSE; Start 11/30/16 at 20:00 Glucose (Glutose) 15 gm Q15M PRN BUCCAL DECREASED GLUCOSE; Start 11/30/16 at 20 :00 Docusate Sodium (Colace) 100 mg BID PO Last administered on 12/13/16 08:45; Admin Dose 100 MG; Start 12/04/16 at 09:00 Senna (Senokot) 1 tab QHS PO Last administered on 12/12/16 20:38; Admin Dose 1 TAB; Start 12/04/16 at 21:00 Magnesium Hydroxide (Milk Of Mag) 30 ml BID PRN PO CONSTIPATION; Start at 06:30 Lactulose (Enulose) 20 gm DAILY PRN PO CONSTIPATION Last administered on 08:34; Admin Dose 20 GM; Start 12/04/16 at 06:30 Bisacodyl (Dulcolax Supp) 10 mg DAILY PRN [place] CONSTIPATION; Start 12/04/16 at 06 :30 Amlodipine Besylate (Norvasc) 5 mg BID PO Last administered on 12/13/16 08:45 ; Admin Dose 5 MG; Start 12/07/16 at 21:00 Insulin Glargine (Lantus) 12 unit DAILY@20 SC Last administered on 12/12/16 20 :43; Admin Dose 12 UNIT; Start 12/12/16 at 20:00 Hydralazine HCl (Apresoline) 50 mg Q8 PO Last administered on 12/13/16 05:57; Admin Dose 50 MG; Start 12/12/16 at 22:00 TIBURCIO SHAH Dec 13, 2016 12:11
--- NOTE | 2016-12-13 12:44 | CONS ---
Date/Time of Note Date/Time of Note DATE: 12/13/16 TIME: 12:41 Consult Date/Type/Reason Admit Date/Time Nov 30, 2016 at 17:09 Initial Consult Date 12/01/16 Type of Consultation: Internal medicine Ordering Provider: JANETTE SEQUEIRA Subjective comfortable Objective pulm-cta max assist Vital Signs Date Time Temp Pulse Resp B/P Pulse Ox O2 Delivery O2 Flow Rate FiO2 12/13/16 07:42 98.4 62 18 143/66 96 Intake and Output 12/12/16 12/12/16 12/13/16 15:00 23:00 07:00 Intake Total 720 ml 360 ml 100 ml Output Total 550 ml Balance 720 ml 360 ml -450 ml Results/Medications Results 24 hrs Laboratory Tests Test 12/12/16 17:21 12/12/16 20:33 12/13/16 02:07 12/13/16 08:06 Bedside Glucose 184 215 146 156 Test 12/13/16 12:19 Bedside Glucose 200 Medications Current Medications Acetaminophen (Tylenol Tab) 650 mg Q6H PRN PO PAIN AND OR ELEVATED TEMP Last administered on 12/11/16 08:44; Admin Dose 650 MG; Start 11/30/16 at 19:30 Aspirin (Aspirin) 81 mg DAILY PO Last administered on 12/13/16 08:45; Admin Dose 81 MG; Start 12/01/16 at 09:00 Atorvastatin Calcium (Lipitor) 40 mg HS PO Last administered on 12/12/16 20:38 ; Admin Dose 40 MG; Start 11/30/16 at 21:00 Cholecalciferol (Vitamin D) 1,000 unit DAILY PO Last administered on 12/13/16 08:45; Admin Dose 1,000 UNIT; Start 12/01/16 at 09:00 Clonidine HCl (Catapres-Tts 1 Patch) 1 patch Q7D TRANSDERM Last administered on 12/13/16 08:48; Admin Dose 1 PATCH; Start 12/06/16 at 09:00 Clopidogrel Bisulfate (plaVIX) 75 mg DAILY PO Last administered on 12/13/16 08 :45; Admin Dose 75 MG; Start 12/01/16 at 09:00 Enoxaparin Sodium (Lovenox) 30 mg DAILY SC Last administered on 12/13/16 08:47 ; Admin Dose 30 MG; Start 12/01/16 at 09:00 Metoprolol Tartrate (Lopressor) 25 mg BID PO Last administered on 12/13/16 08: 45; Admin Dose 25 MG; Start 11/30/16 at 21:00 Pantoprazole (Protonix Tab) 40 mg DAILY@06 PO Last administered on 12/13/16 05 :56; Admin Dose 40 MG; Start 12/01/16 at 06:00 Miscellaneous Information 1 ea NOTE XX ; Start 11/30/16 at 20:00 Glucose (Glutose) 15 gm Q15M PRN PO DECREASED GLUCOSE; Start 11/30/16 at 20:00 Glucose (Glutose) 22.5 gm Q15M PRN PO DECREASED GLUCOSE; Start 11/30/16 at 20: 00 Dextrose (D50w Syringe) 25 ml Q15M PRN IV DECREASED GLUCOSE; Start 11/30/16 at 20:00 Dextrose (D50w Syringe) 50 ml Q15M PRN IV DECREASED GLUCOSE; Start 11/30/16 at 20:00 Glucagon (Glucagen) 1 mg Q15M PRN IM DECREASED GLUCOSE; Start 11/30/16 at 20:00 Glucose (Glutose) 15 gm Q15M PRN BUCCAL DECREASED GLUCOSE; Start 11/30/16 at 20 :00 Docusate Sodium (Colace) 100 mg BID PO Last administered on 12/13/16 08:45; Admin Dose 100 MG; Start 12/04/16 at 09:00 Senna (Senokot) 1 tab QHS PO Last administered on 12/12/16 20:38; Admin Dose 1 TAB; Start 12/04/16 at 21:00 Magnesium Hydroxide (Milk Of Mag) 30 ml BID PRN PO CONSTIPATION; Start at 06:30 Lactulose (Enulose) 20 gm DAILY PRN PO CONSTIPATION Last administered on 08:34; Admin Dose 20 GM; Start 12/04/16 at 06:30 Bisacodyl (Dulcolax Supp) 10 mg DAILY PRN [place] CONSTIPATION; Start 12/04/16 at 06 :30 Amlodipine Besylate (Norvasc) 5 mg BID PO Last administered on 12/13/16 08:45 ; Admin Dose 5 MG; Start 12/07/16 at 21:00 Insulin Glargine (Lantus) 12 unit DAILY@20 SC Last administered on 12/12/16 20 :43; Admin Dose 12 UNIT; Start 12/12/16 at 20:00 Hydralazine HCl (Apresoline) 50 mg Q8 PO Last administered on 12/13/16 05:57; Admin Dose 50 MG; Start 12/12/16 at 22:00 Assessment/Plan Additional Assessment/Plan Rehab- 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 Chronic kidney disease. Monitor renal function. Anemia. Continue to monitor hemoglobin/hematocrit. Dyslipidemia. Continue statin. Functional impact of comorbidites: dysphagia affecting po intake, will encourage po intake. BRITT ROSS MD Dec 13, 2016 12:44
--- NOTE | 2016-12-13 17:03 | CONS ---
Date/Time of Note Date/Time of Note DATE: 12/13/16 TIME: 17:00 Assessment/Plan Assessment/Plan Chief Complaint/Hosp Course IMPRESSION: 1. Abnormal electrocardiogram, assess for acute coronary syndrome in the setting of acute cerebrovascular accident. 2. Acute cerebrovascular accident, possible embolic origin, assess for cardiac embolic source.-probable from carotid stenosis 3. Hypertension, reasonable-labile 4. Dyslipidemia. 5. Diabetes mellitus. 6. Renal failure. 7. Positive troponin-minimal in the setting of renal failure and acute CVA. Downtrended Recc: -Continue asa/plavix/statin -Follow MS closely -Continue clonidine TTS/BB/Norvasc -Make further increase in hydralazine to improve BP control -PT/OT as possible Problems: Consultation Date/Type/Reason Admit Date/Time Nov 30, 2016 at 17:09 Initial Consult Date 12/01/16 Type of Consultation: cardiology Reason for Consultation abnl ecg/HTN Referring Provider: JANETTE SEQUEIRA Exam/Review of Systems Vital Signs Vitals Vital Signs Date Time Temp Pulse Resp B/P Pulse Ox O2 Delivery O2 Flow Rate FiO2 12/13/16 07:42 98.4 62 18 143/66 96 Intake and Output 12/12/16 12/12/16 12/13/16 15:00 23:00 07:00 Intake Total 720 ml 360 ml 100 ml Output Total 550 ml Balance 720 ml 360 ml -450 ml Exam Review of Systems: CONSTITUTIONAL: No fevers, chills. PULMONARY: No sob CARDIOVASCULAR: No chest pain/palpitations GASTROINTESTINAL: No nausea/vomiting. GENITOURINARY: No hematuria/dysuria. MUSCULOSKELETAL: No myagias/arthalgias. PSYCHIATRIC: The patient denies depression. NEUROLOGIC: encephalopthy Constitutional: other (confusion) Psych: no complaints Head: normocephalic ENMT: mucosa pink and moist Neck: jvd, supple Respiratory: diminished breath sounds Cardiovascular: regular rate and rhythm Gastrointestinal: non-tender, soft Musculoskeletal: muscle tone Extremities: edema (no) Neurological: other (no focAL OUTPUTS) Results Results 24 hrs Laboratory Tests Test 12/12/16 17:21 12/12/16 20:33 12/13/16 02:07 12/13/16 08:06 Bedside Glucose 184 215 146 156 Test 12/13/16 12:19 Bedside Glucose 200 Medications Medications Current Medications Acetaminophen (Tylenol Tab) 650 mg Q6H PRN PO PAIN AND OR ELEVATED TEMP Last administered on 12/11/16 08:44; Admin Dose 650 MG; Start 11/30/16 at 19:30 Aspirin (Aspirin) 81 mg DAILY PO Last administered on 12/13/16 08:45; Admin Dose 81 MG; Start 12/01/16 at 09:00 Atorvastatin Calcium (Lipitor) 40 mg HS PO Last administered on 12/12/16 20:38 ; Admin Dose 40 MG; Start 11/30/16 at 21:00 Cholecalciferol (Vitamin D) 1,000 unit DAILY PO Last administered on 12/13/16 08:45; Admin Dose 1,000 UNIT; Start 12/01/16 at 09:00 Clonidine HCl (Catapres-Tts 1 Patch) 1 patch Q7D TRANSDERM Last administered on 12/13/16 08:48; Admin Dose 1 PATCH; Start 12/06/16 at 09:00 Clopidogrel Bisulfate (plaVIX) 75 mg DAILY PO Last administered on 12/13/16 08 :45; Admin Dose 75 MG; Start 12/01/16 at 09:00 Enoxaparin Sodium (Lovenox) 30 mg DAILY SC Last administered on 12/13/16 08:47 ; Admin Dose 30 MG; Start 12/01/16 at 09:00 Metoprolol Tartrate (Lopressor) 25 mg BID PO Last administered on 12/13/16 08: 45; Admin Dose 25 MG; Start 11/30/16 at 21:00 Pantoprazole (Protonix Tab) 40 mg DAILY@06 PO Last administered on 12/13/16 05 :56; Admin Dose 40 MG; Start 12/01/16 at 06:00 Miscellaneous Information 1 ea NOTE XX ; Start 11/30/16 at 20:00 Glucose (Glutose) 15 gm Q15M PRN PO DECREASED GLUCOSE; Start 11/30/16 at 20:00 Glucose (Glutose) 22.5 gm Q15M PRN PO DECREASED GLUCOSE; Start 11/30/16 at 20: 00 Dextrose (D50w Syringe) 25 ml Q15M PRN IV DECREASED GLUCOSE; Start 11/30/16 at 20:00 Dextrose (D50w Syringe) 50 ml Q15M PRN IV DECREASED GLUCOSE; Start 11/30/16 at 20:00 Glucagon (Glucagen) 1 mg Q15M PRN IM DECREASED GLUCOSE; Start 11/30/16 at 20:00 Glucose (Glutose) 15 gm Q15M PRN BUCCAL DECREASED GLUCOSE; Start 11/30/16 at 20 :00 Docusate Sodium (Colace) 100 mg BID PO Last administered on 12/13/16 08:45; Admin Dose 100 MG; Start 12/04/16 at 09:00 Senna (Senokot) 1 tab QHS PO Last administered on 12/12/16 20:38; Admin Dose 1 TAB; Start 12/04/16 at 21:00 Magnesium Hydroxide (Milk Of Mag) 30 ml BID PRN PO CONSTIPATION; Start at 06:30 Lactulose (Enulose) 20 gm DAILY PRN PO CONSTIPATION Last administered on 08:34; Admin Dose 20 GM; Start 12/04/16 at 06:30 Bisacodyl (Dulcolax Supp) 10 mg DAILY PRN [place] CONSTIPATION; Start 12/04/16 at 06 :30 Amlodipine Besylate (Norvasc) 5 mg BID PO Last administered on 12/13/16 08:45 ; Admin Dose 5 MG; Start 12/07/16 at 21:00 Insulin Glargine (Lantus) 12 unit DAILY@20 SC Last administered on 12/12/16 20 :43; Admin Dose 12 UNIT; Start 12/12/16 at 20:00 Hydralazine HCl (Apresoline) 50 mg Q8 PO Last administered on 12/13/16 14:26; Admin Dose 50 MG; Start 12/12/16 at 22:00 ANSHU MATAMOROS Dec 13, 2016 17:03
[2016-12-13 20:00] VITALS: BP 136/62; RESP 18
[2016-12-13] MEDS: SENNA TAB PO SCH (20:34)
[2016-12-13] MEDS: ATORVASTATIN 40 MG TAB PO SCH (20:34)
[2016-12-13] MEDS: INSULIN GLARGINE [LANtus] 3 ML PEN SC SCH (20:40)
[2016-12-14] MEDS: PANTOPRAZOLE (EC) 40 MG TAB PO SCH (05:44)
[2016-12-14 05:50] VITALS: BP 174/80; PULSE 67
[2016-12-14 07:30] VITALS: BP 150/69; RESP 18
[2016-12-14] MEDS: DOCUSATE SODIUM 100 MG CAP PO SCH (08:21)
[2016-12-14] MEDS: CHOLECALCIFEROL 1,000 UNIT TAB PO SCH (08:21)
[2016-12-14] MEDS: METOPROLOL 25 MG TAB PO SCH (08:22)
[2016-12-14] MEDS: AMLODIPINE 5 MG TAB PO SCH (08:22)
[2016-12-14] MEDS: ASPIRIN 81 MG TAB PO SCH (08:22)
[2016-12-14] MEDS: CLOPIDOGREL 75 MG TAB PO SCH (08:22)
[2016-12-14] MEDS: INSULIN ASPART [NOVOLOG] 3 ML PEN SC SCH ×2 (08:23→12:31)
[2016-12-14] MEDS: ENOXAPARIN 30 MG/0.3 ML SYG SC SCH (08:24)
--- NOTE | 2016-12-14 10:21 | CONS ---
Date/Time of Note Date/Time of Note DATE: 12/14/16 TIME: 10:19 Assessment/Plan Assessment/Plan Additional Assessment/Plan Assessment and plan. 1. Patient admitted for rehab due to left hemiplegia. Repeat history of diabetes and hypertension. Patient is again getting mildly hyperglycemic, will increase Lantus insulin to 16 units daily. Continue current supportive care. Consultation Date/Type/Reason Admit Date/Time Nov 30, 2016 at 17:09 Initial Consult Date 12/01/16 Type of Consultation: Internal medicine Referring Provider: JANETTE SEQUEIRA 24 HR Interval Summary Free Text/Dictation Patient condition stable. Still has significant left hemiplegia. Patient denies any shortness of breath or dysphagia. Exam; elderly woman, awake alert currently in no distress. Exam/Review of Systems Vital Signs Vitals Vital Signs Date Time Temp Pulse Resp B/P Pulse Ox O2 Delivery O2 Flow Rate FiO2 12/14/16 07:30 98.0 68 18 150/69 98 Intake and Output 12/13/16 12/13/16 12/14/16 15:00 23:00 07:00 Intake Total 720 ml 360 ml 100 ml Output Total 100 ml Balance 720 ml 360 ml 0 ml Exam HEENT exam; supple neck, no JVD. No lymphadenopathy. Midline trachea. No thyromegaly. Pupils are small bilaterally. Patient has bilateral intraocular lens implants. Dentition is fair. Chest exam; clear to ulceration. S1-S2 audible, no murmurs. Regular rhythm. Abdomen exam; soft, no organomegaly. Nontender. Bowel sounds audible. Extremity exam; no peripheral edema. Pulses 2+ bilaterally. No clubbing. LIQUOR TESTER exam; patient stable left hemiplegia. Results Results 24 hrs Laboratory Tests Test 12/13/16 12:19 12/13/16 17:29 12/13/16 20:30 12/14/16 02:06 Bedside Glucose 200 208 290 H 235 H Test 12/14/16 07:58 Bedside Glucose 265 H Medications Medications Current Medications Acetaminophen (Tylenol Tab) 650 mg Q6H PRN PO PAIN AND OR ELEVATED TEMP Last administered on 12/11/16 08:44; Admin Dose 650 MG; Start 11/30/16 at 19:30 Aspirin (Aspirin) 81 mg DAILY PO Last administered on 12/14/16 08:22; Admin Dose 81 MG; Start 12/01/16 at 09:00 Atorvastatin Calcium (Lipitor) 40 mg HS PO Last administered on 12/13/16 20:34 ; Admin Dose 40 MG; Start 11/30/16 at 21:00 Cholecalciferol (Vitamin D) 1,000 unit DAILY PO Last administered on 12/14/16 08:21; Admin Dose 1,000 UNIT; Start 12/01/16 at 09:00 Clonidine HCl (Catapres-Tts 1 Patch) 1 patch Q7D TRANSDERM Last administered on 12/13/16 08:48; Admin Dose 1 PATCH; Start 12/06/16 at 09:00 Clopidogrel Bisulfate (plaVIX) 75 mg DAILY PO Last administered on 12/14/16 08 :22; Admin Dose 75 MG; Start 12/01/16 at 09:00 Enoxaparin Sodium (Lovenox) 30 mg DAILY SC Last administered on 12/14/16 08:24 ; Admin Dose 30 MG; Start 12/01/16 at 09:00 Metoprolol Tartrate (Lopressor) 25 mg BID PO Last administered on 12/14/16 08: 22; Admin Dose 25 MG; Start 11/30/16 at 21:00 Pantoprazole (Protonix Tab) 40 mg DAILY@06 PO Last administered on 12/14/16 05 :44; Admin Dose 40 MG; Start 12/01/16 at 06:00 Miscellaneous Information 1 ea NOTE XX ; Start 11/30/16 at 20:00 Glucose (Glutose) 15 gm Q15M PRN PO DECREASED GLUCOSE; Start 11/30/16 at 20:00 Glucose (Glutose) 22.5 gm Q15M PRN PO DECREASED GLUCOSE; Start 11/30/16 at 20: 00 Dextrose (D50w Syringe) 25 ml Q15M PRN IV DECREASED GLUCOSE; Start 11/30/16 at 20:00 Dextrose (D50w Syringe) 50 ml Q15M PRN IV DECREASED GLUCOSE; Start 11/30/16 at 20:00 Glucagon (Glucagen) 1 mg Q15M PRN IM DECREASED GLUCOSE; Start 11/30/16 at 20:00 Glucose (Glutose) 15 gm Q15M PRN BUCCAL DECREASED GLUCOSE; Start 11/30/16 at 20 :00 Docusate Sodium (Colace) 100 mg BID PO Last administered on 12/14/16 08:21; Admin Dose 100 MG; Start 12/04/16 at 09:00 Senna (Senokot) 1 tab QHS PO Last administered on 12/13/16 20:34; Admin Dose 1 TAB; Start 12/04/16 at 21:00 Magnesium Hydroxide (Milk Of Mag) 30 ml BID PRN PO CONSTIPATION; Start at 06:30 Lactulose (Enulose) 20 gm DAILY PRN PO CONSTIPATION Last administered on 08:34; Admin Dose 20 GM; Start 12/04/16 at 06:30 Bisacodyl (Dulcolax Supp) 10 mg DAILY PRN [place] CONSTIPATION; Start 12/04/16 at 06 :30 Amlodipine Besylate (Norvasc) 5 mg BID PO Last administered on 12/14/16 08:22 ; Admin Dose 5 MG; Start 12/07/16 at 21:00 Hydralazine HCl (Apresoline) 75 mg Q8 PO Last administered on 12/14/16 05:46; Admin Dose 75 MG; Start 12/13/16 at 22:00 TIBURCIO SHAH Dec 14, 2016 10:21
[2016-12-15] MEDS ORDERED: INSULIN GLARGINE [LANtus] 3 ML PEN SC SCH (08:00)
--- NOTE | 2016-12-18 09:32 | DS ---
Date/Time of Note Date/Time of Note DATE: 12/18/16 TIME: 09:28 Discharge Summary Admission/Discharge Info Admit Date/Time Nov 30, 2016 at 17:09 Discharge Date/Time Dec 14, 2016 at 12:55 Patient Condition: Fair Hospital Course Patient was admitted for comprehensive interdisciplinary rehab and made gradual functional gains during the course of the stay. Patient progressed from an initial dependent assist for self care and mobility, and progressed to the point of maximal for self care and mobility, with improved activity tolerance. Despite functional gains, patient still required continued therapy, and is now able to tolerate lower level of care. Patient is being discharged to correction facility per family request, with the recommendation of continued PT/OT/ speech therapy.DC medicines are per the medication reconciliation sheet. Home Meds Reported Medications Tobramycin-Dexamethasone (Tobramycin-Dexamethasone Ophth) 0.3%-0.1% - 5 Ml Drops.susp, 1 DROP BOTH EYES Q4, #1 EA 11/23/16 Sitagliptin* (Januvia*) 100 Mg Tablet, 100 MG PO DAILY, #30 TAB 11/23/16 Pregabalin* (Lyrica*) 50 Mg Capsule, 50 MG PO BID, CAP 11/23/16 Follow-up Plan Continued therapy at SNF. Primary Care Provider Not On Staff Doctor BRITT ROSS MD Dec 18, 2016 09:31
== END 2016-12-14 12:55 | DRG 57 ==
LOC: VRC 17:09
PROVIDERS: ADMIT Physical Medicine & Rehabilitation; ATTEND Internal Medicine Pulmonary Disease
DX: I69.354 Hemiplegia and hemiparesis following cerebral infarction affecting left non-dominant side (principal); E11.65 Type 2 diabetes mellitus with hyperglycemia; N19 Unspecified kidney failure; N39.0 Urinary tract infection, site not specified; R13.10 Dysphagia, unspecified; I12.9 Hypertensive chronic kidney disease with stage 1 through stage 4 chronic kidney disease, or unspecified chronic kidney disease; B95.2 Enterococcus as the cause of diseases classified elsewhere; N18.9 Chronic kidney disease, unspecified; D64.9 Anemia, unspecified; Z74.09 Other reduced mobility; Z79.02 Long term (current) use of antithrombotics/antiplatelets; Z79.4 Long term (current) use of insulin; E78.5 Hyperlipidemia, unspecified; I69.991 Dysphagia following unspecified cerebrovascular disease; I69.992 Facial weakness following unspecified cerebrovascular disease; F06.31 Mood disorder due to known physiological condition with depressive features; F01.50 Vascular dementia, unspecified severity, without behavioral disturbance, psychotic disturbance, mood disturbance, and anxiety
CPT/HCPCS: 80053; 81001; 82962; 85025; 87081; 87086; 92507; 92523; 92526; 92610; 97110; 97112; 97116; 97163; 97167; 97530; 97535; 97542; J1650; J1815; L1820; L2270; L2275; L2820